=== PATIENT | female | born 1930 | race Caucasian/White ===

== ENCOUNTER 2016-10-23 17:32 | Inpatient (IN) | payer MEDICARE, OTHER ==
[~2016-10-23] VITALS: Ht 144.8 cm; Wt 61.0 kg
[~2016-10-23 17:32] MED LIST: MULT-190 PO; PTU50 PO; SIMV40TA2 PO; [UNRECOGNIZED DRUG - OTHER]; vit b12
[2016-10-23] MEDS ORDERED: ASPIRIN 81 MG CHEW PO STA (18:19)
[2016-10-23 18:30] LABS: BASO % 0.2 %; BASO ABS # 0.01 K/uL (0-0.2); COMPLETE YES; EOS % 1.6 %; HEMATOCRIT 35.6 % (37-47); IG% 0.2 %; LYMPH % 30.5 %; MEAN CELL VOLUME 94.9 fL (80-100); MEAN CORPUSCULAR HEMOGLOBIN 31.2 pg (25-34); MEAN CORPUSCULAR HGB CONC 32.9 g/dl (32-36); MEAN PLATELET VOLUME 12.4 fL (7.4-10.4); MONO % 7.2 %; NEUT % 60.3 %; PLATELET COUNT 188 K/uL (130-400); RED BLOOD COUNT 3.75 M/uL (4.2-5.4); WHITE BLOOD COUNT 5.58 K/uL (4.8-10.8)
--- NOTE | 2016-10-23 18:39 | EMERGENCY ROOM VISIT NOTE ---
History Report prepared by Lisbeth: Marly Watson Under the Supervision of: Dr. Rogelio Peck D.O. First contact with patient: 17:47 Chief Complaint: CARDIAC ASSESSMENT Stated Complaint: CHEST PRESSURE/HEAVINESS, B/L EDEMA TO LEGS Nursing Triage Summary: Pt presents with pain across chest "for awhile, but constant for a week." Denies cardiac hx. Denies radiation of pain. History of Present Illness The patient is an 86 year old female who presents to the Emergency Room with complaints of persistent shortness of breath over the last several days. She currently rates her discomfort as a 7/10 in severity. The patient states that she over-exerted herself and developed persistent shortness of breath. She additionally reports previous chest pain that radiated into her back. The patient states that she last had this chest pain two weeks ago. She states that exertion worsens her symptoms. The patient reports 1 week of lower extremity swelling. She denies seeing her PCP regarding her symptoms, noting that she has an appointment scheduled tomorrow with her PCP. The patient denies any abdominal pain or vomiting. She denies any history of CHF, hypertension, diabetes, heart disease, or kidney disease. Source of History: patient Onset: last several days Position: other (global) Symptom Intensity: 7/10 Quality: other (shortness of breath) Timing: other (persistent) Associated Symptoms: + chest pain, No vomiting, No abdominal pain Note: Associated Symptoms: swelling to lower extremities Review of Systems See HPI for pertinent positives & negatives. A total of 10 systems reviewed and were otherwise negative. Past Medical & Surgical Medical Problems: (1) GERD (gastroesophageal reflux disease) (2) Hyperthyroidism (3) Vitamin D deficiency Surgical Problems: (1) H/O varicose vein stripping (2) History of tonsillectomy and adenoidectomy (3) S/P tonsillectomy Family History Diabetes mellitus Heart disease Hypertension Lung disease Social History Smoking Status: Never Smoker Smokeless Tobacco Use: No Alcohol Use: none Marital Status: Occupation Status: retired Current/Historical Medications Scheduled Cyanocobalamin (Vitamin B-12), 1,000 MCG PO DAILY Ergocalciferol (Vitamin D 17972 Unit), 50,000 UNIT PO WK Ocuvite Preservision (Ocuvite Preservision), 1 TAB PO DAILY Omeprazole (Prilosec), 40 MG PO DAILY Allergies Coded Allergies: Oxycodone (Verified Adverse Reaction, Unknown, vomiting, 10/23/16) Physical Exam Vital Signs Date Time Temp Pulse Resp B/P (MAP) Pulse Ox O2 Delivery O2 Flow Rate FiO2 10/23/16 19:13 98 Nasal Cannula 2.0 10/23/16 18:43 102 14 135/78 96 Room Air 10/23/16 18:41 101 16 78/70 95 Room Air 10/23/16 17:53 108 10/23/16 17:48 95 Room Air 10/23/16 17:36 36.9 109 20 137/77 97 Room Air Physical Exam GENERAL: Patient is awake, alert, and in no acute distress. Patient is resting comfortably and showing no signs of anxiety EYES: The conjunctivae are clear. The pupils are round and reactive. EARS, NOSE, MOUTH AND THROAT: The nose is without any evidence of any deformity. Mucous membranes are moist tongue is midline NECK: The neck is nontender and supple. RESPIRATORY: Diminished breath sounds at both bases, slight tachypnea noted, no conversational dyspnea. CARDIOVASCULAR: Tachycardic rate but regular rhythm. No definite murmur noted to auscultation. GASTROINTESTINAL: The abdomen is soft. Bowel sounds are present in all quadrants. Abdomen is nontender MUSCULOSKELETAL/EXTREMITIES: There is no evidence of gross deformity full range of motion is noted in the hips and shoulders SKIN: Pedal edema noted bilaterally. NEUROLOGIC: Patient is awake alert and oriented x3. Medical Decision & Procedures ER Provider Diagnostic Interpretation: X-ray results as stated below per interpretation by me and the radiologist. CHEST ONE VIEW PORTABLE CLINICAL HISTORY: 86 years-old Female presenting with EVALUATE RESPIRATORY DISTRESS.DYSPNEA. TECHNIQUE: Portable upright AP view of the chest was obtained. COMPARISON: None. FINDINGS: Atherosclerosis of aortic arch. Enlargement of the cardiac silhouette. Bibasilar hazy opacities. Small bilateral pleural effusions suspected. No pneumothorax. Osseous structures and upper abdomen normal. IMPRESSION: 1. Bibasilar hazy opacities in the setting of cardiomegaly and small effusions most likely represents mild pulmonary edema. Differential considerations include aspiration. Electronically signed by: Humberto Bass M.D. 10/23/2016 6:41 PM Dictated Date/Time: 10/23/2016 6:40 PM Laboratory Results 10/23/16 17:55 Red Blood Count 3.75, Mean Corpuscular Volume 94.9, Mean Corpuscular Hemoglobin 31.2, Mean Corpuscular Hemoglobin Concent 32.9, Mean Platelet Volume 12.4, Neutrophils (%) (Auto) 60.3, Lymphocytes (%) (Auto) 30.5, Monocytes (%) (Auto) 7.2, Eosinophils (%) (Auto) 1.6, Basophils (%) (Auto) 0.2, Neutrophils # (Auto) 3.37, Lymphocytes # (Auto) 1.70, Monocytes # (Auto) 0.40, Eosinophils # (Auto) 0.09, Basophils # (Auto) 0.01 10/23/16 17:55 10/23/16 19:10 Test 10/23/16 17:55 10/23/16 19:10 White Blood Count 5.58 K/uL (4.8-10.8) Red Blood Count 3.75 M/uL (4.2-5.4) Hemoglobin 11.7 g/dL (12.0-16.0) Hematocrit 35.6 % (37-47) Mean Corpuscular Volume 94.9 fL (80-100) Mean Corpuscular Hemoglobin 31.2 pg (25-34) Mean Corpuscular Hemoglobin Concent 32.9 g/dl (32-36) Platelet Count 188 K/uL (130-400) Mean Platelet Volume 12.4 fL (7.4-10.4) Neutrophils (%) (Auto) 60.3 % Lymphocytes (%) (Auto) 30.5 % Monocytes (%) (Auto) 7.2 % Eosinophils (%) (Auto) 1.6 % Basophils (%) (Auto) 0.2 % Neutrophils # (Auto) 3.37 K/uL (1.4-6.5) Lymphocytes # (Auto) 1.70 K/uL (1.2-3.4) Monocytes # (Auto) 0.40 K/uL (0.11-0.59) Eosinophils # (Auto) 0.09 K/uL (0-0.5) Basophils # (Auto) 0.01 K/uL (0-0.2) RDW Standard Deviation 49.1 fL (36.4-46.3) RDW Coefficient of Variation 14.2 % (11.5-14.5) Immature Granulocyte % (Auto) 0.2 % Immature Granulocyte # (Auto) 0.01 K/uL (0.00-0.02) Prothrombin Time 11.7 SECONDS (9.0-12.0) Prothromb Time International Ratio 1.1 (0.9-1.1) Activated Partial Thromboplast Time 28.7 SECONDS (21.0-31.0) Partial Thromboplastin Ratio 1.1 Anion Gap 6.0 mmol/L (3-11) Est Creatinine Clear Calc Drug Dose 34.7 ml/min Estimated GFR () 64.5 Estimated GFR (Non- 55.6 BUN/Creatinine Ratio 9.5 (10-20) Calcium Level 9.0 mg/dl (8.5-10.1) Total Bilirubin 0.8 mg/dl (0.2-1) Alanine Aminotransferase (ALT/SGPT) 40 U/L (12-78) Alkaline Phosphatase 55 U/L (45-117) Pro-B-Type Natriuretic Peptide 8214 pg/ml (0-1800) Total Protein 7.6 gm/dl (6.4-8.2) Albumin 3.6 gm/dl (3.4-5.0) Chemistry Specimen Hemolysis Direct Bilirubin 0.2 mg/dl (0-0.2) Aspartate Amino Transf (AST/SGOT) 26 U/L (15-37) Total Creatine Kinase 66 U/L (26-192) Thyroid Stimulating Hormone (TSH) 4.740 uIu/ml (0.300-4.500) Free Thyroxine 1.14 ng/dl (0.80-1.60) Laboratory results per my review. Medications Administered Medications (Trade) Dose Ordered Sig/Ryne Route Start Time Stop Time Status Last Admin Dose Admin Aspirin (Aspirin Chew) 324 mg NOW STAT PO 10/23/16 18:19 10/23/16 18:20 DC 10/23/16 18:53 324 MG Heparin Sodium/ Dextrose 1 ea NOW STAT N/A 10/23/16 19:38 10/23/16 19:39 DC 10/23/16 19:38 1 EA Heparin Sodium (Porcine) (Heparin Sq 5000 Unit/0.5ml) 5,000 unit STK-MED ONCE .ROUTE 10/23/16 19:47 10/23/16 19:48 DC 10/23/16 19:52 5,000 UNIT Heparin Sodium/ Dextrose (Heparin 25,000 Unit/500ml D5W) 25,000 unit STK-MED ONCE .ROUTE 10/23/16 19:47 10/23/16 19:48 DC 10/23/16 19:52 25,000 UNIT Furosemide (Lasix Inj) 40 mg NOW STAT IV 10/23/16 19:53 10/23/16 19:55 DC 10/23/16 20:40 40 MG ECG Indication: chest pain, SOB/dyspnea Rate (beats per minute): 110 Rhythm: sinus tachycardia Findings: nonspecific-ST abn (lateral and inferior), no ectopy, other (poor R wave progression) Comparison ECG Date: no prior available Change: Repeat EKG: Sinus Tachycardia 111 beats per minute, no ectopy, persistence of pervious inferior and lateral ST abnormalities. No change from previous tracing. ED Course 1746: The patient was evaluated in room C6. A complete history and physical examination were performed. 1818: Ordered Aspirin 324 mg PO. 1904: I reevaluated the patient and she is resting comfortably. I discussed the exam findings with her and her family and I discussed the treatment plan. They verbalized complete understanding and agreement. The patient will be evaluated for further treatment. 1915: I discussed the patients case with Kassandra Hopkins. She is going to evaluate the patient for further treatment. 1920: I reevaluated the patient and updated the patient on the treatment plan. 1951: I discussed the patients case with Dr. García, Cardiology. He recommends that the patient receives Lasix. Medical Decision Differential diagnosis: Etiologies such as cardiac ischemia, aortic dissection, pulmonary embolism, musculoskeletal, infections, pericarditis, myocarditis, esophageal rupture, reactive airway disease, COPD, CHF, gastrointestinal, as well as others were entertained. Nursing notes reviewed. The patient is an 86-year-old female who presented to emergency department for evaluation of chest discomfort. The patient started having chest discomfort approximately one week ago and is started noticing intermittent chest pain with exertion as well as trouble breathing. She notices swelling in her legs. Her history and physical exam appear to be consistent with pulmonary edema. Her EKG was very abnormal and showed inferior changes that could be consistent with ischemia. I discussed the patient's laboratory and radiographic studies with her. She was treated with aspirin in the emergency department. She was also started on heparin and given a dose of Lasix. She was placed on supplement oxygen as well. I discussed the patient's condition with the on-call [facility] hospitalist group as well as the on-call [facility] model set artist. Likely an echocardiogram will help discern some other pathology at this time. The patient continued to be pain-free. She was agreeable to inpatient evaluation. Medication Reconcilliation Current Medication List: was personally reviewed by me Blood Pressure Screening Patient's blood pressure: Normal blood pressure Blood pressure disposition: Did not require urgent referral Consults Time Called: 1913 Consulting Physician: Kassandra Hopkins Returned Call: 1915 I discussed the patients case with Kassandra Hopkins. She is going to evaluate the patient for further treatment. Additional Consults: Time Called: 1944 Consulted Physician: Dr. García, Cardiology Returned Call: 1951 Additional Comments: I discussed the patients case with Dr. García, Cardiology. He recommends that the patient receives Lasix. Impression Primary Impression: Pulmonary edema Additional Impressions: Abnormal EKG Substernal chest pain Elevated troponin Critical Care I have personally spent greater than 45 minutes of critical care time in the direct management of this patient. This includes bedside care, interpretation of diagnostic studies, and testing, discussion with consultants, patient, and family members, and other required patient management activities. This 45 minutes is in excess of all separately billable procedures. Scribe Attestation The scribe's documentation has been prepared under my direction and personally reviewed by me in its entirety. I confirm that the note above accurately reflects all work, treatment, procedures, and medical decision making performed by me. Departure Information Dispostion Being Evaluated By Hospitalist Referrals Bryan Morgan M.D. (PCP) Problem Qualifiers
[2016-10-23 18:40] LABS: INR 1.1 (0.9-1.1); PARTIAL THROMBOPLASTIN RATIO 1.1; PROTHROMBIN TIME (PATIENT) 11.7 SECONDS (9.0-12.0)
--- NOTE | 2016-10-23 18:42 | DIAGNOSTIC IMAGING REPORT ---
CHEST ONE VIEW PORTABLE CLINICAL HISTORY: 86 years-old Female presenting with EVALUATE RESPIRATORY DISTRESS.DYSPNEA. TECHNIQUE: Portable upright AP view of the chest was obtained. COMPARISON: None. FINDINGS: Atherosclerosis of aortic arch. Enlargement of the cardiac silhouette. Bibasilar hazy opacities. Small bilateral pleural effusions suspected. No pneumothorax. Osseous structures and upper abdomen normal. IMPRESSION: 1. Bibasilar hazy opacities in the setting of cardiomegaly and small effusions most likely represents mild pulmonary edema. Differential considerations include aspiration. Electronically signed by: Humberto Bass M.D. 10/23/2016 6:41 PM Dictated Date/Time: 10/23/2016 6:40 PM
[2016-10-23 19:00] LABS: ALKALINE PHOSPHATASE 55 U/L (45-117); ALT/SGPT 40 U/L (12-78); BLOOD UREA NITROGEN 9 mg/dl (7-18); BUN/CREATININE RATIO 9.5 (10-20); CARBON DIOXIDE 28 mmol/L (21-32); CHLORIDE 108 mmol/L (98-107); CREATININE 0.93 mg/dl (0.60-1.20); GLUCOSE 83 mg/dl (70-99); SODIUM 142 mmol/L (136-145)
[2016-10-23] MEDS ORDERED: PRLSR20 PO (19:00)
[2016-10-23] MEDS ORDERED: CHOL2000 PO (19:00)
[2016-10-23] MEDS ORDERED: CYAN10005 PO (19:00)
[2016-10-23 19:33] LABS: POTASSIUM 3.6 mmol/L (3.5-5.1)
[2016-10-23 19:42] LABS: CKMB/CK RATIO 1.5 (0-3.0)
[2016-10-23] MEDS ORDERED: HEPARIN 25000 UNIT/500 ML D5W ONE (19:47)
[2016-10-23] MEDS ORDERED: HEPARIN SOD 5000 UNIT/0.5 ML CARP ONE (19:47)
[2016-10-23] MEDS ORDERED: FUROSEMIDE 40 MG/4 ML VIAL IV STA (19:53)
[2016-10-23] MEDS ORDERED: NITROGLYCERIN 0.4 MG SL PER TAB CHARGE SL PRN (20:15)
[2016-10-23] MEDS ORDERED: ONDANSETRON INJ 2 MG/ML 2 ML VIAL IV PRN (20:15)
[2016-10-23] MEDS ORDERED: ACETAMINOPHEN 325 MG TAB PO PRN (20:15)
[2016-10-23] MEDS ORDERED: ERGO500037 PO (20:32)
[2016-10-23] MEDS ORDERED: OMEP40CA41 PO (20:32)
[2016-10-23] MEDS: ATORVASTATIN 40 MG TAB PO SCH (21:00)
--- NOTE | 2016-10-23 21:21 | History and Physical ---
History & Physical Date & Time of Service: Oct 23, 2016 ~ 20:00 Chief Complaint: Shortness of Breath Primary Care Physician: Bryan Morgan M.D. History of Present Illness 86 year old female who presents to the ER with shortness of breath. Patient reports that about two weeks ago, shortly before going to bed she developed severe mid sternal chest heaviness. She reports symptoms lasted for several hours and resolved on their own. She reports that since that time she has noted progressively worsening shortness of breath. She has shortness of breath with minimal activity. She also has noticed increased BLLE edema that will improve once legs are elevated. She noticed a lump in her left calf that has now resolved. Calves are very tender to touch. Of note, patient was on a long plane ride last week. She denies any further episodes of chest pain. No lightheadedness, dizziness, diaphoresis, or syncopal events. She denies abdominal pain, nausea, vomiting, or diarrhea. No fever or chills. She denies urinary symptoms. Of note, patient reports she stopped taking her hyperthyroid medicine a few months ago because her TSH was normal and there were not any refills. Upon arrival to the ER, patient is found to have EKG changes, mildly elevated troponin, and CXR showing pulmonary edema. Patient was given full dose ASA, started on Heparin gtt, and Lasix 40mg IV. Past Medical/Surgical History Medical Problems: (1) GERD (gastroesophageal reflux disease) Status: Chronic (2) Hyperthyroidism Status: Chronic (3) Vitamin D deficiency Status: Chronic Surgical Problems: (1) H/O varicose vein stripping Status: Chronic (2) History of tonsillectomy and adenoidectomy Status: Chronic (3) S/P tonsillectomy Status: Resolved Family History non contributory due to patient's advanced age Social History Smoking Status: Never Smoker Alcohol Use: none Housing status: lives alone Immunizations History of Tetanus Vaccine?: Yes Tetanus Immunization Date: Sep 14, 2007 History of Pneumococcal: Yes Pneumococcal Date: Jun 23, 2014 Allergies Coded Allergies: Oxycodone (Verified Adverse Reaction, Unknown, vomiting, 10/23/16) Home Medications Scheduled Cyanocobalamin (Vitamin B-12), 1,000 MCG PO DAILY Ergocalciferol (Vitamin D 98411 Unit), 50,000 UNIT PO WK Ocuvite Preservision (Ocuvite Preservision), 1 TAB PO DAILY Omeprazole (Prilosec), 40 MG PO DAILY Review of Systems ROS per HPI, all other systems reviewed and negative Physical Exam Vital Signs Date Time Temp Pulse Resp B/P (MAP) Pulse Ox O2 Delivery O2 Flow Rate FiO2 10/23/16 19:13 98 Nasal Cannula 2.0 10/23/16 18:43 102 14 135/78 96 Room Air 10/23/16 18:41 101 16 78/70 95 Room Air 10/23/16 17:53 108 10/23/16 17:48 95 Room Air 10/23/16 17:36 36.9 109 20 137/77 97 Room Air General Appearance: + mild distress (shortness of breath with minimal exertion / conversation) Head: normocephalic Eyes: normal inspection ENT: hearing grossly normal Neck: supple, no JVD Respiratory/Chest: + decreased breath sounds (BL), + crackles (BL bases, more prominent in the anterior upper lung mitchell) Cardiovascular: normal peripheral pulses, + tachycardia (rate in the low 100s, rhythm regular), + pertinent finding (+1 pitting edema BLLE) Abdomen/GI: normal bowel sounds, non tender, soft Extremities/Musculoskelatal: + calf tenderness (BL) Neurologic/Psych: no motor/sensory deficits, alert, normal mood/affect, oriented x 3 Skin: normal color, warm/dry Diagnostics Laboratory Results Results Past 24 Hours Test 10/23/16 17:55 10/23/16 19:10 Range/Units White Blood Count 5.58 4.8-10.8 K/uL Red Blood Count 3.75 4.2-5.4 M/uL Hemoglobin 11.7 12.0-16.0 g/dL Hematocrit 35.6 37-47 % Mean Corpuscular Volume 94.9 80-100 fL Mean Corpuscular Hemoglobin 31.2 25-34 pg Mean Corpuscular Hemoglobin Concent 32.9 32-36 g/dl Platelet Count 188 130-400 K/uL Mean Platelet Volume 12.4 7.4-10.4 fL Neutrophils (%) (Auto) 60.3 % Lymphocytes (%) (Auto) 30.5 % Monocytes (%) (Auto) 7.2 % Eosinophils (%) (Auto) 1.6 % Basophils (%) (Auto) 0.2 % Neutrophils # (Auto) 3.37 1.4-6.5 K/uL Lymphocytes # (Auto) 1.70 1.2-3.4 K/uL Monocytes # (Auto) 0.40 0.11-0.59 K/uL Eosinophils # (Auto) 0.09 0-0.5 K/uL Basophils # (Auto) 0.01 0-0.2 K/uL RDW Standard Deviation 49.1 36.4-46.3 fL RDW Coefficient of Variation 14.2 11.5-14.5 % Immature Granulocyte % (Auto) 0.2 % Immature Granulocyte # (Auto) 0.01 0.00-0.02 K/uL Prothrombin Time 11.7 9.0-12.0 SECONDS Prothromb Time International Ratio 1.1 0.9-1.1 Activated Partial Thromboplast Time 28.7 21.0-31.0 SECONDS Partial Thromboplastin Ratio 1.1 Sodium Level 142 136-145 mmol/L Potassium Level 3.6 3.5-5.1 mmol/L Chloride Level 108 98-107 mmol/L Carbon Dioxide Level 28 21-32 mmol/L Anion Gap 6.0 3-11 mmol/L Blood Urea Nitrogen 9 7-18 mg/dl Creatinine 0.93 0.60-1.20 mg/dl Est Creatinine Clear Calc Drug Dose 34.7 ml/min Estimated GFR () 64.5 Estimated GFR (Non- 55.6 BUN/Creatinine Ratio 9.5 10-20 Random Glucose 83 70-99 mg/dl Calcium Level 9.0 8.5-10.1 mg/dl Total Bilirubin 0.8 0.2-1 mg/dl Direct Bilirubin 0.2 0-0.2 mg/dl Aspartate Amino Transf (AST/SGOT) 26 15-37 U/L Alanine Aminotransferase (ALT/SGPT) 40 12-78 U/L Alkaline Phosphatase 55 45-117 U/L Total Creatine Kinase 66 26-192 U/L Creatine Kinase MB 1.1 1.0 0.5-3.6 ng/ml Creatine Kinase MB Ratio 1.5 0-3.0 Troponin I 0.130 0-0.045 ng/ml Pro-B-Type Natriuretic Peptide 8214 0-1800 pg/ml Total Protein 7.6 6.4-8.2 gm/dl Albumin 3.6 3.4-5.0 gm/dl Chemistry Specimen Hemolysis Diagnostic Radiology CXR IMPRESSION: 1. Bibasilar hazy opacities in the setting of cardiomegaly and small effusions most likely represents mild pulmonary edema. Differential considerations include aspiration. Impression Assessment and Plan PULMONARY EDEMA EKG CHANGES, ELEVATED TROPONIN - admit to tele - patient presenting with progressive shortness of breath and lower extremity edema x 2 weeks that developed after an episode of severe chest pressure - in the ED, patient found to have EKG changes concerning for subacute inferior / anterior wall ND; borderline 1mm ST elevation in lead III along with with Q waves in lead III and V4 - suspect patient had a cardiac event two weeks ago and has now developed a cardiomyopathy - vitals stable, saturating well on room air - troponin 0.130 - started on heparin gtt in ED, will continue - s/p full dose ASA in ED, will continue with 81mg daily - start atorvastatin 80mg - s/p Lasix 40mg IV in ED, will order 40mg IV daily - echo in AM - leg edema like due to acute CHF however to tenderness on exam and recent travel, will check dopplers - case discussed with Dr. García - hold on beta kyaw due to acute CHF HYPERTHYROIDISM - patient self stopped PTU a few months ago - will check TSH DVT PROPHYLAXIS - on heparin gtt CODE STATUS - Patient is a full code as per my discussion with her. DISPO - In my clinical judgment this beneficiary meets acute admission criteria, established by [facility], that includes being hospitalized through two midnights. Attending addendum: Agree with the above H&P; please refer to above for more detail. Patient was brought by her daughter for a noticeable difficulty in breathing and decreased exercise tolerance. The patient was reluctant to come to the hospital despite noting orthopnea, increased leg swelling, intermittent palpitations, wheezing, occasional dizziness/lightheadedness, and fatigue. She reports the symptoms have been ongoing for about 2 weeks, but most drastically about a week ago after she traveled via airplane. She also recalls an episode of severe chest pain about 2 weeks ago that lasted for several hours and then resolved slowly. Cardiac: RR, S1 and S2 auscultated, no carotid bruits Resp: bilateral crackles, + expiratory wheeze noted GI: soft, NT, ND, +BS NEW PULMONARY EDEMA: likely new onset CHF but need TTE to confirm -monitor in tele -diuresis with IV lasix -monitor BMP daily -daily weights, strict I's and O's -serial CM, first troponin mildly elevated -TTE -Cardiology consult -EKG suggestive of possible previous ischemic event, repeat in AM and continue IV heparin until ACS has been ruled out VTE Prophylaxis VTE Risk Assessment Done? Y/N: Yes Risk Level: Moderate Given or contraindicated: Other Anticoagulation
--- NOTE | 2016-10-23 21:40 | DIAGNOSTIC IMAGING REPORT ---
VENOUS DOPPLER LW EXT BILAT HISTORY: Pain edema COMPARISON STUDY: None. FINDINGS: There is normal compressibility, flow, and augmentation within the bilateral lower extremity deep venous systems. IMPRESSION: No DVT within the right or left lower extremity. The above report was generated using voice recognition software. It may contain grammatical, syntax or spelling errors. Electronically signed by: Braden Bravo M.D. 10/23/2016 9:39 PM Dictated Date/Time: 10/23/2016 9:38 PM
[2016-10-23 21:45] VITALS: BP 131/81; PULSE 93; TEMP 36.7; Ht 144.8 cm; Wt 61.0 kg
[2016-10-23] MEDS: HEPARIN 25,000 UNIT/500ML D5W 500 ML IV PRN (22:45)
[2016-10-24] VITALS (8 sets, daily range): BP systolic 94–119; BP diastolic 59–78; PULSE 88–95; TEMP 36.7–37.4; O2SAT 92–97
[2016-10-24 01:53] LABS: PARTIAL THROMBOPLASTIN RATIO 3.9
[2016-10-24] MEDS: HEPARIN 25,000 UNIT/500ML D5W 500 ML IV PRN ×2 (03:47→23:30)
[2016-10-24] MEDS ORDERED: POTASSIUM CHLORIDE 10 MEQ TABCR PO STA (05:48)
[2016-10-24] MEDS ORDERED: METOPROLOL TARTRATE 25 MG TAB PO ONE (05:50)
--- NOTE | 2016-10-24 05:51 | Progress Note ---
Internal Med Progress Note Date of Service: Oct 24, 2016. Provider Documentation: Made aware by RN of NSVT episode. Patient asymptomatic. low K, low mag noted. AP NSVT Replace lytes Initiate low-dose beta kyaw to prevent arrhythmia recurrence. Vital Signs: Date Time Temp Pulse Resp B/P (MAP) Pulse Ox O2 Delivery O2 Flow Rate FiO2 10/24/16 08:00 Nasal Cannula 10/24/16 07:44 36.7 92 18 119/78 (92) 97 2.0 10/24/16 04:00 95 Nasal Cannula 2.0 10/24/16 03:15 36.8 93 20 118/78 (91) 96 2.0 10/24/16 00:01 95 Nasal Cannula 2.0 10/23/16 21:45 36.7 93 20 131/81 Nasal Cannula 2.0 10/23/16 20:43 101 22 129/93 95 Nasal Cannula 2.0 10/23/16 19:13 98 Nasal Cannula 2.0 10/23/16 18:43 102 14 135/78 96 Room Air 10/23/16 18:41 101 16 78/70 95 Room Air 10/23/16 17:53 108 10/23/16 17:48 95 Room Air 10/23/16 17:36 36.9 109 20 137/77 97 Room Air Lab Results: Results Past 24 Hours Test 10/23/16 17:55 10/23/16 19:10 10/23/16 23:55 10/24/16 01:12 Range/Units White Blood Count 5.58 4.8-10.8 K/uL Red Blood Count 3.75 4.2-5.4 M/uL Hemoglobin 11.7 12.0-16.0 g/dL Hematocrit 35.6 37-47 % Mean Corpuscular Volume 94.9 80-100 fL Mean Corpuscular Hemoglobin 31.2 25-34 pg Mean Corpuscular Hemoglobin Concent 32.9 32-36 g/dl Platelet Count 188 130-400 K/uL Mean Platelet Volume 12.4 7.4-10.4 fL Neutrophils (%) (Auto) 60.3 % Lymphocytes (%) (Auto) 30.5 % Monocytes (%) (Auto) 7.2 % Eosinophils (%) (Auto) 1.6 % Basophils (%) (Auto) 0.2 % Neutrophils # (Auto) 3.37 1.4-6.5 K/uL Lymphocytes # (Auto) 1.70 1.2-3.4 K/uL Monocytes # (Auto) 0.40 0.11-0.59 K/uL Eosinophils # (Auto) 0.09 0-0.5 K/uL Basophils # (Auto) 0.01 0-0.2 K/uL RDW Standard Deviation 49.1 36.4-46.3 fL RDW Coefficient of Variation 14.2 11.5-14.5 % Immature Granulocyte % (Auto) 0.2 % Immature Granulocyte # (Auto) 0.01 0.00-0.02 K/uL Prothrombin Time 11.7 9.0-12.0 SECONDS Prothromb Time International Ratio 1.1 0.9-1.1 Activated Partial Thromboplast Time 28.7 101.8 21.0-31.0 SECONDS Partial Thromboplastin Ratio 1.1 3.9 Sodium Level 142 136-145 mmol/L Potassium Level 3.6 3.5-5.1 mmol/L Chloride Level 108 98-107 mmol/L Carbon Dioxide Level 28 21-32 mmol/L Anion Gap 6.0 3-11 mmol/L Blood Urea Nitrogen 9 7-18 mg/dl Creatinine 0.93 0.60-1.20 mg/dl Est Creatinine Clear Calc Drug Dose 34.7 ml/min Estimated GFR () 64.5 Estimated GFR (Non- 55.6 BUN/Creatinine Ratio 9.5 10-20 Random Glucose 83 70-99 mg/dl Calcium Level 9.0 8.5-10.1 mg/dl Total Bilirubin 0.8 0.2-1 mg/dl Direct Bilirubin 0.2 0-0.2 mg/dl Aspartate Amino Transf (AST/SGOT) 26 15-37 U/L Alanine Aminotransferase (ALT/SGPT) 40 12-78 U/L Alkaline Phosphatase 55 45-117 U/L Total Creatine Kinase 66 26-192 U/L Creatine Kinase MB 1.1 1.0 1.3 0.5-3.6 ng/ml Creatine Kinase MB Ratio 1.5 0-3.0 Troponin I 0.130 0.157 0-0.045 ng/ml Pro-B-Type Natriuretic Peptide 8214 0-1800 pg/ml Total Protein 7.6 6.4-8.2 gm/dl Albumin 3.6 3.4-5.0 gm/dl Chemistry Specimen Hemolysis Thyroid Stimulating Hormone (TSH) 4.740 0.300-4.500 uIu/ml Free Thyroxine 1.14 0.80-1.60 ng/dl Test 10/24/16 06:29 Range/Units White Blood Count 5.69 4.8-10.8 K/uL Red Blood Count 3.75 4.2-5.4 M/uL Hemoglobin 11.5 12.0-16.0 g/dL Hematocrit 35.6 37-47 % Mean Corpuscular Volume 94.9 80-100 fL Mean Corpuscular Hemoglobin 30.7 25-34 pg Mean Corpuscular Hemoglobin Concent 32.3 32-36 g/dl Platelet Count 169 130-400 K/uL Mean Platelet Volume 11.6 7.4-10.4 fL Neutrophils (%) (Auto) 64.5 % Lymphocytes (%) (Auto) 27.1 % Monocytes (%) (Auto) 6.2 % Eosinophils (%) (Auto) 1.8 % Basophils (%) (Auto) 0.2 % Neutrophils # (Auto) 3.68 1.4-6.5 K/uL Lymphocytes # (Auto) 1.54 1.2-3.4 K/uL Monocytes # (Auto) 0.35 0.11-0.59 K/uL Eosinophils # (Auto) 0.10 0-0.5 K/uL Basophils # (Auto) 0.01 0-0.2 K/uL RDW Standard Deviation 49.7 36.4-46.3 fL RDW Coefficient of Variation 14.3 11.5-14.5 % Immature Granulocyte % (Auto) 0.2 % Immature Granulocyte # (Auto) 0.01 0.00-0.02 K/uL Activated Partial Thromboplast Time 68.6 21.0-31.0 SECONDS Partial Thromboplastin Ratio 2.6 Sodium Level 143 136-145 mmol/L Potassium Level 3.2 3.5-5.1 mmol/L Chloride Level 107 98-107 mmol/L Carbon Dioxide Level 30 21-32 mmol/L Anion Gap 6.0 3-11 mmol/L Blood Urea Nitrogen 10 7-18 mg/dl Creatinine 0.79 0.60-1.20 mg/dl Est Creatinine Clear Calc Drug Dose 39.9 ml/min Estimated GFR () 78.6 Estimated GFR (Non- 67.8 BUN/Creatinine Ratio 13.0 10-20 Random Glucose 93 70-99 mg/dl Calcium Level 8.5 8.5-10.1 mg/dl Magnesium Level 1.7 1.8-2.4 mg/dl Creatine Kinase MB 1.3 0.5-3.6 ng/ml Creatine Kinase MB Ratio 0-3.0 Troponin I 0.153 0-0.045 ng/ml
[2016-10-24 06:42] LABS: BASO % 0.2 %; BASO ABS # 0.01 K/uL (0-0.2); COMPLETE YES; EOS % 1.8 %; HEMATOCRIT 35.6 % (37-47); IG% 0.2 %; LYMPH % 27.1 %; LYMPH ABS # 1.54 K/uL (1.2-3.4); MEAN CELL VOLUME 94.9 fL (80-100); MEAN CORPUSCULAR HEMOGLOBIN 30.7 pg (25-34); MEAN CORPUSCULAR HGB CONC 32.3 g/dl (32-36); MEAN PLATELET VOLUME 11.6 fL (7.4-10.4); MONO % 6.2 %; NEUT % 64.5 %; PLATELET COUNT 169 K/uL (130-400); RED BLOOD COUNT 3.75 M/uL (4.2-5.4); WHITE BLOOD COUNT 5.69 K/uL (4.8-10.8)
[2016-10-24 07:01] LABS: PARTIAL THROMBOPLASTIN RATIO 2.6
[2016-10-24 07:18] LABS: BLOOD UREA NITROGEN 10 mg/dl (7-18); CALCIUM 8.5 mg/dl (8.5-10.1); CARBON DIOXIDE 30 mmol/L (21-32); CHLORIDE 107 mmol/L (98-107); CREATININE 0.79 mg/dl (0.60-1.20); GLUCOSE 93 mg/dl (70-99); MAGNESIUM 1.7 mg/dl (1.8-2.4); POTASSIUM 3.2 mmol/L (3.5-5.1); SODIUM 143 mmol/L (136-145)
[2016-10-24] MEDS: CEROVITE ADV FORMULA TAB PO SCH (07:51)
[2016-10-24] MEDS: CYANOCOBALAMIN 500 MCG TAB (VIT B-12) PO SCH (07:51)
[2016-10-24] MEDS: ATORVASTATIN 40 MG TAB PO SCH (07:51)
[2016-10-24] MEDS: PANTOprazole SOD 40 MG TAB PO SCH (07:51)
[2016-10-24] MEDS: ASPIRIN 81 MG ECTAB PO SCH (07:51)
[2016-10-24] MEDS ORDERED: MAGNESIUM SULFATE 1GM / D5W 1 GM in PREMIXED IN D5W 100 ML IV STA (08:10)
[2016-10-24] MEDS ORDERED: POTASSIUM CHLORIDE 10 MEQ TABCR PO ONE (08:15)
[2016-10-24] MEDS ORDERED: POTASSIUM CHLORIDE 20 MEQ TABCR PO ONE (08:15)
--- NOTE | 2016-10-24 08:25 | ECHOCARDIOGRAM REPORT ---
*NOTICE TO RECEIVING LIBERTARIAN AGENCY This information is strictly Confidential and protected under [place] law. [place] law prohibits you from making any further disclosure of this information unless further disclosure is expressly permitted by the written consent of the person to whom it pertains or is authorized by law. A general authorization for the release of medical or other information is not sufficient for this purpose. Hospital accepts no responsibility if the information is made available to any other person, INCLUDING THE PATIENT. Interpretation Summary * Name: WOLF HUGGINS Study Date: 10/24/2016 06:32 AM BP: 118/78 mmHg * Patient Location: C.2T\S\S240\S\2 HR: 101 * : 1930 (M/d/yy) Gender: Female Height: 57 in * Age: 86 yrs Ethnicity: CA Weight: 151 lb * Ordering Physician: Arlin Doyle * Performed By: Michelle Carter * * Reason For Study: CHF * BSA: 1.6 m2 * -- Conclusions -- * Mildly dilated LV chamber size with global thinning. * Severely reduced LV systolic function with severe global hypokinesis, EF 25-30%. * Grade II diastolic dysfunction. * The right ventricular cavity size is enlarged (proximal parasternal long axis right ventricular outflow tract dimension >3.3 cm). * The right ventricular systolic function is reduced as assessed by tricuspid annular plane systolic excursion (TAPSE) (TAPSE <1.6 cm). * Aortic valve sclerosis mild, without significant aortic valvular stenosis. * Mild to moderate tricuspid regurgitation. * Moderate tricuspid regurgitation. * Mild left atrial enlargement. * Moderate right atrial enlargement. * Pulmonary hypertension is present with a PASP of 51 mmHg assuming a RA pressure of 15 mmHg. Procedure Details * A complete two-dimensional transthoracic echocardiogram was performed (2D, M-mode, Doppler and color flow Doppler). * A contrast injection of Definity was performed to improve assessment of LV function. * Contrast was injected into an intravenous site in the left arm. * One vial of Definity ultrasound contrast was diluted in normal saline to a total volume of 10 ml. A total of '3' ml of solution was administered during imaging. * Lot # [id number] of Definity utilized for procedure. * Expiration date 11/08. Left Ventricle * The left ventricle is mildly dilated. * There is no thrombus. * There is global thinning of the left ventricular quigley. * Ejection Fraction = 25-30%. * Left ventricular systolic function is severely reduced. * There is severe global hypokinesis of the left ventricle. Right Ventricle * The right ventricular cavity size is enlarged (proximal parasternal long axis right ventricular outflow tract dimension >3.3 cm). * The right ventricular systolic function is reduced as assessed by tricuspid annular plane systolic excursion (TAPSE) (TAPSE <1.6 cm). Atria * The left atrial size is normal. * The right atrium is moderately dilated. * No ASD detected; PFO is not assessed. Mitral Valve * The mitral valve anatomy is normal. * There is no mitral valve stenosis. * There is mild to moderate mitral regurgitation. Tricuspid Valve * The tricuspid valve anatomy is normal. * There is no tricuspid stenosis. * There is moderate tricuspid regurgitation. Aortic Valve * The aortic valve is trileaflet. * Aortic valve sclerosis mild, without significant aortic valvular stenosis. * There is no significant aortic regurgitation. Pulmonic Valve * The pulmonary valve is not well seen, but the Doppler examination is normal without significant regurgitation or stenosis. Great Vessels * The aortic root and proximal ascending aorta are normal sized. Pericardium/Pleural * There is no pericardial effusion. Great Vessels * Dilated inferior vena cava with reduced collapsability with sniff indicates an elevated right atrial pressure of 15 mmHg Left Ventricular Diastolic Function * Diastolic dysfunction, Grade II (pseudonormalization pattern). MMode 2D Measurements and Calculations IVSd 1.0 cm IVSs 1.5 cm LVIDd 5.0 cm LVIDs 4.3 cm LVPWd 1.4 cm LVPWs 1.3 cm IVS/LVPW 0.76 FS 14.3 % EDV(Teich) 120.0 ml ESV(Teich) 83.7 ml EF(Teich) 30.3 % EDV(cubed) 127.5 ml ESV(cubed) 80.3 ml EF(cubed) 37.0 % % IVS thick 44.0 % % LVPW thick -2.44 % LV mass(C)d 234.5 grams LV mass(C)dI 147.0 grams/m\S\2 LV mass(C)s 234.5 grams LV mass(C)sI 147.0 grams/m\S\2 CO(Teich) 3.7 l/min CI(Teich) 2.3 l/min/m\S\2 SV(Teich) 36.3 ml SI(Teich) 22.8 ml/m\S\2 CO(cubed) 4.8 l/min CI(cubed) 3.0 l/min/m\S\2 SV(cubed) 47.2 ml SI(cubed) 29.6 ml/m\S\2 ACS 1.4 cm asc Aorta Diam 2.8 cm LVOT diam 1.8 cm LVOT area 2.6 cm\S\2 LVAd ap4 38.3 cm\S\2 LVLd ap4 8.1 cm EDV(MOD-sp4) 149.0 ml LVAs ap4 33.1 cm\S\2 LVLs ap4 8.1 cm ESV(MOD-sp4) 111.0 ml EF(MOD-sp4) 25.5 % LVAd ap2 43.3 cm\S\2 LVLd ap2 8.7 cm EDV(MOD-sp2) 181.0 ml LVAs ap2 34.8 cm\S\2 LVLs ap2 7.7 cm ESV(MOD-sp2) 127.0 ml EF(MOD-sp2) 29.8 % CO(MOD-sp4) 3.8 l/min CI(MOD-sp4) 2.4 l/min/m\S\2 SV(MOD-sp4) 38.0 ml SI(MOD-sp4) 23.8 ml/m\S\2 CO(MOD-sp2) 5.5 l/min CI(MOD-sp2) 3.4 l/min/m\S\2 SV(MOD-sp2) 54.0 ml SI(MOD-sp2) 33.8 ml/m\S\2 Doppler Measurements and Calculations MV E max carmella 113.5 cm/sec MV A max carmella 107.7 cm/sec MV E/A 1.1 MV dec time 0.10 sec Ao V2 max 83.8 cm/sec Ao max PG 2.8 mmHg Ao max PG (full) 1.6 mmHg ANDREW(V,A) 1.7 cm\S\2 ANDREW(V,D) 1.7 cm\S\2 LV V1 max PG 1.2 mmHg LV V1 max 55.3 cm/sec MR max carmella 487.7 cm/sec MR max PG 95.1 mmHg MR mean carmella 356.5 cm/sec MR mean PG 58.5 mmHg MR VTI 146.8 cm PA V2 max 68.9 cm/sec PA max PG 1.9 mmHg TR max carmella 298.3 cm/sec
[2016-10-24] MEDS ORDERED: MAGNESIUM SULFATE 1GM / D5W 1 GM in PREMIXED IN D5W 100 ML IV ONE (08:30)
[2016-10-24] MEDS: MAGNESIUM OXIDE 400 MG TAB PO SCH (08:31)
[2016-10-24] MEDS: POTASSIUM CHLR 10 MEQ / WTR 10 MEQ in PREMIXED WATER 100 ML IV SCH ×2 (08:36→09:26)
[2016-10-24] MEDS ORDERED: FUROSEMIDE INJ 40 MG in SYRINGE 0 ML IV SCH (09:00)
--- NOTE | 2016-10-24 10:20 | Clinical Documentation Query ---
CLINICAL DOCUMENTATION QUERY 86 year old female who presents to the ER with shortness of breath. Currently the medical record in reflecting this patient had am OR and is suffering from acute CHF. The medical record documentation is now expected to include definitive and explicit description of the patient's heart failure; vague terms such as "heart failure," ventricular dysfunction," and "CHF" may not fully capture the physician's intended level of severity. In your clinical opinion is this patient being managed for: ( ) Acute systolic and diastolic CHF in setting of OR treated with IV Lasix, Cardiology consult, echocardiogram ( ) Acute systolic CHF ( ) Other explanation of clinical findings (Please Explain) ( ) Unable to determine (Please Define) ( ) Need to Discuss ( ) Not Agree The medical record reflects the following clinical findings, treatment, and risk factors. Clinical Indicators: SOB, Crackles bilateral lung mitchell, tachycardia, +1 pitting edema to lower extremities. Echo showed severely reduced LV systolic function, severe global hypokinesis, EF 25-30%, Grade II diastolic dysfunction as well as reduce RVEF. Treatment: IV Lasix, Cardiology consult, echocardiogram Risk Factors: Age, OR, Please clarify and document your clinical opinion in the progress notes and discharge summary. Terms such as "probable", "suspected", "likely", "questionable", "possible", or "still to be ruled out" are acceptable. IF IN AGREEMENT, YOU MUST DOCUMENT ABOVE DIAGNOSTIC STATEMENT IN DAILY PROGRESS NOTES AND DISCHARGE SUMMARY. This document is not part of the patient's record. Thank You, Ramiro Allison, PATEL [phone]
[2016-10-24] MEDS ORDERED: SPIRONOLACTONE 25 MG TAB PO ONE (14:45)
[2016-10-24] MEDS ORDERED: METOPROLOL SUCC 25MG EXT REL TAB PO ONE (14:45)
--- NOTE | 2016-10-24 14:59 | CARDIOLOGY CONSULTATION ---
DATE OF CONSULTATION: 10/24/2016 CONSULTATION REQUESTED BY: Arlin Doyle. REASON FOR CONSULTATION: Chest pain, shortness of breath. HISTORY OF PRESENT ILLNESS: Mrs. Cota is a very pleasant 86-year-old woman with no significant past medical history. She presented to [facility] on 10/23/2016 with a complaint of worsening shortness of breath. The patient states her symptoms all started approximately 2 weeks ago. She states that one evening 2 weeks ago she was getting ready to go to bed. She laid down to sleep when she suddenly developed crushing substernal chest pain. She described it as a pressure/burning sensation that radiated across her precordium and was associated with shortness of breath, nausea and a sense of doom. She states that the chest pain persisted for several hours, but then slowly subsided and she then was able to sleep for a few hours. The next day when she woke up, she was very tired and she started developing shortness of breath. She states her shortness of breath was initially with exertion but gradually progressed to the point where it was occurring with less and less exertion more often. During that 2-week time course, she also started developing lower extremity edema, abdominal distention and orthopnea. The patient states that she has trouble lying flat to begin with due to chronic vertebral compression fractures, but states that she was more and more uncomfortable because of shortness of breath when lying flat, now as well. The symptoms came to a head on the when she was severely short of breath and she came into the Emergency Department. Upon arrival, she was found to have a minimally elevated troponin, she was started on heparin. She was also found to be volume overloaded and given diuretics. After admission to telemetry she had a 16 beat run of nonsustained ventricular tachycardia on the floor asymptomatic at which point her electrolytes were supplemented. Currently, she is without complaint at rest. She states that she feels a lot less bloated after receiving diuretics and both her daughters are at the bedside. When questioned why she did not come in for evaluation when she had the episode of chest pain she states that she was stubborn and did not want to go to the hospital. PAST SURGICAL HISTORY: 1. Varicose vein stripping. 2. Tonsil and adenoidectomy. MEDICAL ILLNESSES: 1. Hyperthyroidism. 2. Vitamin D deficiency. 3. GERD. FAMILY HISTORY: Noncontributory. SOCIAL HISTORY: Denies any alcohol, tobacco or recreational drug use. She is . She lives at home by herself. She is normally able to reproduce her ADLs, but has been having difficulty in the last 2 weeks. REVIEW OF SYSTEMS: As per HPI, all other review of systems reviewed and negative at this time. ALLERGIES: OXYCODONE CAUSES VOMITING. MEDICATIONS AN OUTPATIENT: Vitamin B12 daily, vitamin D weekly, Ocuvite eyedrops daily, Prilosec daily. PHYSICAL EXAMINATION: VITALS: Temperature 36.7, pulse 92, respiratory rate 12, blood pressure 119/78. GENERAL: Awake, alert, oriented x3 in no acute distress. HEENT: Normocephalic, atraumatic. Pupils equal, round, and reactive to light and accommodation. Extraocular muscles intact. Anicteric sclerae. Moist mucous membranes. NECK: No JVD, no bruit. CARDIOVASCULAR: Regular. Positive S4. Normal S1 and S2. No S3. 3/6 holosystolic ejection murmur greatest at the left sternal border, fifth intercostal space without radiation, no rubs. PULMONARY: Clear to auscultation except for bibasilar crackles. No rhonchi or wheezing. ABDOMEN: Soft, but distended, no rebound, guarding, tenderness, positive fluid shift. EXTREMITIES: Very tender to touch with +1 bilateral lower extremity pitting edema. Extremities are warm and dry. TEST RESULTS: A 12-lead EKG performed in the Emergency Department independently reviewed at this time shows sinus tachycardia at 110 beats per minute, anterior infarct, inferior infarct, no previous studies available for comparison. A 2D echocardiogram was read as mildly dilated LV chamber size with global thinning and severely reduced LV systolic function with severe global hypokinesis, EF 25-30%, grade 2 diastolic dysfunction, dilated right ventricular cavity with decreased systolic function, mild aortic valve sclerosis without stenosis, mild to moderate mitral regurgitation, moderate tricuspid regurgitation, pulmonary hypertension is present with PA systolic pressure of 51 mmHg assuming an RA pressure of 15 mmHg. IMPRESSION: 1. Acute decompensated systolic heart failure. 2. Severe cardiomyopathy, likely ischemic in origin. 3. Pulmonary hypertension. 4. Reduced RV systolic function. RECOMMENDATIONS: It was my pleasure to see Mrs. Cota in consultation today. The patient and her 2 daughters were counseled that it appears as though she most likely suffered a major myocardial infarction 2 weeks ago with her chest pain and we are now seeing is the consequence of that. So they are counseled that at this point we will continue to aggressively diurese her to help improve her symptoms. She will also be started on evidence based beta kyaw, MATT inhibitor, spironolactone to try and help increase her LV systolic function. Once she is medically optimized, we will consider cardiac catheterization. Otherwise, given her reduced systolic function, she will likely require LifeVest on discharge and possible ICD in the future. The patient and her daughter state that they understand the above as it has been described to them and all their questions have been answered to satisfaction. Thank you very much for allowing me to participate in the care of your patient. It will be my pleasure to follow her along with you during her hospital stay.
--- NOTE | 2016-10-24 15:05 | Progress Note ---
Internal Med Progress Note Date of Service: Oct 24, 2016. Provider Documentation: SUBJECTIVE: resting comfortably denies chest pain sob improved afebrile no nausea say she is fine OBJECTIVE: Vital Signs-as noted below Exam: General-alert and oriented. Not in distress ENT-Normal hearing Neck-no neck masses supple Lungs-cta b/l no wheezing bibasilar crackles present Heart-s1 and s2 heard regular rate and rhythm no murmurs Abdomen-soft bowel sounds present non tender no distension Extremities- no erythema Neuro-alert and oriented moves extremities Lab data as noted below. ASSESSMENT & PLAN: PULMONARY EDEMA EKG CHANGES, ELEVATED TROPONIN recent NSTEMI? Nonsustained V tac 10/24/16 As per H and P: patient presenting with progressive shortness of breath and lower extremity edema x 2 weeks that developed after an episode of severe chest pressure EKG changes concerning for subacute inferior / anterior wall MN; borderline 1mm ST elevation in lead III along with with Q waves in lead III and V4 troponin 0.130 - 0.15 on heparin gtt, b kyaw and statin on iv lasix await cardiology inputs Acute systolic chf new onset ef 25-30% on iv lasix 40mg bid daily weights i/o's cardiology consulted HYPERTHYROIDISM patient self stopped PTU a few months ago TSH mild elevation. T4 normal. DVT PROPHYLAXIS On heparin gtt CODE STATUS Full DISPO Monitor in tele pt/ot prior to discharge social service for d/c planning Vital Signs: Date Time Temp Pulse Resp B/P (MAP) Pulse Ox O2 Delivery O2 Flow Rate FiO2 10/24/16 16:00 Nasal Cannula 10/24/16 15:30 37.4 88 22 94/59 (71) 92 Nasal Cannula 2.0 10/24/16 12:00 Nasal Cannula 10/24/16 11:10 36.8 88 18 103/68 (80) 95 2.0 10/24/16 08:00 Nasal Cannula 10/24/16 07:44 36.7 92 18 119/78 (92) 97 2.0 10/24/16 04:00 95 Nasal Cannula 2.0 10/24/16 03:15 36.8 93 20 118/78 (91) 96 2.0 10/24/16 00:01 95 Nasal Cannula 2.0 10/23/16 21:45 36.7 93 20 131/81 Nasal Cannula 2.0 10/23/16 20:43 101 22 129/93 95 Nasal Cannula 2.0 10/23/16 19:13 98 Nasal Cannula 2.0 10/23/16 18:43 102 14 135/78 96 Room Air 10/23/16 18:41 101 16 78/70 95 Room Air Lab Results: Results Past 24 Hours Test 10/23/16 19:10 10/23/16 23:55 10/24/16 01:12 10/24/16 06:29 Range/Units Potassium Level 3.6 3.2 3.5-5.1 mmol/L Direct Bilirubin 0.2 0-0.2 mg/dl Aspartate Amino Transf (AST/SGOT) 26 15-37 U/L Total Creatine Kinase 66 26-192 U/L Creatine Kinase MB 1.0 1.3 1.3 0.5-3.6 ng/ml Creatine Kinase MB Ratio 1.5 0-3.0 Thyroid Stimulating Hormone (TSH) 4.740 0.300-4.500 uIu/ml Free Thyroxine 1.14 0.80-1.60 ng/dl Activated Partial Thromboplast Time 101.8 68.6 21.0-31.0 SECONDS Partial Thromboplastin Ratio 3.9 2.6 Troponin I 0.157 0.153 0-0.045 ng/ml White Blood Count 5.69 4.8-10.8 K/uL Red Blood Count 3.75 4.2-5.4 M/uL Hemoglobin 11.5 12.0-16.0 g/dL Hematocrit 35.6 37-47 % Mean Corpuscular Volume 94.9 80-100 fL Mean Corpuscular Hemoglobin 30.7 25-34 pg Mean Corpuscular Hemoglobin Concent 32.3 32-36 g/dl Platelet Count 169 130-400 K/uL Mean Platelet Volume 11.6 7.4-10.4 fL Neutrophils (%) (Auto) 64.5 % Lymphocytes (%) (Auto) 27.1 % Monocytes (%) (Auto) 6.2 % Eosinophils (%) (Auto) 1.8 % Basophils (%) (Auto) 0.2 % Neutrophils # (Auto) 3.68 1.4-6.5 K/uL Lymphocytes # (Auto) 1.54 1.2-3.4 K/uL Monocytes # (Auto) 0.35 0.11-0.59 K/uL Eosinophils # (Auto) 0.10 0-0.5 K/uL Basophils # (Auto) 0.01 0-0.2 K/uL RDW Standard Deviation 49.7 36.4-46.3 fL RDW Coefficient of Variation 14.3 11.5-14.5 % Immature Granulocyte % (Auto) 0.2 % Immature Granulocyte # (Auto) 0.01 0.00-0.02 K/uL Sodium Level 143 136-145 mmol/L Chloride Level 107 98-107 mmol/L Carbon Dioxide Level 30 21-32 mmol/L Anion Gap 6.0 3-11 mmol/L Blood Urea Nitrogen 10 7-18 mg/dl Creatinine 0.79 0.60-1.20 mg/dl Est Creatinine Clear Calc Drug Dose 39.9 ml/min Estimated GFR () 78.6 Estimated GFR (Non- 67.8 BUN/Creatinine Ratio 13.0 10-20 Random Glucose 93 70-99 mg/dl Calcium Level 8.5 8.5-10.1 mg/dl Magnesium Level 1.7 1.8-2.4 mg/dl Test 10/24/16 16:34 Range/Units Potassium Level 4.7 3.5-5.1 mmol/L Magnesium Level 2.1 1.8-2.4 mg/dl
[2016-10-24] MEDS: FUROSEMIDE INJ 40 MG in SYRINGE 0 ML IV SCH (15:54)
[2016-10-24 17:12] LABS: POTASSIUM 4.7 mmol/L (3.5-5.1)
[2016-10-24 17:19] LABS: MAGNESIUM 2.1 mg/dl (1.8-2.4)
[2016-10-24] MEDS ORDERED: METOPROLOL TARTRATE 25 MG TAB PO SCH (21:00)
[2016-10-25 04:21] VITALS: BP 108/69; PULSE 89; TEMP 36.9; O2SAT 96
[2016-10-25 07:52] VITALS: BP 105/67; PULSE 88; TEMP 36.9; O2SAT 93
[2016-10-25] MEDS: METOPROLOL SUCC 25MG EXT REL TAB PO SCH (08:38)
[2016-10-25] MEDS: SPIRONOLACTONE 25 MG TAB PO SCH (08:39)
[2016-10-25] MEDS: FUROSEMIDE INJ 40 MG in SYRINGE 0 ML IV SCH ×2 (08:39→18:00)
[2016-10-25] MEDS: CEROVITE ADV FORMULA TAB PO SCH (08:42)
[2016-10-25] MEDS: MAGNESIUM OXIDE 400 MG TAB PO SCH (08:42)
[2016-10-25] MEDS: PANTOprazole SOD 40 MG TAB PO SCH (08:42)
[2016-10-25] MEDS: ASPIRIN 81 MG ECTAB PO SCH (08:42)
[2016-10-25] MEDS: CYANOCOBALAMIN 500 MCG TAB (VIT B-12) PO SCH (08:43)
[2016-10-25] MEDS: LISINOPRIL 2.5 MG TAB PO SCH (08:44)
[2016-10-25 08:49] LABS: BUN/CREATININE RATIO 12.2 (10-20); CALCIUM 9.1 mg/dl (8.5-10.1); CREATININE 0.97 mg/dl (0.60-1.20); MAGNESIUM 2.1 mg/dl (1.8-2.4); POTASSIUM 4.3 mmol/L (3.5-5.1)
[2016-10-25 11:11] VITALS: BP 99/65; PULSE 85; TEMP 37; O2SAT 92
--- NOTE | 2016-10-25 13:39 | Cardiology Follow-Up ---
Subjective Subjective Date of Service: Oct 25, 2016. Pt evaluation today including: conversation w/ patient, physical exam, chart review, lab review, review of studies, review of inpatient medication list Additional Details: Pt seen and examined, oob in chair, son now at bedside. Denies cp, sob, palpitations, lightheadedness or dizziness. States swelling is improving as well. Tele reviewed: sinus rhythm without arrhythmia or significant ectopy. Review of Systems Respiratory: + dyspnea on exertion, No see HPI, No cough, No sputum, No wheezing, No shortness of breath, No dyspnea at rest, No hemoptysis, No problem reported Cardiac: No see HPI, No chest pain, No orthopnea, No PND, No edema, No claudication, No palpitations, No problem reported Objective Vital Signs Last Vital Signs Documentation Date Time Temp Pulse Resp B/P (MAP) Pulse Ox O2 Delivery O2 Flow Rate FiO2 10/25/16 11:11 37.0 85 18 99/65 (76) 92 2.0 10/25/16 08:30 Nasal Cannula Physical Exam: General Appearance: WD/WN, no apparent distress Eyes: bilateral eyes normal inspection, bilateral eyes PERRL, bilateral eyes EOMI ENT: normal ENT inspection, hearing grossly normal, pharynx normal Neck: supple, no adenopathy, thyroid normal, no JVD Respiratory/Chest: chest non-tender, no respiratory distress, no accessory muscle use, + crackles (R>L) Cardiovascular: regular rate, rhythm, no JVD, no murmur, + gallop/S4 Abdomen: normal bowel sounds, non tender, soft, no organomegaly, no pulsatile mass Extremities: normal inspection, no calf tenderness, + pedal edema (trace b/l LE edema) 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 acute systolic heart failure presumed ischemic given symptom timeline diuresing well still with some crackles on exam will cont bid lasix for today and change to daily in AM cont spironolactone, toprol, lisinopril and atorvastatin do see a role for plavix given the timeline will d/c heparin son updated on status, he is questioning life expectancy. Explained that given reduced function she will have a decreased life expectancy but unable to give an accurate time estimate. He was satisfied with discussion.
--- NOTE | 2016-10-25 15:24 | Progress Note ---
Internal Med Progress Note Date of Service: Oct 25, 2016. Provider Documentation: SUBJECTIVE: sitting on the chair comfortably says feeling lot better today denies sob or chest pain 'no cough afebrile no complaints OBJECTIVE: Vital Signs-as noted below Exam: General-alert and oriented. Not in distress ENT-Normal hearing Neck-no neck masses supple Lungs-cta b/l no wheezing mild bibasilar crackles present Heart-s1 and s2 heard regular rate and rhythm no murmurs Abdomen-soft bowel sounds present non tender no distension Extremities- no erythema Neuro-alert and oriented moves extremities Lab data as noted below. ASSESSMENT & PLAN: PULMONARY EDEMA EKG CHANGES, ELEVATED TROPONIN recent NSTEMI? Nonsustained V tac 10/24/16 As per H and P: patient presenting with progressive shortness of breath and lower extremity edema x 2 weeks that developed after an episode of severe chest pressure EKG changes concerning for subacute inferior / anterior wall [place]; borderline 1mm ST elevation in lead III along with with Q waves in lead III and V4 troponin 0.130 - 0.15 on heparin gtt, b kyaw and statin on iv Lasix 40mg bid to change Lasix to daily in am on Aldactone, lisinopril and Toprol and statin stopped iv heparin await cardiology inputs Acute systolic chf new onset ef 25-30% on iv lasix 40mg bid daily weights i/o's improving cardiology consulted HYPERTHYROIDISM patient self stopped PTU a few months ago TSH mild elevation. T4 normal. DVT PROPHYLAXIS Lovenox CODE STATUS Full DISPO Monitor in tele pt/ot prior to discharge social service for d/c planning Vital Signs: Date Time Temp Pulse Resp B/P (MAP) Pulse Ox O2 Delivery O2 Flow Rate FiO2 10/25/16 11:11 37.0 85 18 99/65 (76) 92 2.0 10/25/16 08:30 Nasal Cannula 2.0 10/25/16 07:52 36.9 88 18 105/67 (80) 93 2.0 10/25/16 04:21 36.9 89 18 108/69 (82) 96 Nasal Cannula 2.0 10/25/16 04:00 Nasal Cannula 2.0 10/25/16 00:01 Nasal Cannula 2.0 10/24/16 23:32 37.1 90 20 105/67 (80) 94 Nasal Cannula 2.0 10/24/16 20:00 Nasal Cannula 2.0 10/24/16 19:20 36.9 95 22 102/68 (79) 95 Nasal Cannula 2.0 10/24/16 16:00 Nasal Cannula 10/24/16 15:30 37.4 88 22 94/59 (71) 92 Nasal Cannula 2.0 Lab Results: Results Past 24 Hours Test 10/24/16 16:34 10/25/16 07:48 Range/Units Potassium Level 4.7 4.3 3.5-5.1 mmol/L Magnesium Level 2.1 2.1 1.8-2.4 mg/dl Sodium Level 140 136-145 mmol/L Chloride Level 104 98-107 mmol/L Carbon Dioxide Level 30 21-32 mmol/L Anion Gap 6.0 3-11 mmol/L Blood Urea Nitrogen 12 7-18 mg/dl Creatinine 0.97 0.60-1.20 mg/dl Est Creatinine Clear Calc Drug Dose 32.1 ml/min Estimated GFR () 61.3 Estimated GFR (Non- 52.9 BUN/Creatinine Ratio 12.2 10-20 Random Glucose 94 70-99 mg/dl Calcium Level 9.1 8.5-10.1 mg/dl
[2016-10-25 16:06] VITALS: BP 115/61; PULSE 80; TEMP 36.6; O2SAT 95
[2016-10-25 19:41] VITALS: BP 102/67; PULSE 74; TEMP 37.2; O2SAT 96
[2016-10-25] MEDS: ATORVASTATIN 40 MG TAB PO SCH (21:19)
[2016-10-26] VITALS (9 sets, daily range): BP systolic 91–121; BP diastolic 59–66; PULSE 84–98; TEMP 36.6–37.5; O2SAT 91–97
[2016-10-26 06:43] LABS: BASO % 0.2 %; BASO ABS # 0.01 K/uL (0-0.2); COMPLETE YES; EOS % 1.6 %; IG% 0.2 %; LYMPH % 25.6 %; LYMPH ABS # 1.56 K/uL (1.2-3.4); MEAN CELL VOLUME 94.8 fL (80-100); MEAN CORPUSCULAR HEMOGLOBIN 30.2 pg (25-34); MEAN CORPUSCULAR HGB CONC 31.8 g/dl (32-36); MEAN PLATELET VOLUME 11.6 fL (7.4-10.4); MONO % 9.3 %; NEUT % 63.1 %; PLATELET COUNT 165 K/uL (130-400); RED BLOOD COUNT 4.01 M/uL (4.2-5.4)
[2016-10-26 07:17] LABS: BUN/CREATININE RATIO 14.3 (10-20); CALCIUM 8.9 mg/dl (8.5-10.1); MAGNESIUM 2.1 mg/dl (1.8-2.4); POTASSIUM 3.9 mmol/L (3.5-5.1)
[2016-10-26] MEDS: ENOXAPARIN 40 MG/0.4 ML SYR SQ SCH (08:06)
[2016-10-26] MEDS: PANTOprazole SOD 40 MG TAB PO SCH (08:07)
[2016-10-26] MEDS: CYANOCOBALAMIN 500 MCG TAB (VIT B-12) PO SCH (08:07)
[2016-10-26] MEDS: CEROVITE ADV FORMULA TAB PO SCH (08:07)
[2016-10-26] MEDS: METOPROLOL SUCC 25MG EXT REL TAB PO SCH (08:08)
[2016-10-26] MEDS: SPIRONOLACTONE 25 MG TAB PO SCH (08:08)
[2016-10-26] MEDS: LISINOPRIL 2.5 MG TAB PO SCH ×2 (08:09→20:26)
[2016-10-26] MEDS: MAGNESIUM OXIDE 400 MG TAB PO SCH (08:09)
[2016-10-26] MEDS: ASPIRIN 81 MG ECTAB PO SCH (08:10)
[2016-10-26] MEDS ORDERED: FUROSEMIDE INJ 40 MG in SYRINGE 0 ML IV SCH (09:00)
[2016-10-26] MEDS ORDERED: COLCHICINE 0.6 MG TAB PO ONE (09:45)
--- NOTE | 2016-10-26 10:17 | CARDIOLOGY PROGRESS NOTE ---
DATE: 10/26/2016 DATE: 10/26/2016 FOLLOW-UP VISIT SUBJECTIVE: The patient is an elderly 86-year-old female who had minimal health care until this hospital admission. She presented late with a myocardial infarction and developed ischemic cardiomyopathy. She presented with congestive heart failure. The patient has been diuresed for several days and is feeling much improved. Her only complaint today is that of foot pain on the dorsum of her foot. She has no prior history of gout. OBJECTIVE: GENERAL: She is alert and oriented. VITAL SIGNS: Blood pressure is 110/70, pulse is regular at 74. She is afebrile. HEAD, EYES, EARS, NOSE, AND THROAT: She wears corrective lenses. Mucous membranes are moist. She is normocephalic. NECK: The neck veins are flat. Carotids have good upstrokes bilaterally without bruits. Thyroid is nonpalpable. RESPIRATORY: Breath sounds equal bilaterally and clear to auscultation. CARDIOVASCULAR: Heart has a regular rhythm. There is no S3, S4. No cardiac murmurs. GASTROINTESTINAL: Abdomen is soft, nontender without organomegaly. EXTREMITIES: Free of edema, digital clubbing or cyanosis. The dorsum of the left foot is tender to palpation. NEUROLOGIC: Grossly intact. SKIN: Warm to touch. LYMPH NODES: Negative to palpation. LABORATORY DATA: Hemoglobin is 12.1, potassium is 3.9, creatinine is 1.0. IMPRESSIONS: 1. Recent myocardial infarction. 2. Ischemic cardiomyopathy. 3. Congestive heart failure, now improved. 4. Possible gout. RECOMMENDATIONS: The patient's diuretics I think can now be changed over to oral and I will give her 40 mg of Lasix p.o. starting tomorrow. I think her Puente catheter should be discontinued because the risk of infection. I will give her colchicine today to see if that improves her foot pain. I have also increased her lisinopril to 2.5 mg twice daily. She has elected for conservative management. I believe that that is appropriate and at this point I think we can manage her with medications only. I suspect that her overall LV function will improve now that we have diuresed her and placed her on appropriate medications.
--- NOTE | 2016-10-26 17:13 | Progress Note ---
Internal Med Progress Note Date of Service: Oct 26, 2016. Provider Documentation: SUBJECTIVE: sitting on the bed comfortably complains of pain middle of left foot dorsal aspect afebrile sob improved no chest pain had an episode of cough with whitish sputum OBJECTIVE: Vital Signs-as noted below Exam: General-alert and oriented. Not in distress ENT-Normal hearing Neck-no neck masses supple Lungs-cta b/l no wheezing mild bibasilar crackles present Heart-s1 and s2 heard regular rate and rhythm no murmurs Abdomen-soft bowel sounds present non tender no distension Extremities- no edema mild erythema and tenderness on left middle foot dorsal aspect Neuro-alert and oriented moves extremities Lab data as noted below. ASSESSMENT & PLAN: PULMONARY EDEMA EKG CHANGES, ELEVATED TROPONIN recent NSTEMI? Nonsustained V tac 10/24/16 As per H and P: patient presenting with progressive shortness of breath and lower extremity edema x 2 weeks that developed after an episode of severe chest pressure EKG changes concerning for subacute inferior / anterior wall [place]; borderline 1mm ST elevation in lead III along with with Q waves in lead III and V4 troponin 0.130 - 0.15 on heparin gtt, b kyaw and statin Was on iv Lasix 40mg bid Change Lasix to 40mg po daily in am on Aldactone, lisinopril and Toprol and statin stopped iv heparin medical optimization as per cadiology needs followup currently improved Acute systolic chf new onset ef 25-30% Was on iv lasix 40mg bid daily weights i/o's improving medications as above cardiology consulted Gout? on left foot trial of colchicine will monitor HYPERTHYROIDISM patient self stopped PTU a few months ago TSH mild elevation. T4 normal. DVT PROPHYLAXIS Lovenox CODE STATUS Full DISPO Monitor in tele pt/ot prior to discharge social service for d/c planning Vital Signs: Date Time Temp Pulse Resp B/P (MAP) Pulse Ox O2 Delivery O2 Flow Rate FiO2 10/26/16 16:00 Nasal Cannula 2.0 10/26/16 15:03 36.6 97 20 100/63 (75) 93 Room Air 10/26/16 12:00 Nasal Cannula 2.0 10/26/16 11:40 37.0 88 17 100/60 (73) 97 Room Air 10/26/16 08:00 Nasal Cannula 2.0 10/26/16 07:21 37.2 86 18 102/66 (78) 93 Nasal Cannula 2.0 8/5/17 04:16 Nasal Cannula 2.0 10/26/16 03:51 36.9 84 18 118/66 (83) 95 Room Air 10/26/16 00:42 Nasal Cannula 2.0 10/26/16 00:00 37.3 88 18 121/65 (83) 94 Room Air 10/25/16 20:09 Nasal Cannula 2.0 10/25/16 19:41 37.2 74 16 102/67 (79) 96 Room Air Lab Results: Results Past 24 Hours Test 10/26/16 06:20 Range/Units White Blood Count 6.10 4.8-10.8 K/uL Red Blood Count 4.01 4.2-5.4 M/uL Hemoglobin 12.1 12.0-16.0 g/dL Hematocrit 38.0 37-47 % Mean Corpuscular Volume 94.8 80-100 fL Mean Corpuscular Hemoglobin 30.2 25-34 pg Mean Corpuscular Hemoglobin Concent 31.8 32-36 g/dl Platelet Count 165 130-400 K/uL Mean Platelet Volume 11.6 7.4-10.4 fL Neutrophils (%) (Auto) 63.1 % Lymphocytes (%) (Auto) 25.6 % Monocytes (%) (Auto) 9.3 % Eosinophils (%) (Auto) 1.6 % Basophils (%) (Auto) 0.2 % Neutrophils # (Auto) 3.85 1.4-6.5 K/uL Lymphocytes # (Auto) 1.56 1.2-3.4 K/uL Monocytes # (Auto) 0.57 0.11-0.59 K/uL Eosinophils # (Auto) 0.10 0-0.5 K/uL Basophils # (Auto) 0.01 0-0.2 K/uL RDW Standard Deviation 48.2 36.4-46.3 fL RDW Coefficient of Variation 14.0 11.5-14.5 % Immature Granulocyte % (Auto) 0.2 % Immature Granulocyte # (Auto) 0.01 0.00-0.02 K/uL Sodium Level 138 136-145 mmol/L Potassium Level 3.9 3.5-5.1 mmol/L Chloride Level 101 98-107 mmol/L Carbon Dioxide Level 32 21-32 mmol/L Anion Gap 5.0 3-11 mmol/L Blood Urea Nitrogen 14 7-18 mg/dl Creatinine 1.00 0.60-1.20 mg/dl Est Creatinine Clear Calc Drug Dose 31.0 ml/min Estimated GFR () 59.1 Estimated GFR (Non- 51.0 BUN/Creatinine Ratio 14.3 10-20 Random Glucose 91 70-99 mg/dl Calcium Level 8.9 8.5-10.1 mg/dl Magnesium Level 2.1 1.8-2.4 mg/dl
[2016-10-26] MEDS: COLCHICINE 0.6 MG TAB PO SCH (20:25)
[2016-10-26] MEDS: ATORVASTATIN 40 MG TAB PO SCH (20:27)
[2016-10-27] VITALS (10 sets, daily range): BP systolic 89–136; BP diastolic 52–65; PULSE 81–90; TEMP 36.5–37.4; O2SAT 92–94
[2016-10-27 06:59] LABS: BASO % 0.2 %; BASO ABS # 0.01 K/uL (0-0.2); COMPLETE YES; IG% 0.2 %; LYMPH % 28.7 %; LYMPH ABS # 1.73 K/uL (1.2-3.4); MEAN CORPUSCULAR HEMOGLOBIN 30.3 pg (25-34); MEAN CORPUSCULAR HGB CONC 31.8 g/dl (32-36); MEAN PLATELET VOLUME 12.4 fL (7.4-10.4); MONO % 10.5 %; NEUT % 58.4 %; PLATELET COUNT 180 K/uL (130-400); WHITE BLOOD COUNT 6.02 K/uL (4.8-10.8)
[2016-10-27 07:27] LABS: BUN/CREATININE RATIO 20.4 (10-20); CALCIUM 8.7 mg/dl (8.5-10.1); MAGNESIUM 2.1 mg/dl (1.8-2.4); POTASSIUM 3.8 mmol/L (3.5-5.1)
[2016-10-27] MEDS: PANTOprazole SOD 40 MG TAB PO SCH (07:27)
[2016-10-27] MEDS: CEROVITE ADV FORMULA TAB PO SCH (07:27)
[2016-10-27] MEDS: ASPIRIN 81 MG ECTAB PO SCH (07:28)
[2016-10-27] MEDS: METOPROLOL SUCC 25MG EXT REL TAB PO SCH (07:28)
[2016-10-27] MEDS: CYANOCOBALAMIN 500 MCG TAB (VIT B-12) PO SCH (07:28)
[2016-10-27] MEDS: FUROSEMIDE 40 MG TAB PO SCH (07:29)
[2016-10-27] MEDS: MAGNESIUM OXIDE 400 MG TAB PO SCH (07:30)
[2016-10-27] MEDS: SPIRONOLACTONE 25 MG TAB PO SCH (07:30)
[2016-10-27] MEDS: LISINOPRIL 2.5 MG TAB PO SCH (07:31)
[2016-10-27] MEDS: COLCHICINE 0.6 MG TAB PO SCH ×2 (07:31→20:49)
[2016-10-27] MEDS: ENOXAPARIN 40 MG/0.4 ML SYR SQ SCH (07:32)
--- NOTE | 2016-10-27 11:01 | PROGRESS NOTE ---
DATE: 10/27/2016 FOLLOWUP VISIT SUBJECTIVE: The patient is an elderly 86-year-old female who has lived independently and not needed healthcare for most of her life. Approximately 2 weeks before admission, she had a prolonged episode of chest pain that lasted 1-2 days before resolving. She did not seek medical attention and then presented to the Emergency Department with congestive heart failure. She was diuresed and started on appropriate medications, which have stabilized her condition. The initial echocardiogram indicates cardiomyopathy with global hypokinesis and an estimated left ventricular ejection fraction of 20%-25%; however, I believe that her initial insult was most likely an infarct several weeks ago. She has had a late presentation and has no evidence of ongoing ischemia, so I believe that conservative course is indicated. OBJECTIVE: VITAL SIGNS: Blood pressure is 98/56 and pulse 86 beats per minute. She is afebrile. HEENT: She is normocephalic. Pupils are equal and reactive to light. Extraocular muscles are intact bilaterally. NECK: The neck veins are flat. Carotids have good upstrokes bilaterally without bruits. Thyroid is nonpalpable. RESPIRATORY: Breath sounds equal bilaterally and clear to auscultation. CARDIOVASCULAR: Heart has a regular rhythm. Normal S1 and S2. No S3 or S4. No cardiac rubs or murmurs. GASTROINTESTINAL: Abdomen is soft and nontender without organomegaly. EXTREMITIES: Free of edema, digit clubbing, or cyanosis. NEUROLOGIC: Grossly intact. SKIN: Warm to touch. LYMPH NODES: Negative to palpation. LABORATORY DATA: Hemoglobin is 12.1, potassium is 3.8, creatinine is 1.0, and BUN is 20. Cardiac troponins peaked at 0.157. IMPRESSION: 1. Recent infarct. 2. Ischemic cardiomyopathy with systolic dysfunction. RECOMMENDATIONS: As outlined above, the patient is doing well clinically. Unfortunately, she was a late presentation. Given her age as well as the lack of ongoing ischemic symptoms, I think conservative management is indicated. I would consider doing either pharmacologic stress test before the patient is discharged or as an outpatient. I would also recommend that we repeat her echocardiogram and I will order one for tomorrow to see if she has had improvement in her LV function. I am hopeful that she has had enough improvement with just medications. In regards to any consideration regarding an ICD, the guidelines would indicate at least 90-day wait period to see if she recovers LV function before considering an ICD. I had a long discussion with the daughter yesterday by telephone and I talked to Mrs. Cota. Mrs. Cota is agreeable to conservative management and would rather go in that direction then to an aggressive procedure oriented treatment. We will see what her echocardiogram shows tomorrow. Her blood pressure is low today and she is getting prerenal with an elevated BUN. Unfortunately, she got her Aldactone this morning, but I will discontinue this medication. Last night, she got an extra 2.5 mg of lisinopril and I will discontinue the night dose and continue with 2.5 mg of lisinopril daily. Her beta kyaw was held this morning due to low blood pressure. She does not have any dizziness or lightheadedness at this time. Otherwise, she is doing well and I would recommend that we continue to allow her to increase her activities. FORTINO
--- NOTE | 2016-10-27 17:18 | Progress Note ---
Internal Med Progress Note Date of Service: Oct 27, 2016. Provider Documentation: SUBJECTIVE: sitting on the bed comfortably says her pain in her left foot is somewhat better but still there afebrile denies sob or chest pain 'ambulating o bathroom ok eating ok OBJECTIVE: Vital Signs-as noted below Exam: General-alert and oriented. Not in distress ENT-Normal hearing Neck-no neck masses supple Lungs-cta b/l no wheezing mild bibasilar crackles present Heart-s1 and s2 heard regular rate and rhythm no murmurs Abdomen-soft bowel sounds present non tender no distension Extremities- no edema mild erythema and tenderness on left middle foot dorsal aspect Neuro-alert and oriented moves extremities Lab data as noted below. ASSESSMENT & PLAN: Presented with PULMONARY EDEMA EKG CHANGES, ELEVATED TROPONIN recent NSTEMI? Nonsustained V tac 10/24/16 As per H and P: patient presenting with progressive shortness of breath and lower extremity edema x 2 weeks that developed after an episode of severe chest pressure EKG changes concerning for subacute inferior / anterior wall [place]; borderline 1mm ST elevation in lead III along with with Q waves in lead III and V4 troponin 0.130 - 0.15 on heparin gtt, b kyaw and statin Was on iv Lasix 40mg bid Change Lasix to 40mg po daily in am on Aldactone, lisinopril and Toprol and statin stopped iv heparin medical optimization as per cardiology stopping Aldactone and cutting back on lisinopril for relative hypotension. needs followup currently improved Acute systolic chf new onset ef 25-30% Was on iv lasix 40mg bid daily weights i/o's improving medications as above cardiology on board plan for repeat echo in am Gout? on left foot trial of colchicine will monitor HYPERTHYROIDISM patient self stopped PTU a few months ago TSH mild elevation. T4 normal. DVT PROPHYLAXIS Lovenox CODE STATUS Full DISPO Monitor in tele pt/ot prior to discharge social service for d/c planning Vital Signs: Date Time Temp Pulse Resp B/P (MAP) Pulse Ox O2 Delivery O2 Flow Rate FiO2 10/27/16 16:00 Room Air 10/27/16 15:16 37.3 89 21 89/54 (66) 94 Room Air 10/27/16 12:00 Room Air 10/27/16 11:10 36.9 85 20 136/60 (85) 94 Room Air 10/27/16 09:00 86 98/56 (70) 10/27/16 08:00 Room Air 10/27/16 07:18 36.5 81 20 93/58 (70) 94 Room Air 10/27/16 04:00 93 Room Air 10/27/16 03:42 37.1 87 20 102/65 (77) 93 Room Air 10/26/16 23:59 91 Room Air 10/26/16 23:31 37.3 98 18 103/66 (78) 92 Room Air 10/26/16 20:00 91 Room Air 10/26/16 19:26 37.5 94 18 91/59 (70) 91 Room Air Lab Results: Results Past 24 Hours Test 10/27/16 06:06 Range/Units White Blood Count 6.02 4.8-10.8 K/uL Red Blood Count 4.00 4.2-5.4 M/uL Hemoglobin 12.1 12.0-16.0 g/dL Hematocrit 38.0 37-47 % Mean Corpuscular Volume 95.0 80-100 fL Mean Corpuscular Hemoglobin 30.3 25-34 pg Mean Corpuscular Hemoglobin Concent 31.8 32-36 g/dl Platelet Count 180 130-400 K/uL Mean Platelet Volume 12.4 7.4-10.4 fL Neutrophils (%) (Auto) 58.4 % Lymphocytes (%) (Auto) 28.7 % Monocytes (%) (Auto) 10.5 % Eosinophils (%) (Auto) 2.0 % Basophils (%) (Auto) 0.2 % Neutrophils # (Auto) 3.52 1.4-6.5 K/uL Lymphocytes # (Auto) 1.73 1.2-3.4 K/uL Monocytes # (Auto) 0.63 0.11-0.59 K/uL Eosinophils # (Auto) 0.12 0-0.5 K/uL Basophils # (Auto) 0.01 0-0.2 K/uL RDW Standard Deviation 47.8 36.4-46.3 fL RDW Coefficient of Variation 13.8 11.5-14.5 % Immature Granulocyte % (Auto) 0.2 % Immature Granulocyte # (Auto) 0.01 0.00-0.02 K/uL Sodium Level 137 136-145 mmol/L Potassium Level 3.8 3.5-5.1 mmol/L Chloride Level 101 98-107 mmol/L Carbon Dioxide Level 28 21-32 mmol/L Anion Gap 8.0 3-11 mmol/L Blood Urea Nitrogen 20 7-18 mg/dl Creatinine 1.00 0.60-1.20 mg/dl Est Creatinine Clear Calc Drug Dose 31.1 ml/min Estimated GFR () 59.1 Estimated GFR (Non- 51.0 BUN/Creatinine Ratio 20.4 10-20 Random Glucose 100 70-99 mg/dl Calcium Level 8.7 8.5-10.1 mg/dl Magnesium Level 2.1 1.8-2.4 mg/dl
[2016-10-27] MEDS: ATORVASTATIN 40 MG TAB PO SCH (20:49)
[2016-10-28] VITALS (9 sets, daily range): BP systolic 89–110; BP diastolic 58–66; PULSE 83–95; TEMP 36.9–37.4; O2SAT 93–97
[2016-10-28 07:03] LABS: BASO % 0.2 %; BASO ABS # 0.01 K/uL (0-0.2); COMPLETE YES; EOS % 2.7 %; HEMATOCRIT 39.4 % (37-47); IG% 0.2 %; LYMPH % 27.4 %; LYMPH ABS # 1.34 K/uL (1.2-3.4); MEAN CELL VOLUME 94.7 fL (80-100); MEAN CORPUSCULAR HEMOGLOBIN 29.1 pg (25-34); MEAN CORPUSCULAR HGB CONC 30.7 g/dl (32-36); MEAN PLATELET VOLUME 11.8 fL (7.4-10.4); MONO % 11.9 %; NEUT % 57.6 %; PLATELET COUNT 184 K/uL (130-400); RED BLOOD COUNT 4.16 M/uL (4.2-5.4); WHITE BLOOD COUNT 4.89 K/uL (4.8-10.8)
[2016-10-28 07:33] LABS: BUN/CREATININE RATIO 18.7 (10-20); CALCIUM 8.7 mg/dl (8.5-10.1); CREATININE 0.92 mg/dl (0.60-1.20); MAGNESIUM 2.2 mg/dl (1.8-2.4)
[2016-10-28] MEDS: MAGNESIUM OXIDE 400 MG TAB PO SCH (07:37)
[2016-10-28] MEDS: COLCHICINE 0.6 MG TAB PO SCH (07:37)
[2016-10-28] MEDS: ASPIRIN 81 MG ECTAB PO SCH (07:37)
[2016-10-28] MEDS: FUROSEMIDE 40 MG TAB PO SCH (07:37)
[2016-10-28] MEDS: PANTOprazole SOD 40 MG TAB PO SCH (07:38)
[2016-10-28] MEDS: CYANOCOBALAMIN 500 MCG TAB (VIT B-12) PO SCH (07:38)
[2016-10-28] MEDS: METOPROLOL SUCC 25MG EXT REL TAB PO SCH (07:38)
[2016-10-28] MEDS: CEROVITE ADV FORMULA TAB PO SCH (07:38)
[2016-10-28] MEDS: ENOXAPARIN 40 MG/0.4 ML SYR SQ SCH (07:38)
[2016-10-28] MEDS: LISINOPRIL 2.5 MG TAB PO SCH (07:39)
--- NOTE | 2016-10-28 09:59 | Cardiology Follow-Up ---
Subjective General Date of Service: Oct 28, 2016. Chief Complaint: Diarrhea Pt evaluation today including: conversation w/ patient, physical exam, chart review, lab review, review of studies, review of inpatient medication list History of Present Illness Patient seen and examined. She describes her breathing as "significantly better. " Left foot pain (dorsal aspect of left foot) has improved. Diarrhea x 2 days. No chest pain or palpitations. No orthopnea or PND. Peripheral edema has resolved. No lightheadedness, dizziness, or near syncope I/O's are negative 5,538 mL's overall. Weights do not appear to be accurately recorded. October 24, 2016 TTE Interpretation Summary ([facility], Dr. Chacon): Mildly dilated LV chamber size with global thinning. Severely reduced LV systolic function with severe global hypokinesis, EF 25-30%. Grade II diastolic dysfunction. The right ventricular cavity size is enlarged (proximal parasternal long axis right ventricular outflow tract dimension >3.3 cm). The right ventricular systolic function is reduced as assessed by tricuspid annular plane systolic excursion ( TAPSE) (TAPSE <1.6 cm). Aortic valve sclerosis mild, without significant aortic valvular stenosis. Mild to moderate tricuspid regurgitation. Moderate tricuspid regurgitation. Mild left atrial enlargement. Moderate right atrial enlargement. Pulmonary hypertension is present with a PASP of 51 mmHg assuming a RA pressure of 15 mmHg. Allergies Coded Allergies: Oxycodone (Verified Adverse Reaction, Unknown, vomiting, 10/23/16) Social History Smoking Status: Never Smoker Hx Tobacco Use In Past Year?: No Hx Alcohol Use - Type And Amou: No Hx Substance Use - Type And Am: No Physical Exam Vital Signs Last Vital Signs Documentation Date Time Temp Pulse Resp B/P (MAP) Pulse Ox O2 Delivery O2 Flow Rate FiO2 10/28/16 08:01 93 Room Air 10/28/16 07:52 37.0 84 18 104/64 (77) 10/26/16 16:00 2.0 Physical Exam Constitutional: Level of Distress: NAD Ambulation: ambulating normally Psychiatric: Mental Status: active & alert Orientation: to time, to place, to person Memory: recent memory normal, remote memory normal Head: normocephalic, atraumatic Eyes: Pupils: PERRLA Neck: pertinent finding (No JVD) Lungs: Auscultation: no wheezing, no rales/crackles, no rhonchi, deminished air movement, decreased breath sounds (at the bases) Cardiovascular: Heart Auscultation: RRR (90 bpm), normal S1, normal S2, no rubs, II/ GUS Peripheral Pulses: Dorsalis Pedis Pulse: normal on the left, normal on the right Abdomen: Bowel Sounds: normal Inspection & Palpation: soft, no masses, distended Extremities: no cyanosis, no edema, no clubbing, no ulcers, pertinent finding ( the doral aspect of the left foot is normal) Neurologic: Cranial Nerves: grossly intact Assessment and Plan Assessment and Plan Late presentation myocardial infarction with resultant acute decompensated congestive heart failure secondary to LV systolic dysfunction, EF 25-30%, RV dysfunction. NYHA Class III symptomatology; narrow QRS duration. Telemetry currently demonstrating sinus rhythm in the 90's, without ventricular arrhythmias other than PVC's in singles. Current volume status is normovolemic. RECOMMENDATIONS/PLAN: Limited TTE to reassess LV systolic function Titrate appropriate heart failure medications as blood pressure and heart rate permit, starting with Toprol XL If hypokalemia observed, resume spironolactone. Check nocturnal pulse oximetry prior to discharge ? Inpatient versus outpatient Lexiscan stress testing Discontinue colchicine, RE: Diarrhea CARDIOLOGY ATTENDING ADDENDUM: The patient was seen and personally examined. Agree with Braden Hogue PA-C's findings and plans as documented above. I reviewed recent echo results with patient. Looks like a previous LAD territory infarct. LVEF now 30-35%. Will proceed to Lexiscan stress test prior to discharge. Laboratory Results Last 24 Hours Test 10/28/16 06:36 White Blood Count 4.89 K/uL Red Blood Count 4.16 M/uL Hemoglobin 12.1 g/dL Hematocrit 39.4 % Mean Corpuscular Volume 94.7 fL Mean Corpuscular Hemoglobin 29.1 pg Mean Corpuscular Hemoglobin Concent 30.7 g/dl Platelet Count 184 K/uL Mean Platelet Volume 11.8 fL Neutrophils (%) (Auto) 57.6 % Lymphocytes (%) (Auto) 27.4 % Monocytes (%) (Auto) 11.9 % Eosinophils (%) (Auto) 2.7 % Basophils (%) (Auto) 0.2 % Neutrophils # (Auto) 2.82 K/uL Lymphocytes # (Auto) 1.34 K/uL Monocytes # (Auto) 0.58 K/uL Eosinophils # (Auto) 0.13 K/uL Basophils # (Auto) 0.01 K/uL RDW Standard Deviation 47.4 fL RDW Coefficient of Variation 13.7 % Immature Granulocyte % (Auto) 0.2 % Immature Granulocyte # (Auto) 0.01 K/uL Sodium Level 138 mmol/L Potassium Level 4.0 mmol/L Chloride Level 103 mmol/L Carbon Dioxide Level 30 mmol/L Anion Gap 5.0 mmol/L Blood Urea Nitrogen 17 mg/dl Creatinine 0.92 mg/dl Est Creatinine Clear Calc Drug Dose 33.2 ml/min Estimated GFR () 65.3 Estimated GFR (Non- 56.4 BUN/Creatinine Ratio 18.7 Random Glucose 98 mg/dl Calcium Level 8.7 mg/dl Magnesium Level 2.2 mg/dl
--- NOTE | 2016-10-28 10:40 | ECHOCARDIOGRAM REPORT ---
*NOTICE TO RECEIVING REPUBLICAN AGENCY This information is strictly Confidential and protected under [place] law. [place] law prohibits you from making any further disclosure of this information unless further disclosure is expressly permitted by the written consent of the person to whom it pertains or is authorized by law. A general authorization for the release of medical or other information is not sufficient for this purpose. Hospital accepts no responsibility if the information is made available to any other person, INCLUDING THE PATIENT. Interpretation Summary * Name: WOLF HUGGINS Study Date: 10/28/2016 08:45 AM BP: 104/64 mmHg * Patient Location: C.2T\S\S240\S\2 HR: 94 * : 1930 (M/d/yyy) Gender: Female Height: 57 in * Age: 86 yrs Ethnicity: [place] Weight: 136 lb * Ordering Physician: Jose García * Referring Physician: Self, Referred * Performed By: Cece Carlson RCS * * Reason For Study: LV FUNCTION * BSA: 1.5 m2 * -- Conclusions -- * The left ventricle is moderately dilated. * Left ventricular systolic function is severely reduced. * Ejection Fraction = 30-35%. * Anterior, apical, septal and lateral hypo to akinetic. Procedure Details * A complete two-dimensional transthoracic echocardiogram was performed (2D, M-mode, Doppler and color flow Doppler). * Limited views were obtained. * A contrast injection of Definity was performed to improve assessment of LV function. * Contrast was injected into an intravenous site in the right arm. * One vial of Definity ultrasound contrast was diluted in normal saline to a total volume of 10 ml. A total of '2' ml of solution was administered during imaging. * Lot # [id number] of Definity utilized for procedure. * Expiration date JAN 08. * The attending nurse who injected the contrast agent was GIL YANG, RN. Left Ventricle * The left ventricle is moderately dilated. * Left ventricular systolic function is severely reduced. * Ejection Fraction = 30-35%. * There is anterior wall akinesis. * There is apical akinesis. * There is severe septal hypokinesis. * There is mild to moderate lateral wall hypokinesis. Right Ventricle * The right ventricle is grossly normal size. * The right ventricular systolic function is normal. Atria * The left atrium is moderately dilated. * The right atrium is moderately dilated. * No ASD detected; PFO is not assessed. Mitral Valve * The mitral valve leaflets appear thickened, but open well. * Significant mitral regurgitation is absent. Tricuspid Valve * The tricuspid valve is not well visualized, but is grossly normal. * Significant tricuspid regurgitation is absent. Aortic Valve * Aortic valve sclerosis moderate, without significant aortic valvular stenosis. * There is no significant aortic regurgitation. Great Vessels * The aortic root and proximal ascending aorta are normal sized. Pericardium/Pleural * There is no pericardial effusion. MMode 2D Measurements and Calculations IVSd 1.1 cm IVSs 1.4 cm LVIDd 5.2 cm LVIDs 4.3 cm LVPWd 1.2 cm LVPWs 1.4 cm IVS/LVPW 0.94 FS 15.8 % EDV(Teich) 126.9 ml ESV(Teich) 84.8 ml EF(Teich) 33.1 % EDV(cubed) 136.9 ml ESV(cubed) 81.6 ml EF(cubed) 40.4 % % IVS thick 24.6 % % LVPW thick 12.5 % LV mass(C)d 241.0 grams LV mass(C)dI 157.9 grams/m\S\2 LV mass(C)s 235.9 grams LV mass(C)sI 154.5 grams/m\S\2 SV(Teich) 42.0 ml SI(Teich) 27.5 ml/m\S\2 SV(cubed) 55.3 ml SI(cubed) 36.2 ml/m\S\2 LVAd ap4 32.0 cm\S\2 LVLd ap4 7.8 cm EDV(MOD-sp4) 107.2 ml EDV(sp4-el) 111.4 ml LVAs ap4 22.7 cm\S\2 LVLs ap4 6.0 cm ESV(MOD-sp4) 66.0 ml ESV(sp4-el) 72.0 ml EF(MOD-sp4) 38.4 % EF(sp4-el) 35.4 % LVAd ap2 31.5 cm\S\2 LVLd ap2 7.3 cm EDV(MOD-sp2) 110.8 ml EDV(sp2-el) 114.8 ml LVAs ap2 24.7 cm\S\2 LVLs ap2 6.7 cm ESV(MOD-sp2) 75.5 ml ESV(sp2-el) 76.9 ml EF(MOD-sp2) 31.8 % EF(sp2-el) 33.0 % LVLd %diff -6.03 % EDV(MOD-bp) 110.4 ml LVLs %diff 10.3 % ESV(MOD-bp) 72.2 ml EF(MOD-bp) 34.5 % SV(MOD-sp4) 41.2 ml SI(MOD-sp4) 27.0 ml/m\S\2 SV(MOD-sp2) 35.2 ml SI(MOD-sp2) 23.1 ml/m\S\2 SV(MOD-bp) 38.1 ml SI(MOD-bp) 25.0 ml/m\S\2 SV(sp4-el) 39.4 ml SI(sp4-el) 25.8 ml/m\S\2 SV(sp2-el) 37.9 ml SI(sp2-el) 24.8 ml/m\S\2
--- NOTE | 2016-10-28 16:58 | Progress Note ---
Internal Med Progress Note Date of Service: Oct 28, 2016. Provider Documentation: SUBJECTIVE: having diarrhea- black stools? no sob or chest pain afebrile pain in left foot much improved ambulating ok in room OBJECTIVE: Vital Signs-as noted below Exam: General-alert and oriented. Not in distress ENT-Normal hearing Neck-no neck masses supple Lungs-cta b/l no wheezing mild bibasilar crackles present Heart-s1 and s2 heard regular rate and rhythm no murmurs Abdomen-soft bowel sounds present non tender no distension Extremities- no edema mild erythema and tenderness on left middle foot dorsal aspect-improving Neuro-alert and oriented moves extremities Lab data as noted below. ASSESSMENT & PLAN: Presented with PULMONARY EDEMA EKG CHANGES, ELEVATED TROPONIN recent NSTEMI? Nonsustained V tac 10/24/16 As per H and P: patient presenting with progressive shortness of breath and lower extremity edema x 2 weeks that developed after an episode of severe chest pressure EKG changes concerning for subacute inferior / anterior wall AK; borderline 1mm ST elevation in lead III along with with Q waves in lead III and V4 troponin 0.130 - 0.15 on heparin gtt, b kyaw and statin Was on iv Lasix 40mg bid Change Lasix to 40mg po daily in am on Aldactone, lisinopril and Toprol and statin stopped iv heparin medical optimization as per cardiology stopping Aldactone and cutting back on lisinopril for relative hypotension. needs followup currently improved stable plan for Lexiscan nuclear stress test in am Acute systolic chf new onset ef 25-30% Was on iv lasix 40mg bid daily weights i/o's improving medications as above cardiology on board repaet echo today shows ef 30-35% Gout? on left foot trial of colchicine improved stooped colchicine for diarrhea will monitor HYPERTHYROIDISM patient self stopped PTU a few months ago TSH mild elevation. T4 normal. DVT PROPHYLAXIS Lovenox CODE STATUS Full DISPO Monitor in tele pt/ot prior to discharge social service for d/c planning Vital Signs: Date Time Temp Pulse Resp B/P (MAP) Pulse Ox O2 Delivery O2 Flow Rate FiO2 10/28/16 16:05 93 Room Air 10/28/16 15:37 36.9 20 97/58 (71) 96 Room Air 10/28/16 12:01 93 Room Air 10/28/16 11:38 37.0 83 18 101/66 (78) 97 Room Air 10/28/16 08:01 93 Room Air 10/28/16 07:52 37.0 84 18 104/64 (77) 93 Room Air 10/28/16 04:00 94 Room Air 10/28/16 04:00 37.3 87 18 110/65 (80) 95 Room Air 10/27/16 23:59 94 Room Air 10/27/16 23:57 37.4 84 18 91/52 (65) 93 Room Air 10/27/16 20:03 36.9 90 21 106/62 (77) 92 Room Air 10/27/16 20:00 94 Room Air Lab Results: Results Past 24 Hours Test 10/28/16 06:36 Range/Units White Blood Count 4.89 4.8-10.8 K/uL Red Blood Count 4.16 4.2-5.4 M/uL Hemoglobin 12.1 12.0-16.0 g/dL Hematocrit 39.4 37-47 % Mean Corpuscular Volume 94.7 80-100 fL Mean Corpuscular Hemoglobin 29.1 25-34 pg Mean Corpuscular Hemoglobin Concent 30.7 32-36 g/dl Platelet Count 184 130-400 K/uL Mean Platelet Volume 11.8 7.4-10.4 fL Neutrophils (%) (Auto) 57.6 % Lymphocytes (%) (Auto) 27.4 % Monocytes (%) (Auto) 11.9 % Eosinophils (%) (Auto) 2.7 % Basophils (%) (Auto) 0.2 % Neutrophils # (Auto) 2.82 1.4-6.5 K/uL Lymphocytes # (Auto) 1.34 1.2-3.4 K/uL Monocytes # (Auto) 0.58 0.11-0.59 K/uL Eosinophils # (Auto) 0.13 0-0.5 K/uL Basophils # (Auto) 0.01 0-0.2 K/uL RDW Standard Deviation 47.4 36.4-46.3 fL RDW Coefficient of Variation 13.7 11.5-14.5 % Immature Granulocyte % (Auto) 0.2 % Immature Granulocyte # (Auto) 0.01 0.00-0.02 K/uL Sodium Level 138 136-145 mmol/L Potassium Level 4.0 3.5-5.1 mmol/L Chloride Level 103 98-107 mmol/L Carbon Dioxide Level 30 21-32 mmol/L Anion Gap 5.0 3-11 mmol/L Blood Urea Nitrogen 17 7-18 mg/dl Creatinine 0.92 0.60-1.20 mg/dl Est Creatinine Clear Calc Drug Dose 33.2 ml/min Estimated GFR () 65.3 Estimated GFR (Non- 56.4 BUN/Creatinine Ratio 18.7 10-20 Random Glucose 98 70-99 mg/dl Calcium Level 8.7 8.5-10.1 mg/dl Magnesium Level 2.2 1.8-2.4 mg/dl
[2016-10-28] MEDS: ATORVASTATIN 40 MG TAB PO SCH (20:10)
[2016-10-29] VITALS (9 sets, daily range): BP systolic 91–110; BP diastolic 57–73; PULSE 79–90; TEMP 36.7–37.1; O2SAT 90–98
[2016-10-29] MEDS: ASPIRIN 81 MG ECTAB PO SCH (07:01)
[2016-10-29] MEDS: ENOXAPARIN 40 MG/0.4 ML SYR SQ SCH (07:02)
[2016-10-29] MEDS: MAGNESIUM OXIDE 400 MG TAB PO SCH (07:02)
[2016-10-29] MEDS: METOPROLOL SUCC 25MG EXT REL TAB PO SCH (07:02)
[2016-10-29] MEDS: LISINOPRIL 2.5 MG TAB PO SCH (07:02)
[2016-10-29] MEDS: PANTOprazole SOD 40 MG TAB PO SCH (07:02)
[2016-10-29] MEDS: CEROVITE ADV FORMULA TAB PO SCH (07:02)
[2016-10-29] MEDS: FUROSEMIDE 40 MG TAB PO SCH (07:02)
[2016-10-29] MEDS: CYANOCOBALAMIN 500 MCG TAB (VIT B-12) PO SCH (07:02)
[2016-10-29] MEDS ORDERED: REGADENOSON 0.4 MG/5 ML SYR ONE (07:24)
--- NOTE | 2016-10-29 10:15 | Cardiology Follow-Up ---
Subjective General Date of Service: Oct 29, 2016. Chief Complaint: Diarrhea Pt evaluation today including: conversation w/ patient, physical exam, chart review, lab review, review of studies, review of inpatient medication list History of Present Illness Patient seen and examined. Lexiscan nuclear stress testing completed this morning (results pending). Ambulating to the restroom with a walker, without difficulty. Mild cough. No chest pain. Dyspnea improved. No palpitations. No orthopnea or PND. No peripheral edema. Ongoing diarrhea. No lightheadedness, dizziness, or near syncope I/O's are negative 4,818 mL's overall. Weights do not appear to be accurately recorded. October 24, 2016 TTE Interpretation Summary ([facility], Dr. Chacon): Mildly dilated LV chamber size with global thinning. Severely reduced LV systolic function with severe global hypokinesis, EF 25-30%. Grade II diastolic dysfunction. The right ventricular cavity size is enlarged (proximal parasternal long axis right ventricular outflow tract dimension >3.3 cm). The right ventricular systolic function is reduced as assessed by tricuspid annular plane systolic excursion ( TAPSE) (TAPSE <1.6 cm). Aortic valve sclerosis mild, without significant aortic valvular stenosis. Mild to moderate tricuspid regurgitation. Moderate tricuspid regurgitation. Mild left atrial enlargement. Moderate right atrial enlargement. Pulmonary hypertension is present with a PASP of 51 mmHg assuming a RA pressure of 15 mmHg. October 28, 2016 Limited TTE Interpretation Summary ([facility], Dr. García): The left ventricle is moderately dilated. Left ventricular systolic function is severely reduced. Ejection Fraction = 30-35%. Anterior, apical, septal and lateral hypo to akinetic. Allergies Coded Allergies: Oxycodone (Verified Adverse Reaction, Unknown, vomiting, 10/23/16) Social History Smoking Status: Never Smoker Hx Tobacco Use In Past Year?: No Hx Alcohol Use - Type And Amou: No Hx Substance Use - Type And Am: No Physical Exam Vital Signs Last Vital Signs Documentation Date Time Temp Pulse Resp B/P (MAP) Pulse Ox O2 Delivery O2 Flow Rate FiO2 10/29/16 08:36 93 Room Air 10/29/16 07:41 37.0 87 18 110/73 (85) 10/26/16 16:00 2.0 Physical Exam Constitutional: Level of Distress: NAD Ambulation: ambulating normally Psychiatric: Mental Status: active & alert Orientation: to time, to place, to person Memory: recent memory normal, remote memory normal Head: normocephalic, atraumatic Eyes: Pupils: PERRLA Neck: pertinent finding (No JVD) Lungs: Auscultation: no wheezing, no rales/crackles, no rhonchi, deminished air movement, decreased breath sounds (at the bases) Cardiovascular: Heart Auscultation: RRR (90 bpm), normal S1, normal S2, no rubs, II/ GUS Peripheral Pulses: Dorsalis Pedis Pulse: normal on the left, normal on the right Abdomen: Bowel Sounds: normal Inspection & Palpation: soft, no masses, distended Extremities: no cyanosis, no edema, no clubbing Neurologic: Cranial Nerves: grossly intact Assessment and Plan Assessment and Plan Late presentation myocardial infarction with resultant acute decompensated congestive heart failure secondary to LV systolic dysfunction, EF 25-30%, RV dysfunction. NYHA Class III symptomatology; narrow QRS duration. Telemetry currently demonstrating sinus rhythm in the 80's, without arrhythmias. Current volume status appears normovolemic. RECOMMENDATIONS/PLAN: Basic metabolic panel today. If hypokalemia observed, resume lower dose spironolactone. Increase Toprol XL to 25 mg/day. Await Lexiscan nuclear stress test results She will need close outpatient cardiology follow-up. CARDIOLOGY ATTENDING ADDENDUM: The patient was seen and personally examined. Agree with Braden Hogue PA-C's findings and plans as documented above. Discussed results of nuclear stress with patient and daughter Stefania. straightener prognosis is not good. Discussed ICD and patient is considering. If yes, she will need a life vest to go home with until device implanted. Patient is also considering leak patcher care and assisted living.
[2016-10-29 11:14] LABS: BUN/CREATININE RATIO 16.1 (10-20); CALCIUM 9.3 mg/dl (8.5-10.1); CREATININE 1.1 mg/dl (0.60-1.20); POTASSIUM 4.5 mmol/L (3.5-5.1)
--- NOTE | 2016-10-29 12:37 | MYOCARDIAL PERFUSION SCAN ---
[facility] CARDIOL[facility] STRESS TEST HISTORY: This is an 86-year-old female who presented late following myocardial infarction and has a history of severe ischemic cardiomyopathy. TECHNIQUE: For the stress portion of the study, the patient received 23.1 mCi of intravenous technetium-99 m sestamibi at 8.15 a.m. on 10/29/2016. Thirty minutes following the initial injection, the patient had imaging of the heart performed in multiple projections. For the rest portion of the study, 21.7 mCi of intravenous technetium-99 m sestamibi was injected at 1640 p.m. on 10/28/2016. One hour following the injection, imaging of the heart was performed in the same projections. When comparing the rest to stress sestamibi scans, the ventricle is dilated both at rest and post stress. There is absence of perfusion of the inferior basilar, inferior, inferior septal, distal anterior and distal anteroseptal myocardium. The defects were seen both on the rest and stress images, consistent with a prior infarct. Gated analysis indicated severe LV dysfunction with an estimated left ventricular ejection fraction of 25%. There were no reversible defects that would suggest ongoing ischemia. SUMMARY: Overall, this pharmacologic nuclear stress test indicates an infarct of a large percentage of the myocardium including the inferior basilar, inferior, inferoseptal, apical, distal anterior, and distal anteroseptal myocardium. There is a severe ischemic cardiomyopathy with an estimated left ventricular ejection fraction of 25%. The study indicates no active ischemia.
[2016-10-29] MEDS ORDERED: COUGH DROP (SUGAR FREE) LOZ 24 LOZ/1 BOX ONE (17:20)
--- NOTE | 2016-10-29 18:33 | Progress Note ---
Internal Med Progress Note Date of Service: Oct 29, 2016. Provider Documentation: SUBJECTIVE: s/p stress test no chest pain or sob eating lunch afebrile patient ok for live vest family in room OBJECTIVE: Vital Signs-as noted below Exam: General-alert and oriented. Not in distress ENT-Normal hearing Neck-no neck masses supple Lungs-cta b/l no wheezing no crackles present Heart-s1 and s2 heard regular rate and rhythm no murmurs Abdomen-soft bowel sounds present non tender no distension Extremities- no edema mild erythema and tenderness on left middle foot dorsal aspect-improving Neuro-alert and oriented moves extremities Lab data as noted below. ASSESSMENT & PLAN: Presented with PULMONARY EDEMA EKG CHANGES, ELEVATED TROPONIN recent NSTEMI? Nonsustained V tac 10/24/16 As per H and P: patient presenting with progressive shortness of breath and lower extremity edema x 2 weeks that developed after an episode of severe chest pressure EKG changes concerning for subacute inferior / anterior wall NE; borderline 1mm ST elevation in lead III along with with Q waves in lead III and V4 troponin 0.130 - 0.15 on heparin gtt, b kyaw and statin Was on iv Lasix 40mg bid Change Lasix to 40mg po daily in am on Aldactone, lisinopril and Toprol and statin stopped iv heparin medical optimization as per cardiology stopping Aldactone and cutting back on lisinopril for relative hypotension. needs followup currently improved stable s/p Lexiscan nuclear stress test today-await results Acute systolic chf new onset ef 25-30% Was on iv lasix 40mg bid daily weights i/o's improving medications as above cardiology on board repeat echo today shows ef 30-35% plan for lve vest and may need ICD in future Gout? on left foot trial of colchicine improved stooped colchicine for diarrhea will monitor HYPERTHYROIDISM patient self stopped PTU a few months ago TSH mild elevation. T4 normal. DVT PROPHYLAXIS Lovenox CODE STATUS Full DISPO Monitor in tele pt/ot prior to discharge social service for d/c planning Vital Signs: Date Time Temp Pulse Resp B/P (MAP) Pulse Ox O2 Delivery O2 Flow Rate FiO2 10/29/16 16:00 93 Room Air 10/29/16 15:25 36.8 80 18 99/64 (76) 98 Room Air 10/29/16 12:16 93 Room Air 10/29/16 11:05 36.8 89 18 91/57 (68) 96 Room Air 10/29/16 08:36 93 Room Air 10/29/16 07:41 37.0 87 18 110/73 (85) 96 Room Air 10/29/16 04:33 37.1 90 16 104/67 (79) 94 Room Air 10/29/16 04:00 Room Air 10/28/16 23:59 Room Air 10/28/16 23:56 37.0 87 18 93/62 (72) 97 Room Air 10/28/16 20:00 Room Air 10/28/16 19:17 37.4 95 21 89/65 (73) 95 Room Air Lab Results: Results Past 24 Hours Test 10/29/16 10:37 Range/Units Sodium Level 138 136-145 mmol/L Potassium Level 4.5 3.5-5.1 mmol/L Chloride Level 103 98-107 mmol/L Carbon Dioxide Level 28 21-32 mmol/L Anion Gap 7.0 3-11 mmol/L Blood Urea Nitrogen 18 7-18 mg/dl Creatinine 1.10 0.60-1.20 mg/dl Est Creatinine Clear Calc Drug Dose 27.7 ml/min Estimated GFR () 52.6 Estimated GFR (Non- 45.4 BUN/Creatinine Ratio 16.1 10-20 Random Glucose 131 70-99 mg/dl Calcium Level 9.3 8.5-10.1 mg/dl
[2016-10-29] MEDS: ATORVASTATIN 40 MG TAB PO SCH (20:02)
[2016-10-30 03:53] VITALS: BP 100/60; PULSE 79; TEMP 36.6; O2SAT 95
[2016-10-30] MEDS: CEROVITE ADV FORMULA TAB PO SCH (07:03)
[2016-10-30] MEDS: FUROSEMIDE 40 MG TAB PO SCH (07:03)
[2016-10-30] MEDS: PANTOprazole SOD 40 MG TAB PO SCH (07:03)
[2016-10-30] MEDS: ASPIRIN 81 MG ECTAB PO SCH (07:03)
[2016-10-30] MEDS: MAGNESIUM OXIDE 400 MG TAB PO SCH (07:03)
[2016-10-30] MEDS: CYANOCOBALAMIN 500 MCG TAB (VIT B-12) PO SCH (07:04)
[2016-10-30] MEDS: LISINOPRIL 2.5 MG TAB PO SCH (07:04)
[2016-10-30 07:35] VITALS: BP_SYST 100; BP_SYST 112; BP_DIAS 65; BP_DIAS 69; PULSE 101; PULSE 82; TEMP 36.9; O2SAT 93; O2SAT 96
[2016-10-30 08:01] VITALS: O2SAT 93
[2016-10-30] MEDS ORDERED: METOPROLOL SUCC 25MG EXT REL TAB PO SCH (09:00)
[2016-10-30] MEDS ORDERED: ENOXAPARIN 30 MG/0.3 ML SYR SQ SCH (09:00)
--- NOTE | 2016-10-30 09:40 | Cardiology Follow-Up ---
Subjective General Date of Service: Oct 30, 2016. Chief Complaint: Cough Pt evaluation today including: conversation w/ patient, physical exam, chart review, lab review, review of studies, review of inpatient medication list History of Present Illness Patient seen and examined. Mild cough. No chest pain or congestion, increased dyspnea, orthopnea, PND, or edema. Diarrhea has resolved. No lightheadedness, dizziness, or near syncope with ambulation to the restroom with her walker. Data: Telemetry: Sinus in the 80's. No bradyarrhythmias or pauses. No significant atrial or ventricular arrhythmias. October 24, 2016 TTE Interpretation Summary ([facility], Dr. Chacon): Mildly dilated LV chamber size with global thinning. Severely reduced LV systolic function with severe global hypokinesis, EF 25-30%. Grade II diastolic dysfunction. The right ventricular cavity size is enlarged (proximal parasternal long axis right ventricular outflow tract dimension >3.3 cm). The right ventricular systolic function is reduced as assessed by tricuspid annular plane systolic excursion ( TAPSE) (TAPSE <1.6 cm). Aortic valve sclerosis mild, without significant aortic valvular stenosis. Mild to moderate tricuspid regurgitation. Moderate tricuspid regurgitation. Mild left atrial enlargement. Moderate right atrial enlargement. Pulmonary hypertension is present with a PASP of 51 mmHg assuming a RA pressure of 15 mmHg. October 28, 2016 Limited TTE Interpretation Summary ([facility], Dr. García): The left ventricle is moderately dilated. Left ventricular systolic function is severely reduced. Ejection Fraction = 30-35%. Anterior, apical, septal and lateral hypo to akinetic. Overall, this pharmacologic nuclear stress test indicates an infarct of a large percentage of the myocardium including the inferior basilar, inferior, inferoseptal, apical, distal anterior, and distal anteroseptal myocardium. There is a severe ischemic cardiomyopathy with an estimated left ventricular ejection fraction of 25%. The study indicates no active ischemia. Allergies Coded Allergies: Oxycodone (Verified Adverse Reaction, Unknown, vomiting, 10/23/16) Social History Smoking Status: Never Smoker Hx Tobacco Use In Past Year?: No Hx Alcohol Use - Type And Amou: No Hx Substance Use - Type And Am: No Physical Exam Vital Signs Last Vital Signs Documentation Date Time Temp Pulse Resp B/P (MAP) Pulse Ox O2 Delivery O2 Flow Rate FiO2 10/30/16 08:01 93 Room Air 10/30/16 07:35 36.9 82 18 100/65 (77) Physical Exam Constitutional: Level of Distress: NAD Ambulation: ambulating normally Psychiatric: Mental Status: active & alert Orientation: to time, to place, to person Memory: recent memory normal, remote memory normal Head: normocephalic, atraumatic Eyes: Pupils: PERRLA Neck: pertinent finding (No JVD) Lungs: Auscultation: no wheezing, no rales/crackles, no rhonchi, deminished air movement, decreased breath sounds (at the bases) Cardiovascular: Heart Auscultation: RRR (80 bpm), normal S1, normal S2, no rubs, I/ GUS Peripheral Pulses: Dorsalis Pedis Pulse: normal on the left, normal on the right Abdomen: Bowel Sounds: normal Inspection & Palpation: soft, no masses, distended Extremities: no cyanosis, no edema, no clubbing Neurologic: Cranial Nerves: grossly intact Assessment and Plan Assessment and Plan Late presentation myocardial infarction with resultant acute decompensated congestive heart failure secondary to LV systolic dysfunction, EF ~30%, RV dysfunction. NYHA Class III symptomatology; narrow QRS duration. Telemetry currently demonstrating sinus rhythm in the 80's, without arrhythmias. Current volume status appears normovolemic. RECOMMENDATIONS/PLAN: Medications as presently prescribed Paperwork completed for a [employer] Life[employer]est yesterday, assistance representative (Edad) contacted. Arrangements are being made for General Cardiology follow-up in [place] in 1 -2 weeks, Electrophysiology Consultation with Dr. Sepulveda at [facility] CARDIOLOGY ATTENDING ADDENDUM: The patient was seen and personally examined. Agree with Braden Hogue PA-C's findings and plans as documented above. Plan has been discussed with patient and family, follow-up appointments made, if appropriate ok with discharge. Laboratory Results Last 24 Hours Test 10/29/16 10:37 10/30/16 04:20 Sodium Level 138 mmol/L Potassium Level 4.5 mmol/L Chloride Level 103 mmol/L Carbon Dioxide Level 28 mmol/L Anion Gap 7.0 mmol/L Blood Urea Nitrogen 18 mg/dl Creatinine 1.10 mg/dl Est Creatinine Clear Calc Drug Dose 27.7 ml/min Estimated GFR () 52.6 Estimated GFR (Non- 45.4 BUN/Creatinine Ratio 16.1 Random Glucose 131 mg/dl Calcium Level 9.3 mg/dl Stool Occult Blood NEGATIVE
[2016-10-30 11:12] VITALS: BP 93/60; PULSE 79; TEMP 36.9; O2SAT 95
[2016-10-30 12:08] VITALS: O2SAT 93
[2016-10-30] MEDS ORDERED: LSN25 PO ×2 (16:13→16:30)
[2016-10-30] MEDS ORDERED: ASPEC81 PO ×2 (16:14→16:30)
[2016-10-30] MEDS ORDERED: LSX40 PO ×2 (16:14→16:30)
[2016-10-30] MEDS ORDERED: NTRSLP4 SL ×2 (16:14→16:30)
[2016-10-30] MEDS ORDERED: TPRSR25 PO ×2 (16:14→16:30)
[2016-10-30] MEDS ORDERED: ATOR-24 PO (16:14)
[2016-10-30] MEDS ORDERED: ATOR-26 PO ×2 (16:18→16:30)
--- NOTE | 2016-10-30 16:18 | Discharge Instructions ---
Discharge Instructions Date of Service Oct 30, 2016. Admission Reason for Admission: Acute Coronary Syndrome Discharge Discharge Diagnosis / Problem: acute systolic chf Discharge Goals Goal(s): Decrease discomfort, Improve function Activity Recommendations Activity Limitations: resume your previous activity (as tolerated) . Instructions / Follow-Up Instructions / Follow-Up FOLLOWUP WITH FAMILY DOCTOR ON October AT 12:45PM FOLLOWUP WITH CARDIOLOGY SCHEDULED.(General Cardiology follow-up in [place] in 1-2 weeks, Electrophysiology Consultation with Dr. Sepulveda at [facility]). LAB: BMP WITH MG LEVELS IN ONE WEEK AND FOLLOW RESULTS WITH FAMILY DOCTOR ( STARTED ON LASIX AND LISINOPRIL) Call your Primary Care doctor if any of the following symptoms or problems start or get worse: * Shortness of breath or difficulty breathing * Wake up at night short of breath * Chest pain * Cough * Swelling of your hands, feet, or legs * More fatigued or tired with your normal activity * Palpitations - sudden fast heart beats WEIGHT * Weigh yourself every morning after using the bathroom. * Use the same scale. * Wear the same amount of clothing. * Write your weight down on a chart. * Call your Primary Care doctor if you gain more than 2-3 pounds in 1-2 days. MEDICATIONS * Use this discharge instruction sheet for medication instructions. * Take your medications at the time your doctor ordered. * Do not skip a dose of your medicines. * If you miss a dose of medicine, take it as soon as possible, but DO NOT DOUBLE A DOSE. * Read your medicine information when you get home. * Know all of the side effects of your medicine. If in doubt, ask your pharmacist * Call your Primary Care doctor's office if you have any side effects. * Be sure all of your doctors know what medicine and herbs you take (including cold, flu, and herbal medicine). Take the following with you to your follow-up doctor appointments: * Weight Chart * Medication List * List of questions Do not drink excessive alcohol, beer or wine. Current Hospital Diet Patient's current hospital diet: AHA Diet (Heart Healthy), Low Sodium Diet (2gm Na) Discharge Diet Recommended Diet: AHA Diet (Heart Healthy), Low Sodium Diet (2gm Na) Pending Studies Studies pending at discharge: no Medical Emergencies . Who to Call and When: Call 911 or go to the Emergency Room if: * If at any time you feel your situation is an emergency * You have tightness or pain in your chest that does not go away with rest or Nitroglycerin * You are very short of breath even with rest . Non-Emergent Contact Non-Emergency issues call your: Primary Care Provider . . "Provider Documentation" section prepared by Raheem Andersen. . VTE Core Measure Inpt VTE Proph given/why not?: Enoxaparin (Lovenox)SQ, Other Anticoagulation
[2016-10-30 16:42] VITALS: BP 93/60; PULSE 79; TEMP 36.9; O2SAT 93
--- NOTE | 2016-10-30 16:48 | Progress Note ---
Internal Med Progress Note Date of Service: Oct 30, 2016. Provider Documentation: SUBJECTIVE: sitting on chair comfortably no chest pain or sob getting live vest wants to be discharged OBJECTIVE: Vital Signs-as noted below Exam: General-alert and oriented. Not in distress ENT-Normal hearing Neck-no neck masses supple Lungs-cta b/l no wheezing no crackles present Heart-s1 and s2 heard regular rate and rhythm no murmurs Abdomen-soft bowel sounds present non tender no distension Extremities- no edema mild erythema and tenderness on left middle foot dorsal aspect-improving Neuro-alert and oriented moves extremities Lab data as noted below. ASSESSMENT & PLAN: Presented with PULMONARY EDEMA EKG CHANGES, ELEVATED TROPONIN recent NSTEMI? Nonsustained V tac 10/24/16 Acute CHF As per H and P: patient presenting with progressive shortness of breath and lower extremity edema x 2 weeks that developed after an episode of severe chest pressure EKG changes concerning for subacute inferior / anterior wall AR; borderline 1mm ST elevation in lead III along with with Q waves in lead III and V4 troponin 0.130 - 0.15 on heparin gtt, b kyaw and statin Was on iv Lasix 40mg bid Change Lasix to 40mg po daily in am on Aldactone, lisinopril and Toprol and statin stopped iv heparin medical optimization as per cardiology stopping Aldactone and cutting back on lisinopril for relative hypotension. currently on Toprol xl,lisinopril and Lasix,.Aspirin and statin. stable s/p Lexiscan nuclear stress test :infarct of a large percentage of the myocardium including the inferior basilar, inferior, inferoseptal, apical, distal anterior, and distal anteroseptal myocardium. There is a severe ischemic cardiomyopathy with an estimated left ventricular ejection fraction of 25%. The study indicates no active ischemia. Plan to d/c on live vest and further recommendations for ICD based on repeat echo in 3 months close followup with pcp and cardiology Acute systolic chf new onset ef 25-30% Was on iv lasix 40mg bid daily weights i/o's improving medications as above cardiology on board Live vest at discharge and ICD in future Gout? on left foot trial of colchicine improved stooped colchicine for diarrhea no complaints f/u with pcp HYPERTHYROIDISM patient self stopped PTU a few months ago TSH mild elevation. T4 normal. f/u with pcp Discharged home with home health Vital Signs: Date Time Temp Pulse Resp B/P (MAP) Pulse Ox O2 Delivery O2 Flow Rate FiO2 10/30/16 12:08 93 Room Air 10/30/16 11:12 36.9 79 18 93/60 (71) 95 Room Air 10/30/16 08:01 93 Room Air 10/30/16 07:35 36.9 82 18 100/65 (77) 96 Room Air 10/30/16 04:00 Room Air 10/30/16 03:53 36.6 79 18 100/60 (73) 95 Room Air 10/29/16 23:59 Room Air 10/29/16 23:36 36.7 79 18 101/62 (75) 96 Room Air 10/29/16 20:00 Room Air 10/29/16 19:29 36.8 84 20 102/64 (77) 90 Room Air Lab Results: Results Past 24 Hours Test 10/30/16 04:20 Range/Units Stool Occult Blood NEGATIVE NEGATIVE
--- NOTE | 2016-10-30 19:52 | Discharge Summary ---
Discharge Summary Date of Service Oct 30, 2016. Discharge Summary Admission Date: Oct 23, 2016 at 20:19 Discharge Date: Oct 30, 2016 Discharge Disposition: Home with services Principal Diagnosis: ACUTE SYSTOLIC CHF Secondary Diagnoses/Problems: (1) GERD (gastroesophageal reflux disease) Status: Chronic (2) Hyperthyroidism Status: Chronic (3) Vitamin D deficiency Status: Chronic Procedures: CXR: 1. Bibasilar hazy opacities in the setting of cardiomegaly and small effusions most likely represents mild pulmonary edema. Differential considerations include aspiration. VENOUS DOPPLER: No DVT within the right or left lower extremity. ECHO: Mildly dilated LV chamber size with global thinning. * Severely reduced LV systolic function with severe global hypokinesis, EF 25 -30%. * Grade II diastolic dysfunction. * The right ventricular cavity size is enlarged (proximal parasternal long axis right ventricular outflow tract dimension >3.3 cm). * The right ventricular systolic function is reduced as assessed by tricuspid annular plane systolic excursion (TAPSE) (TAPSE <1.6 cm). * Aortic valve sclerosis mild, without significant aortic valvular stenosis. * Mild to moderate tricuspid regurgitation. * Moderate tricuspid regurgitation. * Mild left atrial enlargement. * Moderate right atrial enlargement. * Pulmonary hypertension is present with a PASP of 51 mmHg assuming a RA pressure of 15 mmHg. LEXISCAN NUCLEAR STRESS TEST: Overall, this pharmacologic nuclear stress test indicates an infarct of a large percentage of the myocardium including the inferior basilar, inferior, inferoseptal, apical, distal anterior, and distal anteroseptal myocardium. There is a severe ischemic cardiomyopathy with an estimated left ventricular ejection fraction of 25%. The study indicates no active ischemia. Consultations: CARDIOLOGY Medication Reconciliation New Medications: Atorvastatin (Lipitor) 80 Mg Tab 1 TAB PO DAILY for 30 Days, #30 TAB 1 Refill Aspirin (Aspirin EC Low Dose) 81 Mg Ectab 81 MG PO QAM for 30 Days, #30 TAB 1 Refill Furosemide (Furosemide) 40 Mg Tab 40 MG PO QAM, #30 TAB 1 Refill Lisinopril (Lisinopril) 2.5 Mg Tab 2.5 MG PO DAILY, #30 TAB 1 Refill Metoprolol Succinate (Metoprolol Succinate ER) 25 Mg Tabcr 25 MG PO QAM, #30 TAB 1 Refill Nitroglycerin (Nitrostat) 0.4 Mg/1 Tab Subl 0.4 MG SL UD PRN for Chest Pain, #30 TAB 1 Refill Continued Medications: Cyanocobalamin (Vitamin B-12) 1,000 Mcg Tab 1000 MCG PO DAILY, TAB Ergocalciferol (Vitamin D 25532 Unit) 50,000 Unit Cap 85643 UNIT PO WK, CAP Ocuvite Preservision (Ocuvite Preservision) 1 Tab Tab 1 TAB PO DAILY Omeprazole (Prilosec) 40 Mg Cap 40 MG PO DAILY, CAP Admission Information HPI (per Admitting provider): 86 year old female who presents to the ER with shortness of breath. Patient reports that about two weeks ago, shortly before going to bed she developed severe mid sternal chest heaviness. She reports symptoms lasted for several hours and resolved on their own. She reports that since that time she has noted progressively worsening shortness of breath. She has shortness of breath with minimal activity. She also has noticed increased BLLE edema that will improve once legs are elevated. She noticed a lump in her left calf that has now resolved. Calves are very tender to touch. Of note, patient was on a long plane ride last week. She denies any further episodes of chest pain. No lightheadedness, dizziness, diaphoresis, or syncopal events. She denies abdominal pain, nausea, vomiting, or diarrhea. No fever or chills. She denies urinary symptoms. Of note, patient reports she stopped taking her hyperthyroid medicine a few months ago because her TSH was normal and there were not any refills. Upon arrival to the ER, patient is found to have EKG changes, mildly elevated troponin, and CXR showing pulmonary edema. Patient was given full dose ASA, started on Heparin gtt, and Lasix 40mg IV. Physical Exam (per Admitting): General Appearance: + mild distress (shortness of breath with minimal exertion / conversation) Head: normocephalic Eyes: normal inspection ENT: hearing grossly normal Neck: supple, no JVD Respiratory/Chest: + decreased breath sounds (BL), + crackles (BL bases, more prominent in the anterior upper lung mitchell) Cardiovascular: normal peripheral pulses, + tachycardia (rate in the low 100s, rhythm regular), + pertinent finding (+1 pitting edema BLLE) Abdomen/GI: normal bowel sounds, non tender, soft Extremities/Musculoskelatal: + calf tenderness (BL) Neurologic/Psych: no motor/sensory deficits, alert, normal mood/affect, oriented x 3 Skin: normal color, warm/dry Hospital Course Presented with PULMONARY EDEMA EKG CHANGES, ELEVATED TROPONIN recent NSTEMI? Nonsustained V tac 10/24/16 Acute CHF As per H and P: patient presenting with progressive shortness of breath and lower extremity edema x 2 weeks that developed after an episode of severe chest pressure EKG changes concerning for subacute inferior / anterior wall NV; borderline 1mm ST elevation in lead III along with with Q waves in lead III and V4 troponin 0.130 - 0.15 on heparin gtt, b kyaw and statin Was on iv Lasix 40mg bid Change Lasix to 40mg po daily in am on Aldactone, lisinopril and Toprol and statin stopped iv heparin medical optimization as per cardiology stopping Aldactone and cutting back on lisinopril for relative hypotension. currently on Toprol xl,lisinopril and Lasix,.Aspirin and statin. stable s/p Lexiscan nuclear stress test :infarct of a large percentage of the myocardium including the inferior basilar, inferior, inferoseptal, apical, distal anterior, and distal anteroseptal myocardium. There is a severe ischemic cardiomyopathy with an estimated left ventricular ejection fraction of 25%. The study indicates no active ischemia. Plan to d/c on live vest and further recommendations for ICD based on repeat echo in 3 months close followup with pcp and cardiology Acute systolic chf new onset ef 25-30% Was on iv lasix 40mg bid daily weights i/o's improving medications as above cardiology on board Live vest at discharge and ICD in future Gout? on left foot trial of colchicine improved stooped colchicine for diarrhea no complaints f/u with pcp HYPERTHYROIDISM patient self stopped PTU a few months ago TSH mild elevation. T4 normal. f/u with pcp Discharged home with home health Total time spent on discharge = 35MINUTES This includes examination of the patient, discharge planning, medication reconciliation, and communication with other providers. Discharge Instructions Please take this sheet to every appointment for the next month Discharge Instructions Date of Service Oct 30, 2016. Admission Reason for Admission: Acute Coronary Syndrome Discharge Discharge Diagnosis / Problem: acute systolic chf Discharge Goals Goal(s): Decrease discomfort, Improve function Activity Recommendations Activity Limitations: resume your previous activity (as tolerated) . Instructions / Follow-Up Instructions / Follow-Up FOLLOWUP WITH FAMILY DOCTOR ON October AT 12:45PM FOLLOWUP WITH CARDIOLOGY SCHEDULED.(General Cardiology follow-up in [place] in 1-2 weeks, Electrophysiology Consultation with Dr. Sepulveda at [facility]) Call your Primary Care doctor if any of the following symptoms or problems start or get worse: * Shortness of breath or difficulty breathing * Wake up at night short of breath * Chest pain * Cough * Swelling of your hands, feet, or legs * More fatigued or tired with your normal activity * Palpitations - sudden fast heart beats WEIGHT * Weigh yourself every morning after using the bathroom. * Use the same scale. * Wear the same amount of clothing. * Write your weight down on a chart. * Call your Primary Care doctor if you gain more than 2-3 pounds in 1-2 days. MEDICATIONS * Use this discharge instruction sheet for medication instructions. * Take your medications at the time your doctor ordered. * Do not skip a dose of your medicines. * If you miss a dose of medicine, take it as soon as possible, but DO NOT DOUBLE A DOSE. * Read your medicine information when you get home. * Know all of the side effects of your medicine. If in doubt, ask your pharmacist * Call your Primary Care doctor's office if you have any side effects. * Be sure all of your doctors know what medicine and herbs you take (including cold, flu, and herbal medicine). Take the following with you to your follow-up doctor appointments: * Weight Chart * Medication List * List of questions Do not drink excessive alcohol, beer or wine. Current Hospital Diet Patient's current hospital diet: AHA Diet (Heart Healthy), Low Sodium Diet (2gm Na) Discharge Diet Recommended Diet: AHA Diet (Heart Healthy), Low Sodium Diet (2gm Na) Pending Studies Studies pending at discharge: no Medical Emergencies . Who to Call and When: Call 911 or go to the Emergency Room if: * If at any time you feel your situation is an emergency * You have tightness or pain in your chest that does not go away with rest or Nitroglycerin * You are very short of breath even with rest . Non-Emergent Contact Non-Emergency issues call your: Primary Care Provider . . "Provider Documentation" section prepared by Raheem Andersen. . VTE Core Measure Inpt VTE Proph given/why not?: Enoxaparin (Lovenox)SQ, Other Anticoagulation
[2016-11-28] MEDS ORDERED: BENZ100C7 PO (08:33)
[2016-11-28] MEDS ORDERED: CZR25 PO (08:49)
[2016-11-28] MEDS ORDERED: LSX40 PO (08:49)
== END 2016-10-30 17:25 | disposition home health service (06) | DRG 280 ==
LOC: C.EDB 17:34 → C.2T 20:19 → ENRESERV 20:55
PROVIDERS: ADMIT Internal Medicine; ATTEND Internal Medicine
DX: I21.4 Non-ST elevation (NSTEMI) myocardial infarction (principal); I50.21 Acute systolic (congestive) heart failure; I47.2 Ventricular tachycardia; I27.2 Other secondary pulmonary hypertension; I25.5 Ischemic cardiomyopathy; M10.072 Idiopathic gout, left ankle and foot; E05.90 Thyrotoxicosis, unspecified without thyrotoxic crisis or storm; K21.9 Gastro-esophageal reflux disease without esophagitis; E55.9 Vitamin D deficiency, unspecified; Z51.81 Encounter for therapeutic drug level monitoring; Z79.899 Other long term (current) drug therapy; Z73.3 Stress, not elsewhere classified; Z82.49 Family history of ischemic heart disease and other diseases of the circulatory system

== ENCOUNTER 2016-11-27 11:21 | Observation (INO) | payer MEDICARE ==
[~2016-11-27] VITALS: Ht 152.4 cm; Wt 62.8 kg
[~2016-11-27 11:21] MED LIST changes: +ASPEC81 PO; +ATOR-26 PO; +CEFAZOLIN 1000MG/55 ML D5W IV SCH; +CYAN10005 PO; +ERGO500037 PO; +LACTATED RINGER'S 1000ML 1,000 ML IV SCH; +LSN25 PO; +LSX40 PO; +NTRSLP4 SL; +OMEP40CA41 PO; -PTU50 PO; -SIMV40TA2 PO; +TPRSR25 PO; -[UNRECOGNIZED DRUG - OTHER]; -vit b12
[2016-11-27 11:41] VITALS: BP 120/53; PULSE 88; TEMP 36.9; O2SAT 97; BMI 27.0
--- NOTE | 2016-11-27 12:11 | History & Physical Bridge Note ---
H&P Re-Evaluation Bridge Note: I have examined the patient, reviewed the History & Physical and in the interval since the performance of the History & Physical I have noted the following changes of clinical significance: No changes noted
--- NOTE | 2016-11-27 12:12 | Procedure Note ---
Pre-Mod Sedation Assessment General Date of Moderate Sedation: Nov 27, 2016. Review Cardiovascular: regular rate, rhythm, no murmur Abdomen: soft Lungs: lungs clear Airway Class: II Pre-Sedation Airway Assessment Oral Cavity: Dentures Able to Visualize Vocal Cords: No Short Thick Neck: No Hx of Sleep Apnea: No Smoking Status: Never Smoker Mallampati Classification: Class II ASA Classification: Class II Procedure Planning Contraindications-for Mod Sed: None Yes Notes The planned sedation has been discussed with the patient and consent obtained. I have identified the patient, determined the appropriateness of sedation and have assessed the patient immediately prior to the procedure. All medicine(s) and interventions are by my order.
[2016-11-27] MEDS ORDERED: BACITRACIN 50000 UNIT VIAL ONE (12:32)
[2016-11-27] MEDS ORDERED: LIDOCAINE HCL 1% 20 ML VIAL ONE (12:32)
[2016-11-27] MEDS ORDERED: BUPIVACAINE 0.5 % 5 MG/1 ML MPF 30ML VIAL ONE (12:32)
[2016-11-27] MEDS ORDERED: FENTANYL CITRATE INJ 50 MCG/1 ML 2 ML VIAL ONE (12:51)
[2016-11-27] MEDS ORDERED: MIDAZOLAM HCL 5 MG/ML 1 ML VIAL ONE (12:51)
--- NOTE | 2016-11-27 13:55 | Procedure Note ---
Post-Mod Sedation Assessment General Date of Moderate Sedation Nov 27, 2016. Vital Signs: Vital Signs Past 12 Hours Date Time Temp Pulse Resp B/P (MAP) Pulse Ox O2 Delivery O2 Flow Rate FiO2 11/27/16 13:50 92 16 114/61 (78) 94 Room Air 11/27/16 13:40 95 16 106/61 (76) 94 Mask 4 11/27/16 11:41 36.9 88 18 120/53 (75) 97 Room Air Review - Discharge Criteria Vital Signs Stable: Yes Alert/Oriented/Conversant: Yes Returned to Baseline Mental St: Yes Nausea Absent/Minimal: Yes Pain/Discomfort/Absent/Minimal: Yes Normal/Baseline Respirations: Yes Active Bleeding?: No Pt Received D/C Instructions: N/A Prescriptions Given: None Specific Proced. D/C Criteria Distal Pulses Present (Cardiac: N/A Groin site assessed-Card Cath: N/A Voided Prior To Discharge: N/A Discharged Patients Adult Escort/Transportation: N/A
--- NOTE | 2016-11-27 13:57 | [facility] Post Operative Brief Note ---
Immediate Operative Summary Operative Date Nov 27, 2016. Pre-Operative Diagnosis ICM, NSVT, CAD Post-Operative Diagnosis SAME Procedure(s) Performed SINGLE CHAMBER RATE RESPONSIVE ICD WITH PERIPHERAL VENOGRAM Surgeon LEE WINTER Resource Agent Surgeon(s) NONE Estimated Blood Loss <5CC Findings SEE OFFICIAL REPORT Fluids (cc crystalloids) 300CC Specimens NONE Drains NONE Anesthesia 3MG VERSED AND 50MCG FENTATNYL Complication(s) None Disposition PCU
[2016-11-27] MEDS ORDERED: ACETAMINOPHEN 325 MG TAB PO PRN (14:00)
[2016-11-27] MEDS ORDERED: NITROGLYCERIN 0.4 MG SL PER TAB CHARGE SL PRN (14:00)
--- NOTE | 2016-11-27 14:05 | Discharge Instructions ---
Discharge Instructions Date of Service Nov 27, 2016. Admission Reason for Admission: Ischemic Cardiomyopathy Discharge Discharge Diagnosis / Problem: ICM, NSVT, CAD Discharge Goals Goal(s): Improve function Activity Recommendations Activity Limitations: as noted below Lifting Limitations: no more than 10 pounds (DO NOT LIFT THE LEFT ELBOW OVER THE LEFT SHOULDER FOR 1 MONTH OR LIFT MORE THEN 10 POUNDS WITH LEFT ARM FOR 2 WEEKS) Shower/Bathe: tomorrow Driving or Machine Use: resume 1 day after discharge . Instructions / Follow-Up Instructions / Follow-Up ACTIVITY RECOMMENDATIONS: * Do not raise affected arm over head for 4 weeks. SPECIAL CARE INSTRUCTIONS: * If bleeding occurs, apply direct pressure to area for 5 minutes. * Call your doctor if you have severe pain, fever, drainage or bleeding at site. * Keep dry for 24 hours. * Keep any scheduled doctor's appointment. * Implant Card - hand held device with website information given. SKIN IRRITATION: * You may experience some redness and/or swelling in the area where radiation was administered. If any skin irritation occurs, please contact your family physician. FOLLOW UP VISIT: Keep any scheduled doctor appointments. Current Hospital Diet Patient's current hospital diet: AHA Diet (Heart Healthy), Low Sodium Diet (2gm Na) Discharge Diet Recommended Diet: AHA Diet (Heart Healthy), Low Sodium Diet (2gm Na) Procedures Procedures Performed: SINGLE CHAMBER RATE RESPONSIVE ICD WITH PERIPHERAL VENOGRAM Pending Studies Studies pending at discharge: no Medical Emergencies . Who to Call and When: Medical Emergencies: If at any time you feel your situation is an emergency, please call 911 immediately. . Non-Emergent Contact Non-Emergency issues call your: Spooling Operator . . "Provider Documentation" section prepared by Leticia Sepulveda. . VTE Core Measure Inpt VTE Proph given/why not?: Karo Serna
[2016-11-27 14:06] VITALS: BP 108/70; PULSE 86; TEMP 37.5; O2SAT 98; Ht 152.4 cm; Wt 62.8 kg
--- NOTE | 2016-11-27 14:09 | Discharge Summary ---
Discharge Summary Date of Service Nov 27, 2016. Discharge Summary Admission Date: Discharge Date: Nov 28, 2016 Discharge Disposition: Home Principal Diagnosis: ICM CAD NSVT Secondary Diagnoses/Problems: CHRONIC SYSTOLIC HEART FAILURE, NYHA CLASS II HLD CKD STAGE II Procedures: single chamber rate responsive ICD implant with peripheral venogram Medication Reconciliation New Medications: Benzonatate (Benzonatate) 100 Mg Cap 100 MG PO Q8 PRN for Cough for 60 Days, #180 CAP Losartan Potassium (Losartan Potassium) 25 Mg Tab 25 MG PO QAM for 30 Days, #30 TAB Continued Medications: Aspirin (Aspirin EC Low Dose) 81 Mg Ectab 81 MG PO QAM for 30 Days, #30 TAB 1 Refill Atorvastatin (Lipitor) 80 Mg Tab 1 TAB PO DAILY for 30 Days, #30 TAB 1 Refill Cyanocobalamin (Vitamin B-12) 1,000 Mcg Tab 1000 MCG PO DAILY, TAB Ergocalciferol (Vitamin D 67929 Unit) 50,000 Unit Cap 65093 UNIT PO WK, CAP Furosemide (Furosemide) 40 Mg Tab 40 MG PO QAM for 60 Days, #60 TAB 1 Refill (This prescription has been renewed) Metoprolol Succinate (Metoprolol Succinate ER) 25 Mg Tabcr 25 MG PO QAM, #30 TAB 1 Refill Nitroglycerin (Nitrostat) 0.4 Mg/1 Tab Subl 0.4 MG SL UD PRN for Chest Pain, #30 TAB 1 Refill Ocuvite Preservision (Ocuvite Preservision) 1 Tab Tab 1 TAB PO DAILY Omeprazole (Prilosec) 40 Mg Cap 40 MG PO DAILY, CAP Discontinued Medications: Lisinopril (Lisinopril) 2.5 Mg Tab 2.5 MG PO DAILY, #30 TAB 1 Refill Admission Information Physical Exam (per Admitting): aaox3, NAD NC/AT, EOMI Supple, No JVD Nrl S1/S2, no murmur CTA b/l no w/r/r soft nt/nd no edema b/l no focal deficits skin intact Hospital Course Pt admitted for elective single chamber rate responsive ICD implant due to ICM, NSVT and CAD. Pt underwent procedure without any complications; monitored overnight and discharged home the following day. Total time spent on discharge = 30 minutes This includes examination of the patient, discharge planning, medication reconciliation, and communication with other providers. Discharge Instructions ACTIVITY RECOMMENDATIONS: * Do not raise affected arm over head for 4 weeks. SPECIAL CARE INSTRUCTIONS: * If bleeding occurs, apply direct pressure to area for 5 minutes. * Call your doctor if you have severe pain, fever, drainage or bleeding at site. * Keep dry for 24 hours. * Keep any scheduled doctor's appointment. * Implant Card - hand held device with website information given. SKIN IRRITATION: * You may experience some redness and/or swelling in the area where radiation was administered. If any skin irritation occurs, please contact your family physician. FOLLOW UP VISIT: Keep any scheduled doctor appointments.
[2016-11-27] MEDS ORDERED: IV FLUIDS COMPLETED PRN (14:15)
[2016-11-27 15:44] VITALS: BP 106/66; PULSE 100; TEMP 37.4; O2SAT 90
--- NOTE | 2016-11-27 15:52 | OPERATIVE REPORT ---
DATE OF OPERATION: 11/27/2016 PREOPERATIVE DIAGNOSIS: Ischemic cardiomyopathy, nonsustained VT, coronary artery disease. POSTOPERATIVE DIAGNOSIS: Same. PROCEDURE: Single chamber rate responsive implantable cardiac defibrillator under fluoroscopic guidance along with peripheral venogram. SURGEON: Dr. Leticia Sepulveda. INTERNAL CONTROL MANAGER: None. ANESTHESIA: Monitored conscious sedation administered under my Tian Arreola under my supervision. Start time 13.01, end time 1340, total of 3 mg of Versed, 50 mcg of fentanyl. INTRAVENOUS FLUIDS: 200 mL. BLOOD LOSS: Less than 10 mL. CONDITION: Stable. COMPLICATIONS: None. URINE OUTPUT: Not applicable. SPECIMENS: None. FINDINGS: See below. DRAINS: None. INDICATIONS: This is an 86-year-old female who had no significant past medical history until being admitted to [facility] in congestive heart failure. She was found to have cardiomyopathy with a nuclear stress test showing a large anterior wall OR with no ischemia. Her ejection fraction was 30-35% on the echo. She did have nonsustained VT during the admission. It sounds like her OR was probably at best maybe in September of 2016. It was opted just medical management. She also has a history of chronic systolic congestive heart failure, [place] Heart Association class 2, hyperlipidemia, chronic kidney disease stage II. Due to the significance of her ischemic cardiomyopathy and coronary artery disease with nonsustained VT, she was recommended a single chamber implantable cardiac defibrillator. CONSENT: Consent was obtained prior to the patient going into the electrophysiology lab. The patient was informed of risks, benefits, alternatives to the procedure. Risks include but not limited to sudden cardiac , cardiac arrhythmias, cerebrovascular accident, myocardial infarction, injury to the blood vessels, chamber of the heart, lungs, bleeding and infection. The patient understood these risks and agreed to the procedure as planned. Informed consent obtained. DESCRIPTION OF THE PROCEDURE: The patient was brought into the electrophysiology lab in a fasting state. She was connected to continuous cardiac monitoring. A timeout was performed to ensure patient's identity and procedure correctly. She received prophylactic antibiotics prior to incision. She was prepped and draped over the left infraclavicular space in normal surgical standard fashion. Monitored conscious sedation was given throughout the procedure under my supervision to titrate the patient's comfort level. 20 mL of 1% lidocaine, bupivacaine mixture were given in the left deltopectoral groove. Incision was made in left deltopectoral groove. Blunt dissection was performed down to identify the cephalic vein; however, it was very tiny so a peripheral venogram was performed using 10 mL of IV contrast diluted in 10 mL of saline followed by 20 mL flush to identify the axillary vein. Axillary venous access was obtained through the needle stick without any complications. The guidewire was inserted without any resistance. A 9.5-Arabic sheath was inserted over the guidewire without any resistance. The guidewire and dilator were removed. The right ventricular defibrillator lead was then passed into the right ventricle and positioned into the right ventricular apex under fluoroscopic guidance. There was adequate pacing and sensing thresholds and no diaphragmatic stimulation at high output pacing. The 9.5-Arabic sheath was then peeled away and the lead was fixated to the pectoralis muscle using 0 silk suture. Additional 10 mL of 1% lidocaine, bupivacaine mixture were given in the pectoralis fascia. Then using blunt dissection over the pectoralis muscle within the pectoralis fascia. A defibrillator pocket was created. The pocket was flushed with copious amounts of bacitracin saline wash and inspected for hemostasis. The defibrillator was then attached to the leads making sure that the pins were in appropriate position, passed the set screws and the set screws were tightened. The defibrillator was then placed in the pocket, making sure that the leads were lying flat beneath the device. A stay stitch using 0 silk suture was used to secure the device to the pectoralis muscle. The incision was closed in a 3-layer fashion using a 2-0 Vicryl interrupted suture followed by a 3-0 Vicryl interrupted suture followed by a 4-0 Monocryl running stitch and Dermabond was applied. EQUIPMENT: 1. Defibrillator generator is a Medtronic Visia AF MRI VR SureScan [id number], serial #[id number]. 2. Right ventricular defibrillator lead Medtronic 6935M-62 cm, serial #[id number]. INTRAOPERATIVE TESTING: R-wave 4.2 millivolts, impedance 434 ohms, threshold 0.8 volts at 1.7 milliamps. FINAL MEASUREMENTS THROUGH THE DEVICE: 1. R-wave 6 millivolts, impedance 513 ohms, threshold 1 volt at 0.4 milliseconds. 2. RV coil is 65 ohms. FINAL PARAMETERS: 1. VVI 40 with VF zone at 180 beats per minute, 30/40 detection intervals, VT zone 167 beats per minute, 16 detection intervals and monitor zone at 150 beats per minute with 32 detection intervals. 2. RV amplitude 3.5 volts, pulse width 0.4 milliseconds, sensitivity 0.3 millivolts. IMPRESSION: Successful implantation of single chamber implantable cardiac defibrillator rate responsive under fluoroscopic guidance along with peripheral venogram secondary to ischemic cardiomyopathy, nonsustained VT and coronary artery disease. PLAN: Monitor patient overnight, 12-lead ECG, chest x-ray. She cannot lift the left elbow over left shoulder for 1 month. She cannot lift more than 10 pounds with the left arm for 2 weeks. She can shower in a day, let water run over the incision, do not scrub it. She should follow up in our [facility] office in 7-10 days for device and wound check. She has been having a persistent cough despite the change from her lisinopril to losartan. I will order some Tessalon Perles and chest x-ray. We will check another BNP as well as some routine labs and go from there. I attest to the content of the Intraoperative Record and any orders documented therein. Any exception s are noted below.
[2016-11-27] MEDS ORDERED: PNEUMOCOCCAL ADMINISTRATION CHARGE ONE (16:00)
[2016-11-27] MEDS ORDERED: PNEUMOCOCCAL POLYSACCHARIDES 25 MCG/0.5 ML VIAL/SYR IM. ONE (16:00)
--- NOTE | 2016-11-27 16:43 | DIAGNOSTIC IMAGING REPORT ---
SINGLE VIEW CHEST CLINICAL HISTORY: Status post pacemaker implantation. FINDINGS: An AP, portable, upright chest radiograph is compared to study dated 10/23/2016 . The examination is degraded by portable technique and patient rotation. A single lead cardiac AICD has been placed. This partially obscures the left mid chest. The lead projects over the ventricles. The heart is enlarged and there is atherosclerotic calcification of the thoracic aorta. The pulmonary vasculature is noncongested. Chronic interstitial thickening is similar to previous. There is mild bibasilar atelectasis. No airspace consolidation or large pleural effusion is identified. There is mild apical scarring. No pneumothorax is seen. The skeletal structures are osteopenic. The bony thorax is grossly intact. IMPRESSION: 1. A single lead cardiac AICD has been placed as detailed above. No pneumothorax is identified post procedure. 2. Cardiomegaly. There is no radiographic evidence of congestive failure. 3. No airspace consolidation or large pleural effusion is identified. Electronically signed by: Jayden Davey M.D. 11/27/2016 4:42 PM Dictated Date/Time: 11/27/2016 4:41 PM
[2016-11-27] MEDS: BENZONATATE 100MG CAP PO PRN (18:12)
[2016-11-27 19:10] VITALS: BP 110/69; PULSE 103; TEMP 37.8; O2SAT 91
[2016-11-27] MEDS ORDERED: NURSING VERBAL MED ORDER ONE (19:30)
[2016-11-27 19:51] VITALS: PULSE 83; O2SAT 91
[2016-11-27] MEDS ORDERED: LEVALBUTEROL 0.63MG/3 ML NEB INH ONE (20:00)
[2016-11-27] MEDS ORDERED: LEVALBUTEROL 0.63MG/3 ML NEB INH PRN (20:00)
[2016-11-28] VITALS: BP 96/61; PULSE 100; TEMP 37.7; O2SAT 93
[2016-11-28 03:25] VITALS: BP 108/67; PULSE 100; TEMP 37.6; O2SAT 93
[2016-11-28 06:36] LABS: HEMATOCRIT 34.2 % (37-47); MEAN CORPUSCULAR HEMOGLOBIN 30.2 pg (25-34); MEAN CORPUSCULAR HGB CONC 32.2 g/dl (32-36); MEAN PLATELET VOLUME 11.5 fL (7.4-10.4); PLATELET COUNT 152 K/uL (130-400); RED BLOOD COUNT 3.64 M/uL (4.2-5.4); WHITE BLOOD COUNT 6.46 K/uL (4.8-10.8)
[2016-11-28 07:08] LABS: BUN/CREATININE RATIO 12.9 (10-20); CALCIUM 8.6 mg/dl (8.5-10.1); CREATININE 0.72 mg/dl (0.60-1.20)
[2016-11-28 07:44] VITALS: BP 114/68; PULSE 97; TEMP 37.5; O2SAT 93
[2016-11-28 08:00] VITALS: O2SAT 94
[2016-11-28] MEDS: ASPIRIN 81 MG ECTAB PO SCH ×2 (08:13→09:07)
[2016-11-28] MEDS: BENZONATATE 100MG CAP PO PRN (08:13)
[2016-11-28] MEDS: CYANOCOBALAMIN 500 MCG TAB (VIT B-12) PO SCH ×2 (08:13→09:08)
[2016-11-28] MEDS: PANTOprazole SOD 40 MG TAB PO SCH ×2 (08:14→09:08)
[2016-11-28] MEDS: ATORVASTATIN 40 MG TAB PO SCH ×2 (08:14→09:07)
[2016-11-28] MEDS: CEROVITE ADV FORMULA TAB PO SCH ×2 (08:14→09:08)
[2016-11-28] MEDS: METOPROLOL SUCC 25MG EXT REL TAB PO SCH ×2 (08:14→09:08)
[2016-11-28] MEDS ORDERED: BENZ100C7 PO (08:33)
--- NOTE | 2016-11-28 08:45 | Cardiology Follow-Up ---
Subjective Subjective Date of Service: Nov 28, 2016. Pt evaluation today including: conversation w/ patient, physical exam, chart review, lab review, review of studies Pain: minimal discomfort at incision site; cough slightly better but still presen Review of Systems Constitutional: No fever, No fatigue Respiratory: + cough, No shortness of breath, No dyspnea on exertion Cardiac: No chest pain, No edema, No palpitations Abdomen: No nausea, No diarrhea Endo: No fatigue Objective Vital Signs Last Vital Signs Documentation Date Time Temp Pulse Resp B/P (MAP) Pulse Ox O2 Delivery O2 Flow Rate FiO2 11/28/16 08:00 94 Room Air 11/28/16 07:44 37.5 97 20 114/68 (83) 11/27/16 13:40 4 Physical Exam: General Appearance: WD/WN, no apparent distress Eyes: bilateral eyes PERRL, bilateral eyes EOMI Neck: supple, no JVD Respiratory/Chest: lungs clear, normal breath sounds Cardiovascular: regular rate, rhythm, no JVD, no murmur Abdomen: soft Extremities: no pedal edema Neurologic/Psychiatric: alert, oriented x 3 Skin: normal color (left pectoral incision intact; no hematoma; mild ecchymosis ), warm/dry, no rash Assessment and Plan Impression: 1. ICM s/p ICD 2. CAD 3. Chronic systolic HF, NYHA Class III 4. HLD 5. Cough probably due to heart failure given BNP is still up Plan: -Ok to discharge home today -Will increase lasix upon discharge -Pt not allowed to lift the left elbow over the left shoulder for 1 month and lift more than 10 pounds with the left arm for 2 weeks -Can shower tomorrow -wound check next week we will get BMP at that time as well and have her see a provider in the office at the same time. Discharge planning: home Medications: Medications Administered Medications (Trade) Dose Ordered Sig/Ryne Route Start Time Stop Time Status Last Admin Dose Admin Cefazolin Sodium 55 ml @ 100 mls/hr PREOP IV 11/27/16 06:00 11/27/16 18:00 DC 11/27/16 06:00 100 MLS/HR Lactated Ringer's 1,000 ml @ 15 mls/hr Q24H IV 11/27/16 06:00 11/28/16 05:59 DC 11/27/16 06:00 15 MLS/HR Lidocaine HCl (Xylocaine 1% Inj (Local)) 20 ml STK-MED ONCE .ROUTE 11/27/16 12:32 11/27/16 12:33 DC 11/27/16 12:32 20 ML Bupivacaine HCl (Marcaine 0.5% MPF Inj) 30 ml STK-MED ONCE .ROUTE 11/27/16 12:32 11/27/16 12:33 DC 11/27/16 12:32 30 ML Bacitracin (Bacitracin Inj) 50,000 units STK-MED ONCE .ROUTE 11/27/16 12:32 11/27/16 12:33 DC 11/27/16 12:32 50,000 UNITS Midazolam HCl (Versed Inj) 5 mg STK-MED ONCE .ROUTE 11/27/16 12:51 11/27/16 12:52 DC 11/27/16 12:51 3 MG Fentanyl Citrate (Fentanyl Inj) 100 mcg STK-MED ONCE .ROUTE 11/27/16 12:51 11/27/16 12:52 DC 11/27/16 12:51 50 MCG Aspirin (Ecotrin Tab) 81 mg QAM PO 11/28/16 09:00 12/28/16 08:59 11/28/16 08:13 81 MG Atorvastatin Calcium (Lipitor Tab) 80 mg DAILY PO 11/28/16 09:00 12/28/16 08:59 11/28/16 08:14 80 MG Cyanocobalamin (Vitamin B-12 Tab) 1,000 mcg DAILY PO 11/28/16 09:00 12/28/16 08:59 11/28/16 08:13 1,000 MCG Furosemide (Lasix Tab) 40 mg QAM PO 11/28/16 09:00 12/28/16 08:59 11/28/16 08:14 40 MG Lisinopril (Zestril Tab) 2.5 mg DAILY PO 11/28/16 09:00 12/28/16 08:59 11/28/16 08:13 2.5 MG Metoprolol Succinate (Toprol Xl Tab) 25 mg QAM PO 11/28/16 09:00 12/28/16 08:59 11/28/16 08:14 25 MG Multivitamins/ Minerals (Multivitamin W/ Minerals Tab) 1 tab DAILY PO 11/28/16 09:00 12/28/16 08:59 11/28/16 08:14 1 TAB Pantoprazole Sodium (Protonix Tab) 40 mg QAM PO 11/28/16 09:00 12/28/16 08:59 11/28/16 08:14 40 MG Benzonatate (Tessalon Perles Cap) 100 mg Q8 PRN PO 11/27/16 14:00 12/27/16 13:59 11/28/16 08:13 100 MG Levalbuterol (Xopenex 0.63 Mg/ 3 Ml Neb) 0.63 mg NOW ONCE INH 11/27/16 20:00 11/27/16 20:01 DC 11/27/16 19:52 0.63 MG Lab Results: Telemetry:SR ECG: SR 91bpm ICD Interregation Today: 6mv; 456ohms; 0.25V@0.4ms RV coil 53ohms CXR: No PTX, Lead in position Last 24 Hours Test 11/28/16 06:10 White Blood Count 6.46 K/uL Red Blood Count 3.64 M/uL Hemoglobin 11.0 g/dL Hematocrit 34.2 % Mean Corpuscular Volume 94.0 fL Mean Corpuscular Hemoglobin 30.2 pg Mean Corpuscular Hemoglobin Concent 32.2 g/dl RDW Standard Deviation 48.8 fL RDW Coefficient of Variation 14.2 % Platelet Count 152 K/uL Mean Platelet Volume 11.5 fL Sodium Level 140 mmol/L Potassium Level 4.0 mmol/L Chloride Level 104 mmol/L Carbon Dioxide Level 31 mmol/L Anion Gap 5.0 mmol/L Blood Urea Nitrogen 9 mg/dl Creatinine 0.72 mg/dl Est Creatinine Clear Calc Drug Dose 46.4 ml/min Estimated GFR () 87.9 Estimated GFR (Non- 75.8 BUN/Creatinine Ratio 12.9 Random Glucose 92 mg/dl Calcium Level 8.6 mg/dl Pro-B-Type Natriuretic Peptide 8513 pg/ml
[2016-11-28 08:48] VITALS: BP 114/68; PULSE 97; TEMP 37.5; O2SAT 94
[2016-11-28] MEDS ORDERED: CZR25 PO (08:49)
[2016-11-28] MEDS ORDERED: LSX40 PO (08:49)
[2016-11-28] MEDS ORDERED: FUROSEMIDE 40 MG TAB PO SCH ×2 (09:00→17:00)
[2016-11-28] MEDS ORDERED: LISINOPRIL 2.5 MG TAB PO SCH (09:00)
[2016-11-29] MEDS ORDERED: LOSARTAN POTASSIUM 25 MG TAB PO SCH (09:00)
== END 2016-11-28 10:55 | disposition home or self-care (01) ==
LOC: C.ACU 11:21 → ENRESERV 13:36 → C.2T 14:01
PROVIDERS: ADMIT Internal Medicine; ATTEND Internal Medicine
DX: I25.5 Ischemic cardiomyopathy (principal); I50.22 Chronic systolic (congestive) heart failure; I47.2 Ventricular tachycardia; I25.10 Atherosclerotic heart disease of native coronary artery without angina pectoris; K21.9 Gastro-esophageal reflux disease without esophagitis; E78.5 Hyperlipidemia, unspecified; K44.9 Diaphragmatic hernia without obstruction or gangrene; M81.0 Age-related osteoporosis without current pathological fracture; Z79.899 Other long term (current) drug therapy; E55.9 Vitamin D deficiency, unspecified; Z79.82 Long term (current) use of aspirin; Z90.89 Acquired absence of other organs; Z83.3 Family history of diabetes mellitus

== ENCOUNTER 2017-01-30 15:47 | Inpatient (IN) | payer MEDICARE, OTHER ==
[~2017-01-30] VITALS: Ht 149.9 cm; Wt 60.5 kg
[~2017-01-30 15:47] MED LIST changes: +BENZ100C7 PO; -CEFAZOLIN 1000MG/55 ML D5W IV SCH; +CZR25 PO; -LACTATED RINGER'S 1000ML 1,000 ML IV SCH; -LSN25 PO
[2017-01-30] MEDS ORDERED: FRS/40 PO (16:11)
[2017-01-30] MEDS ORDERED: PTU50 PO (16:11)
[2017-01-30 16:53] LABS: BASO % 0.2 %; BASO ABS # 0.01 K/uL (0-0.2); COMPLETE YES; EOS % 2.8 %; IG% 0.2 %; INR 1.2 (0.9-1.1); LYMPH ABS # 1.35 K/uL (1.2-3.4); MEAN CELL VOLUME 95.8 fL (80-100); MEAN CORPUSCULAR HEMOGLOBIN 29.6 pg (25-34); MEAN CORPUSCULAR HGB CONC 30.9 g/dl (32-36); MEAN PLATELET VOLUME 11.4 fL (7.4-10.4); MONO % 5.9 %; NEUT % 65.9 %; PLATELET COUNT 143 K/uL (130-400); PROTHROMBIN TIME (PATIENT) 12.4 SECONDS (9.0-12.0); RED BLOOD COUNT 3.34 M/uL (4.2-5.4); WHITE BLOOD COUNT 5.41 K/uL (4.8-10.8)
--- NOTE | 2017-01-30 16:56 | DIAGNOSTIC IMAGING REPORT ---
SINGLE VIEW CHEST CLINICAL HISTORY: Dyspnea. FINDINGS: An AP, portable, upright chest radiograph is compared to study dated 11/27/2016. The examination is degraded by portable technique and patient rotation. A single lead cardiac AICD is unchanged in position and partially obscures the left mid chest. The heart is enlarged and there is atherosclerotic calcification of the thoracic aorta. There is pulmonary vascular congestion with interstitial edema. A hiatal hernia is noted. There are layering pleural effusions with bibasilar consolidation mild apical scarring is observed. No pneumothorax is seen. The skeletal structures are osteopenic. The bony thorax is grossly intact. IMPRESSION: 1. Cardiomegaly and AICD. There is evidence of congestive failure with interstitial edema. 2. There are layering pleural effusions with bibasilar consolidation. This likely represents atelectasis. Correlate clinically for evidence of superimposed pneumonia. Electronically signed by: Jayden Davey M.D. 01/30/2017 4:54 PM Dictated Date/Time: 01/30/2017 4:53 PM
[2017-01-30 17:12] LABS: BUN/CREATININE RATIO 17.2 (10-20); CALCIUM 8.4 mg/dl (8.5-10.1); CREATININE 1.01 mg/dl (0.60-1.20); MAGNESIUM 1.8 mg/dl (1.8-2.4); POTASSIUM 3.7 mmol/L (3.5-5.1)
[2017-01-30] MEDS ORDERED: FUROSEMIDE 40 MG/4 ML VIAL IV STA (17:13)
[2017-01-30 17:21] LABS: ALB/GLOB RATIO 1.1 (0.9-2); THYROID STIMULATING HORMONE 4.35 uIu/ml (0.300-4.500)
[2017-01-30] MEDS ORDERED: ACETAMINOPHEN 325 MG TAB PO PRN (18:30)
[2017-01-30] MEDS ORDERED: NITROGLYCERIN 0.4 MG SL PER TAB CHARGE SL PRN (18:30)
[2017-01-30] MEDS ORDERED: ONDANSETRON INJ 2 MG/ML 2 ML VIAL IV PRN (18:30)
--- NOTE | 2017-01-30 18:30 | EMERGENCY ROOM VISIT NOTE ---
History Report prepared by Lisbeth: Kasia Davis Under the Supervision of: Dr. Ursula Barnes D.O. First contact with patient: 15:55 Chief Complaint: SHORTNESS OF BREATH Stated Complaint: SOB, HAS ICD History of Present Illness The patient is an 86 year old female who presents to the Emergency Room with complaints of intermittent SOB starting several weeks ago. Her SOB improves with sitting up. It worsens with lying down and exertion. She has had a dry cough. She currently has some rhinorrhea. She has some chills, but notes that she is often cold. She thought that she might have a cold. She denies any fever , change in bowel movement, urinary symptoms, lightheadedness, dizziness, leg swelling, or chest pain. She denies any sick contacts. She had a MA 3 months ago. At that time she was told her heart was functioning at 20%. She has a pacemaker defibrillator. Her Lasix was increased. She is watching her sodium. She has not been weighing herself. She denies any history of smoking. She is on aspirin. Her blood pressure normally runs in the 90s over 60s. Source of History: patient, family Onset: several weeks ago Position: other (global) Quality: other (SOB) Timing: intermittent Modifying Factors (Worsening): exertion, other (lying flat) Modifying Factors (Relieving): other (sitting up) Associated Symptoms: + chills, + cough, No fevers, No chest pain, No urinary symptoms Note: Pt reports rhinorrhea. Pt denies change in bowel movement, lightheadedness, dizziness, leg swelling. Review of Systems See HPI for pertinent positives & negatives. A total of 10 systems reviewed and were otherwise negative. Past Medical & Surgical Medical Problems: (1) GERD (gastroesophageal reflux disease) (2) Hyperthyroidism (3) Ischemic cardiomyopathy (4) Vitamin D deficiency Surgical Problems: (1) AICD (automatic cardioverter/defibrillator) present (2) H/O varicose vein stripping (3) History of tonsillectomy and adenoidectomy (4) S/P tonsillectomy Family History Diabetes mellitus Heart disease Hypertension Lung disease Social History Smoking Status: Never Smoker Alcohol Use: none Current/Historical Medications Scheduled Aspirin (Aspirin EC Low Dose), 81 MG PO QAM Atorvastatin (Lipitor), 1 TAB PO DAILY Cyanocobalamin (Vitamin B-12), 1,000 MCG PO DAILY Furosemide (Furosemide), 40 MG PO QAM Furosemide (Lasix), 20 MG PO afternoon Metoprolol Succinate (Metoprolol Succinate ER), 25 MG PO QAM Ocuvite Preservision (Ocuvite Preservision), 1 TAB PO DAILY Omeprazole (Prilosec), 40 MG PO DAILY Propylthiouracil (Ptu), 50 MG PO DAILY Scheduled PRN Benzonatate (Benzonatate), 100 MG PO Q8 PRN for Cough Nitroglycerin (Nitrostat), 0.4 MG SL UD PRN for Chest Pain Allergies Coded Allergies: Perflutren (Unverified Allergy, Mild, ANAPHYLAXIS, 01/31/17) BACK PAIN AFTER ADMINISTRATION Propylene Glycol (Unverified Allergy, Mild, ANAPHYLAXIS, 01/31/17) BACK PAIN AFTER ADMINISTRATION Oxycodone (Verified Adverse Reaction, Unknown, vomiting, 01/30/17) Physical Exam Vital Signs Date Time Temp Pulse Resp B/P (MAP) Pulse Ox O2 Delivery O2 Flow Rate FiO2 01/30/17 17:55 85 20 128/66 97 Nasal Cannula 2.0 01/30/17 16:04 Room Air 95 01/30/17 15:51 37.0 91 22 122/72 95 Room Air Physical Exam GENERAL: alert, patient appears SOB with movement, well nourished, no distress, non-toxic EYE EXAM: normal conjunctiva, PERRL and EOM's grossly intact OROPHARYNX: no exudate, no erythema, lips, buccal mucosa, and tongue normal and mucous membranes are moist NECK: supple, no nuchal rigidity, no adenopathy, non-tender LUNGS: Clear to auscultation. Normal chest wall mechanics HEART: no murmurs, S1 normal and S2 normal ABDOMEN: abdomen soft, non-tender, normo-active bowel sounds, no masses, no rebound or guarding. BACK: Back is symmetrical on inspection and there is no deformity, no midline tenderness, no CVA tenderness. SKIN: no rashes and no bruising UPPER EXTREMITIES: upper extremities are grossly normal. LOWER EXTREMITIES: Trace to 1+ bilateral edema. NEURO EXAM: Normal sensorium, cranial nerves II-XII grossly intact, normal speech, no gross weakness of arms, no gross weakness of legs. Medical Decision & Procedures ER Provider Diagnostic Interpretation: Radiology results have been interpreted by the radiologist and reviewed by me. SINGLE VIEW CHEST CLINICAL HISTORY: Dyspnea. FINDINGS: An AP, portable, upright chest radiograph is compared to study dated 11/27/2016. The examination is degraded by portable technique and patient rotation. A single lead cardiac AICD is unchanged in position and partially obscures the left mid chest. The heart is enlarged and there is atherosclerotic calcification of the thoracic aorta. There is pulmonary vascular congestion with interstitial edema. A hiatal hernia is noted. There are layering pleural effusions with bibasilar consolidation mild apical scarring is observed. No pneumothorax is seen. The skeletal structures are osteopenic. The bony thorax is grossly intact. IMPRESSION: 1. Cardiomegaly and AICD. There is evidence of congestive failure with interstitial edema. 2. There are layering pleural effusions with bibasilar consolidation. This likely represents atelectasis. Correlate clinically for evidence of superimposed pneumonia. Electronically signed by: Jayden Davey M.D. 01/30/2017 4:54 PM Dictated Date/Time: 01/30/2017 4:53 PM Laboratory Results Test 01/30/17 16:30 Immature Granulocyte % (Auto) 0.2 % White Blood Count 5.41 K/uL (4.8-10.8) Red Blood Count 3.34 M/uL (4.2-5.4) Hemoglobin 9.9 g/dL (12.0-16.0) Hematocrit 32.0 % (37-47) Mean Corpuscular Volume 95.8 fL (80-100) Mean Corpuscular Hemoglobin 29.6 pg (25-34) Mean Corpuscular Hemoglobin Concent 30.9 g/dl (32-36) Platelet Count 143 K/uL (130-400) Mean Platelet Volume 11.4 fL (7.4-10.4) Neutrophils (%) (Auto) 65.9 % Lymphocytes (%) (Auto) 25.0 % Monocytes (%) (Auto) 5.9 % Eosinophils (%) (Auto) 2.8 % Basophils (%) (Auto) 0.2 % Neutrophils # (Auto) 3.57 K/uL (1.4-6.5) Lymphocytes # (Auto) 1.35 K/uL (1.2-3.4) Monocytes # (Auto) 0.32 K/uL (0.11-0.59) Eosinophils # (Auto) 0.15 K/uL (0-0.5) Basophils # (Auto) 0.01 K/uL (0-0.2) Immature Granulocyte # (Auto) 0.01 K/uL (0.00-0.02) Prothrombin Time 12.4 SECONDS (9.0-12.0) Prothromb Time International Ratio 1.2 (0.9-1.1) Total Bilirubin 1.1 mg/dl (0.2-1) Aspartate Amino Transf (AST/SGOT) 67 U/L (15-37) Alanine Aminotransferase (ALT/SGPT) 97 U/L (12-78) Alkaline Phosphatase 107 U/L (45-117) Pro-B-Type Natriuretic Peptide 7416 pg/ml (0-1800) Total Protein 7.2 gm/dl (6.4-8.2) Albumin 3.7 gm/dl (3.4-5.0) Globulin 3.5 gm/dl (2.5-4.0) Albumin/Globulin Ratio 1.1 (0.9-2) Thyroid Stimulating Hormone (TSH) 4.350 uIu/ml (0.300-4.500) Chemistry Specimen Hemolysis Laboratory results per my review. Medications Administered Medications (Trade) Dose Ordered Sig/Ryne Route Start Time Stop Time Status Last Admin Dose Admin Furosemide (Lasix Inj) 40 mg NOW STAT IV 01/30/17 17:13 01/30/17 17:14 DC 01/30/17 17:55 40 MG ECG Indication: SOB/dyspnea Rate (beats per minute): 85 Rhythm: sinus rhythm Findings: T-wave inversion (lead 3, aVF), other (normal axis, normal intervals , flattened T wave V5 and V6, no other acute ischemia, low voltage throughout) ED Course 1558: The patient was evaluated in room C9. A complete history and physical exam was performed. 1713: Lasix Inj 40 mg IV. 1744: I [facility] the patient[facility] She will evaluate the patient for further management. 1747: Upon reevaluation, the patient is stable. She would like to try oxygen. I discussed the findings and the treatment plan with the patient. She expresses agreement and understanding. [facility] She will be evaluated for further management. Medical Decision Differential diagnoses includes but is not limited to pneumonia, bronchitis, COPD/Asthma exacerbation, pneumothorax, pulmonary embolism, congestive heart failure, acute coronary syndrome Patient with obvious dyspnea on exertion as well as orthopnea here. Patient not overtly hypoxic at rest, not ambulated to monitor for any additional symptoms or hypoxia. Patient's chest x-ray appears to show worsening congestive heart failure and effusions new compared to prior. BNP elevated however not more so than prior episodes. Patient with known ischemic cardiac myopathy and poor EF at baseline. Patient given additional dose of IV Lasix down here and admitted for continued monitoring and evaluation. I do not suspect occult pneumonia or infectious etiology, doubt tamponade, doubt PE. Patient was not requiring additional respiratory support. Patient and family aware of all results were agreeable with plan. Doubt ACS. Patient comfortable in bed with no symptoms while at rest. Medication Reconcilliation Current Medication List: was personally reviewed by me Blood Pressure Screening Patient's blood pressure: Normal blood pressure Blood pressure disposition: Did not require urgent referral Consults Time Called: 1740 [facility]ing Phys[facility] Returned Call: [phone] I reviewed the patient's case with her. She will evaluate the patient for further management. Impression Primary Impression: Dyspnea Additional Impressions: Acute on chronic congestive heart failure Ischemic cardiomyopathy AICD (automatic cardioverter/defibrillator) present Scribe Attestation The scribe's documentation has been prepared under my direction and personally reviewed by me in its entirety. I confirm that the note above accurately reflects all work, treatment, procedures, and medical decision making performed by me. Departure Information Dispostion Being Evaluated By Hospitalist Referrals Bryan Morgan M.D. (PCP) Patient Instructions My [facility] Problem Qualifiers Primary Impression: Dyspnea Dyspnea type: dyspnea on exertion Qualified Codes: R06.09 - Other forms of dyspnea Additional Impressions: Acute on chronic congestive heart failure Congestive heart failure type: combined Qualified Codes: I50.43 - Acute on chronic combined systolic (congestive) and diastolic (congestive) heart failure
[2017-01-30] MEDS ORDERED: BENZONATATE 100MG CAP PO PRN (19:15)
[2017-01-30 19:24] VITALS: Ht 149.9 cm; Wt 60.5 kg
--- NOTE | 2017-01-30 19:52 | History and Physical ---
History & Physical Date & Time of Service: Jan 30, 2017 at ~ 18:00 Chief Complaint: Shortness of Breath Primary Care Physician: Bryan Morgan M.D. History of Present Illness 86 year old female who presents to the ED with shortness of breath. Patient was admitted to [facility] 10/23 - 10/30 with newly diagnosed cardiomyopathy with EF 30-35%. She as discharged on ASA, statin, beta kyaw, MATT, and Lasix 40mg daily. Patient underwent AICD placement on 11/27. In the interim, Lisinopril was changed to Losartan due to cough which was eventually stopped due to hypotension. Lasix has gone from 40mg daily to 40mg BID, back to daily, and most recently 40mg in the AM and 20mg at lunch on 01/07. Patient reports she continues to feel poorly since her admission in October and her functional capacity is still decreased. Over the past week she has noticed she developed orthopnea and wheezing which was acutely worse last night. When her daughter came to check on her today she was significantly short of breath with minimal exertion. Patient reports she does not weigh herself. She has pitting edema on exam which she reports she has not noticed. She reports no improvement in her cough since October. Cough is non productive. She will take Tessalon pearls as needed. She denies chest pain and palpitations. No lightheadedness, dizziness, diaphoresis, or syncopal events. She denies abdominal pain, nausea, vomiting, or diarrhea. No fevers or chills. She denies urinary symptoms. In the ED, patient's proBNP is elevated and CXR is suggestive of CHF. She was given Lasix 40mg IV. Past Medical/Surgical History Medical Problems: (1) GERD (gastroesophageal reflux disease) Status: Chronic (2) Hyperthyroidism Status: Chronic (3) Ischemic cardiomyopathy Permanent Comment: EF 30-35% Status: Chronic (4) Vitamin D deficiency Status: Chronic Surgical Problems: (1) AICD (automatic cardioverter/defibrillator) present Status: Chronic (2) H/O varicose vein stripping Status: Chronic (3) History of tonsillectomy and adenoidectomy Status: Chronic (4) S/P tonsillectomy Status: Resolved Family History non contributory due to patient's advanced age Social History Smoking Status: Never Smoker Alcohol Use: occasionally Immunizations History of Tetanus Vaccine?: Yes Tetanus Immunization Date: Sep 14, 2007 History of Pneumococcal: Yes Pneumococcal Date: Jun 23, 2014 Allergies Coded Allergies: Oxycodone (Verified Adverse Reaction, Unknown, vomiting, 01/30/17) Home Medications Scheduled Aspirin (Aspirin EC Low Dose), 81 MG PO QAM Atorvastatin (Lipitor), 1 TAB PO DAILY Cyanocobalamin (Vitamin B-12), 1,000 MCG PO DAILY Furosemide (Furosemide), 40 MG PO QAM Furosemide (Lasix), 20 MG PO afternoon Metoprolol Succinate (Metoprolol Succinate ER), 25 MG PO QAM Ocuvite Preservision (Ocuvite Preservision), 1 TAB PO DAILY Omeprazole (Prilosec), 40 MG PO DAILY Propylthiouracil (Ptu), 50 MG PO DAILY Scheduled PRN Benzonatate (Benzonatate), 100 MG PO Q8 PRN for Cough Nitroglycerin (Nitrostat), 0.4 MG SL UD PRN for Chest Pain Review of Systems ROS per HPI, all other systems reviewed and negative Physical Exam Vital Signs Date Time Temp Pulse Resp B/P (MAP) Pulse Ox O2 Delivery O2 Flow Rate FiO2 01/30/17 17:55 85 20 128/66 97 Nasal Cannula 2.0 01/30/17 16:04 Room Air 95 01/30/17 15:51 37.0 91 22 122/72 95 Room Air General Appearance: WD/WN, no apparent distress Head: normocephalic, atraumatic Eyes: normal inspection, EOMI, sclerae normal ENT: hearing grossly normal, + pertinent finding (mucous membranes moist) Neck: supple, trachea midline Respiratory/Chest: no respiratory distress, + decreased breath sounds, + pertinent finding (shortness of breath with minimal exertion; able to speak in full sentances) Cardiovascular: regular rate, rhythm, normal peripheral pulses, + pertinent finding (+1 pitting edema BLLE) Abdomen/GI: normal bowel sounds, non tender, soft, no organomegaly Extremities/Musculoskelatal: normal inspection, no calf tenderness, normal capillary refill Neurologic/Psych: no motor/sensory deficits, alert, normal mood/affect, oriented x 3 Skin: normal color, warm/dry Diagnostics Laboratory Results Results Past 24 Hours Test 01/30/17 16:30 Range/Units White Blood Count 5.41 4.8-10.8 K/uL Red Blood Count 3.34 4.2-5.4 M/uL Hemoglobin 9.9 12.0-16.0 g/dL Hematocrit 32.0 37-47 % Mean Corpuscular Volume 95.8 80-100 fL Mean Corpuscular Hemoglobin 29.6 25-34 pg Mean Corpuscular Hemoglobin Concent 30.9 32-36 g/dl Platelet Count 143 130-400 K/uL Mean Platelet Volume 11.4 7.4-10.4 fL Neutrophils (%) (Auto) 65.9 % Lymphocytes (%) (Auto) 25.0 % Monocytes (%) (Auto) 5.9 % Eosinophils (%) (Auto) 2.8 % Basophils (%) (Auto) 0.2 % Neutrophils # (Auto) 3.57 1.4-6.5 K/uL Lymphocytes # (Auto) 1.35 1.2-3.4 K/uL Monocytes # (Auto) 0.32 0.11-0.59 K/uL Eosinophils # (Auto) 0.15 0-0.5 K/uL Basophils # (Auto) 0.01 0-0.2 K/uL RDW Standard Deviation 54.2 36.4-46.3 fL RDW Coefficient of Variation 15.5 11.5-14.5 % Immature Granulocyte % (Auto) 0.2 % Immature Granulocyte # (Auto) 0.01 0.00-0.02 K/uL Prothrombin Time 12.4 9.0-12.0 SECONDS Prothromb Time International Ratio 1.2 0.9-1.1 Sodium Level 144 136-145 mmol/L Potassium Level 3.7 3.5-5.1 mmol/L Chloride Level 111 98-107 mmol/L Carbon Dioxide Level 26 21-32 mmol/L Anion Gap 7.0 3-11 mmol/L Blood Urea Nitrogen 17 7-18 mg/dl Creatinine 1.01 0.60-1.20 mg/dl Est Creatinine Clear Calc Drug Dose 33.3 ml/min Estimated GFR () 58.4 Estimated GFR (Non- 50.4 BUN/Creatinine Ratio 17.2 10-20 Random Glucose 128 70-99 mg/dl Calcium Level 8.4 8.5-10.1 mg/dl Magnesium Level 1.8 1.8-2.4 mg/dl Total Bilirubin 1.1 0.2-1 mg/dl Aspartate Amino Transf (AST/SGOT) 67 15-37 U/L Alanine Aminotransferase (ALT/SGPT) 97 12-78 U/L Alkaline Phosphatase 107 45-117 U/L Troponin I 0.023 0-0.045 ng/ml Pro-B-Type Natriuretic Peptide 7416 0-1800 pg/ml Total Protein 7.2 6.4-8.2 gm/dl Albumin 3.7 3.4-5.0 gm/dl Globulin 3.5 2.5-4.0 gm/dl Albumin/Globulin Ratio 1.1 0.9-2 Thyroid Stimulating Hormone (TSH) 4.350 0.300-4.500 uIu/ml Chemistry Specimen Hemolysis Diagnostic Radiology CXR IMPRESSION: 1. Cardiomegaly and AICD. There is evidence of congestive failure with interstitial edema. 2. There are layering pleural effusions with bibasilar consolidation. This likely represents atelectasis. Correlate clinically for evidence of superimposed pneumonia. Impression Assessment and Plan ACUTE ON CHRONIC SYSTOLIC CHF, ISCHEMIC CARDIOMYOPATHY, S/P AICD - admit to tele - patient presenting with orthopnea, wheezing, and worsening exertional shortness of breath x 1 week; in the ED, proBNP elevated and CXR suggestive of CHF, has pitting edema on exam - patient newly diagnosed with ischemic cardiomyopathy, EF 30-35% in October 2016 - s/p AICD 11/27 - initially was placed on ASA, statin, beta kyaw, MATT, and Lasix 40mg daily. In the interim, Lisinopril was changed to Losartan due to cough which was eventually stopped due to hypotension. Lasix has gone from 40mg daily to 40mg BID, back to daily, and most recently 40mg in the AM and 20mg at lunch on 01/07 - s/p Lasix 40mg IV in the ED, will continue with Lasix 40mg IV daily and adjust per diuresis response, BP, and renal function - continue ASA, beta kyaw, and statin - consider resumption of ARB if BPs allow - update resting echo - I/Os, daily weights, low Na+ diet - cardio consult, input appreciated HYPERTHYROIDISM - continue PTU GERD - continue PPI DVT PROPHYLAXIS - SQ Lovenox CODE STATUS - Patient is a full code as per my discussion with her. DISPO - In my clinical judgment this beneficiary meets acute admission criteria, established by [facility], that includes being hospitalized through two midnights. - PT/OT, case management consult ADDENDUM: This is an 86 year old female with a PMH of severe ischemic cardiomyopathy and systolic CHF with EF ~ 25-30% s/p AICD, presumed CAD, hyperthyroidism presents with worsening orthopnea and shortness of breath for the past few days; worse this morning. States that recently, her diuretic dose was increased from 40mg daily to 40mg in the AM and 20mg in the PM. She was once on Lisinopril, but that was stopped due to a cough, and then her Cozaar was stopped due to hypotension. Currently, she is doing fine while laying with the head of bed elevated. Denies chest pain/palpitations; denies fevers/chills; denies nausea/ vomiting/diarrhea. Plan: Was given IV Lasix 40mg once in the ED Will give another 40mg in AM - consult cardiology; will likely need an increase in outpatient diuretic dose and possibly an addition of an ARB vs. Aldactone. Monitor electrolytes, kidney function and vitals VTE Prophylaxis VTE Risk Assessment Done? Y/N: Yes Risk Level: Moderate
[2017-01-30 20:20] VITALS: BP 125/66; PULSE 91; TEMP 36.6; O2SAT 96
[2017-01-30] MEDS: ENOXAPARIN 40 MG/0.4 ML SYR SC SCH (21:19)
[2017-01-30 23:20] VITALS: BP 115/70; PULSE 90; TEMP 36.9; O2SAT 98
[2017-01-31] VITALS (9 sets, daily range): BP systolic 100–117; BP diastolic 62–71; PULSE 69–83; TEMP 36.5–37; O2SAT 92–98
[2017-01-31 04:11] LABS: URINE APPEARANCE CLEAR (CLEAR); URINE BILIRUBIN NEG (NEG); URINE COLOR YELLOW; URINE EPITHELIAL CELL AUTO 20-30 /lpf (0-5); URINE NITRITE NEG (NEG); URINE SPECIFIC GRAVITY 1.014 (1.000-1.030); UROBILINOGEN NEG (NEG); ZZUR CULT IF INDIC CLEAN CATCH YES
[2017-01-31 04:12] LABS: MANUAL MICROSCOPIC REQUIRED? NO; REVIEW REQ? NO
[2017-01-31 04:28] LABS: HEMATOCRIT 32.4 % (37-47); MEAN CELL VOLUME 95.9 fL (80-100); MEAN CORPUSCULAR HEMOGLOBIN 29.9 pg (25-34); MEAN CORPUSCULAR HGB CONC 31.2 g/dl (32-36); PLATELET COUNT 131 K/uL (130-400); RED BLOOD COUNT 3.38 M/uL (4.2-5.4); WHITE BLOOD COUNT 6.01 K/uL (4.8-10.8)
[2017-01-31 04:46] LABS: BLOOD UREA NITROGEN 14 mg/dl (7-18); BUN/CREATININE RATIO 17.2 (10-20); CALCIUM 8.2 mg/dl (8.5-10.1); CARBON DIOXIDE 29 mmol/L (21-32); CHLORIDE 108 mmol/L (98-107); GLUCOSE 88 mg/dl (70-99); MAGNESIUM 1.8 mg/dl (1.8-2.4); POTASSIUM 3.2 mmol/L (3.5-5.1); SODIUM 144 mmol/L (136-145)
[2017-01-31] MEDS ORDERED: POTASSIUM CHLORIDE 10 MEQ TABCR PO ONE (07:30)
[2017-01-31] MEDS: ASPIRIN 81 MG ECTAB PO SCH (08:13)
[2017-01-31] MEDS: PROPYLTHIOURACIL 50 MG TAB PO SCH (08:13)
[2017-01-31] MEDS: CEROVITE ADV FORMULA TAB PO SCH (08:14)
[2017-01-31] MEDS: PANTOprazole SOD 40 MG TAB PO SCH (08:14)
[2017-01-31] MEDS: METOPROLOL SUCC 25MG EXT REL TAB PO SCH (08:14)
[2017-01-31] MEDS: ATORVASTATIN 40 MG TAB PO SCH (08:14)
[2017-01-31] MEDS: CYANOCOBALAMIN 500 MCG TAB (VIT B-12) PO SCH (08:14)
[2017-01-31] MEDS: MAGNESIUM CHLORIDE 64MG DELAYED REL TAB PO SCH ×2 (08:17→20:22)
--- NOTE | 2017-01-31 08:46 | ECHOCARDIOGRAM REPORT ---
*NOTICE TO RECEIVING [employer] This information is strictly Confidential and protected under [place] law. [place] law prohibits you from making any further disclosure of this information unless further disclosure is expressly permitted by the written consent of the person to whom it pertains or is authorized by law. A general authorization for the release of medical or other information is not sufficient for this purpose. Hospital accepts no responsibility if the information is made available to any other person, INCLUDING THE PATIENT. Interpretation Summary * Name: WOLF HUGGINS Study Date: 01/31/2017 07:57 AM BP: 115/64 mmHg * [facility] HR: 81 * : 1930 (M/d/yyyy) Gender: Female Height: 59 in * Age: 86 yrs Ethnicity: CA Weight: 147 lb * Performed By: Marly Lanier RDCS * * Reason For Study: LOVE * BSA: 1.6 m2 * Patient experienced back pain after she was given the Definity contrast * -- Conclusions -- * The left ventricle is moderately dilated. * There is mild concentric left ventricular hypertrophy. * There is severe global hypokinesis of the left ventricle. * Only base of posterior wall contracts. * Ejection Fraction = 15-20%. * There is severe mitral regurgitation. * The mitral regurgitant jet is eccentrically directed. * There is moderate tricuspid regurgitation. * Right ventricular systolic pressure is elevated at 50-60mmHg. Procedure Details * A contrast injection of Definity was performed to improve assessment of LV function. * Contrast was injected into an intravenous site in the left arm. * One vial of Definity ultrasound contrast was diluted in normal saline to a total volume of 10 ml. A total of '2' ml of solution was administered during imaging. * Lot # [id number] of Definity utilized for procedure. * Expiration date MAR 10. * The attending nurse who injected the contrast agent was KATIA BEAVERS RN. * A complete two-dimensional transthoracic echocardiogram was performed (2D, M-mode, Doppler and color flow Doppler). Left Ventricle * The left ventricle is moderately dilated. * There is mild concentric left ventricular hypertrophy. * Ejection Fraction = 15-20%. * There is severe global hypokinesis of the left ventricle. * Only base of posterior wall contracts. Right Ventricle * The right ventricle is normal in size and function. Atria * The left atrial size is normal. * Right atrial size is normal. * No ASD detected; PFO is not assessed. Mitral Valve * The mitral valve is normal. * There is no mitral valve stenosis. * There is severe mitral regurgitation. * The mitral regurgitant jet is eccentrically directed. Tricuspid Valve * The tricuspid valve is normal. * There is no tricuspid stenosis. * There is moderate tricuspid regurgitation. * Right ventricular systolic pressure is elevated at 50-60mmHg. Aortic Valve * The aortic valve is trileaflet. * Aortic valve sclerosis mild, without significant aortic valvular stenosis. * No hemodynamically significant valvular aortic stenosis. * No aortic regurgitation is present. Pulmonic Valve * The pulmonic valve is not well visualized. Great Vessels * The aortic root is normal size. Pericardium/Pleural * There is no pericardial effusion. Great Vessels * The inferior vena cava is severely dilated. Left Ventricular Diastolic Function * Diastolic dysfunction, Grade III, consistent with marked congestive heart failure. MMode 2D Measurements and Calculations IVSd 1.3 cm IVSs 1.6 cm LVIDd 4.4 cm LVIDs 3.5 cm LVPWd 1.2 cm LVPWs 1.5 cm IVS/LVPW 1.1 FS 19.2 % EDV(Teich) 86.1 ml ESV(Teich) 51.8 ml EF(Teich) 39.8 % EDV(cubed) 83.2 ml ESV(cubed) 43.9 ml EF(cubed) 47.3 % % IVS thick 24.1 % % LVPW thick 29.7 % LV mass(C)d 197.4 grams LV mass(C)dI 122.0 grams/m\S\2 LV mass(C)s 209.9 grams LV mass(C)sI 129.7 grams/m\S\2 SV(Teich) 34.3 ml SI(Teich) 21.2 ml/m\S\2 SV(cubed) 39.4 ml SI(cubed) 24.3 ml/m\S\2 LA dimension 3.7 cm LVOT diam 1.9 cm LVOT area 2.8 cm\S\2 LVAd ap4 30.9 cm\S\2 LVLd ap4 8.3 cm EDV(MOD-sp4) 90.1 ml EDV(sp4-el) 97.6 ml LVAs ap4 24.2 cm\S\2 LVLs ap4 7.7 cm ESV(MOD-sp4) 62.9 ml ESV(sp4-el) 64.3 ml EF(MOD-sp4) 30.2 % EF(sp4-el) 34.1 % LVAd ap2 39.4 cm\S\2 LVLd ap2 9.4 cm EDV(MOD-sp2) 134.1 ml EDV(sp2-el) 140.2 ml LVAs ap2 29.3 cm\S\2 LVLs ap2 8.4 cm ESV(MOD-sp2) 82.0 ml ESV(sp2-el) 86.4 ml EF(MOD-sp2) 38.8 % EF(sp2-el) 38.4 % LVLd %diff 11.5 % EDV(MOD-bp) 116.4 ml LVLs %diff 8.2 % ESV(MOD-bp) 74.3 ml EF(MOD-bp) 36.2 % SV(MOD-sp4) 27.2 ml SI(MOD-sp4) 16.8 ml/m\S\2 SV(MOD-sp2) 52.0 ml SI(MOD-sp2) 32.2 ml/m\S\2 SV(MOD-bp) 42.1 ml SI(MOD-bp) 26.0 ml/m\S\2 SV(sp4-el) 33.3 ml SI(sp4-el) 20.6 ml/m\S\2 SV(sp2-el) 53.8 ml SI(sp2-el) 33.3 ml/m\S\2 Doppler Measurements and Calculations MV E max carmella 115.9 cm/sec MV A max carmella 95.4 cm/sec MV E/A 1.2 MV dec time 0.15 sec Ao V2 max 93.2 cm/sec Ao max PG 3.5 mmHg Ao max PG (full) 1.5 mmHg ANDREW(V,A) 2.1 cm\S\2 ANDREW(V,D) 2.1 cm\S\2 LV V1 max PG 2.0 mmHg LV V1 max 71.0 cm/sec MR max carmella 518.3 cm/sec MR max PG 107.5 mmHg MR mean carmella 397.9 cm/sec MR mean PG 70.3 mmHg MR VTI 163.9 cm MR PISA 4.7 cm\S\2 MR PISA radius 0.86 cm TR max carmella 320.1 cm/sec
[2017-01-31] MEDS ORDERED: FUROSEMIDE INJ 40 MG in SYRINGE 0 ML IV SCH (09:00)
--- NOTE | 2017-01-31 09:21 | Progress Note ---
Internal Med Progress Note Date of Service: Jan 31, 2017. Provider Documentation: SUBJECTIVE: Seen and examined at bedside Less cough with clear expectoration SOB better Denies chest pain, dizziness, abd pain No other complaints OBJECTIVE: Vital Signs-as noted below Physical Exam: General Appearance:Moderately built and nourished, no apparent distress Head: normocephalic, Atraumatic Eyes: normal inspection, EOMI, PERRL Neck: supple, Trachea midline Respiratory/Chest: Decreased breath sounds, basal creps Cardiovascular: S1, S2, No murmur Abdomen/GI:Soft, Non tender, Bowel sounds present Extremities/Musculoskelatal:normal inspection, B/L 1+ edema Neurologic/Psych:AAOX3, grossly no focal neurological deficits Skin: normal color, warm Lab data as noted below. ASSESSMENT & PLAN: ACUTE ON CHRONIC SYSTOLIC CHF, ISCHEMIC CARDIOMYOPATHY, S/P AICD Patient presented with orthopnea, wheezing, and worsening exertional SOB since 1 week CXR: suggestive of CHF, layering pleural effusions Newly diagnosed with ischemic cardiomyopathy, EF 30-35% in October 2016; S/P AICD 11/27 ECHO: severe global hypokinesis of the left ventricle, Severe MR, Moderate TR, EF:15-20% Continue ASA, Statins, BB Could not tolerate MATT (Cough)/ARB secondary to Hypotension Was on Lasix 40mg in the AM and 20mg at lunch:changed on 01/07 Continue IV Lasix 40mg daily Sodium, fluid restriction Monitor I/Os, daily weight Need to be restarted on ARB if BP tolerates Appreciate Cardiology Input Saturating 92% on 2L NC HYPOKALEMIA: Secondary to diuretics Replace and monitor HYPERTHYROIDISM continue PTU GERD continue PPI DVT PROPHYLAXIS SQ Lovenox CODE STATUS full code DISPOSITION To be determined PROCEDURES: ECHO: * The left ventricle is moderately dilated. * There is mild concentric left ventricular hypertrophy. * There is severe global hypokinesis of the left ventricle. * Only base of posterior wall contracts. * Ejection Fraction = 15-20%. * There is severe mitral regurgitation. * The mitral regurgitant jet is eccentrically directed. * There is moderate tricuspid regurgitation. * Right ventricular systolic pressure is elevated at 50-60mmHg. Vital Signs: Date Time Temp Pulse Resp B/P (MAP) Pulse Ox O2 Delivery O2 Flow Rate FiO2 01/31/17 08:03 37.0 83 18 117/71 (86) 92 Nasal Cannula 2.0 01/31/17 04:00 Nasal Cannula 01/31/17 04:00 36.9 81 17 115/64 (81) 94 Nasal Cannula 2.0 01/30/17 23:59 Nasal Cannula 01/30/17 23:20 36.9 90 18 115/70 (85) 98 Nasal Cannula 2.0 01/30/17 20:20 96 Nasal Cannula 01/30/17 20:20 36.6 91 20 125/66 (85) 96 Nasal Cannula 01/30/17 20:14 84 18 122/71 96 01/30/17 19:35 87 01/30/17 19:30 102 18 136/74 93 Nasal Cannula 2.0 01/30/17 19:24 Nasal Cannula 2.0 01/30/17 17:55 85 20 128/66 97 Nasal Cannula 2.0 01/30/17 16:04 Room Air 95 01/30/17 15:51 37.0 91 22 122/72 95 Room Air Lab Results: Results Past 24 Hours Test 01/30/17 16:30 01/30/17 21:56 01/31/17 03:50 01/31/17 04:00 Range/Units White Blood Count 5.41 4.8-10.8 K/uL Red Blood Count 3.34 4.2-5.4 M/uL Hemoglobin 9.9 12.0-16.0 g/dL Hematocrit 32.0 37-47 % Mean Corpuscular Volume 95.8 80-100 fL Mean Corpuscular Hemoglobin 29.6 25-34 pg Mean Corpuscular Hemoglobin Concent 30.9 32-36 g/dl Platelet Count 143 130-400 K/uL Mean Platelet Volume 11.4 7.4-10.4 fL Neutrophils (%) (Auto) 65.9 % Lymphocytes (%) (Auto) 25.0 % Monocytes (%) (Auto) 5.9 % Eosinophils (%) (Auto) 2.8 % Basophils (%) (Auto) 0.2 % Neutrophils # (Auto) 3.57 1.4-6.5 K/uL Lymphocytes # (Auto) 1.35 1.2-3.4 K/uL Monocytes # (Auto) 0.32 0.11-0.59 K/uL Eosinophils # (Auto) 0.15 0-0.5 K/uL Basophils # (Auto) 0.01 0-0.2 K/uL RDW Standard Deviation 54.2 36.4-46.3 fL RDW Coefficient of Variation 15.5 11.5-14.5 % Immature Granulocyte % (Auto) 0.2 % Immature Granulocyte # (Auto) 0.01 0.00-0.02 K/uL Prothrombin Time 12.4 9.0-12.0 SECONDS Prothromb Time International Ratio 1.2 0.9-1.1 Sodium Level 144 136-145 mmol/L Potassium Level 3.7 3.5-5.1 mmol/L Chloride Level 111 98-107 mmol/L Carbon Dioxide Level 26 21-32 mmol/L Anion Gap 7.0 3-11 mmol/L Blood Urea Nitrogen 17 7-18 mg/dl Creatinine 1.01 0.60-1.20 mg/dl Est Creatinine Clear Calc Drug Dose 33.3 ml/min Estimated GFR () 58.4 Estimated GFR (Non- 50.4 BUN/Creatinine Ratio 17.2 10-20 Random Glucose 128 70-99 mg/dl Calcium Level 8.4 8.5-10.1 mg/dl Magnesium Level 1.8 1.8-2.4 mg/dl Total Bilirubin 1.1 0.2-1 mg/dl Aspartate Amino Transf (AST/SGOT) 67 15-37 U/L Alanine Aminotransferase (ALT/SGPT) 97 12-78 U/L Alkaline Phosphatase 107 45-117 U/L Troponin I 0.023 0.025 0-0.045 ng/ml Pro-B-Type Natriuretic Peptide 7416 0-1800 pg/ml Total Protein 7.2 6.4-8.2 gm/dl Albumin 3.7 3.4-5.0 gm/dl Globulin 3.5 2.5-4.0 gm/dl Albumin/Globulin Ratio 1.1 0.9-2 Thyroid Stimulating Hormone (TSH) 4.350 0.300-4.500 uIu/ml Chemistry Specimen Hemolysis Creatine Kinase MB 1.5 0.5-3.6 ng/ml Creatine Kinase MB Ratio 0-3.0 Urine Color YELLOW Urine Appearance CLEAR CLEAR Urine pH 5.0 4.5-7.5 Urine Specific Lorraine 1.014 1.000-1.030 Urine Protein NEG NEG Urine Glucose (UA) NEG NEG Urine Ketones NEG NEG Urine Occult Blood NEG NEG Urine Nitrite NEG NEG Urine Bilirubin NEG NEG Urine Urobilinogen NEG NEG Urine Leukocyte Esterase SMALL NEG Urine WBC (Auto) 10-30 0-5 /hpf Urine RBC (Auto) 0-4 0-4 /hpf Urine Hyaline Casts (Auto) 1-5 0-5 /lpf Urine Epithelial Cells (Auto) 20-30 0-5 /lpf Urine Bacteria (Auto) NEG NEG Test 01/31/17 04:06 Range/Units White Blood Count 6.01 4.8-10.8 K/uL Red Blood Count 3.38 4.2-5.4 M/uL Hemoglobin 10.1 12.0-16.0 g/dL Hematocrit 32.4 37-47 % Mean Corpuscular Volume 95.9 80-100 fL Mean Corpuscular Hemoglobin 29.9 25-34 pg Mean Corpuscular Hemoglobin Concent 31.2 32-36 g/dl RDW Standard Deviation 53.4 36.4-46.3 fL RDW Coefficient of Variation 15.2 11.5-14.5 % Platelet Count 131 130-400 K/uL Mean Platelet Volume 12.0 7.4-10.4 fL Sodium Level 144 136-145 mmol/L Potassium Level 3.2 3.5-5.1 mmol/L Chloride Level 108 98-107 mmol/L Carbon Dioxide Level 29 21-32 mmol/L Anion Gap 7.0 3-11 mmol/L Blood Urea Nitrogen 14 7-18 mg/dl Creatinine 0.80 0.60-1.20 mg/dl Est Creatinine Clear Calc Drug Dose 41.5 ml/min Estimated GFR () 77.4 Estimated GFR (Non- 66.8 BUN/Creatinine Ratio 17.2 10-20 Random Glucose 88 70-99 mg/dl Calcium Level 8.2 8.5-10.1 mg/dl Magnesium Level 1.8 1.8-2.4 mg/dl Creatine Kinase MB 1.2 0.5-3.6 ng/ml Troponin I 0.035 0-0.045 ng/ml Microbiology Results 01/31/17 Urine Culture, Received Pending
[2017-01-31] MEDS ORDERED: SPIRONOLACTONE 25 MG TAB PO ONE (10:00)
--- NOTE | 2017-01-31 10:22 | Cardiology Consultation ---
Cardiology Consultation Date of Service Jan 31, 2017. (Yumiko Santacruz PA-C) Cardiology Consultation Requesting Provider: HARSHAL Hopkins Attending Patient Ombudsperson: Dr. Matthews HPI: Melissa Cota is a 86 year old female with past history significant for presumed ischemic cardiomyopathy diagnosed in October 2016, with LVEF 30-35%, nuclear stress testing demonstrating large area of of scar in the inferior basilar, inferior, inferoseptal, apical, distal anterior, and distal anteroseptal myocardium. no inducible ischemia noted. She underwent AICD implant with Dr. Sepulveda in November. Lisinopril was stopped due to complaints of cough, improved with transition to losartan. Unfortunately she noted dizziness associated with hypotension and losartan was stopped last month. Furosemide was titrated as outpatient due to intermittent cancers of LE edema, SOB, abdominal bloating. She had been taking furosemide 40 mg in AM and 20 mg in afternoon. She admits to not weighing herself over the last few weeks. She noted worsening dyspnea with exertional activities and cough x 1 week. Yesterday she had trouble sleeping with significant orthopnea, and SOB at rest. She came to ER for evaluation. Chest xray demonstrated pleural effusions/pulm edema. BNP elevated. Cardiac enzymes unremarkable. EKG unchanged from previous. She was started on IV furosemide. At time of consult, patient feeling better. Still has dyspnea when ambulating in room. Still wearing supplemental O2. No chest pain. Edema improved. Abdominal bloating improved. Still has cough and orthopnea. No dizziness, syncope or near syncope. No palpitations Review of Systems: Review of Systems: See HPI for pertinent positives. All other 10 point review of systems is negative. 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 Lives alone Allergies: Review of patient's allergies indicates no known allergies. Medications: OBJECTIVE/PHYSICAL EXAMINATION: Last 8 Hrs Date Time Temp Pulse Resp B/P (MAP) Pulse Ox O2 Delivery O2 Flow Rate FiO2 01/31/17 08:03 37.0 83 18 117/71 (86) 92 Nasal Cannula 2.0 01/31/17 04:00 Nasal Cannula 01/31/17 04:00 36.9 81 17 115/64 (81) 94 Nasal Cannula 2.0 General: no acute distress and stated age Eyes: conjunctiva are pink and non-injected, sclera clear Neck: normal jugular venous pulse, no hepatojugular reflux Chest: normal shape and normal respiratory effort Lungs: + rales bases b/l. Cardiac Exam: regular heart sounds, no murmurs, rubs, or gallops Abdomen: abdomen soft, non-tender, no abnormal masses and no hepatosplenomegaly Musculoskeletal: no gait disturbance, no weakness Extremities: no edema and no cyanosis Neuro: grossly normal exam Psych: appropriate affect and insight. Data: Chest xray on admission: IMPRESSION: 1. Cardiomegaly and AICD. There is evidence of congestive failure with interstitial edema. 2. There are layering pleural effusions with bibasilar consolidation. This likely represents atelectasis. Correlate clinically for evidence of superimposed pneumonia. 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 Echocardiogram reviewed: * Patient experienced back pain after she was given the Definity contrast * -- Conclusions -- * The left ventricle is moderately dilated. * There is mild concentric left ventricular hypertrophy. * There is severe global hypokinesis of the left ventricle. * Only base of posterior wall contracts. * Ejection Fraction = 15-20%. * There is severe mitral regurgitation. * The mitral regurgitant jet is eccentrically directed. * There is moderate tricuspid regurgitation. * Right ventricular systolic pressure is elevated at 50-60mmHg. Labs: Last 24 Hours Test 01/30/17 16:30 01/30/17 21:56 01/31/17 03:50 01/31/17 04:00 White Blood Count 5.41 K/uL Red Blood Count 3.34 M/uL Hemoglobin 9.9 g/dL Hematocrit 32.0 % Mean Corpuscular Volume 95.8 fL Mean Corpuscular Hemoglobin 29.6 pg Mean Corpuscular Hemoglobin Concent 30.9 g/dl Platelet Count 143 K/uL Mean Platelet Volume 11.4 fL Neutrophils (%) (Auto) 65.9 % Lymphocytes (%) (Auto) 25.0 % Monocytes (%) (Auto) 5.9 % Eosinophils (%) (Auto) 2.8 % Basophils (%) (Auto) 0.2 % Neutrophils # (Auto) 3.57 K/uL Lymphocytes # (Auto) 1.35 K/uL Monocytes # (Auto) 0.32 K/uL Eosinophils # (Auto) 0.15 K/uL Basophils # (Auto) 0.01 K/uL RDW Standard Deviation 54.2 fL RDW Coefficient of Variation 15.5 % Immature Granulocyte % (Auto) 0.2 % Immature Granulocyte # (Auto) 0.01 K/uL Prothrombin Time 12.4 SECONDS Prothromb Time International Ratio 1.2 Sodium Level 144 mmol/L Potassium Level 3.7 mmol/L Chloride Level 111 mmol/L Carbon Dioxide Level 26 mmol/L Anion Gap 7.0 mmol/L Blood Urea Nitrogen 17 mg/dl Creatinine 1.01 mg/dl Est Creatinine Clear Calc Drug Dose 33.3 ml/min Estimated GFR () 58.4 Estimated GFR (Non- 50.4 BUN/Creatinine Ratio 17.2 Random Glucose 128 mg/dl Calcium Level 8.4 mg/dl Magnesium Level 1.8 mg/dl Total Bilirubin 1.1 mg/dl Aspartate Amino Transf (AST/SGOT) 67 U/L Alanine Aminotransferase (ALT/SGPT) 97 U/L Alkaline Phosphatase 107 U/L Troponin I 0.023 ng/ml 0.025 ng/ml Pro-B-Type Natriuretic Peptide 7416 pg/ml Total Protein 7.2 gm/dl Albumin 3.7 gm/dl Globulin 3.5 gm/dl Albumin/Globulin Ratio 1.1 Thyroid Stimulating Hormone (TSH) 4.350 uIu/ml Chemistry Specimen Hemolysis Creatine Kinase MB 1.5 ng/ml Creatine Kinase MB Ratio Urine Color YELLOW Urine Appearance CLEAR Urine pH 5.0 Urine Specific [place] 1.014 Urine Protein NEG Urine Glucose (UA) NEG Urine Ketones NEG Urine Occult Blood NEG Urine Nitrite NEG Urine Bilirubin NEG Urine Urobilinogen NEG Urine Leukocyte Esterase SMALL Urine WBC (Auto) 10-30 /hpf Urine RBC (Auto) 0-4 /hpf Urine Hyaline Casts (Auto) 1-5 /lpf Urine Epithelial Cells (Auto) 20-30 /lpf Urine Bacteria (Auto) NEG Test 01/31/17 04:06 White Blood Count 6.01 K/uL Red Blood Count 3.38 M/uL Hemoglobin 10.1 g/dL Hematocrit 32.4 % Mean Corpuscular Volume 95.9 fL Mean Corpuscular Hemoglobin 29.9 pg Mean Corpuscular Hemoglobin Concent 31.2 g/dl RDW Standard Deviation 53.4 fL RDW Coefficient of Variation 15.2 % Platelet Count 131 K/uL Mean Platelet Volume 12.0 fL Sodium Level 144 mmol/L Potassium Level 3.2 mmol/L Chloride Level 108 mmol/L Carbon Dioxide Level 29 mmol/L Anion Gap 7.0 mmol/L Blood Urea Nitrogen 14 mg/dl Creatinine 0.80 mg/dl Est Creatinine Clear Calc Drug Dose 41.5 ml/min Estimated GFR () 77.4 Estimated GFR (Non- 66.8 BUN/Creatinine Ratio 17.2 Random Glucose 88 mg/dl Calcium Level 8.2 mg/dl Magnesium Level 1.8 mg/dl Creatine Kinase MB 1.2 ng/ml Troponin I 0.035 ng/ml Prior DATA October 24, 2016 TTE Interpretation Summary ([facility], Dr. Chacon): Mildly dilated LV chamber size with global thinning. Severely reduced LV systolic function with severe global hypokinesis, EF 25-30%. Grade II diastolic dysfunction. The right ventricular cavity size is enlarged (proximal parasternal long axis right ventricular outflow tract dimension >3.3 cm). The right ventricular systolic function is reduced as assessed by tricuspid annular plane systolic excursion ( TAPSE) (TAPSE <1.6 cm). Aortic valve sclerosis mild, without significant aortic valvular stenosis. Mild to moderate tricuspid regurgitation. Moderate tricuspid regurgitation. Mild left atrial enlargement. Moderate right atrial enlargement. Pulmonary hypertension is present with a PASP of 51 mmHg assuming a RA pressure of 15 mmHg. October 28, 2016 Limited [facility]TE [facility] The left ventricle is moderately dilated. Left ventricular systolic function is severely reduced. Ejection Fraction = 30-35%. Anterior, apical, septal and lateral hypo to akinetic. Nuclear Stress test dated 10/28/16: Indicates an infarct of a large percentage of the myocardium including the inferior basilar, inferior, inferoseptal, apical, distal anterior, and distal anteroseptal myocardium. There is a severe ischemic cardiomyopathy with an estimated left ventricular ejection fraction of 25%. The study indicates no active ischemia. IMPRESSION: 86 year old female 1. Acute on Chronic decompensated systolic HF exacerbation 2. Presumed Ischemic cardiomyopathy, LVEF previously 25-30%, now 15-20%. Large area of scar on nuclear stress test. No ischemia. 3. S/P Single chamber ICD implant 11/27/16 4. History of borderline hypotension 5. Hyperkalemia 6. Severe MR, moderate TR RECOMMENDATIONS/PLAN: Increase furosemide to 40 mg IV BID today. Start low dose spironolactone 12.5 mg daily. Supplement potassium. Monitor I+O's Fluid restriction of 1500 ml Monitor renal function. Continue Toprol. Retry low dose losartan once fluid status improves. Case discussed with Dr. Matthews. Will follow. (Yumiko Santacruz, PA-C) Patient seen and examined assessment and plan as well outlined. Acute on chronic systolic heart failure now responding to diuresis Enrrique Matthews MD (Enrrique Matthews M.D.)
[2017-01-31] MEDS: FUROSEMIDE INJ 40 MG in SYRINGE 0 ML IV SCH (13:03)
[2017-01-31] MEDS: ENOXAPARIN 40 MG/0.4 ML SYR SC SCH (20:24)
[2017-02-01] VITALS (9 sets, daily range): BP systolic 104–109; BP diastolic 59–69; PULSE 83–88; TEMP 36.8–37.5; O2SAT 92–95
[2017-02-01] MEDS: FUROSEMIDE INJ 40 MG in SYRINGE 0 ML IV SCH ×2 (07:16→13:55)
[2017-02-01 07:26] LABS: HEMATOCRIT 32.4 % (37-47); MEAN CELL VOLUME 94.5 fL (80-100); MEAN CORPUSCULAR HEMOGLOBIN 29.7 pg (25-34); MEAN CORPUSCULAR HGB CONC 31.5 g/dl (32-36); MEAN PLATELET VOLUME 11.8 fL (7.4-10.4); PLATELET COUNT 139 K/uL (130-400); RED BLOOD COUNT 3.43 M/uL (4.2-5.4); WHITE BLOOD COUNT 5.29 K/uL (4.8-10.8)
[2017-02-01 07:54] LABS: CALCIUM 8.7 mg/dl (8.5-10.1); CREATININE 0.8 mg/dl (0.60-1.20); MAGNESIUM 1.9 mg/dl (1.8-2.4); POTASSIUM 3.6 mmol/L (3.5-5.1)
[2017-02-01] MEDS: PROPYLTHIOURACIL 50 MG TAB PO SCH (08:44)
[2017-02-01] MEDS: ATORVASTATIN 40 MG TAB PO SCH (08:45)
[2017-02-01] MEDS: ASPIRIN 81 MG ECTAB PO SCH (08:45)
[2017-02-01] MEDS: SPIRONOLACTONE 25 MG TAB PO SCH (08:45)
[2017-02-01] MEDS: CYANOCOBALAMIN 500 MCG TAB (VIT B-12) PO SCH (08:46)
[2017-02-01] MEDS: METOPROLOL SUCC 25MG EXT REL TAB PO SCH (08:46)
[2017-02-01] MEDS: PANTOprazole SOD 40 MG TAB PO SCH (08:46)
[2017-02-01] MEDS: CEROVITE ADV FORMULA TAB PO SCH (08:46)
--- NOTE | 2017-02-01 09:05 | Progress Note ---
Internal Med Progress Note Date of Service: Feb 01, 2017. Provider Documentation: SUBJECTIVE: Seen and examined at bedside Cough about the same as yesterday, clear expectoration Less SOB Denies chest pain, dizziness, abd pain No other complaints Will titrate off oxygen as able No New complaints OBJECTIVE: Vital Signs-as noted below Physical Exam: General Appearance:Moderately built and nourished, no apparent distress Head: normocephalic, Atraumatic Eyes: normal inspection, EOMI, PERRL Neck: supple, Trachea midline Respiratory/Chest: Decreased breath sounds, CTA Cardiovascular: S1, S2, No murmur Abdomen/GI:Soft, Non tender, Bowel sounds present Extremities/Musculoskelatal:normal inspection, B/L 1+ edema Neurologic/Psych:AAOX3, grossly no focal neurological deficits Skin: normal color, warm Lab data as noted below. ASSESSMENT & PLAN: ACUTE ON CHRONIC SYSTOLIC CHF, ISCHEMIC CARDIOMYOPATHY, S/P AICD Patient presented with orthopnea, wheezing, and worsening exertional SOB since 1 week CXR: suggestive of CHF, layering pleural effusions Newly diagnosed with ischemic cardiomyopathy, EF 30-35% in October 2016; S/P AICD 11/27 ECHO: severe global hypokinesis of the left ventricle, Severe MR, Moderate TR, EF:15-20% Continue ASA, Statins, BB Could not tolerate MATT (Cough)/ARB secondary to Hypotension previously Was on Lasix 40mg in the AM and 20mg at lunch:changed on 01/07 Continue IV Lasix 40mg BID, spironolactone Sodium, fluid restriction Monitor I/Os, daily weight Need to be restarted on low dose losartan if BP tolerates Appreciate Cardiology Input Saturating 94% on 2L NC Titrate off oxygen as able HYPOKALEMIA: Secondary to diuretics monitor HYPERTHYROIDISM continue PTU GERD continue PPI DVT PROPHYLAXIS SQ Lovenox CODE STATUS full code DISPOSITION To be determined PROCEDURES: ECHO: * The left ventricle is moderately dilated. * There is mild concentric left ventricular hypertrophy. * There is severe global hypokinesis of the left ventricle. * Only base of posterior wall contracts. * Ejection Fraction = 15-20%. * There is severe mitral regurgitation. * The mitral regurgitant jet is eccentrically directed. * There is moderate tricuspid regurgitation. * Right ventricular systolic pressure is elevated at 50-60mmHg. Vital Signs: Date Time Temp Pulse Resp B/P (MAP) Pulse Ox O2 Delivery O2 Flow Rate FiO2 02/01/17 08:00 94 Nasal Cannula 2.0 02/01/17 08:00 94 Nasal Cannula 2.0 02/01/17 07:14 36.8 83 20 106/66 (79) 94 Nasal Cannula 2.0 02/01/17 04:15 37.0 84 17 108/65 (79) 94 Nasal Cannula 2.0 02/01/17 04:00 Nasal Cannula 01/31/17 23:59 Nasal Cannula 01/31/17 23:21 36.5 83 17 114/65 (81) 98 Nasal Cannula 2.0 01/31/17 20:19 Nasal Cannula 01/31/17 20:00 Nasal Cannula 01/31/17 19:10 36.8 78 18 100/63 (75) 95 Nasal Cannula 2.0 01/31/17 17:02 95 Nasal Cannula 2.0 95 01/31/17 16:15 36.9 75 18 104/65 (78) 95 01/31/17 12:54 37.0 69 18 116/62 (80) 96 01/31/17 12:00 94 Nasal Cannula 95 Lab Results: Results Past 24 Hours Test 02/01/17 07:04 Range/Units White Blood Count 5.29 4.8-10.8 K/uL Red Blood Count 3.43 4.2-5.4 M/uL Hemoglobin 10.2 12.0-16.0 g/dL Hematocrit 32.4 37-47 % Mean Corpuscular Volume 94.5 80-100 fL Mean Corpuscular Hemoglobin 29.7 25-34 pg Mean Corpuscular Hemoglobin Concent 31.5 32-36 g/dl RDW Standard Deviation 52.3 36.4-46.3 fL RDW Coefficient of Variation 15.2 11.5-14.5 % Platelet Count 139 130-400 K/uL Mean Platelet Volume 11.8 7.4-10.4 fL Sodium Level 142 136-145 mmol/L Potassium Level 3.6 3.5-5.1 mmol/L Chloride Level 105 98-107 mmol/L Carbon Dioxide Level 29 21-32 mmol/L Anion Gap 8.0 3-11 mmol/L Blood Urea Nitrogen 14 7-18 mg/dl Creatinine 0.80 0.60-1.20 mg/dl Est Creatinine Clear Calc Drug Dose 40.8 ml/min Estimated GFR () 77.4 Estimated GFR (Non- 66.8 BUN/Creatinine Ratio 18.0 10-20 Random Glucose 86 70-99 mg/dl Calcium Level 8.7 8.5-10.1 mg/dl Magnesium Level 1.9 1.8-2.4 mg/dl
[2017-02-01] MEDS ORDERED: POTASSIUM CHLORIDE 20 MEQ TABCR PO STA (11:05)
--- NOTE | 2017-02-01 11:27 | Cardiology Follow-Up ---
Subjective Subjective Date of Service: Feb 01, 2017. Pt evaluation today including: conversation w/ patient, physical exam, chart review, lab review, review of studies, review of inpatient medication list Problem List 1. acute decompensated systolic heart failure diuresing well will cont with lasix 40mg IV bid unfortunately, bp would not support addition of ARB cannot add Entresto either will cont with metoprolol succinate, lasix and spironolactone will need close outpatient follow up with CHF clinic as outpatient Review of Systems Respiratory: + cough Objective Vital Signs Last Vital Signs Documentation Date Time Temp Pulse Resp B/P (MAP) Pulse Ox O2 Delivery O2 Flow Rate FiO2 02/01/17 08:00 94 Nasal Cannula 2.0 02/01/17 07:14 36.8 83 20 106/66 (79) 01/31/17 17:02 95 Physical Exam: General Appearance: WD/WN, no apparent distress Respiratory/Chest: lungs clear, normal breath sounds Cardiovascular: regular rate, rhythm, no JVD, no murmur Abdomen: soft Extremities: no pedal edema Neurologic/Psychiatric: alert, oriented x 3 Skin: normal color, warm/dry, no rash
[2017-02-01] MEDS: ENOXAPARIN 40 MG/0.4 ML SYR SC SCH (21:24)
[2017-02-02] VITALS (7 sets, daily range): BP systolic 94–117; BP diastolic 55–74; PULSE 77–92; TEMP 36.8–37.5; O2SAT 91–97
[2017-02-02 06:42] LABS: HEMATOCRIT 35.7 % (37-47)
[2017-02-02 07:05] LABS: BUN/CREATININE RATIO 17.1 (10-20); CALCIUM 8.6 mg/dl (8.5-10.1); CREATININE 0.81 mg/dl (0.60-1.20); POTASSIUM 3.8 mmol/L (3.5-5.1)
[2017-02-02] MEDS: ATORVASTATIN 40 MG TAB PO SCH (08:34)
[2017-02-02] MEDS: METOPROLOL SUCC 25MG EXT REL TAB PO SCH (08:34)
[2017-02-02] MEDS: CYANOCOBALAMIN 500 MCG TAB (VIT B-12) PO SCH (08:34)
[2017-02-02] MEDS: CEROVITE ADV FORMULA TAB PO SCH (08:34)
[2017-02-02] MEDS: PROPYLTHIOURACIL 50 MG TAB PO SCH (08:34)
[2017-02-02] MEDS: PANTOprazole SOD 40 MG TAB PO SCH (08:34)
[2017-02-02] MEDS: SPIRONOLACTONE 25 MG TAB PO SCH (08:34)
[2017-02-02] MEDS: ASPIRIN 81 MG ECTAB PO SCH (08:34)
[2017-02-02] MEDS: FUROSEMIDE INJ 40 MG in SYRINGE 0 ML IV SCH (09:27)
--- NOTE | 2017-02-02 10:26 | Progress Note ---
Internal Med Progress Note Date of Service: Feb 02, 2017. Provider Documentation: SUBJECTIVE: Seen and examined at bedside Doing well today Less Cough Denies chest pain, SOB, dizziness, abd pain No other complaints Saturating well on room air Weight down by 3.5 kg since admission OBJECTIVE: Vital Signs-as noted below Physical Exam: General Appearance:Moderately built and nourished, no apparent distress Head: normocephalic, Atraumatic Eyes: normal inspection, EOMI, PERRL Neck: supple, Trachea midline Respiratory/Chest: Decreased breath sounds, CTA Cardiovascular: S1, S2, No murmur Abdomen/GI:Soft, Non tender, Bowel sounds present Extremities/Musculoskelatal:normal inspection, B/L 1+ edema Neurologic/Psych:AAOX3, grossly no focal neurological deficits Skin: normal color, warm Lab data as noted below. ASSESSMENT & PLAN: ACUTE ON CHRONIC SYSTOLIC CHF, ISCHEMIC CARDIOMYOPATHY, S/P AICD Patient presented with orthopnea, wheezing, and worsening exertional SOB since 1 week CXR: suggestive of CHF, layering pleural effusions Newly diagnosed with ischemic cardiomyopathy, EF 30-35% in October 2016; S/P AICD 11/27 ECHO: severe global hypokinesis of the left ventricle, Severe MR, Moderate TR, EF:15-20% Continue ASA, Statins, BB Could not tolerate MATT (Cough)/ARB secondary to Hypotension previously Was on Lasix 40mg in the AM and 20mg at lunch:changed on 01/07 Continue IV Lasix 40mg BID, spironolactone Sodium, fluid restriction Monitor I/Os, daily weight Could not add ARB secondary to relative low BP Appreciate Cardiology Input Saturating well on room air HYPOKALEMIA: Resolved monitor HYPERTHYROIDISM continue PTU GERD continue PPI DVT Px SQ Lovenox CODE STATUS full code DISPOSITION To be determined PROCEDURES: ECHO: * The left ventricle is moderately dilated. * There is mild concentric left ventricular hypertrophy. * There is severe global hypokinesis of the left ventricle. * Only base of posterior wall contracts. * Ejection Fraction = 15-20%. * There is severe mitral regurgitation. * The mitral regurgitant jet is eccentrically directed. * There is moderate tricuspid regurgitation. * Right ventricular systolic pressure is elevated at 50-60mmHg. Vital Signs: Date Time Temp Pulse Resp B/P (MAP) Pulse Ox O2 Delivery O2 Flow Rate FiO2 02/02/17 08:00 Room Air 02/02/17 07:23 36.8 82 20 101/64 (76) 93 Room Air 02/02/17 04:10 95 Room Air 02/02/17 03:30 36.9 85 18 94/56 (69) 91 Room Air 02/02/17 00:00 95 Room Air 02/01/17 23:47 37.1 86 18 109/66 (80) 95 Room Air 02/01/17 20:10 92 Room Air 02/01/17 20:10 37.5 88 18 109/69 (82) 92 Room Air 02/01/17 16:00 92 Room Air 02/01/17 15:58 37.0 88 20 104/61 (75) 92 Room Air 02/01/17 12:30 94 Room Air 02/01/17 12:00 95 Nasal Cannula 1.0 02/01/17 12:00 37.0 83 20 107/59 (75) 95 Nasal Cannula 1.0 Lab Results: Results Past 24 Hours Test 02/02/17 06:15 Range/Units Hemoglobin 11.0 12.0-16.0 g/dL Hematocrit 35.7 37-47 % Sodium Level 142 136-145 mmol/L Potassium Level 3.8 3.5-5.1 mmol/L Chloride Level 104 98-107 mmol/L Carbon Dioxide Level 31 21-32 mmol/L Anion Gap 7.0 3-11 mmol/L Blood Urea Nitrogen 14 7-18 mg/dl Creatinine 0.81 0.60-1.20 mg/dl Est Creatinine Clear Calc Drug Dose 40.4 ml/min Estimated GFR () 76.2 Estimated GFR (Non- 65.8 BUN/Creatinine Ratio 17.1 10-20 Random Glucose 90 70-99 mg/dl Calcium Level 8.6 8.5-10.1 mg/dl Magnesium Level 2.0 1.8-2.4 mg/dl Pro-B-Type Natriuretic Peptide 4334 0-1800 pg/ml
--- NOTE | 2017-02-02 12:28 | Cardiology Follow-Up ---
Subjective Subjective Date of Service: Feb 02, 2017. Pt evaluation today including: conversation w/ patient, conversation w/ family , physical exam, chart review, lab review, review of studies, review of inpatient medication list Additional Details: Pt seen and examined, oob in chair eating lunch, family at bedside. States that she feels well. Breathing back to baseline. Denies cp, sob, palpitations, lightheadedness or dizziness. Tele reviewed: sinus rhythm without arrhythmia. Review of Systems Respiratory: + cough, No see HPI, No sputum, No wheezing, No shortness of breath, No dyspnea on exertion, No dyspnea at rest, No hemoptysis, No problem reported Cardiac: No see HPI, No chest pain, No orthopnea, No PND, No edema, No claudication, No palpitations, No problem reported Objective Vital Signs Last Vital Signs Documentation Date Time Temp Pulse Resp B/P (MAP) Pulse Ox O2 Delivery O2 Flow Rate FiO2 02/02/17 12:00 Room Air 02/02/17 10:57 36.9 77 20 97/55 (69) 97 02/01/17 12:00 1.0 01/31/17 17:02 95 Physical Exam: General Appearance: WD/WN, no apparent distress Eyes: bilateral eyes normal inspection, bilateral eyes PERRL, bilateral eyes EOMI ENT: normal ENT inspection, hearing grossly normal, pharynx normal Neck: supple, no adenopathy, thyroid normal, no JVD, no carotid bruits, trachea midline Respiratory/Chest: chest non-tender, lungs clear, normal breath sounds, no respiratory distress, no accessory muscle use Cardiovascular: regular rate, rhythm, no edema, no JVD, no murmur, + gallop/S4 Abdomen: normal bowel sounds, non tender, soft, no organomegaly, no pulsatile mass Extremities: normal inspection, no pedal edema, no calf tenderness Neurologic/Psychiatric: 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 acute decompensated systolic heart failure diuresing well will change to po lasix this PM unfortunately, bp would not support addition of ARB cannot add Entresto either will cont with metoprolol succinate, lasix and spironolactone will need close outpatient follow up with CHF clinic as outpatient will likely be able to d/c in AM with lasix 40mg po bid
[2017-02-02] MEDS: FUROSEMIDE 40 MG TAB PO SCH (16:49)
[2017-02-02] MEDS: ENOXAPARIN 40 MG/0.4 ML SYR SC SCH (20:00)
[2017-02-03 00:21] VITALS: BP 114/71; PULSE 86; TEMP 37.5; O2SAT 93
[2017-02-03 04:24] VITALS: BP 106/66; PULSE 83; TEMP 36.8; O2SAT 90
[2017-02-03 06:21] LABS: HEMATOCRIT 38.4 % (37-47)
[2017-02-03 06:53] LABS: BUN/CREATININE RATIO 16.1 (10-20); CALCIUM 9.4 mg/dl (8.5-10.1); CREATININE 0.91 mg/dl (0.60-1.20); MAGNESIUM 2.1 mg/dl (1.8-2.4); POTASSIUM 3.8 mmol/L (3.5-5.1)
[2017-02-03 08:28] VITALS: BP 102/68; PULSE 90; TEMP 37.3; O2SAT 93
[2017-02-03] MEDS: CYANOCOBALAMIN 500 MCG TAB (VIT B-12) PO SCH (08:30)
[2017-02-03] MEDS: ASPIRIN 81 MG ECTAB PO SCH (08:30)
[2017-02-03] MEDS: METOPROLOL SUCC 25MG EXT REL TAB PO SCH (08:30)
[2017-02-03] MEDS: PANTOprazole SOD 40 MG TAB PO SCH (08:30)
[2017-02-03] MEDS: ATORVASTATIN 40 MG TAB PO SCH (08:30)
[2017-02-03] MEDS: PROPYLTHIOURACIL 50 MG TAB PO SCH (08:31)
[2017-02-03] MEDS: CEROVITE ADV FORMULA TAB PO SCH (08:31)
[2017-02-03] MEDS: FUROSEMIDE 40 MG TAB PO SCH (08:31)
[2017-02-03] MEDS: SPIRONOLACTONE 25 MG TAB PO SCH (08:31)
--- NOTE | 2017-02-03 09:13 | Progress Note ---
Internal Med Progress Note Date of Service: Feb 03, 2017. Provider Documentation: SUBJECTIVE: Seen and examined at bedside States feeling much better today Intermittent dry Cough Denies chest pain, SOB, dizziness, abd pain No other complaints Saturating well on room air Weight down by 6.5 kg since admission No new complaints OBJECTIVE: Vital Signs-as noted below Physical Exam: General Appearance:Moderately built and nourished, no apparent distress Head: normocephalic, Atraumatic Eyes: normal inspection, EOMI, PERRL Neck: supple, Trachea midline Respiratory/Chest: Decreased breath sounds, CTA Cardiovascular: S1, S2, No murmur Abdomen/GI:Soft, Non tender, Bowel sounds present Extremities/Musculoskelatal:normal inspection, B/L Trace edema Neurologic/Psych:AAOX3, grossly no focal neurological deficits Skin: normal color, warm Lab data as noted below. ASSESSMENT & PLAN: ACUTE ON CHRONIC SYSTOLIC CHF, ISCHEMIC CARDIOMYOPATHY, S/P AICD Patient presented with orthopnea, wheezing, and worsening exertional SOB since 1 week CXR: suggestive of CHF, layering pleural effusions Newly diagnosed with ischemic cardiomyopathy, EF 30-35% in October 2016; S/P AICD 11/27 ECHO: severe global hypokinesis of the left ventricle, Severe MR, Moderate TR, EF:15-20% Continue ASA, Statins, BB Could not tolerate MATT (Cough)/ARB secondary to Hypotension previously Was on Lasix 40mg in the AM and 20mg at lunch:changed on 01/07 S/P IV Lasix 40mg BID Continue PO lasix BID, spironolactone Continue Sodium, fluid restriction Monitor I/Os, daily weight Could not add ARB secondary to relative low BP Could not add Entresto as well Appreciate Cardiology Input Saturating well on room air Needs follow up with cardiology as outpatient HYPOKALEMIA: Resolved monitor HYPERTHYROIDISM continue PTU GERD continue PPI DVT Px SQ Lovenox CODE STATUS full code DISPOSITION Plan to discharge home with Home Health Follow up with your Primary Care Physician on 02/06/17 at 2:45pm Follow up with your Tobacco Sorter Yumiko Santacruz on 02/20/17 at 2:15pm at [facility] office Seek immediate medical attention if your symptoms reoccur or worsen Follow Salt and fluid restriction as advised PROCEDURES: ECHO: * The left ventricle is moderately dilated. * There is mild concentric left ventricular hypertrophy. * There is severe global hypokinesis of the left ventricle. * Only base of posterior wall contracts. * Ejection Fraction = 15-20%. * There is severe mitral regurgitation. * The mitral regurgitant jet is eccentrically directed. * There is moderate tricuspid regurgitation. * Right ventricular systolic pressure is elevated at 50-60mmHg. Vital Signs: Date Time Temp Pulse Resp B/P (MAP) Pulse Ox O2 Delivery O2 Flow Rate FiO2 02/03/17 08:28 37.3 90 18 102/68 (79) 93 Room Air 02/03/17 04:24 36.8 83 18 106/66 (79) 90 Room Air 02/03/17 04:00 Room Air 02/03/17 00:21 37.5 86 18 114/71 (85) 93 Room Air 02/03/17 00:01 Room Air 02/02/17 20:08 37.5 92 18 117/74 (88) 93 Room Air 02/02/17 20:00 Room Air 02/02/17 16:00 Room Air 02/02/17 15:54 37.0 90 18 95/57 (70) 93 Room Air 02/02/17 12:00 Room Air 02/02/17 10:57 36.9 77 20 97/55 (69) 97 Lab Results: Results Past 24 Hours Test 02/03/17 05:48 Range/Units Hemoglobin 12.1 12.0-16.0 g/dL Hematocrit 38.4 37-47 % Sodium Level 142 136-145 mmol/L Potassium Level 3.8 3.5-5.1 mmol/L Chloride Level 100 98-107 mmol/L Carbon Dioxide Level 32 21-32 mmol/L Anion Gap 10.0 3-11 mmol/L Blood Urea Nitrogen 15 7-18 mg/dl Creatinine 0.91 0.60-1.20 mg/dl Est Creatinine Clear Calc Drug Dose 35.1 ml/min Estimated GFR () 66.2 Estimated GFR (Non- 57.1 BUN/Creatinine Ratio 16.1 10-20 Random Glucose 89 70-99 mg/dl Calcium Level 9.4 8.5-10.1 mg/dl Magnesium Level 2.1 1.8-2.4 mg/dl
[2017-02-03] MEDS ORDERED: SPR25 PO (09:15)
[2017-02-03] MEDS ORDERED: LSX40 PO (09:15)
--- NOTE | 2017-02-03 09:18 | Discharge Summary ---
Discharge Summary Date of Service Feb 03, 2017. Discharge Summary Admission Date: Jan 30, 2017 at 18:32 Discharge Date: Feb 03, 2017 Discharge Disposition: Home with services Principal Diagnosis: Acute systolic CHF Exacerbation Procedures: CXR: 1. Cardiomegaly and AICD. There is evidence of congestive failure with interstitial edema. 2. There are layering pleural effusions with bibasilar consolidation. This likely represents atelectasis. Correlate clinically for evidence of superimposed pneumonia. ECHO: * The left ventricle is moderately dilated. * There is mild concentric left ventricular hypertrophy. * There is severe global hypokinesis of the left ventricle. * Only base of posterior wall contracts. * Ejection Fraction = 15-20%. * There is severe mitral regurgitation. * The mitral regurgitant jet is eccentrically directed. * There is moderate tricuspid regurgitation. * Right ventricular systolic pressure is elevated at 50-60mmHg. Consultations: Cardiology Pending Studies/Follow-Up: Follow up with your Primary Care Physician on 02/06/17 at 2:45pm Follow up with your Power Engineer Yumiko Santacruz on 02/20/17 at 2:15pm at [facility]'s office Seek immediate medical attention if your symptoms reoccur or worsen Follow Salt and fluid restriction as advised Call your Primary Care doctor if any of the following symptoms or problems start or get worse: * Shortness of breath or difficulty breathing * Wake up at night short of breath * Chest pain * Cough * Swelling of your hands, feet, or legs * More fatigued or tired with your normal activity * Palpitations - sudden fast heart beats WEIGHT * Weigh yourself every morning after using the bathroom. * Use the same scale. * Wear the same amount of clothing. * Write your weight down on a chart. * Call your Primary Care doctor if you gain more than 2-3 pounds in 1-2 days. MEDICATIONS * Use this discharge instruction sheet for medication instructions. * Take your medications at the time your doctor ordered. * Do not skip a dose of your medicines. * If you miss a dose of medicine, take it as soon as possible, but DO NOT DOUBLE A DOSE. * Read your medicine information when you get home. * Know all of the side effects of your medicine. If in doubt, ask your pharmacist * Call your Primary Care doctor's office if you have any side effects. * Be sure all of your doctors know what medicine and herbs you take (including cold, flu, and herbal medicine). Take the following with you to your follow-up doctor appointments: * Weight Chart * Medication List * List of questions Do not drink excessive alcohol, beer or wine. Medication Reconciliation New Medications: Furosemide (Furosemide) 40 Mg Tab 40 MG PO BID17 for 30 Days, #60 TAB Spironolactone (Spironolactone) 25 Mg Tab 12.5 MG PO QAM for 30 Days, #15 TAB 1 Refill Continued Medications: Aspirin (Aspirin EC Low Dose) 81 Mg Ectab 81 MG PO QAM for 30 Days, #30 TAB 1 Refill Atorvastatin (Lipitor) 80 Mg Tab 1 TAB PO DAILY for 30 Days, #30 TAB 1 Refill Benzonatate (Benzonatate) 100 Mg Cap 100 MG PO Q8 PRN for Cough for 60 Days, #180 CAP Cyanocobalamin (Vitamin B-12) 1,000 Mcg Tab 1000 MCG PO DAILY, TAB Metoprolol Succinate (Metoprolol Succinate ER) 25 Mg Tabcr 25 MG PO QAM, #30 TAB 1 Refill Nitroglycerin (Nitrostat) 0.4 Mg/1 Tab Subl 0.4 MG SL UD PRN for Chest Pain, #30 TAB 1 Refill Ocuvite Preservision (Ocuvite Preservision) 1 Tab Tab 1 TAB PO DAILY Omeprazole (Prilosec) 40 Mg Cap 40 MG PO DAILY, CAP Propylthiouracil (Ptu) 50 Mg Tab 50 MG PO DAILY, TAB Discontinued Medications: Furosemide (Furosemide) 40 Mg Tab 40 MG PO QAM for 60 Days, #60 TAB 1 Refill Furosemide (Lasix) 40 Mg Tab 20 MG PO afternoon, TAB Admission Information HPI (per Admitting provider): 86 year old female who presents to the ED with shortness of breath. Patient was admitted to [facility] 10/23 - 10/30 with newly diagnosed cardiomyopathy with EF 30-35%. She as discharged on ASA, statin, beta kyaw, MATT, and Lasix 40mg daily. Patient underwent AICD placement on 11/27. In the interim, Lisinopril was changed to Losartan due to cough which was eventually stopped due to hypotension. Lasix has gone from 40mg daily to 40mg BID, back to daily, and most recently 40mg in the AM and 20mg at lunch on 01/07. Patient reports she continues to feel poorly since her admission in October and her functional capacity is still decreased. Over the past week she has noticed she developed orthopnea and wheezing which was acutely worse last night. When her daughter came to check on her today she was significantly short of breath with minimal exertion. Patient reports she does not weigh herself. She has pitting edema on exam which she reports she has not noticed. She reports no improvement in her cough since October. Cough is non productive. She will take Tessalon pearls as needed. She denies chest pain and palpitations. No lightheadedness, dizziness, diaphoresis, or syncopal events. She denies abdominal pain, nausea, vomiting, or diarrhea. No fevers or chills. She denies urinary symptoms. In the ED, patient's proBNP is elevated and CXR is suggestive of CHF. She was given Lasix 40mg IV. Physical Exam (per Admitting): General Appearance: WD/WN, no apparent distress Head: normocephalic, atraumatic Eyes: normal inspection, EOMI, sclerae normal ENT: hearing grossly normal, + pertinent finding (mucous membranes moist) Neck: supple, trachea midline Respiratory/Chest: no respiratory distress, + decreased breath sounds, + pertinent finding (shortness of breath with minimal exertion; able to speak in full sentances) Cardiovascular: regular rate, rhythm, normal peripheral pulses, + pertinent finding (+1 pitting edema BLLE) Abdomen/GI: normal bowel sounds, non tender, soft, no organomegaly Extremities/Musculoskelatal: normal inspection, no calf tenderness, normal capillary refill Neurologic/Psych: no motor/sensory deficits, alert, normal mood/affect, oriented x 3 Skin: normal color, warm/dry Hospital Course ACUTE ON CHRONIC SYSTOLIC CHF, ISCHEMIC CARDIOMYOPATHY, S/P AICD Patient presented with orthopnea, wheezing, and worsening exertional SOB since 1 week CXR: suggestive of CHF, layering pleural effusions Newly diagnosed with ischemic cardiomyopathy, EF 30-35% in October 2016; S/P AICD 11/27 ECHO: severe global hypokinesis of the left ventricle, Severe MR, Moderate TR, EF:15-20% Continue ASA, Statins, BB Could not tolerate MATT (Cough)/ARB secondary to Hypotension previously Was on Lasix 40mg in the AM and 20mg at lunch:changed on 01/07 S/P IV Lasix 40mg BID Continue PO lasix BID, spironolactone Continue Sodium, fluid restriction Monitor I/Os, daily weight Could not add ARB secondary to relative low BP Could not add Entresto as well Appreciate Cardiology Input Saturating well on room air Needs follow up with cardiology as outpatient HYPOKALEMIA: Resolved monitor HYPERTHYROIDISM continue PTU GERD continue PPI DVT Px SQ Lovenox CODE STATUS full code DISPOSITION Plan to discharge home with Home Health Follow up with your Primary Care Physician on 02/06/17 at 2:45pm Follow up with your Power Engineer Yumiko Santacruz on 02/20/17 at 2:15pm at [facility]'s office Seek immediate medical attention if your symptoms reoccur or worsen Follow Salt and fluid restriction as advised PROCEDURES: ECHO: * The left ventricle is moderately dilated. * There is mild concentric left ventricular hypertrophy. * There is severe global hypokinesis of the left ventricle. * Only base of posterior wall contracts. * Ejection Fraction = 15-20%. * There is severe mitral regurgitation. * The mitral regurgitant jet is eccentrically directed. * There is moderate tricuspid regurgitation. * Right ventricular systolic pressure is elevated at 50-60mmHg. Total time spent on discharge = 36 minutes This includes examination of the patient, discharge planning, medication reconciliation, and communication with other providers. Discharge Instructions Discharge Instructions Date of Service Feb 03, 2017. Admission Reason for Admission: CHF Discharge Discharge Diagnosis / Problem: Acute CHF Exacerbation Discharge Goals Goal(s): Decrease discomfort, Improve function Activity Recommendations Activity Limitations: resume your previous activity Exercise/Sports Limitations: as tolerated . Instructions / Follow-Up Instructions / Follow-Up Follow up with your Primary Care Physician on 02/06/17 at 2:45pm Follow up with your Power Engineer Yumiko Santacruz on 02/20/17 at 2:15pm at [facility]'s office Seek immediate medical attention if your symptoms reoccur or worsen Follow Salt and fluid restriction as advised Call your Primary Care doctor if any of the following symptoms or problems start or get worse: * Shortness of breath or difficulty breathing * Wake up at night short of breath * Chest pain * Cough * Swelling of your hands, feet, or legs * More fatigued or tired with your normal activity * Palpitations - sudden fast heart beats WEIGHT * Weigh yourself every morning after using the bathroom. * Use the same scale. * Wear the same amount of clothing. * Write your weight down on a chart. * Call your Primary Care doctor if you gain more than 2-3 pounds in 1-2 days. MEDICATIONS * Use this discharge instruction sheet for medication instructions. * Take your medications at the time your doctor ordered. * Do not skip a dose of your medicines. * If you miss a dose of medicine, take it as soon as possible, but DO NOT DOUBLE A DOSE. * Read your medicine information when you get home. * Know all of the side effects of your medicine. If in doubt, ask your pharmacist * Call your Primary Care doctor's office if you have any side effects. * Be sure all of your doctors know what medicine and herbs you take (including cold, flu, and herbal medicine). Take the following with you to your follow-up doctor appointments: * Weight Chart * Medication List * List of questions Do not drink excessive alcohol, beer or wine. Current Hospital Diet Patient's current hospital diet: AHA Diet (Heart Healthy), Low Sodium Diet (2gm Na) Discharge Diet Recommended Diet: AHA Diet (Heart Healthy), Low Sodium Diet (2gm Na) Pending Studies Studies pending at discharge: no Medical Emergencies . Who to Call and When: Call 911 or go to the Emergency Room if: * If at any time you feel your situation is an emergency * You have tightness or pain in your chest that does not go away with rest or Nitroglycerin * You are very short of breath even with rest . Non-Emergent Contact Non-Emergency issues call your: Primary Care Provider, Power Engineer Call Non-Emergent contact if: you have a fever, your pain is not controlled, your pain is worsening, your pain is unusual for you, your pain is concerning you, you have any medication questions Seek immediate medical attention if your symptoms reoccur or worsen: Including shortness of breath, cough, leg swelling . . "Provider Documentation" section prepared by Kamran Swan. . VTE Core Measure Inpt VTE Proph given/why not?: Enoxaparin (Lovenox)SQ <Electronically signed by Kamran Swan MD> Signed: 02/03/17 0917 Signed: The status of this report is Signed * If report status is Draft, the document has not been finalized by the responsible provider.
--- NOTE | 2017-02-03 10:16 | Cardiology Follow-Up ---
Subjective Subjective Date of Service: Feb 03, 2017. Pt evaluation today including: conversation w/ patient, physical exam, chart review, lab review, review of studies, review of inpatient medication list Additional Details: Pt seen and examined, oob in chair, states that she feels great. Denies cp, sob , palpitations, lightheadedness or dizziness. Tele reviewed: sinus rhythm without arrhythmia or significant ectopy. Review of Systems Respiratory: + cough, No see HPI, No sputum, No wheezing, No shortness of breath, No dyspnea on exertion, No dyspnea at rest, No hemoptysis, No problem reported Cardiac: No see HPI, No chest pain, No orthopnea, No PND, No edema, No claudication, No palpitations, No problem reported Objective Vital Signs Last Vital Signs Documentation Date Time Temp Pulse Resp B/P (MAP) Pulse Ox O2 Delivery O2 Flow Rate FiO2 02/03/17 08:28 37.3 90 18 102/68 (79) 93 Room Air 02/01/17 12:00 1.0 01/31/17 17:02 95 Physical Exam: General Appearance: WD/WN, no apparent distress Eyes: bilateral eyes normal inspection, bilateral eyes PERRL, bilateral eyes EOMI ENT: normal ENT inspection, hearing grossly normal, pharynx normal Neck: supple, no adenopathy, thyroid normal, no JVD, no carotid bruits, trachea midline Respiratory/Chest: chest non-tender, lungs clear, normal breath sounds, no respiratory distress, no accessory muscle use Cardiovascular: regular rate, rhythm, no edema, no JVD, no murmur, + gallop/S4 Abdomen: normal bowel sounds, non tender, soft, no organomegaly, no pulsatile mass Extremities: normal inspection, no pedal edema, no calf tenderness Neurologic/Psychiatric: administrative executive II-XII nml as tested, no motor/sensory deficits, alert, normal mood/affect, oriented x 3 Skin: normal color, warm/dry, no rash Lymphatic: no adenopathy Assessment and Plan 1. acute decompensated systolic heart failure diuresing well even after switching to po ok to d/c to home on lasix 40mg bid and spironolactone 12.5mg daily unfortunately, bp would not support addition of ARB cannot add Entresto either will cont with metoprolol succinate, lasix and spironolactone will need close outpatient follow up with CHF clinic as outpatient, my office will call to arrange f/u in 1-2 weeks ok to d/c to home from cardiac standpoint
[2017-02-03 10:37] VITALS: BP 102/68; PULSE 90; TEMP 37.3; O2SAT 93
== END 2017-02-03 10:50 | disposition home or self-care (01) | DRG 293 ==
LOC: C.EDB 15:48 → C.2T 18:32 → ENRESERV 19:31
PROVIDERS: ADMIT Family Medicine; ATTEND Internal Medicine
DX: I50.23 Acute on chronic systolic (congestive) heart failure (principal); I25.2 Old myocardial infarction; K21.9 Gastro-esophageal reflux disease without esophagitis; I25.5 Ischemic cardiomyopathy; E55.9 Vitamin D deficiency, unspecified; Z79.82 Long term (current) use of aspirin; E87.6 Hypokalemia; E05.90 Thyrotoxicosis, unspecified without thyrotoxic crisis or storm; N18.2 Chronic kidney disease, stage 2 (mild); Z95.810 Presence of automatic (implantable) cardiac defibrillator; Z82.49 Family history of ischemic heart disease and other diseases of the circulatory system; Z83.3 Family history of diabetes mellitus; I08.1 Rheumatic disorders of both mitral and tricuspid valves

== ENCOUNTER 2018-07-27 02:10 | Inpatient (IN) ==
[2018-07-27] MEDS ORDERED: SODIUM CHLORIDE 0.9% 1000ML 500 ML IV ONE ×2 (02:18→04:15)
[2018-07-27] MEDS ORDERED: METOPROLOL TARTRATE 1 MG/ML VIAL IV STA ×3 (02:18→03:23)
[2018-07-27] MEDS ORDERED: ASPIRIN 81 MG CHEW PO STA (02:19)
[2018-07-27 02:36] LABS: Basophils # (auto) 0.01 K/uL (0-0.2); Basophils % (auto) 0.2 %; Eosinophils # (auto) 0.09 K/uL (0-0.5); Hematocrit (blood only) 35.5 % (37-47); Hemoglobin 11.6 g/dL (12.0-16.0); Immature Granulocytes # (auto) 0.02 K/uL (0.00-0.02); Immature Granulocytes % (auto) 0.4 %; Lymphocytes # (auto) 1.03 K/uL (1.2-3.4); Lymphocytes % (auto) 22.5 %; Mean Corpuscular Hgb Conc 32.7 g/dL (32-36); Mean Platelet Volume 11.4 fL (7.4-10.4); Monocytes # (auto) 0.34 K/uL (0.11-0.59); Monocytes % (auto) 7.4 %; Neutrophils # (auto) 3.09 K/uL (1.4-6.5); Neutrophils % (auto) 67.5 %; Platelet Count 176 K/uL (130-400); RDW Coefficient of Variation 13.8 % (11.5-14.5); White Blood Count 4.58 K/uL (4.8-10.8)
[2018-07-27 02:58] LABS: INR 1.1 (0.9-1.1); Partial Thromboplastin Ratio 1.2; Partial Thromboplastin Time 32.5 Seconds (21.0-31.0); Prothrombin Time 11.4 Seconds (9.0-12.0)
[2018-07-27 03:14] LABS: Albumin Level 3.1 gm/dl (3.4-5.0); Bilirubin Direct 0.2 mg/dl (0-0.2); Bilirubin,Total 0.7 mg/dl (0.2-1); Calcium 8.1 mg/dl (8.5-10.1); Est GFR (African American) 44.9; Est GFR (Non-African American) 38.8; Magnesium 1.3 mg/dl (1.8-2.4); Potassium 3.2 mmol/L (3.5-5.1); T4 Free Thyroxine 1.15 ng/dl (0.8-1.6); Total Protein 6.8 gm/dl (6.4-8.2); Troponin I 0.035 ng/ml (0-0.045)
[2018-07-27] MEDS ORDERED: INSULIN HUMAN REGULAR IV STA (03:23)
[2018-07-27 03:25] LABS: Beta-Hydroxybutyrate 6.71 mg/dl (0.2-2.81)
[2018-07-27] MEDS: MAGNESIUM SULFATE / D5W 1 GM/100 ML BAG IV SCH ×2 (03:25→04:42)
[2018-07-27] MEDS ORDERED: NovoLIN-R INSULIN PER UNIT CHARGE ONE (03:30)
[2018-07-27] MEDS ORDERED: AMIODARONE IV BOLUS / DRIP IV STA (03:31)
[2018-07-27] MEDS ORDERED: AMIODARONE / D5W 150 MG/100 ML BAG IV STA (03:31)
[2018-07-27] MEDS ORDERED: AMIODARONE / D5W 360 MG/200 ML BAG IV SCH ×2 (03:45→09:31)
[2018-07-27] MEDS ORDERED: HEPARIN SOD (PORCINE) 1000 UNIT/ML 10 ML VIAL ONE (03:50)
[2018-07-27] MEDS ORDERED: HEPARIN 25000 UNIT/500 ML D5W IV ONE (03:51)
[2018-07-27] MEDS ORDERED: ONDANSETRON INJ 2 MG/ML 2 ML VIAL IV STA (04:04)
[2018-07-27] MEDS ORDERED: ONDANSETRON INJ 2 MG/ML 2 ML VIAL ONE (04:05)
[2018-07-27] MEDS ORDERED: ETOMIDATE 2 MG/ML 20 ML VIAL IV ONE (04:34)
[2018-07-27] MEDS ORDERED: MIDAZOLAM HCL 5 MG/ML VIAL ONE (05:25)
[2018-07-27] MEDS ORDERED: MIDAZOLAM HCL 1 MG/ML 2ML VIAL ONE ×2 (05:26→08:53)
[2018-07-27] MEDS ORDERED: POTASSIUM CHLORIDE / WTR 20 MEQ/100 ML PLCT IV ONE (05:28)
[2018-07-27] MEDS: PHENYLEPHRINE HCL 20 MG in DEXTROSE 5% 500 ML IV PRN ×2 (05:28→05:37)
[2018-07-27] MEDS ORDERED: NOREPINEPHRINE BIT INJ 8 MG in DEXTROSE 5% 500 ML IV PRN (05:36)
--- NOTE | 2018-07-27 06:06 | Cardioversion ---
Date of Service July 27, 2018 Electrical Cardioversion Rpt Electrical Cardioversion Report July 27, 2018 Pre & Post Diagnosis Preprocedure diagnosis: Symptomatic atrial fibrillation, hypotension Post procedure diagnosis: Conversion from atrial fibrillation with rapid ventricular response to junctional rhythm at 56 bpm. Procedure Informed consent was obtained via interview with the patient's son as the patient was critically ill and hypotensive. The patient was sedated with the assistance of of the emergency department receiving a total of 1 mg of Versed. She then underwent synchronized direct-current cardioversion receiving 200 J of biphasic energy. Post procedure EKG revealed junctional rhythm at 56 bpm with improvement in the previously noted inferior repolarization changes, and ongoing lateral T wave changes in leads V3 to V6 consistent with lateral or perhaps anterolateral ischemia. Patient systolic blood pressure remained in the range of approximately 70 mmHg medially post procedure trended up several minutes thereafter. On telemetry, atrial activity was subsequently noted with noted sinus rhythm and and intermittent junctional beats. Senior Integration Developer Duran Hubbard DO Ore Bridge Operator none Estimated Blood Loss 0 Findings Consistent with Post-Op Diagnosis
--- NOTE | 2018-07-27 06:11 | Procedure Note ---
Procedure Note Date of Service July 27, 2018 Procedure: Internal Jugular Central Line Placement Attending: Dr. Haas APC: Hunter Hall PA-C Indication: Central Drug Administration, Poor Venous Access, Multiple Lab Draws Necessary, etc. Anesthesia: Lidocaine 1% Consent was signed and placed on the chart prior to procedure. Indication, risks, and benefits were explained at length. A time-out was completed verifying correct patient, procedure, site, positioning, and implants(s) or special equipment if applicable. Patients RIGHT Neck was cleansed and draped in the typical sterile fashion using Chloraprep. The Internal Jugular Vein and Carotid Artery were identified using ultrasound. The superficial tissue was anesthetized using 3.0 mL of 1% lidocaine without epinephrine under direct visualization with the ultrasound. After adequate anesthetization was achieved, the Internal Jugular vein was cannulated under direct ultrasound guidance using an introducer needle on a syringe. Good venous blood return was maintained prior to removal of syringe from introducer needle. Using Seldinger Technique, a guide wire was advanced through the introducer needle without resistance. The introducer needle was removed and ultrasound images were obtained of the guide wire within the Internal Jugular Vein and saved to the patients medical record. A small incision was made in penetrating fashion at the guide wire insertion site utilizing an 11 blade scalpel. The dilator was advanced to the vessel without resistance. The dilator was exchanged for the triple lumen catheter which was advanced into the vessel without resistance. The guide wire was removed intact from the catheter without issue. Claves were placed on each catheter tip with confirmation of good blood flow from each lumen. Each port was easily flushed with sterile saline. The catheter was placed at 16 cm and sutured in place. BioPatch was applied to the catheter a nd a sterile Tegaderm dressing was applied over the catheter with careful attention to sterility. Patient tolerated procedure well. No immediate complications were met. Post procedure x-ray was completed, placement was appropriate and no pneumothorax was noted. Images obtained are saved for permanent record Procedural Ultrasound Guidance: Procedure Date: 07/27/2018 Indication: Pressors, Frequent lab draws, Poor peripheral access Attending: Dr. Haas APC: Hunter Hall PA-C Artery AND Vein visualized: YES Compressible Vein: YES Guidewire or Short Catheter seen in vein prior to dilation: YES Line confirmed in Vein with ultrasound: YES Images obtained are saved for permanent record. Coding
--- NOTE | 2018-07-27 06:18 | Procedure Note ---
Procedure Note Date of Service July 27, 2018 Procedure: Arterial Line Placement Attending: Dr. Haas APC: Hunter Hall PA-C Indication: Monitoring on Pressors Anesthesia: Lidocaine 1% Consent was signed and placed on the chart prior to procedure. Indication, risks, and benefits were explained at length. A time-out was completed verifying correct patient, procedure, site, positioning, and implant(s) or special equipment if applicable. Allens test was performed to ensure adequate perfusion. Patients LEFT wrist was prepped and d raped in the usual sterile fashion. Ultrasound guidance was used to aid needle placement. A 20g Arrow arterial line was introduced into the LEFT artery. Catheter was threaded, and the needle was removed with appropriate blood return. Good waveform was observed. The patient tolerated the procedure well. Confirmation of placement with ultrasound. Blood Loss: Minimal Complications: None Procedural Ultrasound Guidance: Procedure Date: 07/27/2018 Indication: Pressors, Frequent ABGs Attending: Dr. Haas APC: Hunter Hall PA-C Artery Identified: YES Line confirmed in Artery with ultrasound: YES Complications: NONE Patient tolerated procedure: WELL Coding
--- NOTE | 2018-07-27 06:26 | Cardiology Consultation ---
Date of Consultation July 27, 2018 Assessment & Plan (1) Atrial fibrillation with RVR: (2) Ischemic cardiomyopathy: (3) Hypotension: (4) Hypokalemia: (5) Hypothyroid: 88-year-old female with history of ischemic cardiomyopathy, severe LV systolic dysfunction, most recent ejection fraction in 2017 was 15 - 20%. No contemporary cardiac catheterization data, but did have work-up that included nuclear stress testing upon presentation with heart failure in 2017 revealed a large inferior septal apical and apical anterior scar. Per review of her outpatient chart, her blood pressure is typically relatively low at baseline, with frequent systolic blood pressure readings as an outpatient in the range of 90 to the low 100 mmHg range. Her most recent outpatient blood pressure had been 118/62. On presentation, she was mildly hypotensive and became progressively more hypotensive. My initial impression was that the patient was hypotensive with EKG findings of both atrial fibrillation with rapid ventricular response as well as ischemic changes. She had no kaity chest discomfort after initial maneuvers to control her rate, but remained hypotensive. Given her history of severe left ventricular systolic dysfunction was felt that her loss of atrial synchronization was likely contributing to her profound hypotension and ischemia and therefore it was decided to try to control her heart rate and rhythm with amiodarone and when that was not effective, to proceed with direct-current cardioversion. I do not think it would be prudent for her to proceed to the cardiac catheterization laboratory in the absence of chest pressure with hypertension and atrial fibrillation with rapid ventricular response. Initially her rate was very rapid at 164 bpm, but given her baseline heart rates are typically in the 70 be per minute range at outpatient visits, I still felt that rate of 102 was likely driving ischemia. Based on her previous nuclear stress test, she has severe underlying coronary artery disease. She does not appear to have any symptoms suggestive of sepsis. It is difficult to determine at this point what came first that she go into new atrial fibrillation with rapid ventricular response and as a result become ischemic, or with this initially driven by ischemia. At present we will continue supportive care. Due to low blood pressure, Levophed infusion has been initiated and a left radial arterial line was placed by Mr. Hall of the critical care team. Her systolic blood pressure has now improved to the range of 86 mmHg with Levophed. Potassium chloride infusion has been initiated, and she remains on the amiodarone infusion, and heparin was started early on in her emergency department course for stroke prophylaxis. We will reassess the patient clinically. Given her past nuclear stress test findings, I am not very optimistic that there is going to be a culprit amenable to revascularization on cardiac catheterization. If she does not improve with supportive care however may need to reconsider the role of potential invasive coronary angiography. Will obtain echocardiogram once transferred to the ICU. History of Present Illness History of Present Illness Melissa Cota is an 88 year old female seen in urgent cardiology consultation in the emergency room per the request of Dr Robles. The patient son with whom she lives states that she woke up shortly after 1 AM with abrupt onset of heavy perspiration shortness of breath and chest pressure. She arrived to the ER via EMS. Initial EKG 07/27/2018 at 2:16 AM revealed atrial fibrillation with rapid ventricular response at 164 bpm with inferior and lateral repolarization changes consistent with ischemia including mild ST segment elevation in the inferior leads III and aVF as well as the lateral precordial leads. Her presenting blood pressure was 85/64. She subsequently received doses of IV metoprolol however her rates remained elevated. She denied any chest discomfort at that point. After telephone consultation with me at approximately 3:30 AM I recommended the addition of IV amiodarone infusion. This was performed. On amiodarone infusion she remains in atrial fibrillation. The ventricular rates improved, were still elevated to the range of 102 bpm as demonstrated on EKG dated 07/27/2018 at 4:10 AM. Inferior repolarization changes and improved, lateral repolarization changes in leads V3 to V6 persisted without chest discomfort. The patient's blood pressure however declined to the range of a systolic in the 70 mmHg range. I came to the hospital and upon arrival, and internal jugular central venous line was being inserted by the critical care team under ultrasound guidance. Blood pressure remained low. Per review of her chart, the atrial fibrillation is a new diagnosis for her. A brief interrogation of her AICD was performed with confirmation that the patient's onset of atrial fibrillation corresponded with her symptoms.. Due to concerns that she was having hemodynamic consequence from both ischemia as well as atrial fibrillation with rapid ventricular response and loss of her preload, I recommend proceeding with direct-current cardioversion which was performed with subsequent conversion from atrial fibrillation to an initial junctional rhythm at 56 bpm as document on EKG. Post cardioversion, systolic blood pressure remained in the upper 70s, and with the availability of her central line, IV potassium replacement as well as initiation of the pressor Levophed was initiated. PAST Cardiac History: The patient is followed with our practice since having been seen in hospital consultation initially in October 2016 when she was diagnosed with new congestive heart failure, severe left ventricular systolic function with ejection fraction 25 to 30% at that time. She was placed on appropriate medication therapy and underwent nuclear stress testing that was negative for inducible ischemia with findings of a large scar including the inferior inferoseptal, apical distal anterior and distal anterior septum. Should not undergo implantation of a single-chamber [employer] AICD on 11/27/2016. Most recent echocardiogram was performed at [facility] on 01/31/2017 with findings of moderate left ventricular chamber dilatation, mild concentric left ventricular hypertrophy, and severe global left ventricular hypokinesis with ejection fraction in the range of 50 to 20% and severe mitral regurgitation. The right ventricular systolic pressure is elevated at 50 to 60 mmHg. Allergies Allergy/AdvReac Type Severity Reaction Status Date / Time perflutren Allergy Mild ANAPHYLAXIS Unverified 07/27/18 03:20 propylene glycol Allergy Mild ANAPHYLAXIS Unverified 07/27/18 03:20 oxycodone AdvReac Unknown vomiting Verified 07/27/18 03:20 Home Medications Home Medications Medication Instructions Recorded Confirmed Type aspirin 81 mg PO DAILY 07/27/18 07/27/18 History atorvastatin 80 mg PO DAILY 07/27/18 07/27/18 History cholecalciferol (vitamin D3) 1,000 unit PO DAILY 07/27/18 07/27/18 History [Vitamin D3] cyanocobalamin (vitamin B-12) 1,000 mcg PO DAILY 07/27/18 07/27/18 History [Vitamin B-12] furosemide 40 mg PO . Q AFTERNOON PRN 07/27/18 07/27/18 History furosemide 40 mg PO QPM 07/27/18 07/27/18 History furosemide 80 mg PO QAM 07/27/18 07/27/18 History meloxicam 7.5 mg PO DAILY PRN 07/27/18 07/27/18 History metoprolol succinate 25 mg PO DAILY 07/27/18 07/27/18 History nitroglycerin [Nitrostat] 0.4 mg SUBLINGUAL UD PRN 07/27/18 07/27/18 History omeprazole 40 mg PO DAILY 07/27/18 07/27/18 History propylthiouracil 50 mg PO DAILY 07/27/18 07/27/18 History spironolactone 12.5 mg PO DAILY 07/27/18 07/27/18 History vit C-E-zinc [id number] 1 tab PO DAILY 07/27/18 07/27/18 History [Count Includes [facility]] Patient History Medical History Hyperthyroidism (Chronic) GERD (gastroesophageal reflux disease) (Chronic) Vitamin D deficiency (Chronic) Ischemic cardiomyopathy (Chronic) "EF 30-35%" On 01/30/17 19:23 Arlin Doyle wrote "EF 25%" Surgical History H/O varicose vein stripping (Chronic) AICD (automatic cardioverter/defibrillator) present (Chronic) History of tonsillectomy and adenoidectomy (Chronic) Social History Feels Safe at Home: Yes Smoking Status: Never smoker Physical Exam Physical Exam: General: Despite hypotensive upon my arrival, the patient was lying completely flat, and was conversant with no distress no chest pressure or shortness of breath at that time. Eyes: conjunctiva are pink and non-injected, sclera clear Neck: Elevated jugular venous pressure Chest: normal shape and normal respiratory effort Lungs: Decreased breath sounds the bases Cardiac Exam: -Initially irregular rhythm, 2/6 systolic murmur Abdomen: abdomen soft, non-tender, no abnormal masses and no hepatosplenomegaly Extremities: no edema and no cyanosis Neuro:awake, coversant, follows commands, no focal motor deficits Results & Data Vital Signs (Past 12 Hours) Vital Signs Temp Pulse Pulse Resp BP BP Pulse Ox 07/27/18 06:01 71 21 90/68 L 99 07/27/18 06:00 67 14 100 07/27/18 05:57 69 18 88/51 L 99 07/27/18 05:55 68 19 78/54 L 100 07/27/18 05:53 68 22 77/52 L 100 07/27/18 05:51 66 20 81/47 L 100 07/27/18 05:49 64 19 77/45 L 100 07/27/18 05:47 61 19 74/45 L 100 07/27/18 05:45 62 22 68/46 L 100 07/27/18 05:43 60 25 H 79/44 L 98 07/27/18 05:41 66 19 73/46 L 99 07/27/18 05:39 65 23 69/43 L 99 07/27/18 05:37 55 L 16 77/46 L 96 07/27/18 05:35 59 L 20 66/42 L 99 07/27/18 05:33 63 18 72/43 L 95 07/27/18 05:32 55 L 21 76/40 L 93 07/27/18 05:30 60 24 72/39 L 79 L 07/27/18 05:26 115 H 17 70/53 L 98 07/27/18 05:21 108 H 17 80/59 L 96 07/27/18 05:20 113 H 19 98 07/27/18 05:16 110 H 15 76/54 L 98 07/27/18 05:11 113 H 18 72/55 L 100 07/27/18 05:10 100 H 17 100 07/27/18 05:06 107 H 13 79/59 L 100 07/27/18 05:01 118 H 13 80/58 L 99 07/27/18 04:59 111 H 15 95/64 L 98 07/27/18 04:56 105 H 16 83/53 L 98 07/27/18 04:53 109 H 12 76/54 L 97 07/27/18 04:50 106 H 18 82/58 L 95 07/27/18 04:46 112 H 20 79/58 L 95 07/27/18 04:31 118 H 22 74/59 L 95 07/27/18 04:30 98 H 16 95 07/27/18 04:27 96 H 22 96 07/27/18 04:26 99 H 16 74/61 L 97 07/27/18 04:25 102 H 18 53/29 L 97 07/27/18 04:22 106 H 21 96 07/27/18 04:20 105 H 15 97 07/27/18 04:16 103 H 17 87/65 L 94 07/27/18 04:12 99 H 17 94 07/27/18 04:11 89 12 67/48 L 91 07/27/18 04:10 98 H 17 75/53 L 88 L 07/27/18 04:07 102 H 17 55/44 L 93 07/27/18 04:01 88 16 79/59 L 91 07/27/18 04:00 119 H 132 H 18 85/60 L 93 07/27/18 03:56 124 H 18 85/60 L 93 07/27/18 03:51 135 H 16 95/83 L 93 07/27/18 03:50 136 H 13 93 07/27/18 03:46 120 H 12 70/53 L 96 07/27/18 03:41 124 H 132 H 16 101/53 L 101/53 L 95 07/27/18 03:40 138 H 11 L 96 07/27/18 03:36 121 H 12 84/66 L 94 07/27/18 03:35 130 H 13 89/61 L 96 07/27/18 03:31 125 H 16 81/67 L 93 07/27/18 03:30 128 H 14 93 07/27/18 03:26 145 H 16 92/63 L 92 07/27/18 03:21 143 H 26 H 91/73 L 95 07/27/18 03:20 141 H 19 92 07/27/18 03:16 128 H 15 86/64 L 93 07/27/18 03:14 130 H 12 90/54 L 95 07/27/18 03:11 147 H 9 L 79/64 L 93 07/27/18 03:10 142 H 12 93 07/27/18 03:07 132 H 15 92/66 L 95 07/27/18 03:06 146 H 14 73/57 L 95 07/27/18 03:01 126 H 23 87/68 L 94 07/27/18 03:00 135 H 19 96 07/27/18 02:57 137 H 16 109/67 07/27/18 02:56 153 H 14 109/67 94 07/27/18 02:51 133 H 17 87/69 L 96 07/27/18 02:50 149 H 20 91 07/27/18 02:46 139 H 18 88/64 L 95 07/27/18 02:42 144 H 14 94 07/27/18 02:41 139 H 11 L 93/67 L 97 07/27/18 02:40 137 H 13 97 07/27/18 02:38 135 H 17 85/70 L 94 07/27/18 02:35 139 H 12 95 07/27/18 02:34 161 H 20 93/70 L 95 07/27/18 02:28 159 H 14 102/72 96 07/27/18 02:17 36.9 C 156 H 20 85/64 L 96 Laboratory Results Cardiac Enzymes 07/27/18 Range/Units 02:26 AST 16 (15-37) U/L Troponin I 0.035 (0-0.045) ng/ml Coagulation 07/27/18 Range/Units 02:26 PT 11.4 (9.0-12.0) Seconds APTT 32.5 H (21.0-31.0) Seconds CBC 07/27/18 Range/Units 02:26 WBC 4.58 L (4.8-10.8) K/uL RBC 3.90 L (4.2-5.4) M/uL Hgb 11.6 L (12.0-16.0) g/dL Hct 35.5 L (37-47) % Plt Count 176 (130-400) K/uL Neut # (Auto) 3.09 (1.4-6.5) K/uL Lymph # (Auto) 1.03 L (1.2-3.4) K/uL [place] # (Auto) 0.34 (0.11-0.59) K/uL Eos # (Auto) 0.09 (0-0.5) K/uL Baso # (Auto) 0.01 (0-0.2) K/uL Comprehensive Metabolic Panel 07/27/18 Range/Units 02:26 Sodium 131 L (136-145) mmol/L Potassium 3.2 L (3.5-5.1) mmol/L Chloride 96 L (98-107) mmol/L Carbon Dioxide 25 (21-32) mmol/L BUN 16 (7-18) mg/dl Creatinine 1.24 H (0.6-1.2) mg/dl Glucose 440 H* (70-99) mg/dl Calcium 8.1 L (8.5-10.1) mg/dl Direct Bilirubin 0.2 (0-0.2) mg/dl AST 16 (15-37) U/L ALT 15 (12-78) U/L Alkaline Phosphatase 57 (45-117) U/L Total Protein 6.8 (6.4-8.2) gm/dl Albumin 3.1 L (3.4-5.0) gm/dl Intake and Output 0507/26/18 07/27/18 14:59 22:59 06:59 Intake Total 1622.533 / 1622.533 Balance 1622.533 / 1622.533 Intake: IV 1622.533 / 1622.533 NEXTERONE / D5W 150 mg In 100 100 / 100 ml @ 600 mls/hr IV ONE STA Rx#: [id number] MAGNESIUM SULFATE / D5W 1 gm In 200 / 200 100 ml @ 100 mls/hr IV Q1H MYA Rx#:[id number] Levophed Inj 8 mg In D5w 500 ml 14.853 / 14.853 @ 0.05 MCG/KG/MIN 12.95 mls/hr IV .Q24H PRN Rx#:[id number] Sonu-Synephrine 20 mg In D5w 500 7.68 / 7.68 ml @ 0.5 MCG/KG/MIN 51.2 mls/ hr IV .Q9H49M PRN Rx#:[id number] Nss 1000ML 500 ml @ 999 mls/hr 1000 / 1000 IV .Q31M ONE Rx#:[id number] Right Hand 300 / 300 Other: Weight 68 kg Patient Weight 07/27/18 06:59 Weight 68 kg Diagnostic Findings My personal interpretation of her chest x-ray performed at 2:18 AM, severe enlargement of the cardiac silhouette, superimposed interstitial edema. Single- chamber AICD in place Repeat chest x-ray 5:11 AM, interval placement of right internal jugular vein central line, increased interstitial edema.
--- NOTE | 2018-07-27 06:31 | XRay Report ---
XR chest 1V portable CLINICAL HISTORY: Tachycardia COMPARISON STUDY: 01/30/2017 FINDINGS: The heart remains enlarged. There is a large hiatal hernia. There is a left subclavian pace r/defibrillator present. There is no focal pulmonary consolidation. There is been near complete inter li resolution appears identified bilateral pleural effusions. There is no overt failure.[ IMPRESSION: No active disease in the chest. Electronically signed by: Alex Dolan M.D. 07/27/2018 6:30 AM
[2018-07-27 06:32] LABS: Appearance Urine Clear (Clear); Bilirubin Urine Negative (Negative); Blood Urine Negative (Negative); Color Urine Yellow; Glucose Urine UA 3+ (Negative); Ketones Urine Trace (Negative); Leukocyte Esterase Urine Negative (Negative); Nitrite Urine Negative (Negative); Protein Urine Negative (Negative); Specific Gravity Urine 1.026 (1.000-1.030); Urobilinogen Urine Negative (Negative)
--- NOTE | 2018-07-27 06:33 | XRay Report ---
XR chest 1V portable CLINICAL HISTORY: Chest x-ray status post central line placement COMPARISON STUDY: 07/27/2018 FINDINGS: The heart is enlarged. There is a left subclavian pacer/defibrillator present. There is rad iographic evidence of pulmonary venous hypertension. There has been interval insertion of a right int ernal jugular central venous catheter. No pneumothorax is visualized. A hiatal hernia is suspected.[ IMPRESSION: 1. Cardiomegaly and pulmonary venous hypertension 2. Interval insertion of a right internal jugular central venous catheter. The tip projects over the superior vena cava. There is no pneumothorax. Electronically signed by: Alex Dolan M.D. 07/27/2018 6:31 AM
[2018-07-27] MEDS ORDERED: Heparin Adult STANDARD Wt-Based Dextrose 5% 25,000 units/500 mL IV SCH (07:15)
--- NOTE | 2018-07-27 07:15 | Emergency Department Note ---
Entered by Ailyn Maria acting as a scribe for Chris Robles MD ED Provider Note Name: Melissa Cota Age: 88 Arrives Via: Ambulance Informant: Self CC: Tachycardia HPI: A female arrives for evaluation after complaining of a "racing heart" to began around 0100 this morning. She states that the symptoms woke her up. The patient notes that she was diaphoretic and nauseous when she woke up, but both those symptoms are now relieved. She complains of central chest discomfort. The patient denies any recent fall or syncope. She notes that she takes both Metoprolol and Aspirin daily. Per EMS, the patient was given 500 mL of IV fluid [employer]. She notes a history of a heart attack, and she denies any history of A fib. ROS: See above HPI for pertinent positives & negatives. A total of 10 systems reviewed and were otherwise negative. Past Medical History: hyperthyroidism, GERD, ischemic cardiomyopathy Past Surgical History: tonsillectomy, adenoidectomy, varicose vein stripping Family History: Family history is non-contributory. Social History: Retired Home Medications: Metoprolol, Aspirin Allergies: perflutren, oxycodone, propylene glycol Physical: Vitals: BP: 85/64, P: 156, T: 98.4, O2 Sat: 96, D: Room Air Exam: GENERAL: Patient is mildly uncomfortable appearing and in minimal acute distress. EYES: No scleral icterus, unremarkable pupils. ENT: Mucous membranes moist, no nasal congestion. NECK: No masses appreciated, no meningismus, trachea is midline. RESPIRATORY: No dyspnea. Clear to auscultation and equal bilaterally. No wheeze, no rhonchi. CARDIOVASCULAR: Tachycardic rate and irregular rhythm. No murmurs, rubs, gallop s appreciated. GASTROINTESTINAL: Abdomen soft, non-tender, no peritonitis. Bowel sounds positive. No masses appreciated. BACK: No midline tenderness, no CVA tenderness EXTREMITIES: Normal motion all extremities, no cyanosis, no edema. NEUROLOGIC: Alert and oriented, no acute motor or sensory deficits, no focal weakness, cranial nerves grossly intact. SKIN: No rash, no jaundice, no diaphoresis. ED Course: Prior Medical Record, Triage/Nursing Notes, Medications, Allergies reviewed by Me Vital Signs: reviewed and remarkable for tachy, hypotension Labs: Reviewed and remarkable for hypomag, hypoK, baseline wbc/hgb, h yperglycemia, elevated TSH (OK T4) Interventions: Saline Lock, Lopressor 5mg IV x 3, NSS bolus 500ml x 3, heparin bolus/gtt, amiodarone bolus/gtt, Mag 2g IV, insulin 10U IV, Versed 1mg IV, Norepinephrine gtt Imaging: X ray results are stated below per my interpretation: Chest: 1 view: No infiltrate, no effusion, mildly enlarged cardiac border Chest: 1 view: Post right IJ line: Mild worsening of congestion, no pneumothorax, right IJ line tip in good position. Procedure: Procedural Sedation Indication: Electrocardioversion Last Ate: Last night 8pm Previous issues with sedation: None Snore: Yes Emergent: Yes ASA: 4 - hypotensive afib RVR Dentures: removed Time Out: 05:29 Time Recovered: 05:45 Total time: 16 minutes VERBAL consent was obtained after the risks and benefits were explained to the patient as well as son, including, but not limited to aspiration, allergic reaction, breathing difficulties, cardiac complications, vomiting, pain, event recall, bleeding, and/or infection. This was done on an emergent basis due to worsening hypotension and afib RVR requiring rapid cardioversion. Pre-sedation examination completed. The patient was on 100% oxygen via NRB prior to the procedure. Continuos end tidal CO2 monitoring, pulse oximetry, and cardiac monitoring were utilized. Suction, airway equipment, medications, respiratory equipment, and appropriate personnel were prepared prior to the initiation of the procedure. A time out was taken. Sedation was achieved utilizing 1 mg of Versed. After I observed the patient had reached the appropriate level of sedation the main procedure was performed without complication. Sedation was discontinued and the monitoring continued. The patient recovered from the effects of the medication without complication or adverse event. EKG: Per My Interpretation: Indications Afib RVR, Chest Pain #1: Afib RVR [address] elevations, lateral biphasic t waves, qtc 485. Now afib compared to previous #2: Afib RVR 102 bpm with improvement in inferior ST elevations, continued lateral biphasic t waves. QTC now 542, increased from previous. #3: Junctional rhythm 56 bpm without ectopy. Lateral biphasic T waves persist Consults: Dr Hubbard Cardiology, Dr [facility] Hospitalist, Hunter Hall PA-C [facility] Reassessments/Times: 0210: I reviewed the patient's past medical history. The patient has a known EF of 15-20%. 0212: The patient was evaluated in room A09B. A complete history and physical exam was performed. 0243: I reevaluated the patient. Her heart rate was in the 140s, and her blood pressure was stable. She had mild improvement of her chest discomfort. Her son is at bedside. Multiple repeat continuous evaluations until transfer to ICU at 6:30am Blood pressure: Hypotension Disposition: Admission to hospitalist Differentials: Differential: NSR, SVT, PACs, PVCs, Cardiac Dysrhythmia, Endocrine Dysfunction, Electrolyte/Metabolic Abnormality, Pulmonary Embolism, Infectious, GI, amonst other pathologies Entertained. amongst other pathologies. Medical Decision Making: Pleasant 88 yr old female awoke this morning with palpitations associated with nausea and vague chest discomfort. Afib RVR on arrival with ischemia noted. With afib RVR and just vague chest discomfort felt getting Afib under control initial goal. With hypotension she was given IV fluids though reviewed with her risks of heart failure causing worsening respiratory status. Along with this she was given 5mg IV lopressor. Slowly HR improving to 130s after 3 rounds IV lopressor and requiring some more fluid boluses to keep BP tenuously on low side. With improvement in HR she had no further chest discomfort, and I do not feel that heart alert indicated at this point given multiple other issues needing to be managed. By this time labs showing hypomag and hyperglycemia. Unclear etiology of Hyperglycemia as no DMII history and she does not appear septic, may be stress response from cardiac issue. Given IV insulin as well as IV mag. Of note BSG dropped quite quickly though steadied out in mid 100s without symptoms of hypoglycemia. Reviewed with Dr Hubbard her situation and will start amio/heparin. Discussed these meds with patient/son and they understand risks, in particular of bleeding (of note no recent falls, bleeding, etc). A short while later patient starting to become quite nauseous and thus repeat EKG obtained while Zofran given. Of note nausea resolved. She is now noted to have vastly improved HR though qtc has prolonged. BP trending down further despite further IV fluids. Reviewed with Dr Hubbard and he notes that likely will need cardioversion. Patient then taken to bay where set up for sedation and cardioversion. I involved CCM at this time who came down, evaluated patient, and after I verbally obtained consent from patient and son, CCM placed right IJ central line under emergency need. CXR post shows good placement though mild worsening congestive failure. Cards at bedside and checked ICD showing afib appearing to be new thus felt cardioversion reasonable. I had nursing administer 1mg IV Versed for sedation and Dr Hubbard cardioverted patient. Patient somnolent for some time requiring a bit of coaching on breathing though did not have hypoxia nor respiratory distress with this. HR stabilized in junctional rhythm around 55 bpm with PACs and periodic sinus beats. BP still a bit low and on phenylephrine at that point thus started levophed with improving BP. She has no further symptoms and is breathing comfortably. No cp, sob, headache, abdominal pain nor other complaints. Exam with soft abdomen, neuro intact, and breathing comfortably. Son at bedside. Transferred to ICU for further management. Impression: Atrial Fibrillation with RVR Hypokalemia Substernal Chest Pain Acute Hyperglycemia Hypomagnesemia Acute Hypotension Critical Care Time: I have personally spent greater than 120 minutes of critical care time in the direct management of this patient. Afib RVR with hypotension. This was a life/limb threatening event. This includes time spent evaluating patient, dir ect bedside care, chart review, placing orders, interpretation of diagnostic studies, discussion with consultants, patient, and family members, as well as other required patient management activities. This 120 minutes is in excess of all separately billable procedures. Chris Robles MD The scribe's documentation has been prepared under my direction and personally reviewed by me in its entirety. I confirm that the note above accurately reflects all work, treatment, procedures, and medical decision making performed by me. Impression & Plan Atrial fibrillation with RVR, Hypokalemia, Substernal chest pain, Acute hyperglycemia, Hypomagnesemia, Acute hypotension Past Med/Surg History Medical History Hyperthyroidism (Chronic) GERD (gastroesophageal reflux disease) (Chronic) Vitamin D deficiency (Chronic) Ischemic cardiomyopathy (Chronic) "EF 30-35%" On 01/30/17 19:23 Arlin Doyle wrote "EF 25%" Surgical History H/O varicose vein stripping (Chronic) AICD (automatic cardioverter/defibrillator) present (Chronic) History of tonsillectomy and adenoidectomy (Chronic) Social History Feels Safe at Home: Yes Smoking Status: Never smoker Results & Data Vital Signs Vital Signs - 24 hr 07/27/18 02:17 07/27/18 02:28 07/27/18 02:34 Temperature 36.9 C Temperature Source Oral Sepsis Recent Fever Within 48 Hours No Sepsis New/Unexplained Change in Mental Status No Sepsis Action Taken by Nursing No Action Required Arterial BP Systolic Arterial BP Diastolic Arterial BP Mean Arterial Pulse Rate Pulse Rate 156 H 159 H 161 H Pulse Rate [Right Finger] Pulse Rate from SpO2 Sensor 162 H 145 H Pulse Rhythm Irregular Pulse Rhythm [Right Finger] Respiratory Rate 20 14 20 Respiratory Effort / Characteristics Non-Labored Respiratory Depth Normal Respiratory Pattern Regular Blood Pressure 85/64 L 102/72 93/70 L Blood Pressure [Right Arm] Blood Pressure Mean 71 82 77 Blood Pressure Mean [Right Arm] Blood Pressure Position Lying Blood Pressure Position [Right Arm] Pulse Oximetry 96 96 95 Oxygen Delivery Method Room Air Room Air Oxygen Flow Rate 07/27/18 02:35 07/27/18 02:38 07/27/18 02:40 Temperature Temperature Source Sepsis Recent Fever Within 48 Hours Sepsis New/Unexplained Change in Mental Status Sepsis Action Taken by Nursing Arterial BP Systolic Arterial BP Diastolic Arterial BP Mean Arterial Pulse Rate Pulse Rate 139 H 135 H 137 H Pulse Rate [Right Finger] Pulse Rate from SpO2 Sensor 138 H 136 H 147 H Pulse Rhythm Pulse Rhythm [Right Finger] Respiratory Rate 12 17 13 Respiratory Effort / Characteristics Respiratory Depth Respiratory Pattern Blood Pressure 85/70 L Blood Pressure [Right Arm] Blood Pressure Mean 75 Blood Pressure Mean [Right Arm] Blood Pressure Position Blood Pressure Position [Right Arm] Pulse Oximetry 95 94 97 Oxygen Delivery Method Room Air Room Air Room Air Oxygen Flow Rate 07/27/18 02:41 07/27/18 02:42 07/27/18 02:46 Temperature Temperature Source Sepsis Recent Fever Within 48 Hours Sepsis New/Unexplained Change in Mental Status Sepsis Action Taken by Nursing Arterial BP Systolic Arterial BP Diastolic Arterial BP Mean Arterial Pulse Rate Pulse Rate 139 H 144 H 139 H Pulse Rate [Right Finger] Pulse Rate from SpO2 Sensor 146 H 138 H 146 H Pulse Rhythm Pulse Rhythm [Right Finger] Respiratory Rate 11 L 14 18 Respiratory Effort / Characteristics Respiratory Depth Respiratory Pattern Blood Pressure 93/67 L 88/64 L Blood Pressure [Right Arm] Blood Pressure Mean 75 72 Blood Pressure Mean [Right Arm] Blood Pressure Position Blood Pressure Position [Right Arm] Pulse Oximetry 97 94 95 Oxygen Delivery Method Room Air Oxygen Flow Rate 07/27/18 02:50 07/27/18 02:51 07/27/18 02:56 Temperature Temperature Source Sepsis Recent Fever Within 48 Hours Sepsis New/Unexplained Change in Mental Status Sepsis Action Taken by Nursing Arterial BP Systolic Arterial BP Diastolic Arterial BP Mean Arterial Pulse Rate Pulse Rate 149 H 133 H 153 H Pulse Rate [Right Finger] Pulse Rate from SpO2 Sensor 147 H 144 H 143 H Pulse Rhythm Pulse Rhythm [Right Finger] Respiratory Rate 20 17 14 Respiratory Effort / Characteristics Respiratory Depth Respiratory Pattern Blood Pressure 87/69 L 109/67 Blood Pressure [Right Arm] Blood Pressure Mean 75 81 Blood Pressure Mean [Right Arm] Blood Pressure Position Blood Pressure Position [Right Arm] Pulse Oximetry 91 96 94 Oxygen Delivery Method Oxygen Flow Rate 07/27/18 02:57 07/27/18 03:00 07/27/18 03:01 Temperature Temperature Source Sepsis Recent Fever Within 48 Hours Sepsis New/Unexplained Change in Mental Status Sepsis Action Taken by Nursing Arterial BP Systolic Arterial BP Diastolic Arterial BP Mean Arterial Pulse Rate Pulse Rate 135 H 126 H Pulse Rate [Right Finger] 137 H Pulse Rate from SpO2 Sensor 143 H 136 H Pulse Rhythm Pulse Rhythm [Right Finger] Irregular Respiratory Rate 16 19 23 Respiratory Effort / Characteristics Non-Labored Respiratory Depth Normal Respiratory Pattern Regular Blood Pressure 87/68 L Blood Pressure [Right Arm] 109/67 Blood Pressure Mean 74 Blood Pressure Mean [Right Arm] 81 Blood Pressure Position Blood Pressure Position [Right Arm] Lying Pulse Oximetry 96 94 Oxygen Delivery Method Oxygen Flow Rate 07/27/18 03:06 07/27/18 03:07 07/27/18 03:10 Temperature Temperature Source Sepsis Recent Fever Within 48 Hours Sepsis New/Unexplained Change in Mental Status Sepsis Action Taken by Nursing Arterial BP Systolic Arterial BP Diastolic Arterial BP Mean Arterial Pulse Rate Pulse Rate 146 H 132 H 142 H Pulse Rate [Right Finger] Pulse Rate from SpO2 Sensor 152 H 139 H 133 H Pulse Rhythm Pulse Rhythm [Right Finger] Respiratory Rate 14 15 12 Respiratory Effort / Characteristics Respiratory Depth Respiratory Pattern Blood Pressure 73/57 L 92/66 L Blood Pressure [Right Arm] Blood Pressure Mean 62 74 Blood Pressure Mean [Right Arm] Blood Pressure Position Blood Pressure Position [Right Arm] Pulse Oximetry 95 95 93 Oxygen Delivery Method Oxygen Flow Rate 07/27/18 03:11 07/27/18 03:14 07/27/18 03:16 Temperature Temperature Source Sepsis Recent Fever Within 48 Hours Sepsis New/Unexplained Change in Mental Status Sepsis Action Taken by Nursing Arterial BP Systolic Arterial BP Diastolic Arterial BP Mean Arterial Pulse Rate Pulse Rate 147 H 130 H 128 H Pulse Rate [Right Finger] Pulse Rate from SpO2 Sensor 134 H 135 H 131 H Pulse Rhythm Pulse Rhythm [Right Finger] Respiratory Rate 9 L 12 15 Respiratory Effort / Characteristics Respiratory Depth Respiratory Pattern Blood Pressure 79/64 L 90/54 L 86/64 L Blood Pressure [Right Arm] Blood Pressure Mean 69 66 71 Blood Pressure Mean [Right Arm] Blood Pressure Position Blood Pressure Position [Right Arm] Pulse Oximetry 93 95 93 Oxygen Delivery Method Oxygen Flow Rate 07/27/18 03:20 07/27/18 03:21 07/27/18 03:26 Temperature Temperature Source Sepsis Recent Fever Within 48 Hours Sepsis New/Unexplained Change in Mental Status Sepsis Action Taken by Nursing Arterial BP Systolic Arterial BP Diastolic Arterial BP Mean Arterial Pulse Rate Pulse Rate 141 H 143 H 145 H Pulse Rate [Right Finger] Pulse Rate from SpO2 Sensor 129 H 145 H 143 H Pulse Rhythm Pulse Rhythm [Right Finger] Respiratory Rate 19 26 H 16 Respiratory Effort / Characteristics Respiratory Depth Respiratory Pattern Blood Pressure 91/73 L 92/63 L Blood Pressure [Right Arm] Blood Pressure Mean 79 72 Blood Pressure Mean [Right Arm] Blood Pressure Position Blood Pressure Position [Right Arm] Pulse Oximetry 92 95 92 Oxygen Delivery Method Oxygen Flow Rate 07/27/18 03:30 07/27/18 03:31 07/27/18 03:35 Temperature Temperature Source Sepsis Recent Fever Within 48 Hours Sepsis New/Unexplained Change in Mental Status Sepsis Action Taken by Nursing Arterial BP Systolic Arterial BP Diastolic Arterial BP Mean Arterial Pulse Rate Pulse Rate 128 H 125 H 130 H Pulse Rate [Right Finger] Pulse Rate from SpO2 Sensor 138 H 135 H 129 H Pulse Rhythm Pulse Rhythm [Right Finger] Respiratory Rate 14 16 13 Respiratory Effort / Characteristics Respiratory Depth Respiratory Pattern Blood Pressure 81/67 L 89/61 L Blood Pressure [Right Arm] Blood Pressure Mean 71 70 Blood Pressure Mean [Right Arm] Blood Pressure Position Blood Pressure Position [Right Arm] Pulse Oximetry 93 93 96 Oxygen Delivery Method Oxygen Flow Rate 07/27/18 03:36 07/27/18 03:40 07/27/18 03:41 Temperature Temperature Source Sepsis Recent Fever Within 48 Hours Sepsis New/Unexplained Change in Mental Status Sepsis Action Taken by Nursing Arterial BP Systolic Arterial BP Diastolic Arterial BP Mean Arterial Pulse Rate Pulse Rate 121 H 138 H 124 H Pulse Rate [Right Finger] 132 H Pulse Rate from SpO2 Sensor 120 H 129 H 119 H Pulse Rhythm Pulse Rhythm [Right Finger] Irregular Respiratory Rate 12 11 L 16 Respiratory Effort / Characteristics Non-Labored Respiratory Depth Normal Respiratory Pattern Regular Blood Pressure 84/66 L 101/53 L Blood Pressure [Right Arm] 101/53 L Blood Pressure Mean 72 69 Blood Pressure Mean [Right Arm] 69 Blood Pressure Position Blood Pressure Position [Right Arm] Pulse Oximetry 94 96 95 Oxygen Delivery Method Room Air Oxygen Flow Rate 07/27/18 03:46 07/27/18 03:50 07/27/18 03:51 Temperature Temperature Source Sepsis Recent Fever Within 48 Hours Sepsis New/Unexplained Change in Mental Status Sepsis Action Taken by Nursing Arterial BP Systolic Arterial BP Diastolic Arterial BP Mean Arterial Pulse Rate Pulse Rate 120 H 136 H 135 H Pulse Rate [Right Finger] Pulse Rate from SpO2 Sensor 133 H 135 H 131 H Pulse Rhythm Pulse Rhythm [Right Finger] Respiratory Rate 12 13 16 Respiratory Effort / Characteristics Respiratory Depth Respiratory Pattern Blood Pressure 70/53 L 95/83 L Blood Pressure [Right Arm] Blood Pressure Mean 58 87 Blood Pressure Mean [Right Arm] Blood Pressure Position Blood Pressure Position [Right Arm] Pulse Oximetry 96 93 93 Oxygen Delivery Method Oxygen Flow Rate 07/27/18 03:56 07/27/18 04:00 07/27/18 04:01 Temperature Temperature Source Sepsis Recent Fever Within 48 Hours Sepsis New/Unexplained Change in Mental Status Sepsis Action Taken by Nursing Arterial BP Systolic Arterial BP Diastolic Arterial BP Mean Arterial Pulse Rate Pulse Rate 124 H 119 H 88 Pulse Rate [Right Finger] 132 H Pulse Rate from SpO2 Sensor 127 H 129 H 91 H Pulse Rhythm Pulse Rhythm [Right Finger] Irregular Respiratory Rate 18 18 16 Respiratory Effort / Characteristics Non-Labored Respiratory Depth Normal Respiratory Pattern Regular Blood Pressure 85/60 L 79/59 L Blood Pressure [Right Arm] 85/60 L Blood Pressure Mean 68 65 Blood Pressure Mean [Right Arm] 68 Blood Pressure Position Blood Pressure Position [Right Arm] Lying Pulse Oximetry 93 93 91 Oxygen Delivery Method Room Air Oxygen Flow Rate 07/27/18 04:07 07/27/18 04:10 07/27/18 04:11 Temperature Temperature Source Sepsis Recent Fever Within 48 Hours Sepsis New/Unexplained Change in Mental Status Sepsis Action Taken by Nursing Arterial BP Systolic Arterial BP Diastolic Arterial BP Mean Arterial Pulse Rate Pulse Rate 102 H 98 H 89 Pulse Rate [Right Finger] Pulse Rate from SpO2 Sensor 106 H 98 H 96 H Pulse Rhythm Pulse Rhythm [Right Finger] Respiratory Rate 17 17 12 Respiratory Effort / Characteristics Respiratory Depth Respiratory Pattern Blood Pressure 55/44 L 75/53 L 67/48 L Blood Pressure [Right Arm] Blood Pressure Mean 47 60 54 Blood Pressure Mean [Right Arm] Blood Pressure Position Blood Pressure Position [Right Arm] Pulse Oximetry 93 88 L 91 Oxygen Delivery Method Room Air Nasal Cannula Oxygen Flow Rate 2 07/27/18 04:12 07/27/18 04:16 07/27/18 04:20 Temperature Temperature Source Sepsis Recent Fever Within 48 Hours Sepsis New/Unexplained Change in Mental Status Sepsis Action Taken by Nursing Arterial BP Systolic Arterial BP Diastolic Arterial BP Mean Arterial Pulse Rate Pulse Rate 99 H 103 H 105 H Pulse Rate [Right Finger] Pulse Rate from SpO2 Sensor 97 H 97 H 109 H Pulse Rhythm Pulse Rhythm [Right Finger] Respiratory Rate 17 17 15 Respiratory Effort / Characteristics Respiratory Depth Respiratory Pattern Blood Pressure 87/65 L Blood Pressure [Right Arm] Blood Pressure Mean 72 Blood Pressure Mean [Right Arm] Blood Pressure Position Blood Pressure Position [Right Arm] Pulse Oximetry 94 94 97 Oxygen Delivery Method Oxygen Flow Rate 07/27/18 04:22 07/27/18 04:25 07/27/18 04:26 Temperature Temperature Source Sepsis Recent Fever Within 48 Hours Sepsis New/Unexplained Change in Mental Status Sepsis Action Taken by Nursing Arterial BP Systolic Arterial BP Diastolic Arterial BP Mean Arterial Pulse Rate Pulse Rate 106 H 102 H 99 H Pulse Rate [Right Finger] Pulse Rate from SpO2 Sensor 102 H 103 H 101 H Pulse Rhythm Pulse Rhythm [Right Finger] Respiratory Rate 21 18 16 Respiratory Effort / Characteristics Respiratory Depth Respiratory Pattern Blood Pressure 53/29 L 74/61 L Blood Pressure [Right Arm] Blood Pressure Mean 48 37 65 Blood Pressure Mean [Right Arm] Blood Pressure Position Blood Pressure Position [Right Arm] Pulse Oximetry 96 97 97 Oxygen Delivery Method Oxygen Flow Rate 07/27/18 04:27 07/27/18 04:30 07/27/18 04:31 Temperature Temperature Source Sepsis Recent Fever Within 48 Hours Sepsis New/Unexplained Change in Mental Status Sepsis Action Taken by Nursing Arterial BP Systolic Arterial BP Diastolic Arterial BP Mean Arterial Pulse Rate Pulse Rate 96 H 98 H 118 H Pulse Rate [Right Finger] Pulse Rate from SpO2 Sensor 106 H 99 H 111 H Pulse Rhythm Pulse Rhythm [Right Finger] Respiratory Rate 22 16 22 Respiratory Effort / Characteristics Respiratory Depth Respiratory Pattern Blood Pressure 74/59 L Blood Pressure [Right Arm] Blood Pressure Mean 64 Blood Pressure Mean [Right Arm] Blood Pressure Position Blood Pressure Position [Right Arm] Pulse Oximetry 96 95 95 Oxygen Delivery Method Oxygen Flow Rate 07/27/18 04:46 07/27/18 04:50 07/27/18 04:53 Temperature Temperature Source Sepsis Recent Fever Within 48 Hours Sepsis New/Unexplained Change in Mental Status Sepsis Action Taken by Nursing Arterial BP Systolic Arterial BP Diastolic Arterial BP Mean Arterial Pulse Rate Pulse Rate 112 H 106 H 109 H Pulse Rate [Right Finger] Pulse Rate from SpO2 Sensor 110 H 105 H 107 H Pulse Rhythm Pulse Rhythm [Right Finger] Respiratory Rate 20 18 12 Respiratory Effort / Characteristics Respiratory Depth Respiratory Pattern Blood Pressure 79/58 L 82/58 L 76/54 L Blood Pressure [Right Arm] Blood Pressure Mean 65 66 61 Blood Pressure Mean [Right Arm] Blood Pressure Position Blood Pressure Position [Right Arm] Pulse Oximetry 95 95 97 Oxygen Delivery Method Nasal Cannula Oxymask Oxymask Oxygen Flow Rate 2 2 2 07/27/18 04:56 07/27/18 04:59 07/27/18 05:01 Temperature Temperature Source Sepsis Recent Fever Within 48 Hours Sepsis New/Unexplained Change in Mental Status Sepsis Action Taken by Nursing Arterial BP Systolic Arterial BP Diastolic Arterial BP Mean Arterial Pulse Rate Pulse Rate 105 H 111 H 118 H Pulse Rate [Right Finger] Pulse Rate from SpO2 Sensor 108 H 118 H 118 H Pulse Rhythm Pulse Rhythm [Right Finger] Respiratory Rate 16 15 13 Respiratory Effort / Characteristics Respiratory Depth Respiratory Pattern Blood Pressure 83/53 L 95/64 L 80/58 L Blood Pressure [Right Arm] Blood Pressure Mean 63 74 65 Blood Pressure Mean [Right Arm] Blood Pressure Position Blood Pressure Position [Right Arm] Pulse Oximetry 98 98 99 Oxygen Delivery Method Oxymask Oxymask Oxymask Oxygen Flow Rate 2 2 2 07/27/18 05:06 07/27/18 05:10 07/27/18 05:11 Temperature Temperature Source Sepsis Recent Fever Within 48 Hours Sepsis New/Unexplained Change in Mental Status Sepsis Action Taken by Nursing Arterial BP Systolic Arterial BP Diastolic Arterial BP Mean Arterial Pulse Rate Pulse Rate 107 H 100 H 113 H Pulse Rate [Right Finger] Pulse Rate from SpO2 Sensor 118 H 108 H 110 H Pulse Rhythm Pulse Rhythm [Right Finger] Respiratory Rate 13 17 18 Respiratory Effort / Characteristics Respiratory Depth Respiratory Pattern Blood Pressure 79/59 L 72/55 L Blood Pressure [Right Arm] Blood Pressure Mean 65 60 Blood Pressure Mean [Right Arm] Blood Pressure Position Blood Pressure Position [Right Arm] Pulse Oximetry 100 100 100 Oxygen Delivery Method Oxymask Oxymask Oxymask Oxygen Flow Rate 2 2 2 07/27/18 05:16 07/27/18 05:20 07/27/18 05:21 Temperature Temperature Source Sepsis Recent Fever Within 48 Hours Sepsis New/Unexplained Change in Mental Status Sepsis Action Taken by Nursing Arterial BP Systolic Arterial BP Diastolic Arterial BP Mean Arterial Pulse Rate Pulse Rate 110 H 113 H 108 H Pulse Rate [Right Finger] Pulse Rate from SpO2 Sensor 117 H 112 H 111 H Pulse Rhythm Pulse Rhythm [Right Finger] Respiratory Rate 15 19 17 Respiratory Effort / Characteristics Respiratory Depth Respiratory Pattern Blood Pressure 76/54 L 80/59 L Blood Pressure [Right Arm] Blood Pressure Mean 61 66 Blood Pressure Mean [Right Arm] Blood Pressure Position Blood Pressure Position [Right Arm] Pulse Oximetry 98 98 96 Oxygen Delivery Method Oxygen Flow Rate 07/27/18 05:26 07/27/18 05:30 07/27/18 05:32 Temperature Temperature Source Sepsis Recent Fever Within 48 Hours Sepsis New/Unexplained Change in Mental Status Sepsis Action Taken by Nursing Arterial BP Systolic Arterial BP Diastolic Arterial BP Mean Arterial Pulse Rate Pulse Rate 115 H 60 55 L Pulse Rate [Right Finger] Pulse Rate from SpO2 Sensor 112 H 79 59 L Pulse Rhythm Pulse Rhythm [Right Finger] Respiratory Rate 17 24 21 Respiratory Effort / Characteristics Respiratory Depth Respiratory Pattern Blood Pressure 70/53 L 72/39 L 76/40 L Blood Pressure [Right Arm] Blood Pressure Mean 58 50 52 Blood Pressure Mean [Right Arm] Blood Pressure Position Blood Pressure Position [Right Arm] Pulse Oximetry 98 79 L 93 Oxygen Delivery Method Oxygen Flow Rate 07/27/18 05:33 07/27/18 05:35 07/27/18 05:37 Temperature Temperature Source Sepsis Recent Fever Within 48 Hours Sepsis New/Unexplained Change in Mental Status Sepsis Action Taken by Nursing Arterial BP Systolic Arterial BP Diastolic Arterial BP Mean Arterial Pulse Rate Pulse Rate 63 59 L 55 L Pulse Rate [Right Finger] Pulse Rate from SpO2 Sensor 57 L 57 L 55 L Pulse Rhythm Pulse Rhythm [Right Finger] Respiratory Rate 18 20 16 Respiratory Effort / Characteristics Respiratory Depth Respiratory Pattern Blood Pressure 72/43 L 66/42 L 77/46 L Blood Pressure [Right Arm] Blood Pressure Mean 52 50 56 Blood Pressure Mean [Right Arm] Blood Pressure Position Blood Pressure Position [Right Arm] Pulse Oximetry 95 99 96 Oxygen Delivery Method Oxygen Flow Rate 07/27/18 05:39 07/27/18 05:41 07/27/18 05:43 Temperature Temperature Source Sepsis Recent Fever Within 48 Hours Sepsis New/Unexplained Change in Mental Status Sepsis Action Taken by Nursing Arterial BP Systolic Arterial BP Diastolic Arterial BP Mean Arterial Pulse Rate Pulse Rate 65 66 60 Pulse Rate [Right Finger] Pulse Rate from SpO2 Sensor 56 L 56 L 56 L Pulse Rhythm Pulse Rhythm [Right Finger] Respiratory Rate 23 19 25 H Respiratory Effort / Characteristics Respiratory Depth Respiratory Pattern Blood Pressure 69/43 L 73/46 L 79/44 L Blood Pressure [Right Arm] Blood Pressure Mean 51 55 55 Blood Pressure Mean [Right Arm] Blood Pressure Position Blood Pressure Position [Right Arm] Pulse Oximetry 99 99 98 Oxygen Delivery Method Oxygen Flow Rate 07/27/18 05:45 07/27/18 05:47 07/27/18 05:49 Temperature Temperature Source Sepsis Recent Fever Within 48 Hours Sepsis New/Unexplained Change in Mental Status Sepsis Action Taken by Nursing Arterial BP Systolic Arterial BP Diastolic Arterial BP Mean Arterial Pulse Rate Pulse Rate 62 61 64 Pulse Rate [Right Finger] Pulse Rate from SpO2 Sensor 57 L 58 L 57 L Pulse Rhythm Pulse Rhythm [Right Finger] Respiratory Rate 22 19 19 Respiratory Effort / Characteristics Respiratory Depth Respiratory Pattern Blood Pressure 68/46 L 74/45 L 77/45 L Blood Pressure [Right Arm] Blood Pressure Mean 53 54 55 Blood Pressure Mean [Right Arm] Blood Pressure Position Blood Pressure Position [Right Arm] Pulse Oximetry 100 100 100 Oxygen Delivery Method Oxygen Flow Rate 07/27/18 05:51 07/27/18 05:53 07/27/18 05:55 Temperature Temperature Source Sepsis Recent Fever Within 48 Hours Sepsis New/Unexplained Change in Mental Status Sepsis Action Taken by Nursing Arterial BP Systolic 89 Arterial BP Diastolic 54 Arterial BP Mean 66 Arterial Pulse Rate 65 Pulse Rate 66 68 68 Pulse Rate [Right Finger] Pulse Rate from SpO2 Sensor 59 L 61 58 L Pulse Rhythm Pulse Rhythm [Right Finger] Respiratory Rate 20 22 19 Respiratory Effort / Characteristics Respiratory Depth Respiratory Pattern Blood Pressure 81/47 L 77/52 L 78/54 L Blood Pressure [Right Arm] Blood Pressure Mean 58 60 62 Blood Pressure Mean [Right Arm] Blood Pressure Position Blood Pressure Position [Right Arm] Pulse Oximetry 100 100 100 Oxygen Delivery Method Oxygen Flow Rate 07/27/18 05:57 07/27/18 06:00 07/27/18 06:01 Temperature Temperature Source Sepsis Recent Fever Within 48 Hours Sepsis New/Unexplained Change in Mental Status Sepsis Action Taken by Nursing Arterial BP Systolic 85 94 87 Arterial BP Diastolic 48 52 46 Arterial BP Mean 62 66 59 Arterial Pulse Rate 69 66 73 Pulse Rate 69 67 71 Pulse Rate [Right Finger] Pulse Rate from SpO2 Sensor 67 61 68 Pulse Rhythm Pulse Rhythm [Right Finger] Respiratory Rate 18 14 21 Respiratory Effort / Characteristics Respiratory Depth Respiratory Pattern Blood Pressure 88/51 L 90/68 L Blood Pressure [Right Arm] Blood Pressure Mean 63 75 Blood Pressure Mean [Right Arm] Blood Pressure Position Blood Pressure Position [Right Arm] Pulse Oximetry 99 100 99 Oxygen Delivery Method Oxymask Oxymask Oxygen Flow Rate 4 4 07/27/18 06:10 07/27/18 06:17 07/27/18 06:20 Temperature Temperature Source Sepsis Recent Fever Within 48 Hours Sepsis New/Unexplained Change in Mental Status Sepsis Action Taken by Nursing Arterial BP Systolic 79 83 83 Arterial BP Diastolic 43 46 46 Arterial BP Mean 56 59 58 Arterial Pulse Rate 69 66 64 Pulse Rate 68 62 65 Pulse Rate [Right Finger] Pulse Rate from SpO2 Sensor 63 61 65 Pulse Rhythm Pulse Rhythm [Right Finger] Respiratory Rate 17 20 17 Respiratory Effort / Characteristics Respiratory Depth Respiratory Pattern Blood Pressure 76/55 L Blood Pressure [Right Arm] Blood Pressure Mean 62 Blood Pressure Mean [Right Arm] Blood Pressure Position Blood Pressure Position [Right Arm] Pulse Oximetry 97 93 94 Oxygen Delivery Method Nasal Cannula Nasal Cannula Nasal Cannula Oxygen Flow Rate 2 2 2 07/27/18 06:30 07/27/18 06:31 Temperature Temperature Source Sepsis Recent Fever Within 48 Hours Sepsis New/Unexplained Change in Mental Status Sepsis Action Taken by Nursing Arterial BP Systolic 81 85 Arterial BP Diastolic 45 45 Arterial BP Mean 57 59 Arterial Pulse Rate 62 64 Pulse Rate 64 Pulse Rate [Right Finger] Pulse Rate from SpO2 Sensor 62 64 Pulse Rhythm Pulse Rhythm [Right Finger] Respiratory Rate Respiratory Effort / Characteristics Respiratory Depth Respiratory Pattern Blood Pressure 81/52 L Blood Pressure [Right Arm] Blood Pressure Mean 61 Blood Pressure Mean [Right Arm] Blood Pressure Position Blood Pressure Position [Right Arm] Pulse Oximetry 97 93 Oxygen Delivery Method Nasal Cannula Nasal Cannula Oxygen Flow Rate 2 2 Home Medications Current Medication List: was personally reviewed by me Laboratory Data Attestation: I reviewed the patient's lab results. Result diagrams: 07/27/18 02:26 07/27/18 02:26 Lab Results 07/27/18 07/27/18 07/27/18 Range/Units 02:26 02:26 02:26 WBC 4.58 L (4.8-10.8) K/uL RBC 3.90 L (4.2-5.4) M/uL Hgb 11.6 L (12.0-16.0) g/dL Hct 35.5 L (37-47) % MCV 91.0 (80-100) fL MCH 29.7 (25-34) pg MCHC 32.7 (32-36) g/dL RDW Std Deviation 46.0 (36.4-46.3) fL RDW Coeff of Javi 13.8 (11.5-14.5) % Plt Count 176 (130-400) K/uL MPV 11.4 H (7.4-10.4) fL Immature Gran % (Auto) 0.4 % Neut % (Auto) 67.5 % Lymph % (Auto) 22.5 % [place] % (Auto) 7.4 % Eos % (Auto) 2.0 % Baso % (Auto) 0.2 % Immature Gran # (Auto) 0.02 (0.00-0.02) K/uL Neut # (Auto) 3.09 (1.4-6.5) K/uL Lymph # (Auto) 1.03 L (1.2-3.4) K/uL [place] # (Auto) 0.34 (0.11-0.59) K/uL Eos # (Auto) 0.09 (0-0.5) K/uL Baso # (Auto) 0.01 (0-0.2) K/uL PT 11.4 (9.0-12.0) Seconds INR 1.1 (0.9-1.1) APTT 32.5 H (21.0-31.0) Seconds PTT Ratio 1.2 Sodium 131 L (136-145) mmol/L Potassium 3.2 L (3.5-5.1) mmol/L Chloride 96 L (98-107) mmol/L Carbon Dioxide 25 (21-32) mmol/L Anion Gap 10.0 (3-11) BUN 16 (7-18) mg/dl Creatinine 1.24 H (0.6-1.2) mg/dl Est Cr Clr Drug Dosing 27.0 ml/min Est GFR ( Amer) 44.9 Est GFR (Non-Af Amer) 38.8 BUN/Creatinine Ratio 13.0 (10-20) Glucose 440 H* (70-99) mg/dl POC Glucose (70-99) Calcium 8.1 L (8.5-10.1) mg/dl Magnesium 1.3 L (1.8-2.4) mg/dl Total Bilirubin 0.7 (0.2-1) mg/dl Direct Bilirubin 0.2 (0-0.2) mg/dl AST 16 (15-37) U/L ALT 15 (12-78) U/L Alkaline Phosphatase 57 (45-117) U/L Troponin I 0.035 (0-0.045) ng/ml Total Protein 6.8 (6.4-8.2) gm/dl Albumin 3.1 L (3.4-5.0) gm/dl Beta-Hydroxybutyric Acd 6.71 H (0.2-2.81) mg/dl TSH 12.300 H (0.300-4.500) uIu/ml Free T4 1.15 (0.8-1.6) ng/dl Urine Color Urine Appearance (Clear) Urine pH (4.5-7.5) Ur Specific [place] (1.000-1.030) Urine Protein (Negative) Urine Glucose (UA) (Negative) Urine Ketones (Negative) Urine Blood (Negative) Urine Nitrite (Negative) Urine Bilirubin (Negative) Urine Urobilinogen (Negative) Ur Leukocyte Esterase (Negative) 07/27/18 07/27/18 07/27/18 Range/Units 03:18 04:40 05:49 WBC (4.8-10.8) K/uL RBC (4.2-5.4) M/uL Hgb (12.0-16.0) g/dL Hct (37-47) % MCV (80-100) fL MCH (25-34) pg MCHC (32-36) g/dL RDW Std Deviation (36.4-46.3) fL RDW Coeff of Javi (11.5-14.5) % Plt Count (130-400) K/uL MPV (7.4-10.4) fL Immature Gran % (Auto) % Neut % (Auto) % Lymph % (Auto) % [place] % (Auto) % Eos % (Auto) % Baso % (Auto) % Immature Gran # (Auto) (0.00-0.02) K/uL Neut # (Auto) (1.4-6.5) K/uL Lymph # (Auto) (1.2-3.4) K/uL [place] # (Auto) (0.11-0.59) K/uL Eos # (Auto) (0-0.5) K/uL Baso # (Auto) (0-0.2) K/uL PT (9.0-12.0) Seconds INR (0.9-1.1) APTT (21.0-31.0) Seconds PTT Ratio Sodium (136-145) mmol/L Potassium (3.5-5.1) mmol/L Chloride (98-107) mmol/L Carbon Dioxide (21-32) mmol/L Anion Gap (3-11) BUN (7-18) mg/dl Creatinine (0.6-1.2) mg/dl Est Cr Clr Drug Dosing ml/min Est GFR ( Amer) Est GFR (Non-Af Amer) BUN/Creatinine Ratio (10-20) Glucose (70-99) mg/dl POC Glucose 519 H* 163 H 111 H (70-99) Calcium (8.5-10.1) mg/dl Magnesium (1.8-2.4) mg/dl Total Bilirubin (0.2-1) mg/dl Direct Bilirubin (0-0.2) mg/dl AST (15-37) U/L ALT (12-78) U/L Alkaline Phosphatase (45-117) U/L Troponin I (0-0.045) ng/ml Total Protein (6.4-8.2) gm/dl Albumin (3.4-5.0) gm/dl Beta-Hydroxybutyric Acd (0.2-2.81) mg/dl TSH (0.300-4.500) uIu/ml Free T4 (0.8-1.6) ng/dl Urine Color Urine Appearance (Clear) Urine pH (4.5-7.5) Ur Specific [place] (1.000-1.030) Urine Protein (Negative) Urine Glucose (UA) (Negative) Urine Ketones (Negative) Urine Blood (Negative) Urine Nitrite (Negative) Urine Bilirubin (Negative) Urine Urobilinogen (Negative) Ur Leukocyte Esterase (Negative) 07/27/18 Range/Units 05:59 WBC (4.8-10.8) K/uL RBC (4.2-5.4) M/uL Hgb (12.0-16.0) g/dL Hct (37-47) % MCV (80-100) fL MCH (25-34) pg MCHC (32-36) g/dL RDW Std Deviation (36.4-46.3) fL RDW Coeff of Javi (11.5-14.5) % Plt Count (130-400) K/uL MPV (7.4-10.4) fL Immature Gran % (Auto) % Neut % (Auto) % Lymph % (Auto) % [place] % (Auto) % Eos % (Auto) % Baso % (Auto) % Immature Gran # (Auto) (0.00-0.02) K/uL Neut # (Auto) (1.4-6.5) K/uL Lymph # (Auto) (1.2-3.4) K/uL [place] # (Auto) (0.11-0.59) K/uL Eos # (Auto) (0-0.5) K/uL Baso # (Auto) (0-0.2) K/uL PT (9.0-12.0) Seconds INR (0.9-1.1) APTT (21.0-31.0) Seconds PTT Ratio Sodium (136-145) mmol/L Potassium (3.5-5.1) mmol/L Chloride (98-107) mmol/L Carbon Dioxide (21-32) mmol/L Anion Gap (3-11) BUN (7-18) mg/dl Creatinine (0.6-1.2) mg/dl Est Cr Clr Drug Dosing ml/min Est GFR ( Amer) Est GFR (Non-Af Amer) BUN/Creatinine Ratio (10-20) Glucose (70-99) mg/dl POC Glucose (70-99) Calcium (8.5-10.1) mg/dl Magnesium (1.8-2.4) mg/dl Total Bilirubin (0.2-1) mg/dl Direct Bilirubin (0-0.2) mg/dl AST (15-37) U/L ALT (12-78) U/L Alkaline Phosphatase (45-117) U/L Troponin I (0-0.045) ng/ml Total Protein (6.4-8.2) gm/dl Albumin (3.4-5.0) gm/dl Beta-Hydroxybutyric Acd (0.2-2.81) mg/dl TSH (0.300-4.500) uIu/ml Free T4 (0.8-1.6) ng/dl Urine Color Yellow Urine Appearance Clear (Clear) Urine pH 5.0 (4.5-7.5) Ur Specific [place] 1.026 (1.000-1.030) Urine Protein Negative (Negative) Urine Glucose (UA) 3+ H (Negative) Urine Ketones Trace H (Negative) Urine Blood Negative (Negative) Urine Nitrite Negative (Negative) Urine Bilirubin Negative (Negative) Urine Urobilinogen Negative (Negative) Ur Leukocyte Esterase Negative (Negative) Administered Medications Amiodarone HCl/Dextrose (Nexterone / D5w) 360 mg in 200 mls @ 33.333 mls/hr IV .Q6H MYA Stop: 07/27/18 09:44 Last Admin: 07/27/18 04:13 Dose: 1 mg/min, 33.3 mls/hr Documented by: [id number] Cosigned by: [id number] Phenylephrine HCl 20 mg/ (Dextrose) 502 mls @ 51.2 mls/hr IV .Q9H49M PRN; Protocol PRN Reason: TITRATE Stop: 08/26/18 05:16 Last Titration: 07/27/18 05:37 Dose: 0 mcg/kg/min, 0 mls/hr Documented by: [id number] Admin: 07/27/18 05:28 Dose: 0.5 mcg/kg/min, 51.2 mls/hr Documented by: [id number] Cosigned by: [id number] Potassium Chloride (K Juan David / Wtr) 20 meq in 100 mls @ 50 mls/hr IV ONE ONE Stop: 07/27/18 07:27 Last Admin: 07/27/18 05:38 Dose: 50 mls/hr Documented by: [id number] Norepinephrine Bitartrate 8 mg (/ Dextrose) 508 mls @ 36.27 mls/hr IV .Q14H1M PRN; Protocol PRN Reason: TITRATE Stop: 08/26/18 05:35 Last Titration: 07/27/18 06:17 Dose: 0.14 mcg/kg/min, 36.3 mls/hr Documented by: [id number] Titration: 07/27/18 05:55 Dose: 0.12 mcg/kg/min, 31.1 mls/hr Documented by: [id number] Admin: 07/27/18 05:45 Dose: 0.08 mcg/kg/min, 20.7 mls/hr Documented by: [id number] Cosigned by: [id number] Discontinued Medications Amiodarone HCl (Cordarone Iv Bolus / Drip) 1 ea IV NOW STA; Protocol Stop: 07/27/18 03:32 Last Admin: 07/27/18 03:55 Dose: 1 ea Documented by: [id number] Aspirin (Aspirin Chew) 324 mg PO NOW STA Stop: 07/27/18 02:20 Last Admin: 07/27/18 02:32 Dose: 324 mg Documented by: [id number] Etomidate (Amidate) Confirm Administered Dose 40 mg IV .STK-MED ONE Stop: 07/27/18 04:35 Last Admin: 07/27/18 06:03 Dose: Not Given Documented by: [id number] Heparin Sodium (Porcine) (Heparin Iv Bolus) Confirm Administered Dose 10,000 units .ROUTE .STK-MED ONE Stop: 07/27/18 03:51 Last Admin: 07/27/18 03:55 Dose: 10,000 units Documented by: [id number] Cosigned by: [id number] Heparin Sodium/Dextrose () 1 ea IV NOW STA; Protocol Stop: 07/27/18 03:32 Last Admin: 07/27/18 03:55 Dose: 1 ea Documented by: [id number] Heparin Sodium/Dextrose (Heparin Sodium/Dextrose) Confirm Administered Dose 25,000 units IV .STK-MED ONE Stop: 07/27/18 03:52 Last Admin: 07/27/18 03:54 Dose: 4,000 units Documented by: [id number] Cosigned by: [id number] Sodium Chloride (Nss 1000ml) 500 mls @ 999 mls/hr IV .Q31M ONE Stop: 07/27/18 02:48 Last Infusion: 07/27/18 03:11 Dose: 0 mls/hr Documented by: [id number] Admin: 07/27/18 02:32 Dose: 999 mls/hr Documented by: [id number] Magnesium Sulfate/Dextrose (Magnesium Sulfate / D5w) 1 gm in 100 mls @ 100 mls/hr IV Q1H MYA Stop: 07/27/18 05:14 Last Infusion: 07/27/18 06:02 Dose: 0 mls/hr Documented by: [id number] Admin: 07/27/18 04:42 Dose: 100 mls/hr Documented by: [id number] Infusion: 07/27/18 04:25 Dose: 100 mls/hr Documented by: [id number] Admin: 07/27/18 03:25 Dose: 100 mls/hr Documented by: [id number] Amiodarone HCl/Dextrose (Nexterone / D5w) 150 mg in 100 mls @ 600 mls/hr IV ONE STA Stop: 07/27/18 03:40 Last Infusion: 07/27/18 04:43 Dose: 0 mls/hr Documented by: [id number] Cosigned by: [id number] Admin: 07/27/18 03:55 Dose: 600 mls/hr Documented by: [id number] Cosigned by: [id number] Sodium Chloride (Nss 1000ml) 500 mls @ 999 mls/hr IV .Q31M ONE Stop: 07/27/18 04:45 Last Infusion: 07/27/18 04:43 Dose: 0 mls/hr Documented by: [id number] Admin: 07/27/18 04:16 Dose: 999 mls/hr Documented by: [id number] Insulin Human Regular (Novolin R) 10 units IV NOW STA Stop: 07/27/18 03:24 Last Admin: 07/27/18 03:34 Dose: 10 units Documented by: [id number] Cosigned by: [id number] Insulin Human Regular (Novolin R U-100 Per Unit) Confirm Administered Dose 1 units .ROUTE .STK-MED ONE Stop: 07/27/18 03:31 Last Admin: 07/27/18 03:45 Dose: Not Given Documented by: [id number] Metoprolol Tartrate (Lopressor) 5 mg IV NOW STA Stop: 07/27/18 02:19 Last Admin: 07/27/18 02:32 Dose: 5 mg Documented by: [id number] Metoprolol Tartrate (Lopressor) 5 mg IV NOW STA Stop: 07/27/18 03:04 Last Admin: 07/27/18 03:07 Dose: 5 mg Documented by: [id number] Metoprolol Tartrate (Lopressor) 5 mg IV NOW STA Stop: 07/27/18 03:24 Last Admin: 07/27/18 03:34 Dose: 5 mg Documented by: [id number] Midazolam HCl (Versed) Confirm Administered Dose 10 mg .ROUTE .STK-MED ONE Stop: 07/27/18 05:26 Last Admin: 07/27/18 06:01 Dose: Not Given Documented by: [id number] Midazolam HCl (Versed) Confirm Administered Dose 2 mg .ROUTE .STK-MED ONE Stop: 07/27/18 05:27 Last Increment: 07/27/18 05:29 Dose: 1 mg Documented by: [id number] Ondansetron HCl (Zofran) 4 mg IV NOW STA Stop: 07/27/18 04:05 Last Admin: 07/27/18 04:15 Dose: Not Given Documented by: [id number] Ondansetron HCl (Zofran) Confirm Administered Dose 4 mg .ROUTE .STK-MED ONE Stop: 07/27/18 04:06 Last Admin: 07/27/18 04:15 Dose: 4 mg Documented by: [id number] Discharge Plan Visit Data Chief Complaint: Tachycardia Stated Complaint: TACHYCARDIA ED Provider: Chris Robles Discharge Problem: Atrial fibrillation with RVR, Hypokalemia, Substernal chest pain, Acute hyperglycemia, Hypomagnesemia, Acute hypotension Discharge Instructions Interventions: ED Discharge Assessment Last Done: 07/27/18 06:36 The scribe's documentation has been prepared under my direction and personally reviewed by me in its entirety. I confirm that the note above accurately reflects all work, treatment, procedures, and medical decision making performed by me.
[2018-07-27] MEDS ORDERED: NITROGLYCERIN SL 0.4 MG/TAB TAB SL PRN (07:34)
[2018-07-27] MEDS ORDERED: Heparin IV Low Dose *NO* Bolus IV SCH (07:34)
[2018-07-27] MEDS ORDERED: ICU PROTOCOL FOR HYPERGLYCEMIA PRN (07:34)
[2018-07-27] MEDS ORDERED: PHARMACY GLYCEMIC MGMT CONSULT PRN (07:39)
[2018-07-27] MEDS ORDERED: Heparin IV Standard *NO* Bolus IV STA (08:24)
[2018-07-27 08:31] LABS: Calcium 7.8 mg/dl (8.5-10.1); Est GFR (African American) 46.3; Est GFR (Non-African American) 39.9; Estimated Average Glucose 117 mg/dl; Hemoglobin A1C 5.7 % (4.5-5.6)
--- NOTE | 2018-07-27 08:50 | Cardiology Progress Note ---
Date of Service July 27, 2018 Subjective Patient reassessed. Currently asymptomatic. Ongoing lateral ischemic changes on repeat EKG. Blood pressure now improved on Levophed with most recent measurement including systolic blood pressure in the 120s. I am concerned about the patient's new ischemic EKG changes and pressor dependent hypotension. She has presumed severe underlying coronary heart disease based on her past imaging studies, and at this point, given the fact that her heart rate has now been cont rolled with resolution of the tachycardia, I am concerned about an ischemic substrate. I think now is our window to proceed to the cardiac catheterization laboratory she is optimized medically, asymptomatic from an anginal standpoint, with stable blood pressure and stable heart rate. Case discussed with Dr. Castillo of interventional cardiology and be reassessed the patient the bedside together. Patient and family agreeable to proceeding with cardiac catheterization. Results & Data Vital Signs (Past 12 Hours) Vital Signs Temp Pulse Pulse Pulse Resp BP BP 07/27/18 08:15 72 21 07/27/18 08:00 36.5 C 71 21 07/27/18 07:30 73 21 07/27/18 07:11 74 18 79/48 L 07/27/18 06:45 36.5 C 64 20 94/52 L 07/27/18 06:31 81/52 L 07/27/18 06:30 64 07/27/18 06:20 65 17 07/27/18 06:17 62 20 76/55 L 07/27/18 06:10 68 17 07/27/18 06:01 71 21 90/68 L 07/27/18 06:00 67 14 07/27/18 05:57 69 18 88/51 L 07/27/18 05:55 68 19 78/54 L 07/27/18 05:53 68 22 77/52 L 07/27/18 05:51 66 20 81/47 L 07/27/18 05:49 64 19 77/45 L 07/27/18 05:47 61 19 74/45 L 07/27/18 05:45 62 22 68/46 L 07/27/18 05:43 60 25 H 79/44 L 07/27/18 05:41 66 19 73/46 L 07/27/18 05:39 65 23 69/43 L 07/27/18 05:37 55 L 16 77/46 L 07/27/18 05:35 59 L 20 66/42 L 07/27/18 05:33 63 18 72/43 L 07/27/18 05:32 55 L 21 76/40 L 07/27/18 05:30 60 24 72/39 L 07/27/18 05:26 115 H 17 70/53 L 07/27/18 05:21 108 H 17 80/59 L 07/27/18 05:20 113 H 19 07/27/18 05:16 110 H 15 76/54 L 07/27/18 05:11 113 H 18 72/55 L 07/27/18 05:10 100 H 17 07/27/18 05:06 107 H 13 79/59 L 07/27/18 05:01 118 H 13 80/58 L 07/27/18 04:59 111 H 15 95/64 L 07/27/18 04:56 105 H 16 83/53 L 07/27/18 04:53 109 H 12 76/54 L 07/27/18 04:50 106 H 18 82/58 L 07/27/18 04:46 112 H 20 79/58 L 07/27/18 04:31 118 H 22 74/59 L 07/27/18 04:30 98 H 16 07/27/18 04:27 96 H 22 07/27/18 04:26 99 H 16 74/61 L 07/27/18 04:25 102 H 18 53/29 L 07/27/18 04:22 106 H 21 07/27/18 04:20 105 H 15 07/27/18 04:16 103 H 17 87/65 L 07/27/18 04:12 99 H 17 07/27/18 04:11 89 12 67/48 L 07/27/18 04:10 98 H 17 75/53 L 07/27/18 04:07 102 H 17 55/44 L 07/27/18 04:01 88 16 79/59 L 07/27/18 04:00 119 H 132 H 18 85/60 L 07/27/18 03:56 124 H 18 85/60 L 07/27/18 03:51 135 H 16 95/83 L 07/27/18 03:50 136 H 13 07/27/18 03:46 120 H 12 70/53 L 07/27/18 03:41 124 H 132 H 16 101/53 L 101/53 L 07/27/18 03:40 138 H 11 L 07/27/18 03:36 121 H 12 84/66 L 07/27/18 03:35 130 H 13 89/61 L 07/27/18 03:31 125 H 16 81/67 L 07/27/18 03:30 128 H 14 07/27/18 03:26 145 H 16 92/63 L 07/27/18 03:21 143 H 26 H 91/73 L 07/27/18 03:20 141 H 19 07/27/18 03:16 128 H 15 86/64 L 07/27/18 03:14 130 H 12 90/54 L 07/27/18 03:11 147 H 9 L 79/64 L 07/27/18 03:10 142 H 12 07/27/18 03:07 132 H 15 92/66 L 07/27/18 03:06 146 H 14 73/57 L 07/27/18 03:01 126 H 23 87/68 L 07/27/18 03:00 135 H 19 07/27/18 02:57 137 H 16 109/67 07/27/18 02:56 153 H 14 109/67 07/27/18 02:51 133 H 17 87/69 L 07/27/18 02:50 149 H 20 07/27/18 02:46 139 H 18 88/64 L 07/27/18 02:42 144 H 14 07/27/18 02:41 139 H 11 L 93/67 L 07/27/18 02:40 137 H 13 07/27/18 02:38 135 H 17 85/70 L 07/27/18 02:35 139 H 12 07/27/18 02:34 161 H 20 93/70 L 07/27/18 02:28 159 H 14 102/72 07/27/18 02:17 36.9 C 156 H 20 85/64 L Pulse Ox 07/27/18 08:15 97 07/27/18 08:00 100 07/27/18 07:30 96 07/27/18 07:11 86 L 07/27/18 06:45 94 07/27/18 06:31 93 07/27/18 06:30 97 07/27/18 06:20 94 07/27/18 06:17 93 07/27/18 06:10 97 05 06:01 99 05 06:00 100 05 05:57 99 05 05:55 100 05 05:53 100 07/27/18 05:51 100 05 05:49 100 07/27/18 05:47 100 05 05:45 100 07/27/18 05:43 98 05 05:41 99 05 05:39 99 05 05:37 96 05 05:35 99 05 05:33 95 05 05:32 93 07/27/18 05:30 79 L 07/27/18 05:26 98 07/27/18 05:21 96 07/27/18 05:20 98 07/27/18 05:16 98 07/27/18 05:11 100 07/27/18 05:10 100 07/27/18 05:06 100 07/27/18 05:01 99 07/27/18 04:59 98 07/27/18 04:56 98 07/27/18 04:53 97 07/27/18 04:50 95 07/27/18 04:46 95 07/27/18 04:31 95 07/27/18 04:30 95 07/27/18 04:27 96 07/27/18 04:26 97 07/27/18 04:25 97 07/27/18 04:22 96 07/27/18 04:20 97 07/27/18 04:16 94 07/27/18 04:12 94 07/27/18 04:11 91 07/27/18 04:10 88 L 07/27/18 04:07 93 07/27/18 04:01 91 07/27/18 04:00 93 07/27/18 03:56 93 05 03:51 93 07/27/18 03:50 93 07/27/18 03:46 96 05 03:41 95 07/27/18 03:40 96 05 03:36 94 05 03:35 96 05 03:31 93 05 03:30 93 05 03:26 92 07/27/18 03:21 95 07/27/18 03:20 92 07/27/18 03:16 93 07/27/18 03:14 95 07/27/18 03:11 93 07/27/18 03:10 93 07/27/18 03:07 95 07/27/18 03:06 95 07/27/18 03:01 94 07/27/18 03:00 96 07/27/18 02:57 07/27/18 02:56 94 07/27/18 02:51 96 07/27/18 02:50 91 07/27/18 02:46 95 07/27/18 02:42 94 07/27/18 02:41 97 07/27/18 02:40 97 07/27/18 02:38 94 07/27/18 02:35 95 07/27/18 02:34 95 07/27/18 02:28 96 07/27/18 02:17 96
[2018-07-27] MEDS ORDERED: HEPARIN (PORCINE) 1000 UNIT/ML 10 ML (CATH LAB USE ONLY) ONE (08:53)
[2018-07-27] MEDS ORDERED: fentaNYL citrate 100 MCG/2 ML VIAL ONE (08:53)
[2018-07-27] MEDS ORDERED: NiCARDipine HCL INJ 2.5 MG/ML 10 ML AMP ONE (08:53)
[2018-07-27] MEDS ORDERED: NITROGLYCERIN/D5W 100MCG/ML 20ML SYR ONE (08:54)
[2018-07-27] MEDS ORDERED: CLOPIDOGREL BISULFATE 300 MG TAB ONE (10:13)
--- NOTE | 2018-07-27 10:17 | Post Anesthesia Assessment ---
Date of Service July 27, 2018 Post Sedation Assessment Vital Signs Temp Pulse Pulse Pulse Resp BP BP 07/27/18 08:15 72 21 07/27/18 08:00 36.5 C 71 21 07/27/18 07:30 73 21 07/27/18 07:11 74 18 79/48 L 07/27/18 06:45 36.5 C 64 20 94/52 L 07/27/18 06:31 81/52 L 07/27/18 06:30 64 07/27/18 06:20 65 17 07/27/18 06:17 62 20 76/55 L 07/27/18 06:10 68 17 07/27/18 06:01 71 21 90/68 L 07/27/18 06:00 67 14 07/27/18 05:57 69 18 88/51 L 07/27/18 05:55 68 19 78/54 L 07/27/18 05:53 68 22 77/52 L 07/27/18 05:51 66 20 81/47 L 07/27/18 05:49 64 19 77/45 L 07/27/18 05:47 61 19 74/45 L 07/27/18 05:45 62 22 68/46 L 07/27/18 05:43 60 25 H 79/44 L 07/27/18 05:41 66 19 73/46 L 07/27/18 05:39 65 23 69/43 L 07/27/18 05:37 55 L 16 77/46 L 07/27/18 05:35 59 L 20 66/42 L 07/27/18 05:33 63 18 72/43 L 07/27/18 05:32 55 L 21 76/40 L 07/27/18 05:30 60 24 72/39 L 07/27/18 05:26 115 H 17 70/53 L 07/27/18 05:21 108 H 17 80/59 L 07/27/18 05:20 113 H 19 07/27/18 05:16 110 H 15 76/54 L 07/27/18 05:11 113 H 18 72/55 L 07/27/18 05:10 100 H 17 07/27/18 05:06 107 H 13 79/59 L 07/27/18 05:01 118 H 13 80/58 L 07/27/18 04:59 111 H 15 95/64 L 07/27/18 04:56 105 H 16 83/53 L 07/27/18 04:53 109 H 12 76/54 L 07/27/18 04:50 106 H 18 82/58 L 07/27/18 04:46 112 H 20 79/58 L 07/27/18 04:31 118 H 22 74/59 L 07/27/18 04:30 98 H 16 07/27/18 04:27 96 H 22 07/27/18 04:26 99 H 16 74/61 L 07/27/18 04:25 102 H 18 53/29 L 07/27/18 04:22 106 H 21 07/27/18 04:20 105 H 15 07/27/18 04:16 103 H 17 87/65 L 07/27/18 04:12 99 H 17 07/27/18 04:11 89 12 67/48 L 07/27/18 04:10 98 H 17 75/53 L 07/27/18 04:07 102 H 17 55/44 L 07/27/18 04:01 88 16 79/59 L 07/27/18 04:00 119 H 132 H 18 85/60 L 07/27/18 03:56 124 H 18 85/60 L 07/27/18 03:51 135 H 16 95/83 L 07/27/18 03:50 136 H 13 07/27/18 03:46 120 H 12 70/53 L 07/27/18 03:41 124 H 132 H 16 101/53 L 101/53 L 07/27/18 03:40 138 H 11 L 07/27/18 03:36 121 H 12 84/66 L 07/27/18 03:35 130 H 13 89/61 L 07/27/18 03:31 125 H 16 81/67 L 07/27/18 03:30 128 H 14 07/27/18 03:26 145 H 16 92/63 L 07/27/18 03:21 143 H 26 H 91/73 L 07/27/18 03:20 141 H 19 07/27/18 03:16 128 H 15 86/64 L 07/27/18 03:14 130 H 12 90/54 L 07/27/18 03:11 147 H 9 L 79/64 L 07/27/18 03:10 142 H 12 07/27/18 03:07 132 H 15 92/66 L 07/27/18 03:06 146 H 14 73/57 L 07/27/18 03:01 126 H 23 87/68 L 07/27/18 03:00 135 H 19 07/27/18 02:57 137 H 16 109/67 07/27/18 02:56 153 H 14 109/67 07/27/18 02:51 133 H 17 87/69 L 07/27/18 02:50 149 H 20 07/27/18 02:46 139 H 18 88/64 L 07/27/18 02:42 144 H 14 07/27/18 02:41 139 H 11 L 93/67 L 07/27/18 02:40 137 H 13 07/27/18 02:38 135 H 17 85/70 L 07/27/18 02:35 139 H 12 07/27/18 02:34 161 H 20 93/70 L 07/27/18 02:28 159 H 14 102/72 07/27/18 02:17 36.9 C 156 H 20 85/64 L Pulse Ox 07/27/18 08:15 97 07/27/18 08:00 100 07/27/18 07:30 96 07/27/18 07:11 86 L 07/27/18 06:45 94 07/27/18 06:31 93 07/27/18 06:30 97 07/27/18 06:20 94 07/27/18 06:17 93 07/27/18 06:10 97 07/27/18 06:01 99 07/27/18 06:00 100 07/27/18 05:57 99 07/27/18 05:55 100 07/27/18 05:53 100 07/27/18 05:51 100 07/27/18 05:49 100 07/27/18 05:47 100 07/27/18 05:45 100 07/27/18 05:43 98 07/27/18 05:41 99 07/27/18 05:39 99 07/27/18 05:37 96 07/27/18 05:35 99 07/27/18 05:33 95 07/27/18 05:32 93 07/27/18 05:30 79 L 07/27/18 05:26 98 07/27/18 05:21 96 07/27/18 05:20 98 05 05:16 98 05 05:11 100 05 05:10 100 05 05:06 100 07/27/18 05:01 99 05 04:59 98 05 04:56 98 07/27/18 04:53 97 05 04:50 95 05 04:46 95 05 04:31 95 07/27/18 04:30 95 07/27/18 04:27 96 07/27/18 04:26 97 07/27/18 04:25 97 07/27/18 04:22 96 07/27/18 04:20 97 07/27/18 04:16 94 07/27/18 04:12 94 07/27/18 04:11 91 07/27/18 04:10 88 L 07/27/18 04:07 93 07/27/18 04:01 91 07/27/18 04:00 93 07/27/18 03:56 93 07/27/18 03:51 93 07/27/18 03:50 93 07/27/18 03:46 96 07/27/18 03:41 95 07/27/18 03:40 96 05 03:36 94 07/27/18 03:35 96 07/27/18 03:31 93 07/27/18 03:30 93 07/27/18 03:26 92 05 03:21 95 07/27/18 03:20 92 07/27/18 03:16 93 07/27/18 03:14 95 07/27/18 03:11 93 07/27/18 03:10 93 07/27/18 03:07 95 07/27/18 03:06 95 07/27/18 03:01 94 07/27/18 03:00 96 07/27/18 02:57 05 02:56 94 07/27/18 02:51 96 07/27/18 02:50 91 07/27/18 02:46 95 05 02:42 94 05 02:41 97 07/27/18 02:40 97 07/27/18 02:38 94 07/27/18 02:35 95 07/27/18 02:34 95 07/27/18 02:28 96 07/27/18 02:17 96 Recovery Score Activity: Moves 4 extremities Respiration: Deep Breath/Cough Circulation: +/-20% PreAnes Value Consciousness: Fully Awake Oxygen Saturation: O2 needed for >90% Discharge Sedation Level of Care: Fast Track Phase II Post Sedation Plan On clinical assessment, the patient appears to have tolerated the sedation without complications. Patient is recovering as anticipated. Patient will continue to be monitored by nursing and may be discharged when sedation discharge criteria are met per below protocol. Upon Completions of procedure and additional 15 minutes continue every 5 minute vital signs and the P.A.R. score; then discharge to a Phase I or Fast Track to Phase II per the following guidelines: * Discharge Patient to appropriate Phase II area if PAR is 8 or greater or return to pre- procedure baseline. The post - procedure orders will be as directed. * If PAR score is less than 8 or not return to pre-procedure baseline then patient will follow Phase I monitoring till PAR is reached for Phase II. The Phase I may be done in procedure room or may call to secure a Phase I area. * If naloxone or flumazenil are used for reversal, hold in Phase I for continued monitoring from when last reversal dose was given for a minimum of 60 minutes or longer pending the nurse and/or physician discretion of patient condition before discharge to Phase II. Please call the Sedation Physician to re-evaluate and complete post-note for discharge to Phase II area. Do NOT discharge from procedure sedation or Phase 1 until post- sedation evaluation note is complete by procedure /sedation MD Sedation Discharge Instructions to be given to the patient at discharge to home.
--- NOTE | 2018-07-27 10:32 | Cardiac Catheterization ---
Cardiac Cath Procedure Full Procedure Date July 27, 2018 Pre-Procedure Diagnosis Pre-Procedure Diagnosis: Non STEMI AUC Score AUC Score: 9 Post-Procedure Diagnosis Post-Procedure Diagnosis: Severe CAD Procedure(s) Performed Procedure(s) Performed: Coronary Angiography, Left Heart Cath and Drug Eluting Stent Air Export Coordinator Elgin Castillo MD Practice Support Specialist(s) Ryan Estimated Blood Loss Estimated Blood Loss: 15 Medication(s) Medication(s): Clopidogrel, Fentanyl, Heparin, Lidocaine 1%, Nitroglycerin and Versed Summary of Findings Indication: High risk NSTEMI 88-year-old woman with 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 Noted to have anterolateral dynamic ST changes, elevated troponin and persistent hypotension requiring vasopressors post electrical cardioversion. Access: 6 Fr right radial artery Catheters: [place], JL 3.5; EBU 3.5 guide, AR-1 guide Findings: LM -Short, almost separate ostium LAD -moderate caliber vessel, proximal luminal irregularities, 99%/subtotal occlusion of mid LAD with COLETTE I flow in distal vessel and moderate caliber second diagonal Circumflex -large caliber vessel, luminal irregularities, 20 to 30% proximal stenosis and large OM 2 RCA -large caliber vessel, dominant, 99% mid RCA with COLETTE I-II flow distally LVEDP -18 -- PCI -- Antithrombotic therapy: Heparin, clopidogrel Procedure: Left main cannulated with EBU 3.5 guide Collet Gluer 50 wire passed across mid LAD lesion with aid of 2.5 balloon for support into distal vessel Mid LAD lesion predilated with 2.5 compliant balloon Dilated lesion stented with 2.75 x 23 mm Xience Narda drug-eluting stent Stent post-dilated with 2.75 noncompliant balloon IC vasodilators administered for spasm Post procedure COLETTE 3 flow, stent well expanded with minimal residual stenosis and no apparent cardiac complications. RCA cannulated with AR-1 guide Collet Gluer 50 wire passed across mid RCA lesion Mid RCA lesion dilated with 2.0 compliant balloon Mid RCA stented with 2.75 x 18 mm Xience Narda drug-eluting stent Stent postdilated with 3.0 NC balloon Post procedure COLETTE 3 flow, stent well expanded with minimal residual stenosis and no apparent cardiac complications. Arterial Closure: TR Band Summary: 1. Severe two-vessel vessel coronary artery disease -99% mid LAD with COLETTE I distal flow 99% mid RCA with COLETTE I-II distal flow 2. Mildly elevated intracardiac filling pressure 3. Successful PCI of mid LAD with single drug-eluting stent (2.75 x 23 mm Xience Narda). 4. Successful PCI of mid RCA with single drug-eluting stent (2.75 x 18 mm Xience Narda). 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 Resume heparin infusion when radial artery hemostasis Continue aspirin, clopidogrel along with anticoagulation for 1 week then okay to drop aspirin and continue on anticoagulation, clopidogrel alone for at least one year Wean vasopressors as BP allows Continue statin, and ASCVD risk factor modification Consult cardiac Rehab Hemodynamics Rest Ao:: 114/49/73 Final Ao: 126/57/84 LV: 118/18 Recommendations Recommendations: PCI without planned CABG Specimens Specimens: None Radiation Exposure (mGy) 4190 Contrast (mls) 170 Fluids (cc crystalloids) Fluids (cc crystalloids): 50 Drains Drains: None Anesthesia Moderate Procedural Complication(s) None Disposition ICU ACC Data: Inpatient Care Manager Rn Cardiac Status Clinical evaluation leading to the procedure CAD Presenation: Non STEMI Anginal Classification: CCS IV Heart Failure: No Cardiogenic Shock within 24 Hours: No Cardiac Arrest within 24 Hours: No Imaging Studies Past 6 Months: Yes Stress Studies Past 6 Months: No Diagnostic Physicians Name: Elgin Castillo MD Status: Urgent Closure Device Percutaneous Entry Location: Radial Closure Device: Radial Band Recommendations: PCI without planned CABG PCI Indication: PCI for high risk Non-MAX Lesion Segment Name: Mid LAD Culprit Artery: Yes Stenosis Prior to Rx (%): 99 Chronic Total Occlusion: No IVUS: No FFR: No Pre-Procedure COLETTE Flow: 1 Previously Treated Lesion: No Lesion Complexity: Non-High/Non-C Lesion Length (mm): 15 Thrombus Present: Yes Bifurcation Lesion: Yes Guidewire Across Lesion: Stenosis Post-Procedure (%): 0 Post-Procedure COLETTE Flow: 3 Devices(s) Deployed: Yes Yes Lesion #2 Segment Name: Mid RCA Culprit Artery: Yes Stenosis Prior to Rx (%): 99 Chronic Total Occlusion: No IVUS: No FFR: No Pre-Procedure COLETTE Flow: 2 Previously Treated Lesion: No Lesion Complexity: Non-High/Non-C Lesion Length (mm): 12 Thrombus Present: No Bifurcation Lesion: No Guidewire Across Lesion: Yes Stenosis Post-Procedure (%): 0 Post-Procedure COLETTE Flow: 3 Devices(s) Deployed: Yes Intraprocedure Events Significant Disection: No Perforation: No
[2018-07-27] MEDS: ATORVASTATIN 40 MG TAB PO SCH (10:43)
[2018-07-27] MEDS: PROPYLTHIOURACIL 50 MG TAB PO SCH (10:43)
[2018-07-27] MEDS: ASPIRIN 81 MG ECTAB PO SCH (10:43)
[2018-07-27] MEDS: PANTOprazole 40 MG TAB PO SCH (10:43)
[2018-07-27 11:03] LABS: Potassium 3.7 mmol/L (3.5-5.1)
[2018-07-27 11:06] LABS: Magnesium 2.4 mg/dl (1.8-2.4)
--- NOTE | 2018-07-27 11:25 | Critical Care Consultation ---
Date of Consultation July 27, 2018 Assessment & Plan (1) NSTEMI (non-ST elevated myocardial infarction): Reason Critically Ill: Melissa is an 88-year-old female with atrial fibrillation with rapid ventricular response and hypotension s/p electrical cardioversion with the development of bradycardia transferred to ICU status for hemodynamic instability requiring norepinephrine to sustain adequate pressures. Neuro - [facility] ICU: NEGATIVE No sedation/analgesia indicated Cardiac - Afib with RVR converted to junctional rhythm with bradycardia following electrical cardioversion - ICD in place with backup pacing - Oral anticoagulation planning ongoing in context of additional need for DAPT as below - BB held in setting of hypotension. Currently with good rate control ~70s NSTEMI with PMHx Ischemic Cardiomyopathy, elevated troponin - s/p cath showing 99% mid LAD, 99% mid RCA occlusion - s/p PCI of ZENAIDA x1 to mid LAD, ZENAIDA x1 to RCA - Per cards aspirin, clopidogrel along with anticoagulation for 1 week then okay to drop aspirin and continue on anticoagulation, clopidogrel alone for at least one year - BB held in setting of hypotension - Congestive heart failure with reduced EF echo approximately 25% mod TR, mod MR - Continue heparin gtt - Atorvastatin 80mg daily - Currently requiring norepi 0.04mcg/kg/hr pressor support. Continue to wean to MAP>=65 Respiratory - Stable with no hypoxia on room air. Good air movement, lungs clear. GI - Heart healthy diet RENAL/LYTES - - Potassium 3.2 this morning, 3.7 on recheck following repletion with 40meQ potassium repletion - Mg 2.4 Prerenal [place] - Cr 1.21 downtrending from 1.24, baseline of ~1. - BMP daily Replace lytes as needed. - No concerns at this time. ENDO - Glucose well controlled, 100-130s Hgb A1C 5.7 in prediabetic range. Continue aspart SSI HEME - Stable normocytic, normochromic anemia Hgb 11.6. Will monitor for any drops in the setting of Heparin gtt ID - No concerns for infection at this point. INTEGUMENTARY - No lesions, ulcers, skin concerns at this time LINES/IV ACCESS - PIVs intact. R IJ in place DVT PROPHYLAXIS - Heparin gtt. Thank you for allowing us to be part of this patient's care. Please refer to Dr. Haas's documentation for any further recommendations. Supervising Physician Co-Signing Physician Notes Reason Critically Ill: 88-year-old female with atrial fibrillation with rapid ventricular response requiring vasoactive medication administration subsequent cardioversion and symptomatic bradycardia. PLAN: CV: Atrial fibrillation with rapid ventricular response status post cardioversion to normal sinus rhythm Ischemic cardiomyopathy: EF 15 to 20% via cardiac cath - Echo pending Coronary artery disease status post cardiac cath today Status post AICD with back-up rate Fluids/Renal: Hypokalemia - Received 20 mEq This morning will give additional 20 M EQ's potassiumIV and 40 M EQ's orally GI/Nutrition: Nausea: Resolved Heme: Anemia of chronic disease DVT prophylaxis: Heparin infusion Endocrine: ICU hyperglycemia protocol Hemoglobin A1c within normal limits just apply coverage with correctional factor at this point Vascular access: Right internal jugular central venous access, Left radial arterial line Code Status: Full I have personally spent 55 minutes of critical care time in the direct management of this patient. This is a life/limb threatening event. This incl udes time spent evaluating patient, direct bedside care, chart review, placing orders, interpretation of diagnostic studies, discussion with consultants, patient, and/or family members regarding treatment decisions, as well as other required patient management activities. This time is exclusive of all separately billable procedures, and teaching time and separate from and in addition to any other critical care service time. Dr. Rodriguez was resident physician during care of patient. I separately evaluated patient for cartwright portions of the history and the exam. I was present during the critical portion of medical decision making, and I discussed the case with the resident. I generally agree with the findings and plan. History of Present Illness Reason for Consultation: Hemodynamic instability in the setting of A. fib with RVR and ischemic change Requesting Physician: Chaya Kuhn Attending Physician: Eddie Barcenas MD History of Present Illness Melissa is an 88-year-old female with known history of ischemic cardiomyopathy, atrial fibrillation with RVR, hyperlipidemia, hiatal hernia, CKD 3, arthritis, and anemia who presented to the hospital after awakening with chest pain, shortness of breath, and diaphoresis. On admission she was found to be in A. fib with RVR. She received metoprolol tartrate 5 mg IV x3 doses and subsequently became hypotensive. She received a 500 cc NS bolus x2 in the emergency department without improvement in her pressure. Cardiology was consulted and recommended amiodarone drip. She started on amiodarone without improvement in her arrhythmia or hypotension. She was electrically cardioverted with conversion to a junctional rhythm. Critical care was consulted for hemodynamic instability in the setting of A. fib with RVR and concern for ischemic change. SHe was started on phenylephrine 0.5 mcg/kg/h with mild improvement of her pressures to systolic 70s80s.Cardiology noted continued lateral ischemic changes on repeat EKG and she continued to require Levophed for blood pressure. Her troponin was initially negative, but trended up to 8 and then 21 on recheck. She was taken for cardiac catheterization which showed severe two-vessel coronary artery disease (99% mid LAD, 99% mid RCA occlusion) treated with PCI ZENAIDA x1 to the mid LAD and x1 to the mid RCA. She has been transferred back to the ICU for continued monitoring. She is a past medical history of congestive heart failure with reduced EF prior echo approximately 20%. She has an AICD. She has no history of current or former tobacco use. Does not drink alcohol. Denies other substance use. She does not have a history of diabetes mellitus. Allergies Allergy/AdvReac Type Severity Reaction Status Date / Time perflutren Allergy Mild ANAPHYLAXIS Unverified 07/27/18 03:20 propylene glycol Allergy Mild ANAPHYLAXIS Unverified 07/27/18 03:20 oxycodone AdvReac Unknown vomiting Verified 07/27/18 03:20 Home Medications Home Medications Medication Instructions Recorded Confirmed Type aspirin 81 mg PO DAILY 07/27/18 07/27/18 History atorvastatin 80 mg PO DAILY 07/27/18 07/27/18 History cholecalciferol (vitamin D3) 1,000 unit PO DAILY 07/27/18 07/27/18 History [Vitamin D3] cyanocobalamin (vitamin B-12) 1,000 mcg PO DAILY 07/27/18 07/27/18 History [Vitamin B-12] furosemide 40 mg PO . Q AFTERNOON PRN 07/27/18 07/27/18 History furosemide 40 mg PO QPM 07/27/18 07/27/18 History furosemide 80 mg PO QAM 07/27/18 07/27/18 History meloxicam 7.5 mg PO DAILY PRN 07/27/18 07/27/18 History metoprolol succinate 25 mg PO DAILY 07/27/18 07/27/18 History nitroglycerin [Nitrostat] 0.4 mg SUBLINGUAL UD PRN 07/27/18 07/27/18 History omeprazole 40 mg PO DAILY 07/27/18 07/27/18 History propylthiouracil 50 mg PO DAILY 07/27/18 07/27/18 History spironolactone 12.5 mg PO DAILY 07/27/18 07/27/18 History vit C-E-zinc jiw-vfzron-tumaso 1 tab PO DAILY 07/27/18 07/27/18 History [[facility]] Patient History Medical History Hyperthyroidism (Chronic) GERD (gastroesophageal reflux disease) (Chronic) Vitamin D deficiency (Chronic) Ischemic cardiomyopathy (Chronic) "EF 30-35%" On 01/30/17 19:23 Arlin Yanira wrote "EF 25%" Surgical History H/O varicose vein stripping (Chronic) AICD (automatic cardioverter/defibrillator) present (Chronic) History of tonsillectomy and adenoidectomy (Chronic) Social History Preferred Language: Tuvaluan Communication Ability: Effective Setter Machine Required: No Beliefs That Will Affect Care: None Current Living Situation: Family Other Information That Helps Us Care for You: No Feels Safe at Home: Yes Safety Concerns: Feels Safe At This Time Smoking Status: Never smoker Do You Dip or Chew Tobacco: No Second Hand Exposure: No Tobacco Cessation Education Requested by Patient: No Hx Alcohol Use: No Hx Substance Use: No Review of Systems Review of Systems: Review of systems collected after return from Medical Information Specialist Constitutional: Denies fever, chills, malaise, Eyes: Denies double vision, vision change, ENT: Sore throat, cold-like symptoms Cardiovascular: Denies Chest pain, chest pressure, palpitations, extremity swelling Respiratory: Denies shortness of breath, cough, sputum production, difficulty breathing Gastrointestinal: Denies abdominal pain, nausea, vomiting Musculoskeletal: Denies weakness, muscle aches/pain, joint aches/pain Integumentary:Denies rash, lesions, bruising Neurological: Denies headache, numbness, tingling, focal weakness Physical Exam Physical Exam: General: A&Ox3. NAD. Cooperative. Linear thought process, makes good eye contact, answers questions appropriately HEENT: Atraumatic, normocephalic. Pulm: Moderate air movement but CTAB A&P. -wheezes, -rales, -rhonchi. Symmetrical chest rise. No increase work of breathing. No respiratory distress. Cardiac: Previously noted to have a soft 1/6 systolic murmur, no murmur noted at bedside today. RRR, -rg. Radial pulses intact and symmetrical. Abdominal: Nontender, nondistended, soft. BS present. Extremities: No distal extremity edema. Results & Data Vital Signs (Past 12 Hours) Vital Signs Temp Pulse Pulse Pulse Resp BP BP 07/27/18 08:15 72 21 07/27/18 08:00 36.5 C 71 21 07/27/18 07:30 73 21 07/27/18 07:11 74 18 79/48 L 07/27/18 06:45 36.5 C 64 20 94/52 L 07/27/18 06:31 81/52 L 07/27/18 06:30 64 07/27/18 06:20 65 17 07/27/18 06:17 62 20 76/55 L 07/27/18 06:10 68 17 07/27/18 06:01 71 21 90/68 L 07/27/18 06:00 67 14 07/27/18 05:57 69 18 88/51 L 07/27/18 05:55 68 19 78/54 L 07/27/18 05:53 68 22 77/52 L 07/27/18 05:51 66 20 81/47 L 07/27/18 05:49 64 19 77/45 L 07/27/18 05:47 61 19 74/45 L 07/27/18 05:45 62 22 68/46 L 07/27/18 05:43 60 25 H 79/44 L 07/27/18 05:41 66 19 73/46 L 07/27/18 05:39 65 23 69/43 L 07/27/18 05:37 55 L 16 77/46 L 07/27/18 05:35 59 L 20 66/42 L 07/27/18 05:33 63 18 72/43 L 07/27/18 05:32 55 L 21 76/40 L 07/27/18 05:30 60 24 72/39 L 07/27/18 05:26 115 H 17 70/53 L 07/27/18 05:21 108 H 17 80/59 L 07/27/18 05:20 113 H 19 07/27/18 05:16 110 H 15 76/54 L 07/27/18 05:11 113 H 18 72/55 L 07/27/18 05:10 100 H 17 07/27/18 05:06 107 H 13 79/59 L 07/27/18 05:01 118 H 13 80/58 L 07/27/18 04:59 111 H 15 95/64 L 07/27/18 04:56 105 H 16 83/53 L 07/27/18 04:53 109 H 12 76/54 L 07/27/18 04:50 106 H 18 82/58 L 07/27/18 04:46 112 H 20 79/58 L 07/27/18 04:31 118 H 22 74/59 L 07/27/18 04:30 98 H 16 07/27/18 04:27 96 H 22 07/27/18 04:26 99 H 16 74/61 L 07/27/18 04:25 102 H 18 53/29 L 07/27/18 04:22 106 H 21 07/27/18 04:20 105 H 15 07/27/18 04:16 103 H 17 87/65 L 07/27/18 04:12 99 H 17 07/27/18 04:11 89 12 67/48 L 07/27/18 04:10 98 H 17 75/53 L 07/27/18 04:07 102 H 17 55/44 L 07/27/18 04:01 88 16 79/59 L 07/27/18 04:00 119 H 132 H 18 85/60 L 07/27/18 03:56 124 H 18 85/60 L 07/27/18 03:51 135 H 16 95/83 L 07/27/18 03:50 136 H 13 07/27/18 03:46 120 H 12 70/53 L 07/27/18 03:41 124 H 132 H 16 101/53 L 101/53 L 07/27/18 03:40 138 H 11 L 07/27/18 03:36 121 H 12 84/66 L 07/27/18 03:35 130 H 13 89/61 L 07/27/18 03:31 125 H 16 81/67 L 07/27/18 03:30 128 H 14 07/27/18 03:26 145 H 16 92/63 L 07/27/18 03:21 143 H 26 H 91/73 L 07/27/18 03:20 141 H 19 07/27/18 03:16 128 H 15 86/64 L 07/27/18 03:14 130 H 12 90/54 L 07/27/18 03:11 147 H 9 L 79/64 L 07/27/18 03:10 142 H 12 07/27/18 03:07 132 H 15 92/66 L 07/27/18 03:06 146 H 14 73/57 L 07/27/18 03:01 126 H 23 87/68 L 07/27/18 03:00 135 H 19 07/27/18 02:57 137 H 16 109/67 07/27/18 02:56 153 H 14 109/67 07/27/18 02:51 133 H 17 87/69 L 07/27/18 02:50 149 H 20 07/27/18 02:46 139 H 18 88/64 L 07/27/18 02:42 144 H 14 07/27/18 02:41 139 H 11 L 93/67 L 07/27/18 02:40 137 H 13 07/27/18 02:38 135 H 17 85/70 L 07/27/18 02:35 139 H 12 07/27/18 02:34 161 H 20 93/70 L 07/27/18 02:28 159 H 14 102/72 07/27/18 02:17 36.9 C 156 H 20 85/64 L Pulse Ox 07/27/18 08:15 97 07/27/18 08:00 100 07/27/18 07:30 96 07/27/18 07:11 86 L 07/27/18 06:45 94 07/27/18 06:31 93 07/27/18 06:30 97 07/27/18 06:20 94 07/27/18 06:17 93 07/27/18 06:10 97 07/27/18 06:01 99 07/27/18 06:00 100 07/27/18 05:57 99 07/27/18 05:55 100 07/27/18 05:53 100 07/27/18 05:51 100 07/27/18 05:49 100 07/27/18 05:47 100 07/27/18 05:45 100 07/27/18 05:43 98 07/27/18 05:41 99 05 05:39 99 05 05:37 96 05 05:35 99 05 05:33 95 05 05:32 93 05 05:30 79 L 05 05:26 98 05 05:21 96 05 05:20 98 05 05:16 98 07/27/18 05:11 100 07/27/18 05:10 100 07/27/18 05:06 100 07/27/18 05:01 99 07/27/18 04:59 98 07/27/18 04:56 98 07/27/18 04:53 97 07/27/18 04:50 95 07/27/18 04:46 95 07/27/18 04:31 95 07/27/18 04:30 95 07/27/18 04:27 96 07/27/18 04:26 97 07/27/18 04:25 97 07/27/18 04:22 96 07/27/18 04:20 97 05 04:16 94 07/27/18 04:12 94 07/27/18 04:11 91 07/27/18 04:10 88 L 07/27/18 04:07 93 07/27/18 04:01 91 07/27/18 04:00 93 07/27/18 03:56 93 07/27/18 03:51 93 07/27/18 03:50 93 07/27/18 03:46 96 07/27/18 03:41 95 07/27/18 03:40 96 07/27/18 03:36 94 05 03:35 96 07/27/18 03:31 93 07/27/18 03:30 93 05 03:26 92 05 03:21 95 05 03:20 92 07/27/18 03:16 93 07/27/18 03:14 95 05 03:11 93 07/27/18 03:10 93 07/27/18 03:07 95 07/27/18 03:06 95 07/27/18 03:01 94 07/27/18 03:00 96 07/27/18 02:57 07/27/18 02:56 94 05/06/19 02:51 96 07/27/18 02:50 91 07/27/18 02:46 95 07/27/18 02:42 94 07/27/18 02:41 97 07/27/18 02:40 97 07/27/18 02:38 94 07/27/18 02:35 95 07/27/18 02:34 95 07/27/18 02:28 96 07/27/18 02:17 96 Laboratory Results 07/27/18 07/27/18 07/27/18 Range/Units Unknown 15:44 15:06 WBC (4.8-10.8) K/uL RBC (4.2-5.4) M/uL Hgb (12.0-16.0) g/dL Hct (37-47) % MCV (80-100) fL MCH (25-34) pg MCHC (32-36) g/dL RDW Std Deviation (36.4-46.3) fL RDW Coeff of Javi (11.5-14.5) % Plt Count (130-400) K/uL MPV (7.4-10.4) fL Immature Gran % (Auto) % Neut % (Auto) % Lymph % (Auto) % [place] % (Auto) % Eos % (Auto) % Baso % (Auto) % Immature Gran # (Auto) (0.00-0.02) K/uL Neut # (Auto) (1.4-6.5) K/uL Lymph # (Auto) (1.2-3.4) K/uL [place] # (Auto) (0.11-0.59) K/uL Eos # (Auto) (0-0.5) K/uL Baso # (Auto) (0-0.2) K/uL PT (9.0-12.0) Seconds INR (0.9-1.1) APTT Pending Cancelled (21.0-31.0) Seconds PTT Ratio Pending Cancelled Activ Coag Time Kaolin (94-140) SECONDS Sodium (136-145) mmol/L Potassium (3.5-5.1) mmol/L Chloride (98-107) mmol/L Carbon Dioxide (21-32) mmol/L Anion Gap (3-11) BUN (7-18) mg/dl Creatinine (0.6-1.2) mg/dl Est Cr Clr Drug Dosing ml/min Est GFR ( Amer) Est GFR (Non-Af Amer) BUN/Creatinine Ratio (10-20) Glucose (70-99) mg/dl POC Glucose (70-99) POC Glucose (other) (70-99) mg/dl Estimat Average Glucose mg/dl Hemoglobin A1c (4.5-5.6) % Calcium (8.5-10.1) mg/dl Magnesium (1.8-2.4) mg/dl Total Bilirubin (0.2-1) mg/dl Direct Bilirubin (0-0.2) mg/dl AST (15-37) U/L ALT (12-78) U/L Alkaline Phosphatase (45-117) U/L Troponin I (0-0.045) ng/ml Total Protein (6.4-8.2) gm/dl Albumin (3.4-5.0) gm/dl Beta-Hydroxybutyric Acd (0.2-2.81) mg/dl TSH (0.300-4.500) uIu/ml Free T4 (0.8-1.6) ng/dl Urine Color Urine Appearance (Clear) Urine pH (4.5-7.5) Ur Specific [place] (1.000-1.030) Urine Protein (Negative) Urine Glucose (UA) (Negative) Urine Ketones (Negative) Urine Blood (Negative) Urine Nitrite (Negative) Urine Bilirubin (Negative) Urine Urobilinogen (Negative) Ur Leukocyte Esterase (Negative) Nasal Screen MRSA (PCR) Negative (Negative) 07/27/18 07/27/18 07/27/18 Range/Units 13:13 13:13 11:36 WBC (4.8-10.8) K/uL RBC (4.2-5.4) M/uL Hgb (12.0-16.0) g/dL Hct (37-47) % MCV (80-100) fL MCH (25-34) pg MCHC (32-36) g/dL RDW Std Deviation (36.4-46.3) fL RDW Coeff of Javi (11.5-14.5) % Plt Count (130-400) K/uL MPV (7.4-10.4) fL Immature Gran % (Auto) % Neut % (Auto) % Lymph % (Auto) % [place] % (Auto) % Eos % (Auto) % Baso % (Auto) % Immature Gran # (Auto) (0.00-0.02) K/uL Neut # (Auto) (1.4-6.5) K/uL Lymph # (Auto) (1.2-3.4) K/uL [place] # (Auto) (0.11-0.59) K/uL Eos # (Auto) (0-0.5) K/uL Baso # (Auto) (0-0.2) K/uL PT (9.0-12.0) Seconds INR (0.9-1.1) APTT 121.5 H* (21.0-31.0) Seconds PTT Ratio 4.5 Activ Coag Time Kaolin (94-140) SECONDS Sodium (136-145) mmol/L Potassium (3.5-5.1) mmol/L Chloride (98-107) mmol/L Carbon Dioxide (21-32) mmol/L Anion Gap (3-11) BUN (7-18) mg/dl Creatinine (0.6-1.2) mg/dl Est Cr Clr Drug Dosing ml/min Est GFR ( Amer) Est GFR (Non-Af Amer) BUN/Creatinine Ratio (10-20) Glucose (70-99) mg/dl POC Glucose (70-99) POC Glucose (other) 136 H (70-99) mg/dl Estimat Average Glucose mg/dl Hemoglobin A1c (4.5-5.6) % Calcium (8.5-10.1) mg/dl Magnesium (1.8-2.4) mg/dl Total Bilirubin (0.2-1) mg/dl Direct Bilirubin (0-0.2) mg/dl AST (15-37) U/L ALT (12-78) U/L Alkaline Phosphatase (45-117) U/L Troponin I 21.100 H* (0-0.045) ng/ml Total Protein (6.4-8.2) gm/dl Albumin (3.4-5.0) gm/dl Beta-Hydroxybutyric Acd (0.2-2.81) mg/dl TSH (0.300-4.500) uIu/ml Free T4 (0.8-1.6) ng/dl Urine Color Urine Appearance (Clear) Urine pH (4.5-7.5) Ur Specific [place] (1.000-1.030) Urine Protein (Negative) Urine Glucose (UA) (Negative) Urine Ketones (Negative) Urine Blood (Negative) Urine Nitrite (Negative) Urine Bilirubin (Negative) Urine Urobilinogen (Negative) Ur Leukocyte Esterase (Negative) Nasal Screen MRSA (PCR) (Negative) 07/27/18 07/27/18 07/27/18 Range/Units 11:32 10:39 10:39 WBC (4.8-10.8) K/uL RBC (4.2-5.4) M/uL Hgb (12.0-16.0) g/dL Hct (37-47) % MCV (80-100) fL MCH (25-34) pg MCHC (32-36) g/dL RDW Std Deviation (36.4-46.3) fL RDW Coeff of Javi (11.5-14.5) % Plt Count (130-400) K/uL MPV (7.4-10.4) fL Immature Gran % (Auto) % Neut % (Auto) % Lymph % (Auto) % [place] % (Auto) % Eos % (Auto) % Baso % (Auto) % Immature Gran # (Auto) (0.00-0.02) K/uL Neut # (Auto) (1.4-6.5) K/uL Lymph # (Auto) (1.2-3.4) K/uL [place] # (Auto) (0.11-0.59) K/uL Eos # (Auto) (0-0.5) K/uL Baso # (Auto) (0-0.2) K/uL PT (9.0-12.0) Seconds INR (0.9-1.1) APTT > 139.0 H* Cancelled (21.0-31.0) Seconds PTT Ratio > 5.1 Cancelled Activ Coag Time Kaolin (94-140) SECONDS Sodium (136-145) mmol/L Potassium 3.7 D (3.5-5.1) mmol/L Chloride (98-107) mmol/L Carbon Dioxide (21-32) mmol/L Anion Gap (3-11) BUN (7-18) mg/dl Creatinine (0.6-1.2) mg/dl Est Cr Clr Drug Dosing ml/min Est GFR ( Amer) Est GFR (Non-Af Amer) BUN/Creatinine Ratio (10-20) Glucose (70-99) mg/dl POC Glucose (70-99) POC Glucose (other) (70-99) mg/dl Estimat Average Glucose mg/dl Hemoglobin A1c (4.5-5.6) % Calcium (8.5-10.1) mg/dl Magnesium 2.4 (1.8-2.4) mg/dl Total Bilirubin (0.2-1) mg/dl Direct Bilirubin (0-0.2) mg/dl AST (15-37) U/L ALT (12-78) U/L Alkaline Phosphatase (45-117) U/L Troponin I (0-0.045) ng/ml Total Protein (6.4-8.2) gm/dl Albumin (3.4-5.0) gm/dl Beta-Hydroxybutyric Acd (0.2-2.81) mg/dl TSH (0.300-4.500) uIu/ml Free T4 (0.8-1.6) ng/dl Urine Color Urine Appearance (Clear) Urine pH (4.5-7.5) Ur Specific [place] (1.000-1.030) Urine Protein (Negative) Urine Glucose (UA) (Negative) Urine Ketones (Negative) Urine Blood (Negative) Urine Nitrite (Negative) Urine Bilirubin (Negative) Urine Urobilinogen (Negative) Ur Leukocyte Esterase (Negative) Nasal Screen MRSA (PCR) (Negative) 07/27/18 07/27/18 07/27/18 Range/Units 08:57 08:28 07:51 WBC (4.8-10.8) K/uL RBC (4.2-5.4) M/uL Hgb (12.0-16.0) g/dL Hct (37-47) % MCV (80-100) fL MCH (25-34) pg MCHC (32-36) g/dL RDW Std Deviation (36.4-46.3) fL RDW Coeff of Javi (11.5-14.5) % Plt Count (130-400) K/uL MPV (7.4-10.4) fL Immature Gran % (Auto) % Neut % (Auto) % Lymph % (Auto) % [place] % (Auto) % Eos % (Auto) % Baso % (Auto) % Immature Gran # (Auto) (0.00-0.02) K/uL Neut # (Auto) (1.4-6.5) K/uL Lymph # (Auto) (1.2-3.4) K/uL [place] # (Auto) (0.11-0.59) K/uL Eos # (Auto) (0-0.5) K/uL Baso # (Auto) (0-0.2) K/uL PT (9.0-12.0) Seconds INR (0.9-1.1) APTT (21.0-31.0) Seconds PTT Ratio Activ Coag Time Kaolin 318 H 296 H (94-140) SECONDS Sodium (136-145) mmol/L Potassium (3.5-5.1) mmol/L Chloride (98-107) mmol/L Carbon Dioxide (21-32) mmol/L Anion Gap (3-11) BUN (7-18) mg/dl Creatinine (0.6-1.2) mg/dl Est Cr Clr Drug Dosing ml/min Est GFR ( Amer) Est GFR (Non-Af Amer) BUN/Creatinine Ratio (10-20) Glucose (70-99) mg/dl POC Glucose (70-99) POC Glucose (other) 201 H (70-99) mg/dl Estimat Average Glucose mg/dl Hemoglobin A1c (4.5-5.6) % Calcium (8.5-10.1) mg/dl Magnesium (1.8-2.4) mg/dl Total Bilirubin (0.2-1) mg/dl Direct Bilirubin (0-0.2) mg/dl AST (15-37) U/L ALT (12-78) U/L Alkaline Phosphatase (45-117) U/L Troponin I (0-0.045) ng/ml Total Protein (6.4-8.2) gm/dl Albumin (3.4-5.0) gm/dl Beta-Hydroxybutyric Acd (0.2-2.81) mg/dl TSH (0.300-4.500) uIu/ml Free T4 (0.8-1.6) ng/dl Urine Color Urine Appearance (Clear) Urine pH (4.5-7.5) Ur Specific [place] (1.000-1.030) Urine Protein (Negative) Urine Glucose (UA) (Negative) Urine Ketones (Negative) Urine Blood (Negative) Urine Nitrite (Negative) Urine Bilirubin (Negative) Urine Urobilinogen (Negative) Ur Leukocyte Esterase (Negative) Nasal Screen MRSA (PCR) (Negative) 07/27/18 07/27/18 07/27/18 Range/Units 07:47 07:47 07:47 WBC (4.8-10.8) K/uL RBC (4.2-5.4) M/uL Hgb (12.0-16.0) g/dL Hct (37-47) % MCV (80-100) fL MCH (25-34) pg MCHC (32-36) g/dL RDW Std Deviation (36.4-46.3) fL RDW Coeff of Javi (11.5-14.5) % Plt Count (130-400) K/uL MPV (7.4-10.4) fL Immature Gran % (Auto) % Neut % (Auto) % Lymph % (Auto) % [place] % (Auto) % Eos % (Auto) % Baso % (Auto) % Immature Gran # (Auto) (0.00-0.02) K/uL Neut # (Auto) (1.4-6.5) K/uL Lymph # (Auto) (1.2-3.4) K/uL [place] # (Auto) (0.11-0.59) K/uL Eos # (Auto) (0-0.5) K/uL Baso # (Auto) (0-0.2) K/uL PT (9.0-12.0) Seconds INR (0.9-1.1) APTT (21.0-31.0) Seconds PTT Ratio Activ Coag Time Kaolin (94-140) SECONDS Sodium 130 L (136-145) mmol/L Potassium (3.5-5.1) mmol/L Chloride 100 (98-107) mmol/L Carbon Dioxide 20 L (21-32) mmol/L Anion Gap 10.0 (3-11) BUN 16 (7-18) mg/dl Creatinine 1.21 H (0.6-1.2) mg/dl Est Cr Clr Drug Dosing 28.0 ml/min Est GFR ( Amer) 46.3 Est GFR (Non-Af Amer) 39.9 BUN/Creatinine Ratio 13.0 (10-20) Glucose 191 H (70-99) mg/dl POC Glucose (70-99) POC Glucose (other) (70-99) mg/dl Estimat Average Glucose 117 mg/dl Hemoglobin A1c 5.7 H (4.5-5.6) % Calcium 7.8 L (8.5-10.1) mg/dl Magnesium (1.8-2.4) mg/dl Total Bilirubin (0.2-1) mg/dl Direct Bilirubin (0-0.2) mg/dl AST (15-37) U/L ALT (12-78) U/L Alkaline Phosphatase (45-117) U/L Troponin I 8.320 H* (0-0.045) ng/ml Total Protein (6.4-8.2) gm/dl Albumin (3.4-5.0) gm/dl Beta-Hydroxybutyric Acd (0.2-2.81) mg/dl TSH (0.300-4.500) uIu/ml Free T4 (0.8-1.6) ng/dl Urine Color Urine Appearance (Clear) Urine pH (4.5-7.5) Ur Specific [place] (1.000-1.030) Urine Protein (Negative) Urine Glucose (UA) (Negative) Urine Ketones (Negative) Urine Blood (Negative) Urine Nitrite (Negative) Urine Bilirubin (Negative) Urine Urobilinogen (Negative) Ur Leukocyte Esterase (Negative) Nasal Screen MRSA (PCR) (Negative) 07/27/18 07/27/18 07/27/18 Range/Units 05:59 05:49 04:40 WBC (4.8-10.8) K/uL RBC (4.2-5.4) M/uL Hgb (12.0-16.0) g/dL Hct (37-47) % MCV (80-100) fL MCH (25-34) pg MCHC (32-36) g/dL RDW Std Deviation (36.4-46.3) fL RDW Coeff of Javi (11.5-14.5) % Plt Count (130-400) K/uL MPV (7.4-10.4) fL Immature Gran % (Auto) % Neut % (Auto) % Lymph % (Auto) % [place] % (Auto) % Eos % (Auto) % Baso % (Auto) % Immature Gran # (Auto) (0.00-0.02) K/uL Neut # (Auto) (1.4-6.5) K/uL Lymph # (Auto) (1.2-3.4) K/uL [place] # (Auto) (0.11-0.59) K/uL Eos # (Auto) (0-0.5) K/uL Baso # (Auto) (0-0.2) K/uL PT (9.0-12.0) Seconds INR (0.9-1.1) APTT (21.0-31.0) Seconds PTT Ratio Activ Coag Time Kaolin (94-140) SECONDS Sodium (136-145) mmol/L Potassium (3.5-5.1) mmol/L Chloride (98-107) mmol/L Carbon Dioxide (21-32) mmol/L Anion Gap (3-11) BUN (7-18) mg/dl Creatinine (0.6-1.2) mg/dl Est Cr Clr Drug Dosing ml/min Est GFR ( Amer) Est GFR (Non-Af Amer) BUN/Creatinine Ratio (10-20) Glucose (70-99) mg/dl POC Glucose 111 H 163 H (70-99) POC Glucose (other) (70-99) mg/dl Estimat Average Glucose mg/dl Hemoglobin A1c (4.5-5.6) % Calcium (8.5-10.1) mg/dl Magnesium (1.8-2.4) mg/dl Total Bilirubin (0.2-1) mg/dl Direct Bilirubin (0-0.2) mg/dl AST (15-37) U/L ALT (12-78) U/L Alkaline Phosphatase (45-117) U/L Troponin I (0-0.045) ng/ml Total Protein (6.4-8.2) gm/dl Albumin (3.4-5.0) gm/dl Beta-Hydroxybutyric Acd (0.2-2.81) mg/dl TSH (0.300-4.500) uIu/ml Free T4 (0.8-1.6) ng/dl Urine Color Yellow Urine Appearance Clear (Clear) Urine pH 5.0 (4.5-7.5) Ur Specific [place] 1.026 (1.000-1.030) Urine Protein Negative (Negative) Urine Glucose (UA) 3+ H (Negative) Urine Ketones Trace H (Negative) Urine Blood Negative (Negative) Urine Nitrite Negative (Negative) Urine Bilirubin Negative (Negative) Urine Urobilinogen Negative (Negative) Ur Leukocyte Esterase Negative (Negative) Nasal Screen MRSA (PCR) (Negative) 07/27/18 07/27/18 07/27/18 Range/Units 03:18 02:26 02:26 WBC (4.8-10.8) K/uL RBC (4.2-5.4) M/uL Hgb (12.0-16.0) g/dL Hct (37-47) % MCV (80-100) fL MCH (25-34) pg MCHC (32-36) g/dL RDW Std Deviation (36.4-46.3) fL RDW Coeff of Javi (11.5-14.5) % Plt Count (130-400) K/uL MPV (7.4-10.4) fL Immature Gran % (Auto) % Neut % (Auto) % Lymph % (Auto) % [place] % (Auto) % Eos % (Auto) % Baso % (Auto) % Immature Gran # (Auto) (0.00-0.02) K/uL Neut # (Auto) (1.4-6.5) K/uL Lymph # (Auto) (1.2-3.4) K/uL [place] # (Auto) (0.11-0.59) K/uL Eos # (Auto) (0-0.5) K/uL Baso # (Auto) (0-0.2) K/uL PT 11.4 (9.0-12.0) Seconds INR 1.1 (0.9-1.1) APTT 32.5 H (21.0-31.0) Seconds PTT Ratio 1.2 Activ Coag Time Kaolin (94-140) SECONDS Sodium 131 L (136-145) mmol/L Potassium 3.2 L (3.5-5.1) mmol/L Chloride 96 L (98-107) mmol/L Carbon Dioxide 25 (21-32) mmol/L Anion Gap 10.0 (3-11) BUN 16 (7-18) mg/dl Creatinine 1.24 H (0.6-1.2) mg/dl Est Cr Clr Drug Dosing 27.0 ml/min Est GFR ( Amer) 44.9 Est GFR (Non-Af Amer) 38.8 BUN/Creatinine Ratio 13.0 (10-20) Glucose 440 H* (70-99) mg/dl POC Glucose 519 H* (70-99) POC Glucose (other) (70-99) mg/dl Estimat Average Glucose mg/dl Hemoglobin A1c (4.5-5.6) % Calcium 8.1 L (8.5-10.1) mg/dl Magnesium 1.3 L (1.8-2.4) mg/dl Total Bilirubin 0.7 (0.2-1) mg/dl Direct Bilirubin 0.2 (0-0.2) mg/dl AST 16 (15-37) U/L ALT 15 (12-78) U/L Alkaline Phosphatase 57 (45-117) U/L Troponin I 0.035 (0-0.045) ng/ml Total Protein 6.8 (6.4-8.2) gm/dl Albumin 3.1 L (3.4-5.0) gm/dl Beta-Hydroxybutyric Acd 6.71 H (0.2-2.81) mg/dl TSH 12.300 H (0.300-4.500) uIu/ml Free T4 1.15 (0.8-1.6) ng/dl Urine Color Urine Appearance (Clear) Urine pH (4.5-7.5) Ur Specific [place] (1.000-1.030) Urine Protein (Negative) Urine Glucose (UA) (Negative) Urine Ketones (Negative) Urine Blood (Negative) Urine Nitrite (Negative) Urine Bilirubin (Negative) Urine Urobilinogen (Negative) Ur Leukocyte Esterase (Negative) Nasal Screen MRSA (PCR) (Negative) 07/27/18 Range/Units 02:26 WBC 4.58 L (4.8-10.8) K/uL RBC 3.90 L (4.2-5.4) M/uL Hgb 11.6 L (12.0-16.0) g/dL Hct 35.5 L (37-47) % MCV 91.0 (80-100) fL MCH 29.7 (25-34) pg MCHC 32.7 (32-36) g/dL RDW Std Deviation 46.0 (36.4-46.3) fL RDW Coeff of Javi 13.8 (11.5-14.5) % Plt Count 176 (130-400) K/uL MPV 11.4 H (7.4-10.4) fL Immature Gran % (Auto) 0.4 % Neut % (Auto) 67.5 % Lymph % (Auto) 22.5 % [place] % (Auto) 7.4 % Eos % (Auto) 2.0 % Baso % (Auto) 0.2 % Immature Gran # (Auto) 0.02 (0.00-0.02) K/uL Neut # (Auto) 3.09 (1.4-6.5) K/uL Lymph # (Auto) 1.03 L (1.2-3.4) K/uL [place] # (Auto) 0.34 (0.11-0.59) K/uL Eos # (Auto) 0.09 (0-0.5) K/uL Baso # (Auto) 0.01 (0-0.2) K/uL PT (9.0-12.0) Seconds INR (0.9-1.1) APTT (21.0-31.0) Seconds PTT Ratio Activ Coag Time Kaolin (94-140) SECONDS Sodium (136-145) mmol/L Potassium (3.5-5.1) mmol/L Chloride (98-107) mmol/L Carbon Dioxide (21-32) mmol/L Anion Gap (3-11) BUN (7-18) mg/dl Creatinine (0.6-1.2) mg/dl Est Cr Clr Drug Dosing ml/min Est GFR ( Amer) Est GFR (Non-Af Amer) BUN/Creatinine Ratio (10-20) Glucose (70-99) mg/dl POC Glucose (70-99) POC Glucose (other) (70-99) mg/dl Estimat Average Glucose mg/dl Hemoglobin A1c (4.5-5.6) % Calcium (8.5-10.1) mg/dl Magnesium (1.8-2.4) mg/dl Total Bilirubin (0.2-1) mg/dl Direct Bilirubin (0-0.2) mg/dl AST (15-37) U/L ALT (12-78) U/L Alkaline Phosphatase (45-117) U/L Troponin I (0-0.045) ng/ml Total Protein (6.4-8.2) gm/dl Albumin (3.4-5.0) gm/dl Beta-Hydroxybutyric Acd (0.2-2.81) mg/dl TSH (0.300-4.500) uIu/ml Free T4 (0.8-1.6) ng/dl Urine Color Urine Appearance (Clear) Urine pH (4.5-7.5) Ur Specific [place] (1.000-1.030) Urine Protein (Negative) Urine Glucose (UA) (Negative) Urine Ketones (Negative) Urine Blood (Negative) Urine Nitrite (Negative) Urine Bilirubin (Negative) Urine Urobilinogen (Negative) Ur Leukocyte Esterase (Negative) Nasal Screen MRSA (PCR) (Negative) Diagnostic Findings Cardiac Catheterization Findings: LM -Short, almost separate ostium LAD -moderate caliber vessel, proximal luminal irregularities, 99%/subtotal occlusion of mid LAD with COLETTE I flow in distal vessel and moderate caliber second diagonal Circumflex -large caliber vessel, luminal irregularities, 20 to 30% proximal stenosis and large OM 2 RCA -large caliber vessel, dominant, 99% mid RCA with COLETTE I-II flow distally -- PCI -- Antithrombotic therapy: Heparin, clopidogrel Procedure: Left main cannulated with EBU 3.5 guide Coupon Manifest Clerk 50 wire passed across mid LAD lesion with aid of 2.5 balloon for support into distal vessel Mid LAD lesion predilated with 2.5 compliant balloon Dilated lesion stented with 2.75 x 23 mm Xience Narda drug-eluting stent Stent post-dilated with 2.75 noncompliant balloon IC vasodilators administered for spasm Post procedure COLETTE 3 flow, stent well expanded with minimal residual stenosis and no apparent cardiac complications. RCA cannulated with AR-1 guide Coupon Manifest Clerk 50 wire passed across mid RCA lesion Mid RCA lesion dilated with 2.0 compliant balloon Mid RCA stented with 2.75 x 18 mm Xience Narda drug-eluting stent Stent postdilated with 3.0 NC balloon Post procedure COLETTE 3 flow, stent well expanded with minimal residual stenosis and no apparent cardiac complications. Arterial Closure: TR Band Summary: 1. Severe two-vessel vessel coronary artery disease -99% mid LAD with COLETTE I distal flow 99% mid RCA with COLETTE I-II distal flow 2. Mildly elevated intracardiac filling pressure 3. Successful PCI of mid LAD with single drug-eluting stent (2.75 x 23 mm Xience Narda). 4. Successful PCI of mid RCA with single drug-eluting stent (2.75 x 18 mm Xience Narda). ECHO: Grade I diastolic dysfunction Moderate MR Mod TR AV sclerosis, mild without significant stenosis LVsEF ~25% Concentric LVH Medications Administered Current Inpatient Medications Aspirin (Ecotrin Ectab) 81 mg PO DAILY MYA Stop: 08/26/18 08:59 Last Admin: 07/27/18 10:43 Dose: 81 mg Documented by: Atorvastatin Calcium (Lipitor) 80 mg PO DAILY MYA Stop: 08/26/18 08:59 Last Admin: 07/27/18 10:43 Dose: 80 mg Documented by: Clopidogrel Bisulfate (Plavix) 75 mg PO QAM MYA Stop: 08/27/18 08:59 Norepinephrine Bitartrate 8 mg (/ Dextrose) 508 mls @ 0 mls/hr IV .Q0M PRN; Protocol PRN Reason: TITRATE Stop: 08/26/18 05:35 Last Titration: 07/27/18 11:06 Dose: 0 mcg/kg/min, 0 mls/hr Documented by: Heparin Sodium/Dextrose (Heparin Sodium/Dextrose) 25,000 units in 500 mls @ 20 mls/hr IV .Q24H MYA; Protocol Stop: 08/26/18 09:14 Insulin Aspart (Novolog Flexpen) 0 units SC Q6 MYA Stop: 08/26/18 11:59 Last Admin: 07/27/18 11:41 Dose: Not Given Documented by: Miscellaneous (Icu Protocol For Hyperglycemia) 1 ea N/A PRN PRN; Protocol PRN Reason: Hyperglycemia Protocol Stop: 07/29/18 07:33 Miscellaneous Information (Consult Glycemic Management Pharmacy) 1 ea N/A UD PRN PRN Reason: Consult Stop: 08/26/18 07:38 Nitroglycerin (Nitrostat) 0.4 mg UD PRN PRN Reason: Chest Pain Stop: 08/26/18 07:33 Pantoprazole Sodium (Protonix) 40 mg PO DAILY [facility] Stop: 08/26/18 08:59 Last Admin: 07/27/18 10:43 Dose: 40 mg Documented by: Propylthiouracil (Ptu) 50 mg PO DAILY [facility] Stop: 08/26/18 08:59 Last Admin: 07/27/18 10:43 Dose: 50 mg Documented by: Resident Activity Tracking Resident Involvement: Resident Care Provided Care Provided: Adult Hospital Medicine
--- NOTE | 2018-07-27 11:30 | History and Physical Report ---
DATE OF ADMISSION: 07/27/2018 CHIEF COMPLAINT: Nausea, sweating, shortness of breath and chest pressure and found to be in rapid AFib. HISTORY OF PRESENT ILLNESS: This is an 88-year-old female with past medical history significant for thyrotoxicosis with diffuse goiter, hyperlipidemia, hiatal hernia, chronic systolic CHF with EF of 15-20%, status post ICD, ischemic cardiomyopathy, CAD, GERD, vitamin B12 deficiency, chronic kidney disease stage III, hip arthritis, senile osteoporosis, iron deficiency anemia, who lives with her son, woke up around 1:00 a.m. with sweating, short of breath and chest pressure, nausea and she was brought into the ER, found to be in rapid AFib, was given a few doses of IV Lopressor. The patient became hypotensive. With the fluid boluses, the blood pressure did not come up. Cardiology recommended amiodarone drip. She was started on amiodarone drip, heart rate was still in the 110's. Cardiology came and talked to the family, checked the ICD and cardioverted the patient. Then patient rhythm changed to junctional rhythm. Her EKG showed some lateral T-wave inversions. The patient was given Versed during the procedure, initially somewhat drowsy, but later was more alert and awake. ICU team also placed right IJ line and the left upper extremity A-line and she was also started on Levophed drip, which improved her blood pressure. Currently, the patient is alert and awake. Denies any chest pain or shortness of breath. No nausea, no abdominal pain, no blurred vision, no headaches. As per son, apparently, the patient was doing fine until this happened. She was eating and drinking fine. No recent cough or fevers. ALLERGIES: No known drug allergies. PAST MEDICAL HISTORY: As mentioned above. PAST SURGICAL HISTORY: Tonsillectomy, EGDs. MEDICATIONS: The patient is on Lasix 80 mg in the a.m., 40 mg in p.m., and additional 40 mg in the afternoon as needed, meloxicam 7.5 mg p.o. daily as needed for pain, propylthiouracil 50 mg 1 tablet daily, spironolactone 37.5 mg p.o. daily, vitamin D 1000 units p.o. daily, Toprol-XL 25 mg p.o. daily, omeprazole 40 mg p.o. daily, aspirin low-dose 81 mg p.o. daily, atorvastatin 80 mg p.o. daily, nitroglycerin 0.4 mg sublingual p.r.n., Tylenol extra strength as needed, vitamin B12 1000 mcg daily, Ocuvite 1 tablet daily. FAMILY HISTORY: Significant for: Mother had diabetes and high cholesterol. SOCIAL HISTORY: , currently lives with her son. No smoking history. No alcohol history. No drug use history. REVIEW OF SYMPTOMS: As per HPI. PHYSICAL EXAMINATION: GENERAL: The patient is old and frail, not in acute distress currently. VITAL SIGNS: Temperature 36.9, pulse when she came in was in 160s, currently in 60s. Respiratory rate 17. Blood pressure when she came in was 85/64, it dropped into the 50/44, currently 90/68. Oxygen 97% on 2 liters. HEENT: Atraumatic. NECK: No neck masses seen. CARDIOVASCULAR: S1, S2 heard. Currently regular rhythm. No murmur appreciated. RESPIRATORY SYSTEM: Normal AP diameter. No accessory muscle use. No wheezing, no crackles. ABDOMEN: Soft, bowel sounds present. Nontender. No distention. CENTRAL NERVOUS SYSTEM: Alert and awake and oriented x3. Nonfocal. EXTREMITIES: No edema, no erythema. LABORATORY DATA: WBC 4.5, hemoglobin 11.6, hematocrit 35.5, platelets 176. PT 11.4, INR 1.1, APTT 32.5. Sodium 131, potassium 3.2, chloride 96, bicarbonate 25, BUN 16, creatinine 1.24, glucose 440, calcium 8.1, magnesium 1.3, total bilirubin 0.7, direct bilirubin 0.2, AST 16, ALT 15, alkaline phosphatase 57. Troponin 0.035. TSH 12.3, free T4 1.15. Urinalysis pending. Chest x-ray, mild congestion seen. Initial EKG showed AFib with rapid ventricular response with rate 164. ASSESSMENT AND PLAN: This is an 88-year-old female with ischemic cardiomyopathy, chronic systolic congestive heart failure with EF of 15-20%, status post ICD, history of thyrotoxicosis, hyperlipidemia, chronic kidney disease stage III, woke up with nausea, sweating and chest pressure and shortness of breath and found to be in rapid atrial fibrillation. 1. Rapid atrial fibrillation, new onset. The patient received 3 doses of IV Lopressor 5 mg in the ER . Patient became hypotensive and still HR rates were high . Cardiology was notified and patient was started on amiodarone drip and fluid bolus was given.But blood pressure did not come up and heart rate was also still in 110s. Cardiology came to the ER and evaluated the patient, checked the ICD and cardioverted the patient, and this converted the patient into junctional rhythm. The patient tolerated the procedure okay. The patient is currently asymptomatic. Initial troponin is negative. EKG showed possibly some ST changes. The patient is started on IV heparin and since the blood pressure is still low, the patient was started on Levophed drip which improved the blood pressure. Status post right IJ line and left upper extremity A-line by ICU team. The patient will be transferred to the ICU, for close monitor. Possible cardiac catheterization when the patient is more stable today. 2. Chronic systolic congestive heart failure with ischemic cardiomyopathy with EF of 15-20%. Holding the diuretics. Currently, the patient is hypotensive. Holding the Toprol-XL. 3. History of coronary artery disease. Continue her aspirin, statin, holding her Toprol-XL. 4. Hyperlipidemia. Continue statin. 5. History of thyrotoxicosis. Continue propylthiouracil. TSH is high, but free T4 is normal. 6. Senile hip arthritis and senile osteoporosis. Continue vitamin D, hold meloxicam. 7. Acute renal failure on chronic kidney disease stage III. Baseline creatinine was 0.9, presents with creatinine of 1.2. Holding the diuretics and got fluids. We will follow the labs. 8. History of hiatal hernia. Continue omeprazole. 9. History of iron deficiency anemia, hemoglobin of 11.6. We will follow the labs. 10. Deep venous thrombosis prophylaxis, on IV heparin. 11. Disposition: Close monitor in the ICU. Level 1 full code as per my discussion with the son. FORTINO
[2018-07-27] MEDS: POTASSIUM CHLORIDE / WTR 10 MEQ/100 ML PLCT IV SCH ×2 (11:42→12:55)
[2018-07-27] MEDS ORDERED: POTASSIUM CHLORIDE 20 MEQ TABCR PO ONE (11:45)
[2018-07-27] MEDS ORDERED: INSULIN ASPART 100 UNITS/ML 3 ML PEN SC SCH (12:00)
[2018-07-27 12:07] LABS: Partial Thromboplastin Ratio > 5.1
[2018-07-27 12:09] LABS: Partial Thromboplastin Time > 139.0 Seconds (21.0-31.0)
--- NOTE | 2018-07-27 13:07 | Pharmacy Report ---
Glycemic Control Consultation - Date of Service July 27, 2018 - Scope Scope: Glycemic Pharmacist consulted by Dr Andersen on 07/27/18 for glycemic control and to write orders per [facility] inpatient glycemic control protocol - Objective Weight: 69.5 kg Accuchecks BSG (last 24hrs): 07/27/18 07/27/18 07/27/18 02:26 03:18 04:40 Glucose 440 H* POC Glucose 519 H* 163 H POC Glucose (other) 07/27/18 07/27/18 07/27/18 05:49 07:47 07:51 Glucose 191 H POC Glucose 111 H POC Glucose (other) 201 H 07/27/18 11:36 Glucose POC Glucose POC Glucose (other) 136 H Laboratory Data (last 24hrs): 07/27/18 07/27/18 07/27/18 02:26 07:47 10:39 Potassium 3.2 L 3.7 D Carbon Dioxide 25 20 L Anion Gap 10.0 10.0 Creatinine 1.24 H 1.21 H Est Cr Clr Drug Dosing 27.0 28.0 Beta-Hydroxybutyric Acd 6.71 H HbA1c: Hemoglobin A1c 5.7 % (4.5-5.6) H 07/27/18 07:47 - Recent Pertinent Medications Outpatient Anti-diabetic Regimen: * N/a * A1c = 5.7 % 07/27/18 The patient is currently receiving: Risk Factors for Insulin Resistance: * Pressors: norepi titrated off * Recent Surgery- recent cardioversion * Diet: npo - Assessment & Plan Assessment & Plan: ASSESSMENT: * Ms. Cota is an 88 yo female with history of thyrotoxicosis, hld, chronic CHF with ICD, CAD GERD, CKD stage III, brought into ED and was found to be in A Fib with rvr patient was cardioverted to normal sinus rhythm * Cardiac cath today, patient is NPO * Presented with hyperglycemia in the 400s, no prior history of diabetes, corrected to 111 with 10 units of iv insulin * A1c 5.7% would fall into pre-diabetes, patient not currently on any medications, suspect hyperglycemia from acute stress * As patient BSGs have improved following IV insulin, patient only ordered correctional insulin for now- may need to add basal, carb ratio if elevated further PLAN FOR INPATIENT GLYCEMIC CONTROL: * Bolus insulin * NovoLog per scale ACHS or Q6hrs while NPO * Goal Range: Low 140 mg/dL - High 180 mg/dL * Correction Factor: 30 mg/dL/unit * Please note that the plan above was derived based on current level of insulin resistance and hospital stress. These recommendations are appropriate for inpatient admission only. Plan of care upon discharge will need to be reassessed to avoid potential outpatient hypo/hyperglycemia. Thank you.
[2018-07-27 13:42] LABS: Partial Thromboplastin Ratio 4.5
--- NOTE | 2018-07-27 13:42 | Cardiology Progress Note ---
Date of Service July 27, 2018 Assessment & Plan (1) NSTEMI (non-ST elevated myocardial infarction): Although inferior ST elevation was noted on the initial EKG when the patient was in atrial fibrillation with rapid ventricular response, this is resolved after resolution of her tachycardia, but she had ongoing lateral T wave changes. I would therefore characterize her as having gone to the [facility] for a non-ST segment elevation myocardial infarction. Troponin trended up to 8 NG per mL p rior to cardiac [facility]. Her Levophed dependent hypotension has improved. And she is now off of the Levophed. It is noted that her typical outpatient systolic blood pressure is in the 90 to low 100 mmHg range. Holding beta-kyaw for now having had the hypotension. Received clopidogrel load in the [facility]. We will continue daily aspirin 81 mg and start clopidogrel 75 mg daily tomorrow. Continue atorvastatin. Proceed with diet, lunch diet ordered. (2) Atrial fibrillation with RVR: Sinus rhythm having had direct-current cardioversion earlier today. Resume heparin infusion once radial artery band is removed if no bleeding from the right radial artery catheterization site. -We will reassess strategy for oral anticoagulation as her hospital stay develops regarding triple therapy with aspirin, clopidogrel, and Coumadin, versus perhaps Coumadin plus clopidogrel. (3) Hypokalemia: Replacing intravenously. Subjective Chief complaint: Follow-up diaphoresis, nausea, shortness of breath Subjective: Patient seen and reassessment post cardiac catheterization in the ICU. She is comfortable. She is completely off of all IV infusions with the exception of potassium chloride. Systolic blood pressure is in the range of the mid 80s to 90s by left radial arterial line. She states that she is hungry and has no symptoms suggestive of angina. Telemetry reveals resolution of the previously noted atrial fibrillation and transient junctional rhythm. Post cardiac catheterization EKG performed 07/27/2018 1151 revealed sinus rhythm with borderline first-degree AV block ongoing lateral repolarization changes. Physical Exam Physical Exam: General: Awake and oriented Lungs: Decreased breath sounds at the bases without kaity rales Cardiovascular regular, 1/6 systolic murmur Results & Data Vital Signs (Past 12 Hours) Vital Signs Temp Pulse Pulse Pulse Resp BP BP 07/27/18 11:45 69 20 07/27/18 11:30 36.5 C 68 22 07/27/18 11:15 67 18 07/27/18 11:00 70 20 07/27/18 10:45 71 20 07/27/18 08:15 72 21 07/27/18 08:00 36.5 C 71 21 07/27/18 07:30 73 21 07/27/18 07:11 74 18 79/48 L 07/27/18 06:45 36.5 C 64 20 94/52 L 07/27/18 06:31 81/52 L 07/27/18 06:30 64 07/27/18 06:20 65 17 07/27/18 06:17 62 20 76/55 L 07/27/18 06:10 68 17 07/27/18 06:01 71 21 90/68 L 07/27/18 06:00 67 14 07/27/18 05:57 69 18 88/51 L 07/27/18 05:55 68 19 78/54 L 07/27/18 05:53 68 22 77/52 L 07/27/18 05:51 66 20 81/47 L 07/27/18 05:49 64 19 77/45 L 07/27/18 05:47 61 19 74/45 L 07/27/18 05:45 62 22 68/46 L 07/27/18 05:43 60 25 H 79/44 L 07/27/18 05:41 66 19 73/46 L 07/27/18 05:39 65 23 69/43 L 07/27/18 05:37 55 L 16 77/46 L 07/27/18 05:35 59 L 20 66/42 L 07/27/18 05:33 63 18 72/43 L 07/27/18 05:32 55 L 21 76/40 L 07/27/18 05:30 60 24 72/39 L 07/27/18 05:26 115 H 17 70/53 L 07/27/18 05:21 108 H 17 80/59 L 07/27/18 05:20 113 H 19 07/27/18 05:16 110 H 15 76/54 L 07/27/18 05:11 113 H 18 72/55 L 07/27/18 05:10 100 H 17 07/27/18 05:06 107 H 13 79/59 L 07/27/18 05:01 118 H 13 80/58 L 07/27/18 04:59 111 H 15 95/64 L 07/27/18 04:56 105 H 16 83/53 L 07/27/18 04:53 109 H 12 76/54 L 07/27/18 04:50 106 H 18 82/58 L 07/27/18 04:46 112 H 20 79/58 L 07/27/18 04:31 118 H 22 74/59 L 07/27/18 04:30 98 H 16 07/27/18 04:27 96 H 22 07/27/18 04:26 99 H 16 74/61 L 07/27/18 04:25 102 H 18 53/29 L 07/27/18 04:22 106 H 21 07/27/18 04:20 105 H 15 07/27/18 04:16 103 H 17 87/65 L 07/27/18 04:12 99 H 17 07/27/18 04:11 89 12 67/48 L 07/27/18 04:10 98 H 17 75/53 L 07/27/18 04:07 102 H 17 55/44 L 07/27/18 04:01 88 16 79/59 L 07/27/18 04:00 119 H 132 H 18 85/60 L 07/27/18 03:56 124 H 18 85/60 L 07/27/18 03:51 135 H 16 95/83 L 07/27/18 03:50 136 H 13 07/27/18 03:46 120 H 12 70/53 L 07/27/18 03:41 124 H 132 H 16 101/53 L 101/53 L 07/27/18 03:40 138 H 11 L 07/27/18 03:36 121 H 12 84/66 L 07/27/18 03:35 130 H 13 89/61 L 07/27/18 03:31 125 H 16 81/67 L 07/27/18 03:30 128 H 14 07/27/18 03:26 145 H 16 92/63 L 07/27/18 03:21 143 H 26 H 91/73 L 07/27/18 03:20 141 H 19 07/27/18 03:16 128 H 15 86/64 L 07/27/18 03:14 130 H 12 90/54 L 07/27/18 03:11 147 H 9 L 79/64 L 07/27/18 03:10 142 H 12 07/27/18 03:07 132 H 15 92/66 L 07/27/18 03:06 146 H 14 73/57 L 07/27/18 03:01 126 H 23 87/68 L 07/27/18 03:00 135 H 19 07/27/18 02:57 137 H 16 109/67 07/27/18 02:56 153 H 14 109/67 07/27/18 02:51 133 H 17 87/69 L 07/27/18 02:50 149 H 20 07/27/18 02:46 139 H 18 88/64 L 07/27/18 02:42 144 H 14 07/27/18 02:41 139 H 11 L 93/67 L 07/27/18 02:40 137 H 13 07/27/18 02:38 135 H 17 85/70 L 07/27/18 02:35 139 H 12 07/27/18 02:34 161 H 20 93/70 L 07/27/18 02:28 159 H 14 102/72 07/27/18 02:17 36.9 C 156 H 20 85/64 L Pulse Ox 07/27/18 11:45 92 07/27/18 11:30 92 07/27/18 11:15 92 07/27/18 11:00 92 07/27/18 10:45 91 07/27/18 08:15 97 07/27/18 08:00 100 07/27/18 07:30 96 07/27/18 07:11 86 L 07/27/18 06:45 94 07/27/18 06:31 93 07/27/18 06:30 97 07/27/18 06:20 94 07/27/18 06:17 93 07/27/18 06:10 97 07/27/18 06:01 99 07/27/18 06:00 100 07/27/18 05:57 99 07/27/18 05:55 100 07/27/18 05:53 100 07/27/18 05:51 100 07/27/18 05:49 100 07/27/18 05:47 100 07/27/18 05:45 100 07/27/18 05:43 98 07/27/18 05:41 99 07/27/18 05:39 99 07/27/18 05:37 96 07/27/18 05:35 99 07/27/18 05:33 95 07/27/18 05:32 93 07/27/18 05:30 79 L 07/27/18 05:26 98 05 05:21 96 07/27/18 05:20 98 07/27/18 05:16 98 07/27/18 05:11 100 07/27/18 05:10 100 07/27/18 05:06 100 07/27/18 05:01 99 07/27/18 04:59 98 07/27/18 04:56 98 07/27/18 04:53 97 07/27/18 04:50 95 07/27/18 04:46 95 07/27/18 04:31 95 07/27/18 04:30 95 07/27/18 04:27 96 07/27/18 04:26 97 07/27/18 04:25 97 07/27/18 04:22 96 07/27/18 04:20 97 07/27/18 04:16 94 07/27/18 04:12 94 07/27/18 04:11 91 07/27/18 04:10 88 L 07/27/18 04:07 93 07/27/18 04:01 91 07/27/18 04:00 93 07/27/18 03:56 93 07/27/18 03:51 93 07/27/18 03:50 93 07/27/18 03:46 96 07/27/18 03:41 95 07/27/18 03:40 96 07/27/18 03:36 94 07/27/18 03:35 96 07/27/18 03:31 93 07/27/18 03:30 93 07/27/18 03:26 92 05 03:21 95 07/27/18 03:20 92 07/27/18 03:16 93 07/27/18 03:14 95 07/27/18 03:11 93 07/27/18 03:10 93 07/27/18 03:07 95 07/27/18 03:06 95 07/27/18 03:01 94 07/27/18 03:00 96 07/27/18 02:57 05 02:56 94 07/27/18 02:51 96 07/27/18 02:50 91 07/27/18 02:46 95 07/27/18 02:42 94 05/06/19 02:41 97 07/27/18 02:40 97 07/27/18 02:38 94 07/27/18 02:35 95 07/27/18 02:34 95 07/27/18 02:28 96 07/27/18 02:17 96 Laboratory Results Cardiac Enzymes 07/27/18 07/27/18 Range/Units 02:26 07:47 AST 16 (15-37) U/L Troponin I 0.035 8.320 H* (0-0.045) ng/ml Coagulation 07/27/18 07/27/18 07/27/18 Range/Units 02:26 10:39 11:32 PT 11.4 (9.0-12.0) Seconds APTT 32.5 H Cancelled > 139.0 H* (21.0-31.0) Seconds CBC 07/27/18 Range/Units 02:26 WBC 4.58 L (4.8-10.8) K/uL RBC 3.90 L (4.2-5.4) M/uL Hgb 11.6 L (12.0-16.0) g/dL Hct 35.5 L (37-47) % Plt Count 176 (130-400) K/uL Neut # (Auto) 3.09 (1.4-6.5) K/uL Lymph # (Auto) 1.03 L (1.2-3.4) K/uL Motley # (Auto) 0.34 (0.11-0.59) K/uL Eos # (Auto) 0.09 (0-0.5) K/uL Baso # (Auto) 0.01 (0-0.2) K/uL Comprehensive Metabolic Panel 07/27/18 07/27/18 07/27/18 Range/Units 02:26 07:47 10:39 Sodium 131 L 130 L (136-145) mmol/L Potassium 3.2 L 3.7 D (3.5-5.1) mmol/L Chloride 96 L 100 (98-107) mmol/L Carbon Dioxide 25 20 L (21-32) mmol/L BUN 16 16 (7-18) mg/dl Creatinine 1.24 H 1.21 H (0.6-1.2) mg/dl Glucose 440 H* 191 H (70-99) mg/dl Calcium 8.1 L 7.8 L (8.5-10.1) mg/dl Direct Bilirubin 0.2 (0-0.2) mg/dl AST 16 (15-37) U/L ALT 15 (12-78) U/L Alkaline Phosphatase 57 (45-117) U/L Total Protein 6.8 (6.4-8.2) gm/dl Albumin 3.1 L (3.4-5.0) gm/dl Intake and Output 07/26/18 07/27/18 07/27/18 22:59 06:59 14:59 Intake Total 1622.533 / 1622.533 467.037 / 467.037 Output Total 500 / 500 Balance 1622.533 / 1622.533 -32.963 / -32.963 Intake: IV 1622.533 / 1622.533 467.037 / 467.037 NEXTERONE / D5W 150 mg In 100 100 / 100 ml @ 600 mls/hr IV ONE STA Rx#: [id number] NEXTERONE / D5W 360 mg In 200 98.235 / 98.235 ml @ 1 MG/MIN 33.333 mls/hr IV .Q6H MYA Rx#:[id number] MAGNESIUM SULFATE / D5W 1 gm In 200 / 200 100 ml @ 100 mls/hr IV Q1H MYA Rx#:[id number] Levophed Inj 8 mg In D5w 500 ml 14.853 / 14.853 168.802 / 168.802 @ 0.04 MCG/KG/MIN 10.36 mls/hr IV .Q24H PRN Rx#:[id number] Sonu-Synephrine 20 mg In D5w 500 7.68 / 7.68 ml @ 0.5 MCG/KG/MIN 51.2 mls/ hr IV .Q9H49M PRN Rx#:[id number] K RIDER / WTR 10 meq In 100 ml 100 / 100 @ 100 mls/hr IV Q1H MYA Rx#: [id number] K RIDER / WTR 20 meq In 100 ml 100 / 100 @ 50 mls/hr IV ONE ONE Rx#: [id number] Nss 1000ML 500 ml @ 999 mls/hr 1000 / 1000 IV .Q31M ONE Rx#:[id number] Right Hand 300 / 300 Output: Urine Amount (Catheter) 500 / 500 Puente/Indwelling 500 / 500 Other: Weight 69.5 kg
[2018-07-27 13:51] LABS: Partial Thromboplastin Time 121.5 Seconds (21.0-31.0)
--- NOTE | 2018-07-27 15:07 | Hospitalist Progress Note ---
Date of Service July 27, 2018 Assessment & Plan (1) NSTEMI (non-ST elevated myocardial infarction): 88-year-old female with ischemic cardiomyopathy, chronic systolic congestive heart failure with EF of 15-20%, status post ICD, history of thyrotoxicosis, hyperlipidemia, chronic kidney disease stage III who presented to the hospital with rapid atrial fibrillation and NSTEMI non-ST segment elevation myocardial infarction -cardiac cath on 07/27/18: Severe two-vessel vessel coronary artery disease; PCI of mid LAD with single drug-eluting stent (2.75 x 23 mm Xience Narda) and PCI of mid RCA with single drug-eluting stent (2.75 x 18 mm Xience Narda). -Received clopidogrel load in the [facility]. We will continue daily aspirin 81 mg and start clopidogrel 75 mg daily tomorrow. Continue atorvastatin. Atrial fibrillation with RVR -was in Atrial fibrillation with RVR on initial hospital presentation and then had direct-current cardioversion earlier prior to cardiac cath with stents on 07/27/18 -Resume heparin infusion once radial artery band is removed if no bleeding from the right radial artery catheterization site. 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 History of hiatal hernia - Continue oral PPI Deep venous thrombosis prophylaxis, on IV heparin. Full Code Subjective Patient seen and examined at the bedside. awake and alert. blood pressure via arterial line is 111/44. Heart rate is 78 beats per minute. Patient denies acute chest pain or acute shortness of breath. No abdomen pain. No headache. No lightheadedness. no vomiting Physical Exam Constitutional: cooperative Eyes: PERRL, conjunctivae normal, anicteric sclerae EOM intact bilaterally ENMT: external ear and nose normal, oropharynx normal Neck: IV access to the neck Respiratory: normal respiratory effort, lungs clear to auscultation Cardiovascular: Rate/Rhythm: regular rate and regular rhythm Gastrointestinal (Abdomen): normal bowel sounds, soft, nontender, no hepatosplenomegaly Neurologic: PERRL, EOMI, accommodation nl, no face palsy, no dysarthria Psychiatric: A+Ox3, euthymic affect Results & Data Vital Signs (Past 12 Hours) Vital Signs Temp Pulse Pulse Pulse Resp BP BP 07/27/18 14:00 66 16 07/27/18 13:00 60 16 07/27/18 12:00 66 13 07/27/18 11:45 69 20 07/27/18 11:30 36.5 C 68 22 07/27/18 11:15 67 18 07/27/18 11:00 70 20 07/27/18 10:45 71 20 07/27/18 08:15 72 21 07/27/18 08:00 36.5 C 71 21 07/27/18 07:30 73 21 07/27/18 07:11 74 18 79/48 L 07/27/18 06:45 36.5 C 64 20 94/52 L 07/27/18 06:31 81/52 L 07/27/18 06:30 64 07/27/18 06:20 65 17 07/27/18 06:17 62 20 76/55 L 07/27/18 06:10 68 17 07/27/18 06:01 71 21 90/68 L 07/27/18 06:00 67 14 07/27/18 05:57 69 18 88/51 L 07/27/18 05:55 68 19 78/54 L 07/27/18 05:53 68 22 77/52 L 07/27/18 05:51 66 20 81/47 L 07/27/18 05:49 64 19 77/45 L 07/27/18 05:47 61 19 74/45 L 07/27/18 05:45 62 22 68/46 L 07/27/18 05:43 60 25 H 79/44 L 07/27/18 05:41 66 19 73/46 L 07/27/18 05:39 65 23 69/43 L 07/27/18 05:37 55 L 16 77/46 L 07/27/18 05:35 59 L 20 66/42 L 07/27/18 05:33 63 18 72/43 L 07/27/18 05:32 55 L 21 76/40 L 07/27/18 05:30 60 24 72/39 L 07/27/18 05:26 115 H 17 70/53 L 07/27/18 05:21 108 H 17 80/59 L 07/27/18 05:20 113 H 19 07/27/18 05:16 110 H 15 76/54 L 07/27/18 05:11 113 H 18 72/55 L 07/27/18 05:10 100 H 17 07/27/18 05:06 107 H 13 79/59 L 07/27/18 05:01 118 H 13 80/58 L 07/27/18 04:59 111 H 15 95/64 L 07/27/18 04:56 105 H 16 83/53 L 07/27/18 04:53 109 H 12 76/54 L 07/27/18 04:50 106 H 18 82/58 L 07/27/18 04:46 112 H 20 79/58 L 07/27/18 04:31 118 H 22 74/59 L 07/27/18 04:30 98 H 16 07/27/18 04:27 96 H 22 07/27/18 04:26 99 H 16 74/61 L 07/27/18 04:25 102 H 18 53/29 L 07/27/18 04:22 106 H 21 07/27/18 04:20 105 H 15 07/27/18 04:16 103 H 17 87/65 L 07/27/18 04:12 99 H 17 07/27/18 04:11 89 12 67/48 L 07/27/18 04:10 98 H 17 75/53 L 07/27/18 04:07 102 H 17 55/44 L 07/27/18 04:01 88 16 79/59 L 07/27/18 04:00 119 H 132 H 18 85/60 L 07/27/18 03:56 124 H 18 85/60 L 07/27/18 03:51 135 H 16 95/83 L 07/27/18 03:50 136 H 13 07/27/18 03:46 120 H 12 70/53 L 07/27/18 03:41 124 H 132 H 16 101/53 L 101/53 L 07/27/18 03:40 138 H 11 L 07/27/18 03:36 121 H 12 84/66 L 07/27/18 03:35 130 H 13 89/61 L 07/27/18 03:31 125 H 16 81/67 L 07/27/18 03:30 128 H 14 07/27/18 03:26 145 H 16 92/63 L 07/27/18 03:21 143 H 26 H 91/73 L 07/27/18 03:20 141 H 19 07/27/18 03:16 128 H 15 86/64 L 07/27/18 03:14 130 H 12 90/54 L 07/27/18 03:11 147 H 9 L 79/64 L 07/27/18 03:10 142 H 12 07/27/18 03:07 132 H 15 92/66 L 07/27/18 03:06 146 H 14 73/57 L Pulse Ox 07/27/18 14:00 94 07/27/18 13:00 92 07/27/18 12:00 94 07/27/18 11:45 92 07/27/18 11:30 92 07/27/18 11:15 92 07/27/18 11:00 92 07/27/18 10:45 91 07/27/18 08:15 97 07/27/18 08:00 100 07/27/18 07:30 96 07/27/18 07:11 86 L 07/27/18 06:45 94 07/27/18 06:31 93 07/27/18 06:30 97 07/27/18 06:20 94 07/27/18 06:17 93 07/27/18 06:10 97 07/27/18 06:01 99 07/27/18 06:00 100 07/27/18 05:57 99 07/27/18 05:55 100 07/27/18 05:53 100 07/27/18 05:51 100 07/27/18 05:49 100 07/27/18 05:47 100 07/27/18 05:45 100 07/27/18 05:43 98 07/27/18 05:41 99 07/27/18 05:39 99 07/27/18 05:37 96 07/27/18 05:35 99 07/27/18 05:33 95 07/27/18 05:32 93 05 05:30 79 L 05 05:26 98 05 05:21 96 05 05:20 98 05 05:16 98 07/27/18 05:11 100 05 05:10 100 07/27/18 05:06 100 07/27/18 05:01 99 05 04:59 98 07/27/18 04:56 98 07/27/18 04:53 97 07/27/18 04:50 95 05 04:46 95 07/27/18 04:31 95 07/27/18 04:30 95 07/27/18 04:27 96 07/27/18 04:26 97 07/27/18 04:25 97 07/27/18 04:22 96 07/27/18 04:20 97 07/27/18 04:16 94 05 04:12 94 07/27/18 04:11 91 07/27/18 04:10 88 L 07/27/18 04:07 93 05 04:01 91 07/27/18 04:00 93 07/27/18 03:56 93 05 03:51 93 05 03:50 93 05 03:46 96 07/27/18 03:41 95 07/27/18 03:40 96 07/27/18 03:36 94 07/27/18 03:35 96 07/27/18 03:31 93 07/27/18 03:30 93 05 03:26 92 05 03:21 95 05 03:20 92 05 03:16 93 07/27/18 03:14 95 05 03:11 93 07/27/18 03:10 93 05 03:07 95 07/27/18 03:06 95
[2018-07-27 16:11] LABS: Partial Thromboplastin Ratio 1.7
[2018-07-27 16:14] LABS: Partial Thromboplastin Time 46.2 Seconds (21.0-31.0)
[2018-07-27] MEDS: Heparin Adult STANDARD Wt-Based Dextrose 5% 25,000 units/500 mL IV SCH (16:17)
[2018-07-27] MEDS ORDERED: Nursing to Pharmacy Communication ONE (16:23)
[2018-07-27] MEDS: INSULIN ASPART 100 UNITS/ML 3 ML PEN SC SCH ×2 (16:38→20:45)
[2018-07-27 22:50] LABS: Albumin Level 2.4 gm/dl (3.4-5.0); BUN Creatinine Ratio 16.5 (10-20); Calcium 7.3 mg/dl (8.5-10.1); Creatinine Clr Calc Pharmacy 50.5 ml/min; Est GFR (Non-African American) 78.5; Potassium 4.2 mmol/L (3.5-5.1)
[2018-07-27 22:51] LABS: Partial Thromboplastin Ratio 3.5
[2018-07-27 22:56] LABS: Albumin Globulin Ratio 0.8 (0.9-2); Bilirubin,Total 0.6 mg/dl (0.2-1); Globulin 2.9 gm/dl (2.5-4.0); Total Protein 5.3 gm/dl (6.4-8.2); Troponin I 10.4 ng/ml (0-0.045)
[2018-07-27 22:57] LABS: Partial Thromboplastin Time 95.1 Seconds (21.0-31.0)
[2018-07-28 05:17] LABS: Eosinophils # (auto) 0.11 K/uL (0-0.5); Eosinophils % (auto) 2.2 %; Hematocrit (blood only) 30.7 % (37-47); Hemoglobin 10.2 g/dL (12.0-16.0); Lymphocytes # (auto) 1.66 K/uL (1.2-3.4); Lymphocytes % (auto) 32.7 %; Mean Corpuscular Hgb Conc 33.2 g/dL (32-36); Mean Corpuscular Volume 90.8 fL (80-100); Mean Platelet Volume 10.6 fL (7.4-10.4); Monocytes # (auto) 0.45 K/uL (0.11-0.59); Monocytes % (auto) 8.9 %; Neutrophils # (auto) 2.86 K/uL (1.4-6.5); Neutrophils % (auto) 56.2 %; Platelet Count 165 K/uL (130-400); RDW Coefficient of Variation 14.1 % (11.5-14.5); RDW Standard Deviation 46.8 fL (36.4-46.3); Red Blood Count 3.38 M/uL (4.2-5.4); White Blood Count 5.08 K/uL (4.8-10.8)
[2018-07-28 05:57] LABS: BUN Creatinine Ratio 13.3 (10-20); Calcium 8.2 mg/dl (8.5-10.1); Creatinine Clr Calc Pharmacy 43.4 ml/min; Est GFR (African American) 78.7; Est GFR (Non-African American) 67.9; Magnesium 2.3 mg/dl (1.8-2.4); Potassium 4.2 mmol/L (3.5-5.1)
[2018-07-28 06:20] LABS: Partial Thromboplastin Ratio 3.1
[2018-07-28 06:32] LABS: Partial Thromboplastin Time 83.3 Seconds (21.0-31.0)
[2018-07-28] MEDS: PANTOprazole 40 MG TAB PO SCH (07:49)
[2018-07-28] MEDS: CLOPIDOGREL BISULFATE 75 MG TAB PO SCH (07:49)
[2018-07-28] MEDS: ATORVASTATIN 40 MG TAB PO SCH (07:49)
[2018-07-28] MEDS: ASPIRIN 81 MG ECTAB PO SCH (07:50)
[2018-07-28] MEDS: PROPYLTHIOURACIL 50 MG TAB PO SCH (07:50)
[2018-07-28] MEDS: INSULIN ASPART 100 UNITS/ML 3 ML PEN SC SCH ×4 (07:51→21:04)
--- NOTE | 2018-07-28 08:43 | Hospitalist Progress Note ---
Date of Service July 28, 2018 Assessment & Plan (1) NSTEMI (non-ST elevated myocardial infarction): 88-year-old female with ischemic cardiomyopathy, chronic systolic congestive heart failure with EF of 15-20%, status post ICD, history of thyrotoxicosis, hyperlipidemia, chronic kidney disease stage III who presented to the hospital with rapid atrial fibrillation and NSTEMI non-ST segment elevation myocardial infarction -cardiac cath on 07/27/18: Severe two-vessel vessel coronary artery disease; PCI of mid LAD with single drug-eluting stent (2.75 x 23 mm Xience Narda) and PCI of mid RCA with single drug-eluting stent (2.75 x 18 mm Xience Narda). -Received clopidogrel load in the [facility] -continue daily aspirin 81 mg, start clopidogrel 75 mg daily. Continue atorvastatin. Atrial fibrillation with RVR Anticoagulated on anticoagulation therapy (with heparin drip) -was in Atrial fibrillation with RVR on initial hospital presentation and then had direct-current cardioversion earlier prior to cardiac cath with stents on 07/27/18 -continues to be on heparin drip -will defer to cardiology service on further anticoagulation strategies at this time Chronic systolic congestive heart failure with ischemic cardiomyopathy with EF of 15-20% in the past -patient's ejection fraction re-assessed by cardiology after service after cardioversion and then stents x 2 for the NSTEMI with resting echocardiogram as 25 % History of thyrotoxicosis -Continue propylthiouracil TSH is high, but free T4 is normal patient did receive amiodarone on this admission prior to the cardioversion, 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 History of hiatal hernia - Continue oral PPI Deep venous thrombosis prophylaxis, on IV heparin. Full Code Subjective Patient seen and examined at the bedside. Patients pressure from blood pressure cuff is 92/44. with heart rate in the 70s and sinus. Patient awake and alert. Breathing on room air. No shortness of breath. denies acute chest pain or s hortness of breath. no vomiting. no distress. no headache. no dizziness. As per ICU physician, patient can be transferred to telemetry floor Physical Exam Constitutional: cooperative Eyes: PERRL, conjunctivae normal, anicteric sclerae EOM intact bilaterally ENMT: external ear and nose normal, oropharynx normal Neck: trachea midline, no thyromegaly normal visual inspection Respiratory: normal respiratory effort, lungs clear to auscultation Cardiovascular: Rate/Rhythm: regular rate and regular rhythm Gastrointestinal (Abdomen): normal bowel sounds, soft, nontender, no hepatosplenomegaly Musculoskeletal: Head/Neck/Chest: normocephalic and head atraumatic Neurologic: PERRL, EOMI, accommodation nl, no face palsy, no dysarthria Psychiatric: A+Ox3, euthymic affect Results & Data Vital Signs (Past 12 Hours) Vital Signs Temp Pulse Resp BP Pulse Ox 07/28/18 06:00 76 16 92/44 L 91 07/28/18 05:00 76 13 136/50 L 96 07/28/18 03:00 72 15 153/49 H 94 07/28/18 02:00 73 16 117/53 L 94 07/28/18 01:00 74 17 134/46 L 94 07/28/18 00:00 36.9 C 74 17 144/49 H 93 07/27/18 23:00 78 22 135/54 L 93 07/27/18 22:00 79 12 155/52 H 95 07/27/18 21:00 79 17 160/61 H 92
[2018-07-28 13:59] LABS: Partial Thromboplastin Time 53.2 Seconds (21.0-31.0)
--- NOTE | 2018-07-28 14:04 | Pharmacy Report ---
Pharmacy Glycemic Short Note 2 - Date of Service July 28, 2018 - Glycemic Short BSG Results (Last 24 hours): 07/27/18 07/27/18 07/27/18 16:10 20:36 22:23 Glucose 90 POC Glucose 103 H 116 H 07/28/18 07/28/18 05:05 11:16 Glucose 92 POC Glucose 100 H OUTPATIENT ANTIDIABETIC REGIMEN: * N/A ASSESSMENT: * Patient's BSGs have been well controlled with no insulin needs at this time * Patient is POD#1 post-cath, now ordered a diet * Will continue to follow, if no changes to stressors can likely sign off PLAN FOR INPATIENT GLYCEMIC CONTROL: * Bolus insulin * NovoLog per scale ACHS or Q6hrs while NPO * Goal Range: Low 110 mg/dL - High 140 mg/dL * Correction Factor: 30 mg/dL/unit PLAN FOR DISCHARGE: * Do not anticipate outpatient insulin needs.
[2018-07-28] MEDS ORDERED: METOPROLOL TARTRATE 25 MG TAB PO STA (14:58)
[2018-07-28] MEDS ORDERED: METOPROLOL TARTRATE 1 MG/ML VIAL IV STA (14:58)
[2018-07-28] MEDS ORDERED: AMIODARONE IV BOLUS / DRIP IV STA (15:16)
[2018-07-28] MEDS ORDERED: AMIODARONE / D5W 150 MG/100 ML BAG IV STA (15:16)
[2018-07-28] MEDS ORDERED: AMIODARONE / D5W 360 MG/200 ML BAG IV SCH (15:30)
--- NOTE | 2018-07-28 15:38 | Cardiology Progress Note ---
Date of Service July 28, 2018 Assessment & Plan (1) NSTEMI (non-ST elevated myocardial infarction): Status post drug-eluting stents to the mid LAD, and mid RCA 07/27/2018. Continue dual antiplatelet therapy with aspirin and clopidogrel. After 7 days of aspirin therapy, will consider transition to dual therapy with clopidogrel plus Coumadin. Reintroduce low-dose beta-kyaw, start with metoprolol tartrate 12.5 mg twice daily due to relatively low blood pressure, will plan to transition to me toprolol succinate given her LVEF, history of heart failure, as her hospital stay develops. No MATT inhibitor or angiotensin receptor kyaw due to relative low blood pressure. Continue high-dose atorvastatin. (2) Atrial fibrillation with RVR: Patient has reverted back to atrial fibrillation having had direct-current cardioversion yesterday. Continue unfractionated heparin for stroke prophylaxis. Start Coumadin. Reinitiate amiodarone infusion. Start metoprolol tartrate 2.5 mg twice daily (3) Ischemic cardiomyopathy: Medications as noted above. Subjective Chief complaint: Follow-up myocardial infarction, atrial fibrillation, ischemic cardiomyopathy Subjective: Patient had been seen earlier this morning in the first floor ICU. At that time she is feeling well. Systolic blood pressure was 104 mmHg, and sinus rhythm was noted with ongoing lateral repolarization changes that improved compared to yesterday. She had denied any history of recurrent angina. Telemetry revealed no recurrent atrial fibrillation overnight. As of now, 3:15 PM, the patient had a change in status. She had been transferred to the PCU, and brief episodes of tachycardia were noted that she was noted to revert to atrial fibrillation with rapid ventricular response, pastor tricular rates in excess of 160 bpm. The patient was assessed at the bedside by the undersigned. EKG was performed, what EKG was being captured, she reverted to sinus tachycardia at 100 bpm. The patient was feeling lightheaded and was assisted back into bed. Physical Exam Physical Exam: General: No acute distress, but she certainly feels worse now than she did this morning Eyes: conjunctiva are pink and non-injected, sclera clear Neck: normal jugular venous pulse, no hepatojugular reflux Chest: normal shape and normal respiratory effort Lungs: clear to auscultation and percussion Cardiac Exam: -Irregular rhythm, tachycardic, 1/6 systolic murmur Abdomen: abdomen soft, non-tender, no abnormal masses and no hepatosplenomegaly Extremities: no edema and no cyanosis -Right radial arterial access site clean dry and intact, with mild ecchymosis -Left radial arterial access site clean dry and intact with no hematoma, right internal jugular vein triple lumen site, clean dry and intact with slight having been discontinued prior to my arrival this morning. Neuro:awake, coversant, follows commands, no focal motor deficits Results & Data Vital Signs (Past 12 Hours) Vital Signs Temp Pulse Pulse Resp BP BP Pulse Ox 07/28/18 11:42 37.3 C 88 17 109/58 L 92 07/28/18 10:12 81 07/28/18 09:51 36.9 C 83 16 95/62 L 92 07/28/18 09:23 94 H 119/48 L 07/28/18 09:22 90 104/43 L 07/28/18 09:02 07/28/18 08:45 91 H 18 104/53 L 96 07/28/18 08:19 91 H 18 96/42 L 93 07/28/18 08:18 95 H 15 82/51 L 95 07/28/18 08:02 36.8 C 89 20 84/47 L 95 07/28/18 07:02 74 15 109/40 L 91 07/28/18 06:00 76 16 92/44 L 91 07/28/18 05:00 76 13 136/50 L 96 Pulse Ox 07/28/18 11:42 07/28/18 10:12 07/28/18 09:51 07/28/18 09:23 07/28/18 09:22 07/28/18 09:02 96 07/28/18 08:45 07/28/18 08:19 07/28/18 08:18 07/28/18 08:02 07/28/18 07:02 07/28/18 06:00 07/28/18 05:00 Laboratory Results The patient's troponin peaked at 21.1 NG per mL yesterday, and trended down to 10.4 and 7.36. Potassium improved to 4.2 this morning. Creatinine improved to 0.78 mg/dL, back to baseline as of this morning.
[2018-07-28] MEDS ORDERED: WARFARIN SOD 2 MG TAB PO STA (17:56)
[2018-07-28] MEDS: METOPROLOL TARTRATE 25 MG TAB PO SCH (21:01)
[2018-07-28] MEDS: AMIODARONE / D5W 360 MG/200 ML BAG IV SCH (21:06)
[2018-07-29] MEDS: Heparin Adult STANDARD Wt-Based Dextrose 5% 25,000 units/500 mL IV SCH (04:48)
[2018-07-29 07:36] LABS: Basophils # (auto) 0.01 K/uL (0-0.2); Basophils % (auto) 0.2 %; Eosinophils # (auto) 0.12 K/uL (0-0.5); Eosinophils % (auto) 2.6 %; Hematocrit (blood only) 30.5 % (37-47); Immature Granulocytes # (auto) 0.01 K/uL (0.00-0.02); Immature Granulocytes % (auto) 0.2 %; Lymphocytes # (auto) 1.46 K/uL (1.2-3.4); Lymphocytes % (auto) 31.9 %; Mean Corpuscular Hgb Conc 32.8 g/dL (32-36); Mean Corpuscular Volume 92.1 fL (80-100); Mean Platelet Volume 11.3 fL (7.4-10.4); Monocytes # (auto) 0.44 K/uL (0.11-0.59); Monocytes % (auto) 9.6 %; Neutrophils # (auto) 2.54 K/uL (1.4-6.5); Neutrophils % (auto) 55.5 %; Platelet Count 165 K/uL (130-400); RDW Coefficient of Variation 14.4 % (11.5-14.5); RDW Standard Deviation 48.7 fL (36.4-46.3); Red Blood Count 3.31 M/uL (4.2-5.4); White Blood Count 4.58 K/uL (4.8-10.8)
[2018-07-29 07:57] LABS: INR 1.1 (0.9-1.1); Prothrombin Time 11.1 Seconds (9.0-12.0)
[2018-07-29 08:01] LABS: Partial Thromboplastin Time 54.7 Seconds (21.0-31.0)
[2018-07-29 08:08] LABS: BUN Creatinine Ratio 7.9 (10-20); Calcium 8.6 mg/dl (8.5-10.1); Creatinine Clr Calc Pharmacy 41.5 ml/min; Est GFR (African American) 76.3; Est GFR (Non-African American) 65.8; Magnesium 2.1 mg/dl (1.8-2.4); Potassium 4.1 mmol/L (3.5-5.1)
[2018-07-29] MEDS: AMIODARONE / D5W 360 MG/200 ML BAG IV SCH ×2 (09:12→20:31)
[2018-07-29] MEDS: CLOPIDOGREL BISULFATE 75 MG TAB PO SCH (09:13)
[2018-07-29] MEDS: ASPIRIN 81 MG ECTAB PO SCH (09:13)
[2018-07-29] MEDS: METOPROLOL TARTRATE 25 MG TAB PO SCH ×2 (09:13→20:30)
[2018-07-29] MEDS: PANTOprazole 40 MG TAB PO SCH (09:13)
[2018-07-29] MEDS: PROPYLTHIOURACIL 50 MG TAB PO SCH (09:13)
[2018-07-29] MEDS: ATORVASTATIN 40 MG TAB PO SCH (09:13)
[2018-07-29] MEDS ORDERED: ATROPINE SULFATE 0.1 MG/ML 10ML SYR IV ONE (11:11)
[2018-07-29] MEDS ORDERED: AMIODARONE 200 MG TAB PO ONE (12:03)
--- NOTE | 2018-07-29 12:11 | Cardiology Progress Note ---
Date of Service July 29, 2018 Assessment & Plan (1) NSTEMI (non-ST elevated myocardial infarction): Status post drug-eluting stents to the LAD and right coronary arteries. Continue aspirin plus clopidogrel. Need to avoid triple therapy long-term transition her off of aspirin after. Continue metoprolol, statin (2) Atrial fibrillation with RVR: Rhythm control: Blood pressure needs relatively low, it is low at baseline limiting titration of addition of calcium channel kyaw. Continue IV amiodarone, add low-dose oral amiodarone. She remains free of atrial fibrillation episodes throughout the day today, will plan to discontinue the fusion today. Stroke prophylaxis: Heparin to Coumadin. Having had direct-current cardioversion earlier this hospital stay. She is therefore on therapy right now with aspirin, clopidogrel, heparin, and Coumadin. Continue Protonix for GI prophylaxis. Plan to discontinue aspirin after 1 week of therapy. (3) Hyperthyroidism: History of hyperthyroidism and is on PTU outside hospital. Will discuss with hospitalist medicine. Her TSH was actually elevated with normal free T4 on presentation. Of course would like to avoid amiodarone in the setting of thyroid dysfunction, but I believe this medication is necessary for her. Perhaps would be most reasonable to wean the PTU for now reassess her thyroid function in 6 weeks. (4) Ischemic cardiomyopathy: Well compensated from a cardiomyopathy standpoint. Perhaps ejection fraction will improve on reassessment in several months post revascularization. Continue medications as noted above. Plan to transition her from metoprolol tartrate to metoprolol succinate after dose is established. She is not a candidate for MATT inhibitor or angiotensin receptor kyaw due to relative hypotension. No need for diuretic at present. Subjective Chief complaint: Follow-up recent complaint of lightheadedness Subjective: Patient described mild lightheadedness when getting out of bed to the chair this morning. The most part sinus rhythm was noted overnight last night and this morning, but she did have a recurrent episode of atrial fibrillation from 2 AM to 1:10 AM tonight with spontaneous conversion back to sinus rhythm. She remains on an amiodarone infusion. Physical Exam Constitutional: + thin; no acute distress and not ill appearing Eyes: PERRL, conjunctivae normal, anicteric sclerae Respiratory: normal respiratory effort, lungs clear to auscultation Cardiovascular: RRR, no murmur, no edema Vessels: no JVD Gastrointestinal (Abdomen): normal bowel sounds, soft, nontender, no hepatosplenomegaly Skin: no rashes, warm and dry Neurologic: moves all extremities and + focal motor deficit Conversant moves all 4 extremities Results & Data Vital Signs (Past 12 Hours) Vital Signs Temp Pulse Pulse Pulse Resp BP Pulse Ox 07/29/18 11:42 37.1 C 74 18 107/58 L 95 07/29/18 08:00 71 07/29/18 06:50 37.0 C 72 18 100/59 L 93 07/29/18 03:48 36.8 C 75 18 104/65 92 Laboratory Results Coagulation 07/28/18 07/29/18 Range/Units 12:48 07:17 PT 11.1 (9.0-12.0) Seconds APTT 53.2 H* 54.7 H* (21.0-31.0) Seconds CBC 07/29/18 Range/Units 07:17 WBC 4.58 L (4.8-10.8) K/uL RBC 3.31 L (4.2-5.4) M/uL Hgb 10.0 L (12.0-16.0) g/dL Hct 30.5 L (37-47) % Plt Count 165 (130-400) K/uL Neut # (Auto) 2.54 (1.4-6.5) K/uL Lymph # (Auto) 1.46 (1.2-3.4) K/uL [place] # (Auto) 0.44 (0.11-0.59) K/uL Eos # (Auto) 0.12 (0-0.5) K/uL Baso # (Auto) 0.01 (0-0.2) K/uL Comprehensive Metabolic Panel 07/29/18 Range/Units 07:17 Sodium 141 (136-145) mmol/L Potassium 4.1 (3.5-5.1) mmol/L Chloride 109 H (98-107) mmol/L Carbon Dioxide 27 (21-32) mmol/L BUN 6 L (7-18) mg/dl Creatinine 0.80 (0.6-1.2) mg/dl Glucose 86 (70-99) mg/dl Calcium 8.6 (8.5-10.1) mg/dl Intake and Output 07/28/18 07/29/18 07/29/18 22:59 06:59 14:59 Intake Total 740 / 1492.100 185.9 / 1492.100 228.817 / 228.817 Output Total 750 / 1001 Balance 740 / 491.100 -564.1 / 491.100 228.817 / 228.817 Intake: IV 300 / 582.100 185.9 / 582.100 228.817 / 228.817 NEXTERONE / D5W 150 mg In 100 100 / 100 ml @ 600 mls/hr [facility] Rx#: [id number] NEXTERONE / D5W 360 mg In 200 200 / 200 200 / 200 ml @ 0.5 MG/MIN 16.667 mls/hr IV .Q12H [facility] Rx#:[id number] HEPARIN SODIUM/DEXTROSE 25,000 185.9 / 282.100 28.817 / 28.817 units In 500 ml @ 650 UNITS/HR 13 mls/hr IV .Q24H [facility] Rx#: [id number] Oral 440 / 910 Output: Urine 750 / 750 Other: Weight 66.8 kg Medications Administered Current Inpatient Medications Amiodarone HCl (Cordarone) 200 mg PO TIDM ONE Stop: 07/29/18 12:04 Aspirin (Ecotrin Ectab) 81 mg PO DAILY [facility] Stop: 08/26/18 08:59 Last Admin: 07/29/18 09:13 Dose: 81 mg Documented by: Atorvastatin Calcium (Lipitor) 80 mg PO DAILY [facility] Stop: 08/26/18 08:59 Last Admin: 07/29/18 09:13 Dose: 80 mg Documented by: Clopidogrel Bisulfate (Plavix) 75 mg PO QAM [facility] Stop: 08/27/18 08:59 Last Admin: 07/29/18 09:13 Dose: 75 mg Documented by: Heparin Sodium (Beef Lung) (Heparin Sod 10 Unit/Ml Flush) 5 ml FLUSH PRN PRN PRN Reason: Flush Stop: 08/27/18 01:34 Heparin Sodium/Dextrose (Heparin Sodium/Dextrose) 25,000 units in 500 mls @ 13 mls/hr IV .Q24H [facility]; Protocol Stop: 08/26/18 09:14 Last Titration: 07/29/18 07:01 Dose: 650 units/hr, 13 mls/hr Documented by: Amiodarone HCl/Dextrose (Nexterone / D5w) 360 mg in 200 mls @ 16.667 mls/hr IV .Q12H [facility] Stop: 08/27/18 21:15 Last Admin: 07/29/18 09:12 Dose: 0.5 mg/min, 16.7 mls/hr Documented by: Metoprolol Tartrate (Lopressor) 12.5 mg PO BID [facility] Stop: 08/27/18 20:59 Last Admin: 07/29/18 09:13 Dose: 12.5 mg Documented by: Nitroglycerin (Nitrostat) 0.4 mg SL UD PRN PRN Reason: Chest Pain Stop: 08/26/18 07:33 Pantoprazole Sodium (Protonix) 40 mg PO DAILY [facility] Stop: 08/26/18 08:59 Last Admin: 07/29/18 09:13 Dose: 40 mg Documented by: Propylthiouracil (Ptu) 50 mg PO DAILY [facility] Stop: 08/26/18 08:59 Last Admin: 07/29/18 09:13 Dose: 50 mg Documented by: Warfarin Sodium (Coumadin) 2.5 mg PO DAILY@1600 [facility] Stop: 08/28/18 15:59
--- NOTE | 2018-07-29 16:53 | Hospitalist Progress Note ---
Date of Service July 29, 2018 Assessment & Plan (1) NSTEMI (non-ST elevated myocardial infarction): 88-year-old female with ischemic cardiomyopathy, chronic systolic congestive heart failure with EF of 15-20%, status post ICD, history of thyrotoxicosis, hyperlipidemia, chronic kidney disease stage III who presented to the hospital with rapid atrial fibrillation and NSTEMI Non-ST segment elevation myocardial infarction -cardiac cath on 07/27/18: Severe two-vessel vessel coronary artery disease; PCI of mid LAD with single drug-eluting stent (2.75 x 23 mm Xience Narda) and PCI of mid RCA with single drug-eluting stent (2.75 x 18 mm Xience Narda). -Received clopidogrel load in the [facility] -continue daily aspirin 81 mg, STARTED clopidogrel 75 mg daily. Continue atorvastatin. Atrial fibrillation with RVR Anticoagulated on anticoagulation therapy (with heparin drip) -was in Atrial fibrillation with RVR on initial hospital presentation and then had direct-current cardioversion earlier prior to cardiac cath with stents on 07/27/18 - STARTED Amiodarone PO - STARTED coumadin + heparin Chronic systolic congestive heart failure with ischemic cardiomyopathy with EF of 15-20% in the past -patient's ejection fraction re-assessed by cardiology after service after cardioversion and then stents x 2 for the NSTEMI with resting echocardiogram as 25 % History of thyrotoxicosis TSH is high, but free T4 is normal patient did receive amiodarone on this admission prior to the cardioversion, if cardiology decides to use amiodarone hand drawer in helper then thyroid function will have to be monitored very closely -- will HOLD PTU for now repeat TFTs in 2 weeks Hyponatremia -serum sodium 130 on initial admission resolved Acute kidney injury on chronic kidney disease stage III -initial admission creatinine of 1.24 -renal function has now returned to baseline by 07/28/18 iron deficiency anemia -Hgb 10.2 on 07/28/18 and within usual baseline hip arthritis and osteoporosis -Continue vitamin D -hold meloxicam. History of hiatal hernia - Continue oral PPI Deep venous thrombosis prophylaxis, on IV heparin. Full Code Disposition pending will need PT/OT eval Subjective ff up for A fib in RVR, NSTEMI seen resting in bedside chair, comfortable states she feels ok overall, just tired denies chest pain, dyspnea, dizziness, palpitations no bleeding denies other symptoms Review of Systems Review of Systems: All systems reviewed & are unremarkable except as noted in HPI & below Physical Exam Physical Exam: Laboratory Results - last 24 hr 07/28/18 07/29/18 07/29/18 20:29 07:17 07:17 WBC 4.58 L RBC 3.31 L Hgb 10.0 L Hct 30.5 L MCV 92.1 MCH 30.2 MCHC 32.8 RDW Std Deviation 48.7 H RDW Coeff of Javi 14.4 Plt Count 165 MPV 11.3 H Immature Gran % (A uto) 0.2 Neut % (Auto) 55.5 Lymph % (Auto) 31.9 [place] % (Auto) 9.6 Eos % (Auto) 2.6 Baso % (Auto) 0.2 Immature Gran # (A uto) 0.01 Neut # (Auto) 2.54 Lymph # (Auto) 1.46 [place] # (Auto) 0.44 Eos # (Auto) 0.12 Baso # (Auto) 0.01 PT INR APTT PTT Ratio Sodium 141 Potassium 4.1 Chloride 109 H Carbon Dioxide 27 Anion Gap 5.0 BUN 6 L Creatinine 0.80 Est Cr Clr Drug Do sing 41.5 Est GFR ( A janelle) 76.3 Est GFR (Non-Af Am er) 65.8 BUN/Creatinine Rat io 7.9 L Glucose 86 POC Glucose 123 H Calcium 8.6 Magnesium 2.1 07/29/18 07:17 WBC RBC Hgb Hct MCV MCH MCHC RDW Std Deviation RDW Coeff of Javi Plt Count MPV Immature Gran % (A uto) Neut % (Auto) Lymph % (Auto) [place] % (Auto) Eos % (Auto) Baso % (Auto) Immature Gran # (A uto) Neut # (Auto) Lymph # (Auto) [place] # (Auto) Eos # (Auto) Baso # (Auto) PT 11.1 INR 1.1 APTT 54.7 H* PTT Ratio 2.0 Sodium Potassium Chloride Carbon Dioxide Anion Gap BUN Creatinine Est Cr Clr Drug Do sing Est GFR ( A janelle) Est GFR (Non-Af Am er) BUN/Creatinine Rat io Glucose POC Glucose Calcium Magnesium General- oriented x 3, not in distress, speaks in sentences with no effort or accessory muscle use Head- atraumatic Eyes- PERRL, EOMI, anicteric ENT- oropharynx clear Neck- supple, no JVD, no adenopathy, no thyromegaly; carotids +2/2, no bruits appreciated Lungs- clear to auscultation bilaterally, no rales/wheezes Heart- normal rate, regular rhythm; no murmur, no gallop, no rub appreciated Abdomen- normal bowel sounds, nondistended, soft, nontender, no masses or hepatosplenomegaly Extremities- no pretibial edema, no calf tenderness; peripheral pulses intact Neuro- alert, oriented x 3; CN 2-12 grossly intact; motor 5/5 bilaterally;sensation 100% on all extremities; no other gross focal neurologic deficits Skin- warm & dry Results & Data Vital Signs (Past 12 Hours) Vital Signs Temp Pulse Pulse Pulse Resp BP Pulse Ox 07/29/18 15:41 36.8 C 71 18 102/56 L 95 07/29/18 11:42 37.1 C 74 18 107/58 L 95 07/29/18 08:00 71 07/29/18 06:50 37.0 C 72 18 100/59 L 93
[2018-07-29] MEDS: WARFARIN SOD 2.5 MG TAB PO SCH (17:15)
[2018-07-30 05:45] LABS: Eosinophils # (auto) 0.11 K/uL (0-0.5); Eosinophils % (auto) 2.2 %; Hemoglobin 10.6 g/dL (12.0-16.0); Immature Granulocytes # (auto) 0.01 K/uL (0.00-0.02); Immature Granulocytes % (auto) 0.2 %; Lymphocytes # (auto) 1.55 K/uL (1.2-3.4); Lymphocytes % (auto) 30.9 %; Mean Corpuscular Hgb Conc 33.1 g/dL (32-36); Mean Platelet Volume 11.3 fL (7.4-10.4); Monocytes # (auto) 0.32 K/uL (0.11-0.59); Monocytes % (auto) 6.4 %; Neutrophils # (auto) 3.03 K/uL (1.4-6.5); Neutrophils % (auto) 60.3 %; Platelet Count 173 K/uL (130-400); RDW Coefficient of Variation 14.6 % (11.5-14.5); RDW Standard Deviation 49.1 fL (36.4-46.3); Red Blood Count 3.48 M/uL (4.2-5.4); White Blood Count 5.02 K/uL (4.8-10.8)
[2018-07-30 06:10] LABS: INR 1.1 (0.9-1.1); Partial Thromboplastin Ratio 1.8; Prothrombin Time 11.3 Seconds (9.0-12.0)
[2018-07-30 06:11] LABS: BUN Creatinine Ratio 6.1 (10-20); Calcium 8.4 mg/dl (8.5-10.1); Magnesium 2.1 mg/dl (1.8-2.4); Potassium 4.5 mmol/L (3.5-5.1)
[2018-07-30 06:12] LABS: Partial Thromboplastin Time 49.8 Seconds (21.0-31.0)
[2018-07-30] MEDS: ASPIRIN 81 MG ECTAB PO SCH (09:18)
[2018-07-30] MEDS: CLOPIDOGREL BISULFATE 75 MG TAB PO SCH (09:18)
[2018-07-30] MEDS: ATORVASTATIN 40 MG TAB PO SCH (09:18)
[2018-07-30] MEDS: METOPROLOL TARTRATE 25 MG TAB PO SCH ×2 (09:18→20:56)
[2018-07-30] MEDS: PANTOprazole 40 MG TAB PO SCH (09:18)
[2018-07-30] MEDS: PROPYLTHIOURACIL 50 MG TAB PO SCH (09:19)
[2018-07-30] MEDS: AMIODARONE / D5W 360 MG/200 ML BAG IV SCH (09:23)
--- NOTE | 2018-07-30 12:36 | Cardiology Progress Note ---
Date of Service July 30, 2018 Assessment & Plan (1) NSTEMI (non-ST elevated myocardial infarction): Status post drug-eluting stents to the RCA and LAD. Continue aspirin, clopidogrel, metoprolol, atorvastatin. No MATT inhibitor or angiotensin receptor kyaw given relative low blood pressure. Plan on discontinuation of aspirin after 1 week of therapy with ongoing dual therapy with clopidogrel and Coumadin given history of recently diagnosed atrial fibrillation and cardioversion. (2) Atrial fibrillation with RVR: Status post direct-current cardioversion on an emergent basis on 07/27/2018. Had brief recurrent atrial fibrillation. Now in sinus rhythm on amiodarone. Continue low-dose metoprolol tartrate 12.5 mg twice daily. Dose limited by her low blood pressure. Her systolic blood pressure is currently within his normal range compared to her office blood pressures at 112/59. Continue amiodarone, discontinue IV initiation and continue with oral loading 200 mg 3 times daily with meals. Stroke prophylaxis: INR 1.1 today. Continue Coumadin 2.5 mg daily. Starting with low-dose given the patient's age, and treatment amiodarone. Patient will need to remain on heparin bridge until INR greater than or equal to 2 given direct-current cardioversion. (3) Hyperthyroidism: Patient with long-standing history of hyperthyroidism. TSH 12 this admission with normal free T4. Would typically prefer to avoid amiodarone given underlying thyroid dysfunction, but given the patient's profound symptoms, rhythm control strategy is indicated and I think amiodarone is the best agent. Will wean PTU, was on 50 mg daily, will start by weaning to 50 mg every 48 hours. Plan on repeating thyroid function test at a 6-week interval as outpatient. Subjective Chief Complaint: follow up lightheadedness Subjective: Patient states that she had a restless night last evening. Denies any chest discomfort or shortness of breath. Telemetry reveals no recurrent atrial fibrillation yesterday or during the night last night or thus far today. Sinus rhythm with first-degree AV block in the 70 be per minute range noted. She has remained on IV amiodarone infusion without any significant bradycardia. She received a single dose of amiodarone 200 mg yesterday with her evening meal. Physical Exam Physical Exam: General: no acute distress and stated age Eyes: conjunctiva are pink and non-injected, sclera clear Neck: normal jugular venous pulse, no hepatojugular reflux. Minimal ecchymosis noted at previous right internal jugular vein access site of the right neck. Chest: normal shape and normal respiratory effort Lungs: clear to auscultation and percussion Cardiac Exam: - regular heart sounds, no murmurs, rubs, or gallops, no jugular venous distention Abdomen: abdomen soft, non-tender, no abnormal masses and no hepatosplenomegaly Extremities: no edema and no cyanosis -Bilateral radial artery access sites clean dry and intact without hematoma, minimal ecchymosis. Neuro:awake, coversant, follows commands, no focal motor deficits Psych: appropriate affect and insight. Results & Data Vital Signs (Past 12 Hours) Vital Signs Temp Pulse Pulse Resp BP Pulse Ox 07/30/18 10:26 36.9 C 73 20 112/59 L 93 07/30/18 07:02 36.9 C 77 18 119/66 92 07/30/18 06:18 69 07/30/18 02:58 37.0 C 71 18 115/69 91 Laboratory Results Coagulation 07/30/18 Range/Units 05:13 PT 11.3 (9.0-12.0) Seconds APTT 49.8 H* (21.0-31.0) Seconds CBC 07/30/18 Range/Units 05:13 WBC 5.02 (4.8-10.8) K/uL RBC 3.48 L (4.2-5.4) M/uL Hgb 10.6 L (12.0-16.0) g/dL Hct 32.0 L (37-47) % Plt Count 173 (130-400) K/uL Neut # (Auto) 3.03 (1.4-6.5) K/uL Lymph # (Auto) 1.55 (1.2-3.4) K/uL [place] # (Auto) 0.32 (0.11-0.59) K/uL Eos # (Auto) 0.11 (0-0.5) K/uL Baso # (Auto) 0.00 (0-0.2) K/uL Comprehensive Metabolic Panel 07/30/18 Range/Units 05:13 Sodium 143 (136-145) mmol/L Potassium 4.5 (3.5-5.1) mmol/L Chloride 111 H (98-107) mmol/L Carbon Dioxide 30 (21-32) mmol/L BUN 5 L (7-18) mg/dl Creatinine 0.83 (0.6-1.2) mg/dl Glucose 91 (70-99) mg/dl Calcium 8.4 L (8.5-10.1) mg/dl Intake and Output 07/29/18 07/30/18 07/30/18 22:59 06:59 14:59 Intake Total 549.971 / 1453.788 200 / 1453.788 355.133 / 355.133 Output Total 600 / 1300 400 / 1300 Balance -50.029 / 153.788 -200 / 153.788 355.133 / 355.133 Intake: IV 349.971 / 578.788 355.133 / 355.133 NEXTERONE / D5W 360 mg In 200 188.988 / 388.988 200 / 200 ml @ 0.5 MG/MIN 16.667 mls/hr IV .Q12H [facility] Rx#:[id number] HEPARIN SODIUM/DEXTROSE 25,000 160.983 / 189.800 155.133 / 155.133 units In 500 ml @ 650 UNITS/HR 13 mls/hr IV .Q24H [facility] Rx#: [id number] Oral 200 / 875 200 / 875 Output: Urine 600 / 1300 400 / 1300 Other: Weight 66.4 kg Medications Administered Current Inpatient Medications Amiodarone HCl (Cordarone) 200 mg PO TIDM [facility] Stop: 08/29/18 16:59 Aspirin (Ecotrin Ectab) 81 mg PO DAILY [facility] Stop: 08/26/18 08:59 Last Admin: 07/30/18 09:18 Dose: 81 mg Documented by: Atorvastatin Calcium (Lipitor) 80 mg PO DAILY [facility] Stop: 08/26/18 08:59 Last Admin: 07/30/18 09:18 Dose: 80 mg Documented by: Clopidogrel Bisulfate (Plavix) 75 mg PO QAM [facility] Stop: 08/27/18 08:59 Last Admin: 07/30/18 09:18 Dose: 75 mg Documented by: Heparin Sodium (Beef Lung) (Heparin Sod 10 Unit/Ml Flush) 5 ml FLUSH PRN PRN PRN Reason: Flush Stop: 08/27/18 01:34 Heparin Sodium/Dextrose (Heparin Sodium/Dextrose) 25,000 units in 500 mls @ 13 mls/hr IV .Q24H [facility]; Protocol Stop: 08/26/18 09:14 Last Titration: 07/30/18 07:20 Dose: 650 units/hr, 13 mls/hr Documented by: Metoprolol Tartrate (Lopressor) 12.5 mg PO BID [facility] Stop: 08/27/18 20:59 Last Admin: 07/30/18 09:18 Dose: 12.5 mg Documented by: Nitroglycerin (Nitrostat) 0.4 mg SL UD PRN PRN Reason: Chest Pain Stop: 08/26/18 07:33 Pantoprazole Sodium (Protonix) 40 mg PO DAILY [facility] Stop: 08/26/18 08:59 Last Admin: 07/30/18 09:18 Dose: 40 mg Documented by: Propylthiouracil (Ptu) 50 mg PO Q48H [facility] Stop: 08/31/18 20:59 Warfarin Sodium (Coumadin) 2.5 mg PO DAILY@1600 [facility] Stop: 08/28/18 15:59 Last Admin: 07/29/18 17:15 Dose: 2.5 mg Documented by:
[2018-07-30] MEDS: WARFARIN SOD 2.5 MG TAB PO SCH (15:13)
[2018-07-30] MEDS: AMIODARONE 200 MG TAB PO SCH (16:57)
[2018-07-30] MEDS: Heparin Adult STANDARD Wt-Based Dextrose 5% 25,000 units/500 mL IV SCH (18:05)
--- NOTE | 2018-07-30 18:05 | Hospitalist Progress Note ---
Date of Service July 30, 2018 Assessment & Plan (1) NSTEMI (non-ST elevated myocardial infarction): 88-year-old female with ischemic cardiomyopathy, chronic systolic congestive heart failure with EF of 15-20%, status post ICD, history of thyrotoxicosis, hyperlipidemia, chronic kidney disease stage III who presented to the hospital with rapid atrial fibrillation and NSTEMI Non-ST segment elevation myocardial infarction -cardiac cath on 07/27/18: Severe two-vessel vessel coronary artery disease; PCI of mid LAD with single drug-eluting stent (2.75 x 23 mm Xience Narda) and PCI of mid RCA with single drug-eluting stent (2.75 x 18 mm Xience Narda). -Received clopidogrel load in the [facility] -continue daily aspirin 81 mg, STARTED clopidogrel 75 mg daily. Continue metoprolol, atorvastatin. Atrial fibrillation with RVR -was in Atrial fibrillation with RVR on initial hospital presentation and then had direct-current cardioversion earlier prior to cardiac cath with stents on 07/27/18 - STARTED Amiodarone PO - STARTED coumadin + heparin - tolerating well so far Chronic systolic congestive heart failure with ischemic cardiomyopathy with EF of 15-20% in the past -patient's ejection fraction re-assessed by cardiology after service after cardioversion and then stents x 2 for the NSTEMI with resting echocardiogram as 25 % History of thyrotoxicosis TSH is high, but free T4 is normal patient did receive amiodarone on this admission prior to the cardioversion, if cardiology decides to use amiodarone senior living then thyroid function will have to be monitored very closely -- PTU decreased repeat TFTs in 6 weeks Hyponatremia -serum sodium 130 on initial admission resolved Acute kidney injury on chronic kidney disease stage III -initial admission creatinine of 1.24 -renal function has now returned to baseline by 07/28/18 iron deficiency anemia -Hgb 10.2 on 07/28/18 and within usual baseline hip arthritis and osteoporosis -Continue vitamin D -hold meloxicam. History of hiatal hernia - Continue oral PPI Deep venous thrombosis prophylaxis, on IV heparin + coumadin Full Code Disposition pending will need PT/OT eval Subjective ff up for a fib, NSTEMI seen sitting up in bed, comfortable states she feels ok overall denies dizziness, palpitations, chest pain, dyspnea no other symptoms no bleeding Review of Systems Review of Systems: All systems reviewed & are unremarkable except as noted in HPI & below Physical Exam Physical Exam: General- oriented x 3, not in distress, speaks in sentences with no effort or accessory muscle use Eyes- anicteric Neck- no JVD Lungs- clear BS BL, no wheezes Heart- normal rate, regular rhythm; no murmurs Abdomen- normal bowel sounds, nondistended, soft, nontender Extremities- no pretibial edema, no calf tenderness Neuro- alert, oriented x 3; no gross focal neurologic deficits Skin- warm & dry Results & Data Vital Signs (Past 12 Hours) Vital Signs Temp Pulse Pulse Pulse Resp BP Pulse Ox 07/30/18 15:41 36.9 C 74 18 117/69 94 07/30/18 14:20 67 07/30/18 10:26 36.9 C 73 20 112/59 L 93 07/30/18 07:02 36.9 C 77 18 119/66 92 07/30/18 06:18 69 Laboratory Results Laboratory Results - last 24 hr 07/30/18 07/30/18 07/30/18 05:13 05:13 05:13 WBC 5.02 RBC 3.48 L Hgb 10.6 L Hct 32.0 L MCV 92.0 MCH 30.5 MCHC 33.1 RDW Std Deviation 49.1 H RDW Coeff of Javi 14.6 H Plt Count 173 MPV 11.3 H Immature Gran % (Auto) 0.2 Neut % (Auto) 60.3 Lymph % (Auto) 30.9 [place] % (Auto) 6.4 Eos % (Auto) 2.2 Baso % (Auto) 0.0 Immature Gran # (Auto) 0.01 Neut # (Auto) 3.03 Lymph # (Auto) 1.55 [place] # (Auto) 0.32 Eos # (Auto) 0.11 Baso # (Auto) 0.00 PT 11.3 INR 1.1 APTT 49.8 H* PTT Ratio 1.8 Sodium 143 Potassium 4.5 Chloride 111 H Carbon Dioxide 30 Anion Gap 2.0 L BUN 5 L Creatinine 0.83 Est Cr Clr Drug Dosing 40.0 Est GFR ( Amer) 73.0 Est GFR (Non-Af Amer) 63.0 BUN/Creatinine Ratio 6.1 L Glucose 91 Calcium 8.4 L Magnesium 2.1
[2018-07-31 07:08] LABS: INR 1.1 (0.9-1.1); Partial Thromboplastin Ratio 1.7; Prothrombin Time 11.6 Seconds (9.0-12.0)
[2018-07-31 07:10] LABS: Partial Thromboplastin Time 47.1 Seconds (21.0-31.0)
--- NOTE | 2018-07-31 08:48 | Cardiology Progress Note ---
Date of Service July 31, 2018 Assessment & Plan (1) NSTEMI (non-ST elevated myocardial infarction): PCI of LAD, RCA 5 wih ZENAIDA. Plan 1 week of ASA, then proceed with dual therapy =Plavix +Coumadin. EKG with stable findings this am, SR, normal QTC, lateral repolarization changes improved compared to admission. Continue metoprolol, change to succinate, atorvastatin. No ACEI or ARB due to relative low BP. (2) Atrial fibrillation with RVR: s/p DCCV 07/27. Heparin to coumadin. INR 1.1 today. Cautious dosing given triple therapy, and amiodarone. Increase coumadin to 5 mg x 1 today, then 4 mg tomorrow. Keep on heparin until INR > or = to 2. Avoid lovenox due to bleeding risk. Rhythm control: Toprol 25 mg, amiodarone 200 TID, discharge on amiodarone 200 mg BID. (3) Hyperthyroidism: Wean PTU to 50 mg Q 48 hours. TSH acutally high this admit. Amiodarone started. Repeat TSH as outpt in 6 weeks. (4) Ischemic cardiomyopathy: Meds as above. Resume furosemide, was on 80 mg Qam, 40 mg Q pm. Start with furosemide 40 mg PO Q am today. (5) Cough: perhaps due to CHF, resume furosemide. Check CXR Dr Hollingsworth to be on Service 08/01. Will arrange follow up at or [place] with cardio within 2 weeks. Needs to establish with coumadin clinic at [place] Update CBC, BMP, INR , EKG am of 08/01. Subjective Chief Complaint: follow up lightheadedness Subjective: Patient states that she had a better night last night, having rested well. She is comfortable without symptoms of angina. No subjective palpitations. Telemetry without any additional AF yesterday, overnight or so far this am. Physical Exam Constitutional: WD/WN, vitals as above Respiratory: normal respiratory effort, lungs clear to auscultation Cardiovascular: RRR, no murmur, no edema Vessels: no JVD Gastrointestinal (Abdomen): normal bowel sounds, soft, nontender, no hep atosplenomegaly Skin: no rashes, warm and dry Neurologic: moves all extremities and + focal motor deficit coversant, follows commands Results & Data Vital Signs (Past 12 Hours) Vital Signs Temp Pulse Pulse Resp BP Pulse Ox 07/31/18 07:15 37.0 C 70 18 114/71 93 07/31/18 06:20 67 07/31/18 02:30 36.7 C 73 21 125/64 96 07/30/18 23:43 37.0 C 74 19 107/61 93
[2018-07-31] MEDS ORDERED: WARFARIN SOD 5 MG TAB PO ONE (09:00)
[2018-07-31] MEDS: METOPROLOL TARTRATE 25 MG TAB PO SCH (09:02)
[2018-07-31] MEDS: CLOPIDOGREL BISULFATE 75 MG TAB PO SCH (09:03)
[2018-07-31] MEDS: ATORVASTATIN 40 MG TAB PO SCH (09:03)
[2018-07-31] MEDS: PANTOprazole 40 MG TAB PO SCH (09:03)
[2018-07-31] MEDS: AMIODARONE 200 MG TAB PO SCH ×3 (09:03→16:23)
[2018-07-31] MEDS: ASPIRIN 81 MG ECTAB PO SCH (09:03)
[2018-07-31] MEDS: FUROSEMIDE 40 MG TAB PO SCH (09:39)
[2018-07-31] MEDS: METOPROLOL SUCC 25MG EXT REL TAB PO SCH (09:39)
[2018-07-31] MEDS ORDERED: METOPROLOL SUCC 25MG EXT REL TAB PO ONE (09:45)
--- NOTE | 2018-07-31 10:44 | XRay Report ---
XR chest 2V routine HISTORY: 88 years-old Female cough, chf acute cough COMPARISON: Chest radiograph 07/27/2018 TECHNIQUE: PA and lateral views of the chest FINDINGS: Cardiac silhouette is enlarged. No overt pulmonary edema. Calcification of the thoracic aortic arch. Small bilateral pleural effusions with minimal bibasilar opacities. No pneumothorax. Calcification of the thoracic aortic arch. Large hiatal hernia. Unchanged left pectoral pacer/AICD. Degenerative maldonado ges of the shoulders and spine. Remote appearing lower thoracic compression fracture redemonstrated. IMPRESSION: 1. Cardiomegaly without overt pulmonary edema. 2. Small bilateral pleural effusions with bibasilar opacities suggestive of atelectasis. 3. Large hiatal hernia. The above report was generated using voice recognition software. It may contain grammatical, syntax o r spelling errors. Electronically signed by: Jad Young M.D. 07/31/2018 10:43 AM
--- NOTE | 2018-07-31 16:23 | Hospitalist Progress Note ---
Date of Service July 31, 2018 Assessment & Plan (1) NSTEMI (non-ST elevated myocardial infarction): 88-year-old female with ischemic cardiomyopathy, chronic systolic congestive heart failure with EF of 15-20%, status post ICD, history of thyrotoxicosis, hyperlipidemia, chronic kidney disease stage III who presented to the hospital with rapid atrial fibrillation and NSTEMI Non-ST segment elevation myocardial infarction -cardiac cath on 07/27/18: Severe two-vessel vessel coronary artery disease; PCI of mid LAD with single drug-eluting stent (2.75 x 23 mm Xience Narda) and PCI of mid RCA with single drug-eluting stent (2.75 x 18 mm Xience Narda). -Received clopidogrel load in the [employer] -continue daily aspirin 81 mg, STARTED clopidogrel 75 mg daily. Continue metoprolol, atorvastatin. Atrial fibrillation with RVR - was in Atrial fibrillation with RVR on initial hospital presentation and then had direct-current cardioversion earlier prior to cardiac cath with stents on 07/27/18 - STARTED Amiodarone PO - STARTED coumadin + heparin - tolerating well so far - INR 1.1, coumadin being uptitrated Chronic systolic congestive heart failure with ischemic cardiomyopathy with EF of 15-20% in the past -patient's ejection fraction re-assessed by cardiology after service after cardioversion and then stents x 2 for the NSTEMI with resting echocardiogram as 25 % - Lasix PO started History of thyrotoxicosis TSH is high, but free T4 is normal patient did receive amiodarone on this admission prior to the cardioversion, if cardiology decides to use amiodarone alf then thyroid function will have to be monitored very closely -- PTU decreased repeat TFTs in 6 weeks Hyponatremia -serum sodium 130 on initial admission resolved Acute kidney injury on chronic kidney disease stage III -initial admission creatinine of 1.24 -renal function has now returned to baseline by 07/28/18 iron deficiency anemia -Hgb 10.2 on 07/28/18 and within usual baseline hip arthritis and osteoporosis -Continue vitamin D -hold meloxicam. History of hiatal hernia - Continue oral PPI Deep venous thrombosis prophylaxis, on IV heparin + coumadin Full Code Disposition pending will need PT/OT eval Subjective ff up for a fib seen resting in chair, comfortable remains in SR in good spirits states she feels fine overall denies chest pain, dyspnea, palpitations no bleeding Review of Systems Review of Systems: All systems reviewed & are unremarkable except as noted in HPI & below Physical Exam Physical Exam: General- oriented x 3, not in distress, speaks in sentences with no effort or accessory muscle use Eyes- anicteric Neck- no JVD Lungs- clear BS BL, no rales, no wheezes Heart- normal rate, regular rhythm; no murmurs Abdomen- normal bowel sounds, nondistended, soft, nontender Extremities- no pretibial edema, no calf tenderness Neuro- alert, oriented x 3; no gross focal neurologic deficits Skin- warm & dry Results & Data Vital Signs (Past 12 Hours) Vital Signs Temp Pulse Pulse Pulse Resp BP Pulse Ox 07/31/18 15:52 37.0 C 73 18 122/63 95 07/31/18 14:20 94 H 07/31/18 10:53 36.7 C 78 18 123/74 95 07/31/18 07:15 37.0 C 70 18 114/71 93 07/31/18 06:20 67 Laboratory Results Laboratory Results - last 24 hr 07/31/18 06:24 PT 11.6 INR 1.1 APTT 47.1 H* PTT Ratio 1.7
[2018-08-01] MEDS: Heparin Adult STANDARD Wt-Based Dextrose 5% 25,000 units/500 mL IV SCH (03:57)
[2018-08-01 06:50] LABS: Hematocrit (blood only) 37.9 % (37-47); Hemoglobin 12.3 g/dL (12.0-16.0); Mean Corpuscular Hgb Conc 32.5 g/dL (32-36); Mean Corpuscular Volume 92.2 fL (80-100); Mean Platelet Volume 11.4 fL (7.4-10.4); Platelet Count 204 K/uL (130-400); RDW Coefficient of Variation 14.6 % (11.5-14.5); RDW Standard Deviation 49.6 fL (36.4-46.3); Red Blood Count 4.11 M/uL (4.2-5.4); White Blood Count 6.13 K/uL (4.8-10.8)
[2018-08-01 07:08] LABS: INR 1.4 (0.9-1.1); Partial Thromboplastin Ratio 1.8; Prothrombin Time 13.9 Seconds (9.0-12.0)
[2018-08-01 07:10] LABS: Partial Thromboplastin Time 48.4 Seconds (21.0-31.0)
[2018-08-01 07:20] LABS: BUN Creatinine Ratio 9.4 (10-20); Calcium 8.8 mg/dl (8.5-10.1); Creatinine Clr Calc Pharmacy 36.7 ml/min; Est GFR (African American) 67.1; Est GFR (Non-African American) 57.9; Potassium 3.9 mmol/L (3.5-5.1)
[2018-08-01] MEDS: AMIODARONE 200 MG TAB PO SCH ×3 (07:46→16:45)
[2018-08-01] MEDS: CLOPIDOGREL BISULFATE 75 MG TAB PO SCH (07:47)
[2018-08-01] MEDS: METOPROLOL SUCC 25MG EXT REL TAB PO SCH (07:47)
[2018-08-01] MEDS: ATORVASTATIN 40 MG TAB PO SCH (07:47)
[2018-08-01] MEDS: PANTOprazole 40 MG TAB PO SCH (07:48)
[2018-08-01] MEDS: FUROSEMIDE 40 MG TAB PO SCH (07:48)
[2018-08-01] MEDS: ASPIRIN 81 MG ECTAB PO SCH (07:48)
--- NOTE | 2018-08-01 10:30 | Hospitalist Progress Note ---
Date of Service August 01, 2018 Assessment & Plan (1) NSTEMI (non-ST elevated myocardial infarction): 88-year-old female with ischemic cardiomyopathy, chronic systolic congestive heart failure with EF of 15-20%, status post ICD, history of thyrotoxicosis, hyperlipidemia, chronic kidney disease stage III who presented to the hospital with rapid atrial fibrillation and NSTEMI Non-ST segment elevation myocardial infarction -cardiac cath on 07/27/18: Severe two-vessel vessel coronary artery disease; PCI of mid LAD with single drug-eluting stent (2.75 x 23 mm Xience Narda) and PCI of mid RCA with single drug-eluting stent (2.75 x 18 mm Xience Narda). -Received clopidogrel load in the [employer] -continue daily aspirin 81 mg, STARTED clopidogrel 75 mg daily. Continue metoprolol, atorvastatin. Chest pain - likely from hiatal hernia mostly epigastric pain advised small frequent meals continue Protonix patient declining Maalox - monitor Atrial fibrillation with RVR - was in Atrial fibrillation with RVR on initial hospital presentation and then had direct-current cardioversion earlier prior to cardiac cath with stents on 07/27/18 - STARTED Amiodarone PO - STARTED coumadin + heparin - tolerating well so far - INR 1.4, continue Coumadin Chronic systolic congestive heart failure with ischemic cardiomyopathy with EF of 15-20% in the past -patient's ejection fraction re-assessed by cardiology after service after cardioversion and then stents x 2 for the NSTEMI with resting echocardiogram as 25 % - Lasix PO started History of thyrotoxicosis TSH is high, but free T4 is normal patient did receive amiodarone on this admission prior to the cardioversion, if cardiology decides to use amiodarone custodial then thyroid function will have to be monitored very closely -- PTU decreased repeat TFTs in 6 weeks Hyponatremia -serum sodium 130 on initial admission resolved Acute kidney injury on chronic kidney disease stage III -initial admission creatinine of 1.24 -renal function has now returned to baseline by 07/28/18 iron deficiency anemia -Hgb 10.2 on 07/28/18 and within usual baseline hip arthritis and osteoporosis -Continue vitamin D -hold meloxicam. History of hiatal hernia - Continue oral PPI Deep venous thrombosis prophylaxis, on IV heparin + coumadin Full Code Disposition pending will need PT/OT eval Subjective ff up for a fib seen resting in chair comfortable states she feels fine no complaints at around 1230, RN reported patient had substernal chest pain while having lunch, 8/10, non radiating , no other associated symptoms EKG no signs of acute ischemia stable VS patient led back to bed, chest pain improved to 5/10 declined Nitro patient seen resting in bed, comfortable states pain further improved to 1/10, no other associated symptoms Review of Systems 2 Review of Systems: All systems reviewed & are unremarkable except as noted in HPI & below Physical Exam Physical Exam: General- oriented x 2, not in distress, speaks in sentences with no effort or accessory muscle use Eyes- anicteric Neck- no JVD Lungs- clear BS bilaterally no rales/wheezing Heart- normal rate, regular rhythm; no murmurs Abdomen- normal bowel sounds, nondistended, soft, nontender Extremities- no pretibial edema, no calf tenderness Neuro- alert, oriented x 3; no gross focal neurologic deficits Skin- warm & dry Results & Data Vital Signs (Past 12 Hours) Vital Signs Temp Pulse Pulse Pulse Resp BP BP 08/01/18 08:00 77 08/01/18 07:35 37.0 C 71 16 112/63 08/01/18 03:21 36.9 C 77 18 108/63 07/31/18 23:25 80 07/31/18 23:08 37.1 C 74 18 107/64 Pulse Ox 08/01/18 08:00 08/01/18 07:35 95 08/01/18 03:21 93 07/31/18 23:25 07/31/18 23:08 94
[2018-08-01] MEDS: WARFARIN SOD 4 MG TAB PO SCH (16:44)
--- NOTE | 2018-08-01 17:01 | Cardiology Progress Note ---
Date of Service August 01, 2018 Assessment & Plan (1) NSTEMI (non-ST elevated myocardial infarction): PCI of LAD, RCA 5 wih ZENAIDA. Continue aspirin until 08/04/18, then proceed with dual therapy =Plavix +Coumadin. Continue metoprolol succinate, atorvastatin. (2) Atrial fibrillation with RVR: s/p DCCV 07/27. Heparin to coumadin. INR 1.4 today. Cautious dosing given triple therapy, and amiodarone. Coumadin 4 mg todAY. Keep on heparin until INR > or = to 2. Avoid lovenox due to bleeding risk. Rhythm control: Toprol 25 mg, amiodarone 200 TID, discharge on amiodarone 200 mg BID. (3) Hyperthyroidism: Follow-up with endocrinology given recent addition of amiodarone. Repeat TSH as outpt in 6 weeks. (4) Ischemic cardiomyopathy: EF 20-25% Outpatient diuretic therapy: LASIX 80 mg Qam, 40 mg Q pm. Currently on 40 mg daily. (5) Cough: Subjective Patient seen and examined at the bedside. Denies chest pain or shortness of breath. No dysrhythmias on telemetry. Family present at bedside. They offer no additional concerns/complaints at this time. Review of Systems Review of Systems: All systems reviewed & are unremarkable except as noted in HPI & below Physical Exam Physical Exam: General: NAD, AAO x3, chronically ill. HEENT: Normocephalic. Atraumatic. Conjunctiva pink, no scleral icterus. Neck: No carotid bruits, the carotid upstrokes are brisk. No JVD. No HJR Heart: Regular normal S-1 and S-2 no S-3 or S-4 gallop. No murmurs or rub appreciated. PMI is not displaced. No RV heave. Lungs: Clear bilateral without rales , rhonchi, or wheeze. Abdomen: Normal bowel sounds. Soft. Nontender. No masses or organomegaly. No abdominal bruits. Extremities: No clubbing, cyanosis, or edema. Pulses: radial=2/4, Dorsalis pedis =2/4, posterior tibial=2/4. Neuro: Cranial nerves grossly intact. No focal motor deficit. Results & Data Vital Signs (Past 12 Hours) Vital Signs Temp Pulse Pulse Resp BP BP Pulse Ox 08/01/18 16:40 69 125/67 08/01/18 15:02 37.1 C 68 18 125/79 95 08/01/18 12:22 71 18 117/68 96 08/01/18 11:47 36.9 C 74 18 106/63 95 08/01/18 08:00 77 08/01/18 07:35 37.0 C 71 16 112/63 95
[2018-08-01] MEDS ORDERED: PROPYLTHIOURACIL 50 MG TAB PO SCH (21:00)
[2018-08-02 07:01] LABS: Prothrombin Time 19.2 Seconds (9.0-12.0)
[2018-08-02] MEDS: Heparin Adult STANDARD Wt-Based Dextrose 5% 25,000 units/500 mL IV SCH (07:09)
[2018-08-02 07:25] LABS: Partial Thromboplastin Ratio 2.5
[2018-08-02 07:29] LABS: Partial Thromboplastin Time 67.1 Seconds (21.0-31.0)
[2018-08-02] MEDS: CLOPIDOGREL BISULFATE 75 MG TAB PO SCH (08:38)
[2018-08-02] MEDS: PANTOprazole 40 MG TAB PO SCH (08:38)
[2018-08-02] MEDS: ATORVASTATIN 40 MG TAB PO SCH (08:38)
[2018-08-02] MEDS: METOPROLOL SUCC 25MG EXT REL TAB PO SCH (08:38)
[2018-08-02] MEDS: ASPIRIN 81 MG ECTAB PO SCH (08:39)
[2018-08-02] MEDS: FUROSEMIDE 40 MG TAB PO SCH (08:39)
[2018-08-02] MEDS: AMIODARONE 200 MG TAB PO SCH ×3 (08:39→17:49)
[2018-08-02 11:02] LABS: BUN Creatinine Ratio 11.3 (10-20); Calcium 8.6 mg/dl (8.5-10.1); Creatinine Clr Calc Pharmacy 39.7 ml/min; Est GFR (Non-African American) 63.9; Potassium 3.8 mmol/L (3.5-5.1)
[2018-08-02 11:04] LABS: Basophils # (auto) 0.01 K/uL (0-0.2); Basophils % (auto) 0.2 %; Eosinophils # (auto) 0.15 K/uL (0-0.5); Eosinophils % (auto) 2.6 %; Hematocrit (blood only) 34.9 % (37-47); Hemoglobin 11.5 g/dL (12.0-16.0); Immature Granulocytes # (auto) 0.01 K/uL (0.00-0.02); Immature Granulocytes % (auto) 0.2 %; Lymphocytes # (auto) 1.68 K/uL (1.2-3.4); Lymphocytes % (auto) 28.9 %; Mean Corpuscular Volume 91.1 fL (80-100); Mean Platelet Volume 11.8 fL (7.4-10.4); Monocytes # (auto) 0.62 K/uL (0.11-0.59); Monocytes % (auto) 10.7 %; Neutrophils # (auto) 3.34 K/uL (1.4-6.5); Neutrophils % (auto) 57.4 %; Platelet Count 212 K/uL (130-400); RDW Coefficient of Variation 14.5 % (11.5-14.5); Red Blood Count 3.83 M/uL (4.2-5.4); White Blood Count 5.81 K/uL (4.8-10.8)
--- NOTE | 2018-08-02 14:47 | Cardiology Progress Note ---
Date of Service August 02, 2018 Assessment & Plan (1) NSTEMI (non-ST elevated myocardial infarction): PCI of LAD, RCA 07/27 wih ZENAIDA. Continue aspirin until 08/04/18, then proceed with dual therapy =Plavix +Coumadin. Continue metoprolol succinate, atorvastatin. (2) Atrial fibrillation with RVR: s/p DCCV 07/27. Heparin to coumadin. INR 2.0 today. Cautious dosing given triple therapy, and amiodarone. Coumadin 4 mg todAY. Keep on heparin until INR > or = to 2. Avoid lovenox due to bleeding risk. Rhythm control: Toprol 25 mg, amiodarone 200 TID, discharge on amiodarone 200 mg BID. (3) Ischemic cardiomyopathy: EF 20-25% Outpatient diuretic therapy: LASIX 80 mg Qam, 40 mg Q pm. Increase Lasix today to 40 mg twice daily. Repeat basic metabolic panel in a.m. (4) Hyperthyroidism: Follow-up with endocrinology given recent addition of amiodarone. Repeat TSH as outpt in 6 weeks. Subjective Patient seen and examined at the bedside. Feeling well from a cardiovascular perspective. No recurrent atrial fibrillation on telemetry. Denies chest pain or shortness of breath. Renal function remains stable. INR is therapeutic today. Patient offers no complaints. Tolerating diet and medications. Review of Systems Review of Systems: All systems reviewed & are unremarkable except as noted in HPI & below Physical Exam Physical Exam: General: NAD, AAO x3, chronically ill. HEENT: Normocephalic. Atraumatic. Conjunctiva pink, no scleral icterus. Neck: No carotid bruits, the carotid upstrokes are brisk. No JVD. No HJR Heart: Regular normal S-1 and S-2 no S-3 or S-4 gallop. No murmurs or rub appreciated. PMI is not displaced. No RV heave. Lungs: Clear bilateral without rales , rhonchi, or wheeze. Abdomen: Normal bowel sounds. Soft. Nontender. No masses or organomegaly. No abdominal bruits. Extremities: No clubbing, cyanosis, or edema. Pulses: radial=2/4, Dorsalis pedis =2/4, posterior tibial=2/4. Neuro: Cranial nerves grossly intact. No focal motor deficit. Results & Data Vital Signs (Past 12 Hours) Vital Signs Temp Pulse Pulse Pulse Resp BP Pulse Ox 08/02/18 11:05 36.8 C 70 16 117/61 96 08/02/18 08:30 67 08/02/18 06:56 36.7 C 67 16 124/84 92 08/02/18 03:08 36.7 C 67 18 113/55 L 95 Laboratory Results Laboratory Results - last 24 hr 08/02/18 08/02/18 08/02/18 06:22 06:22 06:25 WBC 5.81 RBC 3.83 L Hgb 11.5 L Hct 34.9 L MCV 91.1 MCH 30.0 MCHC 33.0 RDW Std Deviation 49.0 H RDW Coeff of Javi 14.5 Plt Count 212 MPV 11.8 H Immature Gran % (Auto) 0.2 Neut % (Auto) 57.4 Lymph % (Auto) 28.9 [place] % (Auto) 10.7 Eos % (Auto) 2.6 Baso % (Auto) 0.2 Immature Gran # (Auto) 0.01 Neut # (Auto) 3.34 Lymph # (Auto) 1.68 [place] # (Auto) 0.62 H Eos # (Auto) 0.15 Baso # (Auto) 0.01 PT 19.2 H INR 2.0 H APTT 67.1 H* PTT Ratio 2.5 Sodium Potassium Chloride Carbon Dioxide Anion Gap BUN Creatinine Est Cr Clr Drug Dosing Est GFR ( Amer) Est GFR (Non-Af Amer) BUN/Creatinine Ratio Glucose Calcium 08/02/18 06:25 WBC RBC Hgb Hct MCV MCH MCHC RDW Std Deviation RDW Coeff of Javi Plt Count MPV Immature Gran % (Auto) Neut % (Auto) Lymph % (Auto) [place] % (Auto) Eos % (Auto) Baso % (Auto) Immature Gran # (Auto) Neut # (Auto) Lymph # (Auto) [place] # (Auto) Eos # (Auto) Baso # (Auto) PT INR APTT PTT Ratio Sodium 143 Potassium 3.8 Chloride 110 H Carbon Dioxide 25 Anion Gap 7.0 BUN 9 Creatinine 0.82 Est Cr Clr Drug Dosing 39.7 Est GFR ( Amer) 74.0 Est GFR (Non-Af Amer) 63.9 BUN/Creatinine Ratio 11.3 Glucose 80 Calcium 8.6
[2018-08-02] MEDS: WARFARIN SOD 4 MG TAB PO SCH (15:35)
--- NOTE | 2018-08-02 17:10 | Hospitalist Progress Note ---
Date of Service August 02, 2018 Assessment & Plan (1) NSTEMI (non-ST elevated myocardial infarction): 88-year-old female with ischemic cardiomyopathy, chronic systolic congestive heart failure with EF of 15-20%, status post ICD, history of thyrotoxicosis, hyperlipidemia, chronic kidney disease stage III who presented to the hospital with rapid atrial fibrillation and NSTEMI Non-ST segment elevation myocardial infarction -cardiac cath on 07/27/18: Severe two-vessel vessel coronary artery disease; PCI of mid LAD with single drug-eluting stent (2.75 x 23 mm Xience Narda) and PCI of mid RCA with single drug-eluting stent (2.75 x 18 mm Xience Narda). -Received clopidogrel load in the [employer] -continue daily aspirin 81 mg, DC tomorrow, continue clopidogrel 75 mg daily. Continue metoprolol, atorvastatin. Chest pain - likely from hiatal hernia mostly epigastric pain advised small frequent meals continue Protonix patient declining Maalox -Resolved Atrial fibrillation with RVR - was in Atrial fibrillation with RVR on initial hospital presentation and then had direct-current cardioversion earlier prior to cardiac cath with stents on 07/27/18 - STARTED Amiodarone PO -Status post heparin bridge INR 2.0 Continue Coumadin Chronic systolic congestive heart failure with ischemic cardiomyopathy with EF of 15-20% in the past -patient's ejection fraction re-assessed by cardiology after service after cardioversion and then stents x 2 for the NSTEMI with resting echocardiogram as 25 % - Lasix PO increased to 40 mg twice a day History of thyrotoxicosis TSH is high, but free T4 is normal patient did receive amiodarone on this admission prior to the cardioversion, if cardiology decides to use amiodarone group home then thyroid function will have to be monitored very closely -- PTU decreased repeat TFTs in 6 weeks Hyponatremia -serum sodium 130 on initial admission resolved Acute kidney injury on chronic kidney disease stage III -initial admission creatinine of 1.24 -renal function has now returned to baseline by 07/28/18 iron deficiency anemia -Hgb 10.2 on 07/28/18 and within usual baseline hip arthritis and osteoporosis -Continue vitamin D -hold meloxicam. History of hiatal hernia - Continue oral PPI Deep venous thrombosis prophylaxis, on Coumadin Full Code Disposition pending Awaiting repeat PT eval Anticipate discharge to home tomorrow with home health services Subjective Follow-up for Tryel. fib, NSTEMI Seen resting bedside chair, comfortable, nondistressed No recurrence of substernal/epigastric pain States she feels fine overall No new complaints Review of Systems Review of Systems: All systems reviewed & are unremarkable except as noted in HPI & below Physical Exam Physical Exam: General- oriented x 3, not in distress, speaks in sentences with no effort or accessory muscle use Eyes- anicteric Neck- no JVD Lungs- clear BS, no rales, no wheezing bilaterally Heart- normal rate, regular rhythm; no murmurs Abdomen- normal bowel sounds, nondistended, soft, nontender Extremities- no pretibial edema, no calf tenderness Neuro- alert, oriented x 3; no gross focal neurologic deficits Skin- warm & dry Results & Data Vital Signs (Past 12 Hours) Vital Signs Temp Pulse Pulse Resp BP Pulse Ox 08/02/18 15:51 69 08/02/18 15:27 36.7 C 72 20 104/61 93 08/02/18 11:05 36.8 C 70 16 117/61 96 08/02/18 08:30 67 08/02/18 06:56 36.7 C 67 16 124/84 92
[2018-08-03 07:40] LABS: INR 2.8 (0.9-1.1); Partial Thromboplastin Ratio 1.3; Partial Thromboplastin Time 34.5 Seconds (21.0-31.0); Prothrombin Time 27.1 Seconds (9.0-12.0)
[2018-08-03] MEDS: AMIODARONE 200 MG TAB PO SCH ×2 (07:52→12:01)
[2018-08-03] MEDS: ATORVASTATIN 40 MG TAB PO SCH (07:53)
[2018-08-03] MEDS: FUROSEMIDE 40 MG TAB PO SCH (07:53)
[2018-08-03] MEDS: METOPROLOL SUCC 25MG EXT REL TAB PO SCH (07:53)
[2018-08-03] MEDS: CLOPIDOGREL BISULFATE 75 MG TAB PO SCH (07:53)
[2018-08-03] MEDS: PANTOprazole 40 MG TAB PO SCH (07:53)
[2018-08-03] MEDS: ASPIRIN 81 MG ECTAB PO SCH (07:53)
--- NOTE | 2018-08-03 10:23 | Cardiology Progress Note ---
Date of Service August 03, 2018 Assessment & Plan (1) NSTEMI (non-ST elevated myocardial infarction): PCI of LAD, RCA 5/6 wih ZENAIDA. Continue aspirin until 08/04/18, then proceed with dual therapy =Plavix +Coumadin. Continue metoprolol succinate, atorvastatin. Close cardiology follow-up at [facility] in 1 week. (2) Atrial fibrillation with RVR: s/p DCCV 07/27. INR 2.8 Recommend reducing Coumadin to 2 mg daily alternating with 3 mg daily. Close follow-up with the [facility] anticoagulation clinic. Cautious dosing given triple therapy, and amiodarone. Rhythm control: Toprol 25 mg, amiodarone 200 TID, discharge on amiodarone 200 mg BID. (3) Hyperthyroidism: Follow-up with endocrinology given recent addition of amiodarone. Repeat TSH as outpt in 6 weeks. (4) Ischemic cardiomyopathy: EF 20-25% Resume outpatient diuretic therapy: LASIX 80 mg Qam, 40 mg Q pm. Repeat basic metabolic panel in 1 week Subjective Patient seen and examined at the bedside. INR therapeutic today. No recurrent atrial fibrillation on telemetry. Feeling well from a cardiovascular standpoint. Denies chest pain or unusual shortness of breath. Tolerating diuretic therapy. Renal function stable. Patient offers no complaints at this time. Review of Systems Review of Systems: All systems reviewed & are unremarkable except as noted in HPI & below Physical Exam Physical Exam: General: NAD, AAO x3, chronically ill. HEENT: Normocephalic. Atraumatic. Conjunctiva pink, no scleral icterus. Neck: No carotid bruits, the carotid upstrokes are brisk. No JVD. No HJR Heart: Regular normal S-1 and S-2 no S-3 or S-4 gallop. No murmurs or rub appreciated. PMI is not displaced. No RV heave. Lungs: Clear bilateral without rales , rhonchi, or wheeze. Abdomen: Normal bowel sounds. Soft. Nontender. No masses or organomegaly. No abdominal bruits. Extremities: No clubbing, cyanosis, or edema. Pulses: radial=2/4, Dorsalis pedis =2/4, posterior tibial=2/4. Neuro: Cranial nerves grossly intact. No focal motor deficit. Results & Data Vital Signs (Past 12 Hours) Vital Signs Temp Pulse Pulse Resp BP Pulse Ox 08/03/18 07:36 69 08/03/18 07:28 37.1 C 71 16 102/62 91 08/03/18 04:04 36.9 C 69 20 101/61 95 08/02/18 23:51 36.5 C 74 16 122/85 95 Laboratory Results Laboratory Results - last 24 hr 08/02/18 08/02/18 08/03/18 06:25 06:25 07:17 WBC 5.81 RBC 3.83 L Hgb 11.5 L Hct 34.9 L MCV 91.1 MCH 30.0 MCHC 33.0 RDW Std Deviation 49.0 H RDW Coeff of Javi 14.5 Plt Count 212 MPV 11.8 H Immature Gran % (Auto) 0.2 Neut % (Auto) 57.4 Lymph % (Auto) 28.9 [place] % (Auto) 10.7 Eos % (Auto) 2.6 Baso % (Auto) 0.2 Immature Gran # (Auto) 0.01 Neut # (Auto) 3.34 Lymph # (Auto) 1.68 [place] # (Auto) 0.62 H Eos # (Auto) 0.15 Baso # (Auto) 0.01 PT 27.1 H INR 2.8 H APTT 34.5 H PTT Ratio 1.3 Sodium 143 Potassium 3.8 Chloride 110 H Carbon Dioxide 25 Anion Gap 7.0 BUN 9 Creatinine 0.82 Est Cr Clr Drug Dosing 39.7 Est GFR ( Amer) 74.0 Est GFR (Non-Af Amer) 63.9 BUN/Creatinine Ratio 11.3 Glucose 80 Calcium 8.6
--- NOTE | 2018-08-03 10:49 | Hospitalist Progress Note ---
Date of Service August 03, 2018 Assessment & Plan (1) NSTEMI (non-ST elevated myocardial infarction): 88-year-old female with ischemic cardiomyopathy, chronic systolic congestive heart failure with EF of 15-20%, status post ICD, history of thyrotoxicosis, hyperlipidemia, chronic kidney disease stage III who presented to the hospital with rapid atrial fibrillation and NSTEMI Non-ST segment elevation myocardial infarction -cardiac cath on 07/27/18: Severe two-vessel vessel coronary artery disease; PCI of mid LAD with single drug-eluting stent (2.75 x 23 mm Xience Narda) and PCI of mid RCA with single drug-eluting stent (2.75 x 18 mm Xience Narda). - asymptomatic after cath - cardiology recommends: Aspirin until 08/04/18 continue Plavix + Coumadin continue Metoprolol, Atorvastatin ff up with Ruby Developer in 1 week Atrial fibrillation with RVR - was in Atrial fibrillation with RVR on initial hospital presentation and then had direct-current cardioversion earlier prior to cardiac cath with stents on 07/27/18 - started on Amiodarone PO, tolerating well -Status post heparin bridge INR 2.8 on discharge day -- cardiology recommends: Amiodarone 200mg po BID continue Metoprolol continue Coumadin 3mg po daily, repeat INT 08/04, will establish with coumadin clinic Chronic systolic congestive heart failure with ischemic cardiomyopathy with EF of 15-20% in the past -patient's ejection fraction re-assessed by cardiology after service after cardioversion and then stents x 2 for the NSTEMI with resting echocardiogram as 25 % - euvolemic - continue Lasix 80mg po in AM and 40mg po PM will arrange home health [facility] Chest pain - likely from hiatal hernia - developed 08/03/18 mostly epigastric pain advised small frequent meals continue Protonix patient declining Maalox -Resolved monitor as oupatient History of thyrotoxicosis TSH is high, but free T4 is normal patient did receive amiodarone on this admission prior to the cardioversion -- PTU decreased to every other day in light of initiation of Amiodarone repeat TFTs in 6 weeks Hyponatremia - serum sodium 130 on initial admission resolved Acute kidney injury on chronic kidney disease stage III -initial admission creatinine of 1.24 -renal function has now returned to baseline by 07/28/18 iron deficiency anemia -Hgb 10.2 on 07/28/18 and within usual baseline hip arthritis and osteoporosis -Continue vitamin D -hold meloxicam. History of hiatal hernia - Continue oral PPI Deep venous thrombosis prophylaxis, on Coumadin Full Code Disposition d/c home with home health services ff up with PCP Dr Morgan 11:20am 08/06/18 ff up with Cardio BRAYAN Santacruz 300pm 08/12/18 Subjective ff up for nstemi, a fib seen resting in bed, comfortable states she feels fine overall denies chest pain, dizziness, headache, palpitations no bleeding denies other symptoms states she is ready and would like to be discharged Review of Systems Review of Systems: All systems reviewed & are unremarkable except as noted in HPI & below Physical Exam Physical Exam: General- oriented x 3, not in distress, speaks in sentences with no effort or accessory muscle use Eyes- anicteric Neck- no JVD Lungs- clear breath sounds bilaterally no crackles/wheezing Heart- normal rate, regular rhythm; no murmurs Abdomen- normal bowel sounds, nondistended, soft, nontender Extremities- no pretibial edema, no calf tenderness Neuro- alert, oriented x 3; no gross focal neurologic deficits Skin- warm & dry Results & Data Vital Signs (Past 12 Hours) Vital Signs Temp Pulse Pulse Resp BP Pulse Ox 08/03/18 07:36 69 08/03/18 07:28 37.1 C 71 16 102/62 91 08/03/18 04:04 36.9 C 69 20 101/61 95 08/02/18 23:51 36.5 C 74 16 122/85 95 Laboratory Results Laboratory Results - last 24 hr 08/02/18 08/02/18 08/03/18 06:25 06:25 07:17 WBC 5.81 RBC 3.83 L Hgb 11.5 L Hct 34.9 L MCV 91.1 MCH 30.0 MCHC 33.0 RDW Std Deviation 49.0 H RDW Coeff of Javi 14.5 Plt Count 212 MPV 11.8 H Immature Gran % (Auto) 0.2 Neut % (Auto) 57.4 Lymph % (Auto) 28.9 Schley % (Auto) 10.7 Eos % (Auto) 2.6 Baso % (Auto) 0.2 Immature Gran # (Auto) 0.01 Neut # (Auto) 3.34 Lymph # (Auto) 1.68 Schley # (Auto) 0.62 H Eos # (Auto) 0.15 Baso # (Auto) 0.01 PT 27.1 H INR 2.8 H APTT 34.5 H PTT Ratio 1.3 Sodium 143 Potassium 3.8 Chloride 110 H Carbon Dioxide 25 Anion Gap 7.0 BUN 9 Creatinine 0.82 Est Cr Clr Drug Dosing 39.7 Est GFR ( Amer) 74.0 Est GFR (Non-Af Amer) 63.9 BUN/Creatinine Ratio 11.3 Glucose 80 Calcium 8.6
--- NOTE | 2018-08-03 18:54 | Discharge Summary ---
Date of Service August 03, 2018 Admission HPI Per Admitting Provider DATE OF ADMISSION: 07/27/2018 CHIEF COMPLAINT: Nausea, sweating, shortness of breath and chest pressure and found to be in rapid AFib. HISTORY OF PRESENT ILLNESS: This is an 88-year-old female with past medical history significant for thyrotoxicosis with diffuse goiter, hyperlipidemia, hiatal hernia, chronic systolic CHF with EF of 15-20%, status post ICD, ischemic cardiomyopathy, CAD, GERD, vitamin B12 deficiency, chronic kidney disease stage III, hip arthritis, senile osteoporosis, iron deficiency anemia, who lives with her son, woke up around 1:00 a.m. with sweating, short of breath and chest pressure, nausea and she was brought into the ER, found to be in rapid AFib, was given a few doses of IV Lopressor. The patient became hypotensive. With the fluid boluses, the blood pressure did not come up. Cardiology recommended amiodarone drip. She was started on amiodarone drip, heart rate was still in the 110's. Cardiology came and talked to the family, checked the ICD and cardioverted the patient. Then patient rhythm changed to junctional rhythm. Her EKG showed some lateral T-wave inversions. The patient was given Versed during the procedure, initially somewhat drowsy, but later was more alert and awake. ICU team also placed right IJ line and the left upper extremity A-line and she was also started on Levophed drip, which improved her blood pressure. Currently, the patient is alert and awake. Denies any chest pain or shortness of breath. No nausea, no abdominal pain, no blurred vision, no headaches. As per son, apparently, the patient was doing fine until this happened. She was eating and drinking fine. No recent cough or fevers. ALLERGIES: No known drug allergies. PAST MEDICAL HISTORY: As mentioned above. PAST SURGICAL HISTORY: Tonsillectomy, EGDs. MEDICATIONS: The patient is on Lasix 80 mg in the a.m., 40 mg in p.m., and additional 40 mg in the afternoon as needed, meloxicam 7.5 mg p.o. daily as needed for pain, propylthiouracil 50 mg 1 tablet daily, spironolactone 37.5 mg p.o. daily, vitamin D 1000 units p.o. daily, Toprol-XL 25 mg p.o. daily, omeprazole 40 mg p.o. daily, aspirin low-dose 81 mg p.o. daily, atorvastatin 80 mg p.o. daily, nitroglycerin 0.4 mg sublingual p.r.n., Tylenol extra strength as needed, vitamin B12 1000 mcg daily, Ocuvite 1 tablet daily. FAMILY HISTORY: Significant for: Mother had diabetes and high cholesterol. SOCIAL HISTORY: , currently lives with her son. No smoking history. No alcohol history. No drug use history. REVIEW OF SYMPTOMS: As per HPI. Admission Exam Per Admitting Provider PHYSICAL EXAMINATION: GENERAL: The patient is old and frail, not in acute distress currently. VITAL SIGNS: Temperature 36.9, pulse when she came in was in 160s, currently in 60s. Respiratory rate 17. Blood pressure when she came in was 85/64, it dropped into the 50/44, currently 90/68. Oxygen 97% on 2 liters. HEENT: Atraumatic. NECK: No neck masses seen. CARDIOVASCULAR: S1, S2 heard. Currently regular rhythm. No murmur appreciated. RESPIRATORY SYSTEM: Normal AP diameter. No accessory muscle use. No wheezing, no crackles. ABDOMEN: Soft, bowel sounds present. Nontender. No distention. CENTRAL NERVOUS SYSTEM: Alert and awake and oriented x3. Nonfocal. EXTREMITIES: No edema, no erythema. Principal Diagnosis Non-ST elevation myocardial infarction, status post cardiac cath and stent placement, new onset atrial fibrillation in RVR Discharge Exam General- oriented x 3, not in distress, speaks in sentences with no effort or accessory muscle use Eyes- anicteric Neck- no JVD Lungs- clear breath sounds bilaterally no crackles/wheezing Heart- normal rate, regular rhythm; no murmurs Abdomen- normal bowel sounds, nondistended, soft, nontender Extremities- no pretibial edema, no calf tenderness Neuro- alert, oriented x 3; no gross focal neurologic deficits Skin- warm & dry Discharge Data Allergies Allergy/AdvReac Type Severity Reaction Status Date / Time perflutren Allergy Mild ANAPHYLAXIS Unverified 07/27/18 03:20 propylene glycol Allergy Mild ANAPHYLAXIS Unverified 07/27/18 03:20 oxycodone AdvReac Unknown vomiting Verified 07/27/18 03:20 Consultations 07/27/18 04:17 ED Decision to Admit Stat 07/27/18 07:34 Consult Cardiology Routine Consult Case Management - Discharge Planning Routine Consult Rug Shampooer Routine Procedures Performed Operation Date: 07/27/18 08:00 Actual Procedures p Cath, Left with Cors and Vent - David Castillo MD s Cineradiography w/Routine Exam - David Castillo MD s Drug Eluting Stent SGl Vessel - David Castillo MD s Drug Eluting Stent each ADDTL Vessel - David Castillo MD Ordered Studies 07/27/18 04:41 US point of care ultrasound Urgent 07/27/18 08:25 CL Cath Imgs for PACS use only Routine Hospital Course (1) NSTEMI (non-ST elevated myocardial infarction): 88-year-old female with ischemic cardiomyopathy, chronic systolic congestive heart failure with EF of 15-20%, status post ICD, history of thyrotoxicosis, hyperlipidemia, chronic kidney disease stage III who presented to the hospital with rapid atrial fibrillation and NSTEMI Non-ST segment elevation myocardial infarction -cardiac cath on 07/27/18: Severe two-vessel vessel coronary artery disease; PCI of mid LAD with single drug-eluting stent (2.75 x 23 mm Xience Narda) and PCI of mid RCA with single drug-eluting stent (2.75 x 18 mm Xience Narda). -Patient gradually improved, stable overall after cardiac cath - cardiology recommends: Aspirin until 08/04/18, then stop continue Plavix + Coumadin continue Metoprolol, Atorvastatin ff up ff up with Child Psychometrist BRAYAN Buckley 300pm 08/12/18 Atrial fibrillation with RVR - was in Atrial fibrillation with RVR on initial hospital presentation and then had direct-current cardioversion earlier prior to cardiac cath with stents on 07/27/18 - started on Amiodarone PO, tolerating well -Status post heparin bridge with Coumadin INR 2.8 on discharge day -- cardiology recommends: Amiodarone 200mg po BID continue usual metoprolol continue Coumadin 3mg po daily, repeat INR on 08/04 care of home health services, called Coumadin clinic, they will coordinate with [facility] services regarding INR results and will Dose the Coumadin accordingly and we will call the patient for advice and follow-up Chronic systolic congestive heart failure with ischemic cardiomyopathy with EF of 15-20% in the past -patient's ejection fraction re-assessed by cardiology after service after cardioversion and then stents x 2 for the NSTEMI with resting echocardiogram as 25 % - euvolemic - continue Lasix 80mg po in AM and 40mg po PM Arranged home health [facility] patient Chest pain - likely from hiatal hernia - developed 08/03/18 mostly epigastric pain advised small frequent meals continue Protonix patient declining Maalox -Resolved monitor as outpatient History of thyrotoxicosis TSH is high, but free T4 is normal Patient started on amiodarone for A. fib with RVR --Per cardiology service recommendations, PTU decreased to every other day in light of initiation of Amiodarone repeat TFTs in 6 weeks Hyponatremia - serum sodium 130 on initial admission resolved Acute kidney injury on chronic kidney disease stage III -initial admission creatinine of 1.24 -renal function has now returned to baseline by 07/28/18 Repeat basic metabolic profile to monitor renal function on follow-up with PCP iron deficiency anemia -Hgb 10.2 on 07/28/18 and within usual baseline hip arthritis and osteoporosis -Continue vitamin D -hold meloxicam. History of hiatal hernia - Continue oral PPI Disposition d/c home with home health services ff up with PCP Dr Morgan 11:20am 08/06/18 ff up with Cardio PA Gem Buckley 300pm 08/12/18 Total Time Total Time Spent Total Time Spent (In Minutes): 50 minutes Discharge Plan Discharge Items Patient Disposition: Home - Home Health Services Reason For Visit: TACHYCARDIA Discharge Diagnosis: NON ST ELEVATION MYOCARDIAL INFARCTION, ATRIAL FIBRILLATION Discharge Goals: Diagnostic testing and Therapeutic intervention Activity: As commented below Activity Comment: RESUME ACTIVITY GRADUALLY TOLERATED Lifting: Wait until after follow-up appointment Exercise/Sports: Wait until after follow-up appointment Driving/Machine Use Comment: NO DRIVING Non-emergency contact: Primary Care Provider and Child Psychometrist Call non-emergency contact if: you have any medication questions and you have a fever Follow-up/Referrals: Bryan Morgan MD [Primary Care Provider] - 08/06/18 11:20 am Diet: Heart Healthy Addtl Provider Instructions: FOLLOW UP WITH [facility] WITH LUIS BUCKLEY AT [facility] ON AUGUST 12, 2018Friday AT 3PM. THEIR OFFICE NUMBER IS . BLOOD WORK FOR INR TOMORROW 08/04/18 TO BE DONE BY THE HOME HEALTH NURSE. THEN, THE [facility] WILL CALL YOU SOON TO ADVISE YOU REGARDING COUMADIN DOSE. IF YOU HAVE ANY HEAD TRAUMA, PROCEED TO THE ER IMMEDIATELY FOR EVALUATION. TAKE ASPIRIN UNTIL TOMORROW 08/04/18, THEN STOP TAKING THE ASPIRIN. CALL YOUR PRIMARY CARE PHYSICIAN IF YOU HAVE ANY QUESTIONS REGARDING YOUR MEDICATIONS. Call your Primary Care doctor if any of the following symptoms or problems start or get worse: Shortness of breath or difficulty breathing Wake up at night short of breath Chest pain Cough Swelling of your hands, feet, or legs More fatigued or tired with your normal activity Palpitations - sudden fast heart beats WEIGHT Weigh yourself every morning after using the bathroom. Use the same scale. Wear the same amount of clothing. Write your weight down on a chart. Call your Primary Care doctor if you gain more than 2-3 pounds in 1-2 days. MEDICATIONS Use this discharge instruction sheet for medication instructions. Take your medications at the time your doctor ordered. Do not skip a dose of your medicines. If you miss a dose of medicine, take it as soon as possible, but DO NOT DOUBLE A DOSE. Read your medicine information when you get home. Know all of the side effects of your medicine. If in doubt, ask your pharmacist Call your Primary Care doctor's office if you have any side effects. Be sure all of your doctors know what medicine and herbs you take (including cold, flu, and herbal medicine). Take the following with you to your follow-up doctor appointments: Weight Chart Medication List List of questions Do not drink excessive alcohol, beer or wine. . Who to Call and When: Call 911 or go to the Emergency Room if: If at any time you feel your situation is an emergency You have tightness or pain in your chest that does not go away with rest or Nitroglycerin You are very short of breath even with rest . Prescriptions: New clopidogrel 75 mg Tablet 75 mg PO QAM 30 Days Qty: 30 RF: 2 warfarin [Coumadin] 1 mg tablet 3 mg PO DAILY Qty: 90 RF: 1 propylthiouracil 50 mg Tablet 50 mg PO Q48H 30 Days Qty: 15 RF: 0 amiodarone 200 mg Tablet 200 mg PO BID 30 Days Qty: 60 RF: 2 Continued furosemide 40 mg tablet 80 mg PO QAM RF: 0 furosemide 40 mg tablet 40 mg PO . Q AFTERNOON PRN (Reason: Unknown) RF: 0 furosemide 40 mg tablet 40 mg PO QPM RF: 0 atorvastatin 80 mg tablet 80 mg PO DAILY RF: 0 cyanocobalamin (vitamin B-12) [Vitamin B-12] 1,000 mcg Tablet 1,000 mcg PO DAILY RF: 0 omeprazole 40 mg capsule,delayed release(DR/EC) 40 mg PO DAILY RF: 0 spironolactone 25 mg tablet 12.5 mg PO DAILY RF: 0 nitroglycerin [Nitrostat] 0.4 mg Tablet, Sublingual 0.4 mg sublingual UD PRN (Reason: Chest Pain) RF: 0 metoprolol succinate 25 mg tablet extended release 24 hr 25 mg PO DAILY RF: 0 cholecalciferol (vitamin D3) [Vitamin D3] 1,000 unit Capsule 1,000 unit PO DAILY RF: 0 Ocuvite [facility] 50 mg-15 unit- 4.5 mg-2.5 mg Tablet,Chewable 1 tab PO DAILY RF: 0 aspirin 81 mg Tablet,Delayed Release (Dr/Ec) 81 mg PO DAILY 1 Days Qty: 0 RF: 0 Discontinued propylthiouracil 50 mg tablet 50 mg PO DAILY RF: 0 meloxicam 7.5 mg Tablet 7.5 mg PO DAILY PRN (Reason: Pain) RF: 0 Stand-Alone Forms: [facility] Discharge Orders: Discharge Order (Routine); Ordered 08/03/18 Ordered By: Tim Rodriguez Admission Data Admit Date/Time: 07/27/18 06:09 Attending Provider: Tim Rodriguez Admit Provider: Raheem Andersen Primary Care Provider: Bryan Morgan. Other Providers: Raheem Andersen ; Martinez Chacon ; Duran Hubbard ; Enrrique Matthews ; Carloz Hollingsworth ; Jose García ; Braden Hogue ; Yumiko Buckley ; Leticia Sepulveda ; Douglas Haas ; Eddie Barcenas Service: Telemetry Other Interventions: Discharge Summary Assessment (RN) Last Done: 08/03/18 12:34 DC Date/Time DO NOT enter until pt leaves facility: 08/03/18 13:21
== END 2018-08-03 13:21 | disposition home health service (06) | DRG 247 ==
LOC: ED 02:10 → 1E 06:09 → SUATTDRO 06:09 → 1E 06:36 → 2W 07-28 09:24 → 2S 07-28 11:06

== ENCOUNTER 2019-09-20 20:39 | Inpatient (IN) ==
[2019-09-20 21:29] LABS: Basophils # (auto) 0.01 K/uL (0-0.2); Basophils % (auto) 0.1 %; Eosinophils # (auto) 0.17 K/uL (0-0.5); Eosinophils % (auto) 2.1 %; Hemoglobin 12.5 g/dL (12.0-16.0); Immature Granulocytes # (auto) 0.02 K/uL (0.00-0.02); Immature Granulocytes % (auto) 0.2 %; Lymphocytes # (auto) 1.67 K/uL (1.2-3.4); Lymphocytes % (auto) 20.6 %; Mean Corpuscular Hemoglobin 30.6 pg (25-34); Mean Corpuscular Hgb Conc 32.1 g/dL (32-36); Mean Corpuscular Volume 95.6 fL (80-100); Mean Platelet Volume 11.3 fL (7.4-10.4); Monocytes # (auto) 0.54 K/uL (0.11-0.59); Monocytes % (auto) 6.7 %; Neutrophils # (auto) 5.71 K/uL (1.4-6.5); Neutrophils % (auto) 70.3 %; Platelet Count 280 K/uL (130-400); RDW Coefficient of Variation 14.5 % (11.5-14.5); RDW Standard Deviation 50.8 fL (36.4-46.3); Red Blood Count 4.08 M/uL (4.2-5.4); White Blood Count 8.12 K/uL (4.8-10.8)
[2019-09-20 21:38] LABS: Albumin Level 3.7 gm/dl (3.4-5.0); BUN Creatinine Ratio 12.6 (10-20); Calcium 9.4 mg/dl (8.5-10.1); Creatinine Clr Calc Pharmacy 18.7 ml/min; Est GFR (African American) 32.8; Est GFR (Non-African American) 28.3; Potassium 3.6 mmol/L (3.5-5.1)
[2019-09-20 21:41] LABS: Albumin Globulin Ratio 0.8 (0.9-2); Bilirubin,Total 0.6 mg/dl (0.2-1); Globulin 4.6 gm/dl (2.5-4.0); Total Protein 8.3 gm/dl (6.4-8.2)
[2019-09-20 22:29] LABS: INR 4.1 (0.9-1.1); Partial Thromboplastin Ratio 2.1; Prothrombin Time 40.2 Seconds (9.0-12.0)
[2019-09-20 22:32] LABS: Partial Thromboplastin Time 58.7 Seconds (21.0-31.0)
--- NOTE | 2019-09-20 23:27 | Emergency Department Note ---
History of Present Illness General Chief complaint: Back Injury/Pain Stated complaint: BACK PAIN History of Present Illness Maximum Pain Intensity: 8 This 89-year-old presents to the ER complaining of severe back pain Location: Mid to low back Quality: Severe Severity: Severe Duration: Past few days Timing: Started a few days ago Context: Symptoms persisted and patient came in Modifying factors: better with rest; worse with activity Patient tried Tylenol with no relief of symptoms. EMS gave fentanyl which helped. Patient denies chest pain, dyspnea, fevers, numbness, tingling, trauma. Home Medications Home Medications Medication Instructions Recorded Confirmed Type ARtunes Radio Eye [facility] 1 tab PO QAM 07/27/18 09/20/19 History cholecalciferol (vitamin D3) 1,000 unit PO QAM 07/27/18 09/20/19 History [Vitamin D3] cyanocobalamin (vitamin B-12) 1,000 mcg PO QAM 07/27/18 09/20/19 History [Vitamin B-12] furosemide [Lasix] 40 mg PO QAM 07/27/18 09/20/19 History metoprolol succinate [Toprol XL] 25 mg PO QAM 07/27/18 09/20/19 History nitroglycerin [Nitrostat] 0.4 mg SUBLINGUAL UD PRN 07/27/18 09/20/19 History spironolactone [Aldactone] 12.5 mg PO QAM 07/27/18 09/20/19 History amiodarone [Pacerone] 100 mg PO QAM 08/03/19 09/20/19 History clopidogrel [Plavix] 75 mg PO QAM 08/03/19 09/20/19 History levothyroxine [Synthroid] 50 mcg PO QAM 08/03/19 09/20/19 History midodrine 2.5 mg PO TID 08/03/19 09/20/19 History pantoprazole [Protonix] 40 mg PO QAM 08/03/19 09/20/19 History acetaminophen [Tylenol Extra 500 mg PO Q6H PRN #50 tab 08/08/19 09/20/19 Rx Strength] docusate sodium [Colace] 100 mg PO BID PRN 09/20/19 09/20/19 History warfarin [Coumadin] 2 mg PO 6XWK 09/20/19 09/20/19 History Allergies Allergy/AdvReac Type Severity Reaction Status Date / Time perflutren Allergy Mild ANAPHYLAXIS Unverified 09/20/19 21:11 propylene glycol Allergy Mild ANAPHYLAXIS Unverified 09/20/19 21:11 tramadol AdvReac Severe "Violently Unverified 09/20/19 21:11 Ill" oxycodone AdvReac Unknown vomiting Verified 09/20/19 21:11 Past Med/Surg History Medical History GERD (gastroesophageal reflux disease) Hyperthyroidism Ischemic cardiomyopathy "EF 30-35%" On 01/30/17 19:23 Arlin Doyle wrote "EF 25%" Vitamin D deficiency Surgical History AICD (automatic cardioverter/defibrillator) present H/O varicose vein stripping History of tonsillectomy and adenoidectomy Social History Preferred Language: Palauan Communication Ability: Effective Third Rigger Required: No Beliefs That Will Affect Care: None marital status: / Current Living Situation: Family Current Living Situation Comment: Lives with son Feels Safe at Home: Yes Smoking Status: Never smoker Second Hand Exposure: No ; Hx Alcohol Use: No Hx Substance Use: No Review of Systems A total of 10 systems reviewed and were otherwise negative Physical Exam Vital Signs Vital Signs - 24 hr 09/20/19 20:46 09/20/19 20:53 09/20/19 22:01 Temperature 36.7 C Temperature Source Oral Pulse Rate 60 Pulse Rate [Apical] 61 Respiratory Rate 18 13 Respiratory Effort / Characteristics Non-Labored Respiratory Depth Normal Normal Blood Pressure 161/74 H Blood Pressure [Right Arm] 139/83 Blood Pressure Mean 103 Blood Pressure Mean [Right Arm] 101 Pulse Oximetry 93 93 97 Oxygen Delivery Method Room Air Room Air Room Air Sepsis Recent Fever Within 48 Hours No Sepsis New/Unexplained Change in Mental Status No Sepsis Action Taken by Nursing No Action Required 09/20/19 22:55 Temperature Temperature Source Pulse Rate Pulse Rate [Apical] 65 Respiratory Rate 22 Respiratory Effort / Characteristics Respiratory Depth Normal Blood Pressure Blood Pressure [Right Arm] 134/62 Blood Pressure Mean Blood Pressure Mean [Right Arm] 86 Pulse Oximetry 93 Oxygen Delivery Method Room Air Sepsis Recent Fever Within 48 Hours Sepsis New/Unexplained Change in Mental Status Sepsis Action Taken by Nursing VITALS: Vitals are noted on the nurse's note and reviewed by myself. Vital signs stable. GENERAL: Pleasant female who appears in pain, in no acute distress, nondiaphoretic, well-developed well-nourished. SKIN: Capillary reflex less than 2 seconds. HEENT: Normocephalic. PERRLA. EOMI. Nares patent. Mucous membranes moist. Neck is supple without nuchal rigidity. HEART: Regular rate and rhythm LUNGS: Clear to auscultation bilaterally without wheezes, rales or rhonchi. No retractions or accessory muscle use. ABDOMEN: Positive bowel sounds x 4. Normal tympanic percussion. Soft, nontender, without masses or organomegaly. Madden sign negative. No guarding or rebound tenderness. Back: Mid to low backfiller to palpation easily reproducing symptoms. Negative straight leg raise. MUSCULOSKELETAL: No gross musculoskeletal defects. NEURO: Patient was alert and oriented to person place and time. Normal sensation to light and sharp touch. No focal neurological deficits. Medical Decision Making Medical Records Attestation: I reviewed the patient's medical records. Home Medications Current Medication List: was personally reviewed by me Laboratory Data Attestation: I reviewed the patient's lab results. Result diagrams: 09/20/19 20:05 09/20/19 20:05 Lab Results 09/20/19 09/20/19 09/20/19 Range/Units 20:05 20:05 20:05 WBC 8.12 (4.8-10.8) K/uL RBC 4.08 L (4.2-5.4) M/uL Hgb 12.5 (12.0-16.0) g/dL Hct 39.0 (37-47) % MCV 95.6 (80-100) fL MCH 30.6 (25-34) pg MCHC 32.1 (32-36) g/dL RDW Std Deviation 50.8 H (36.4-46.3) fL RDW Coeff of Javi 14.5 (11.5-14.5) % Plt Count 280 (130-400) K/uL MPV 11.3 H (7.4-10.4) fL Immature Gran % (Auto) 0.2 % Neut % (Auto) 70.3 % Lymph % (Auto) 20.6 % Arroyo % (Auto) 6.7 % Eos % (Auto) 2.1 % Baso % (Auto) 0.1 % Neut # (Auto) 5.71 (1.4-6.5) K/uL Lymph # (Auto) 1.67 (1.2-3.4) K/uL Arroyo # (Auto) 0.54 (0.11-0.59) K/uL Eos # (Auto) 0.17 (0-0.5) K/uL Baso # (Auto) 0.01 (0-0.2) K/uL Immature Gran # (Auto) 0.02 (0.00-0.02) K/uL PT 40.2 H (9.0-12.0) Seconds INR 4.1 H (0.9-1.1) APTT 58.7 H* (21.0-31.0) Seconds PTT Ratio 2.1 Sodium 138 (136-145) mmol/L Potassium 3.6 (3.5-5.1) mmol/L Chloride 102 (98-107) mmol/L Carbon Dioxide 27 (21-32) mmol/L Anion Gap 8.0 (3-11) BUN 20 H (7-18) mg/dl Creatinine 1.60 H (0.6-1.2) mg/dl Est Cr Clr Drug Dosing 18.7 ml/min Est GFR ( Amer) 32.8 Est GFR (Non-Af Amer) 28.3 BUN/Creatinine Ratio 12.6 (10-20) Glucose 141 H (70-99) mg/dl Calcium 9.4 (8.5-10.1) mg/dl Total Bilirubin 0.6 (0.2-1) mg/dl AST 16 (15-37) U/L ALT 14 (12-78) U/L Alkaline Phosphatase 115 (45-117) U/L Total Protein 8.3 H (6.4-8.2) gm/dl Albumin 3.7 (3.4-5.0) gm/dl Globulin 4.6 H (2.5-4.0) gm/dl Albumin/Globulin Ratio 0.8 L (0.9-2) Imaging Data Attestation: I personally reviewed and interpreted this imaging study as follows: Blood Pressure Blood Pressure Findings: Normal blood pressure MDM Narrative Prior records/ancillary studies reviewed. Triage Nursing notes reviewed. Additional history obtained from family. The patient's history was concerning for back pain. Differential diagnosis: Etiologies such as musculoskeletal, disc herniation, fracture, aortic disease, metastatic disease, cord compression, discitis, infection, renal colic, gastrointestinal, acute exacerbation of chronic back pain, sciatica, cauda equina, as well as others were entertained. Physical findings: As above. No focal neurologic findings noted. ER treatment provided: Patient received fentanyl from EMS On reassessment the patient felt better. Diagnostics interpreted by me: The labs revealed stable H&H, supratherapeutic INR Imaging studies: CT L SPINE: There is an acute appearing 40-50% compression fracture of L1 with no posterior protrusion of fracture fragments. This appears acute. Chronic appearing superior endplate compression fractures of L3 and L4 of 30- 50%. Diffuse osteopenia and mild to moderate multilevel osteophytosis and facet arthrosis throughout the lumbar spine. No subluxation is seen. There is mild to 3 mm posterior disc bulge at L4-5 with mild spinal stenosis measuring 9.5 mm and mild bilateral neural foraminal narrowing. At L5-S1 the thecal sac is within normal limits. There is moderate right and mild left neural foraminal narrowing due to facet degeneration and 2 mm disc bulge. The aorta is mildly calcified but nondilated. There is a small amount of sludge in the dependent portion of the gallbladder. Soft tissues are otherwise unremarkable. Radiologist: Lionel Orozco MD CT T SPINE: There is diffuse osteopenia. There is a 9.2 cm hiatal hernia. There is a 70% anterior wedge compression fracture of T11 which may be either acute or chronic. There is a 50% inferior endplate compression fracture of T12 which appears acute. There is a 50% superior and inferior endplate compression fracture of L1 which appears acute. No posterior protrusion of fracture fragments is seen. No spinal stenosis is identified. Mild multilevel degenerative disc disease and facet arthrosis is seen throughout the remaining thoracic spine. No other acute fractures are identified. Radiologist: Lionel Orozco MD Consultation: A consultation was placed with Dr Andersen. The case was discussed and diagnostics were reviewed. Patient will be evaluated for admission. This appears to be consistent with new compression fractures with severe pain. Patient will be evaluated by medicine.. Patient had no deficits. She was afebrile nontoxic. By the evaluation outlined above emergent etiologies such as aortic disease, metastatic disease, infection, renal colic, gastrointestinal, cord compression, cauda equina, as well as others were deemed relatively unlikely. The pt informed about the findings as listed above. All questions were answered and pleased with the treatment. The chart was completed utilizing [employer] voice recognition software. Grammatical errors, random word insertions, pronoun errors, and incomplete sentences are an occassional consequence of this system due to software limitations, ambient noise, and hardware issues. Any formal questions or concerns about the content, text, or information contained within the body of this dictation should be directly addressed to the physician assistant director of residence life for clarification. Impression & Plan Compression fracture, Back pain, Supratherapeutic INR Discharge Plan Visit Data Chief Complaint: Back Injury/Pain Stated Complaint: BACK PAIN ED Provider: Rogelio Peck ED Midlevel Provider: Ev Wall Discharge Problem: Compression fracture, Back pain, Supratherapeutic INR Patient Disposition: Being Evaluated by Hospitalist Condition: Fair Forms Stand Alone Forms: [facility] Prescriptions Prescriptions: No Action amiodarone [Pacerone] 200 mg tablet 100 mg PO QAM RF: 0 clopidogrel [Plavix] 75 mg tablet 75 mg PO QAM RF: 0 levothyroxine [Synthroid] 50 mcg tablet 50 mcg PO QAM RF: 0 midodrine 2.5 mg tablet 2.5 mg PO TID RF: 0 pantoprazole [Protonix] 40 mg tablet,delayed release (DR/EC) 40 mg PO QAM RF: 0 acetaminophen [Tylenol Extra Strength] 500 mg Tablet 500 mg PO Q6H PRN (Reason: Pain) Qty: 50 RF: 0 docusate sodium [Colace] 100 mg capsule 100 mg PO BID PRN (Reason: Constipation) RF: 0 warfarin [Coumadin] 1 mg tablet 2 mg PO 6XWK RF: 0 furosemide [Lasix] 40 mg tablet 40 mg PO QAM RF: 0 cyanocobalamin (vitamin B-12) [Vitamin B-12] 1,000 mcg Tablet 1,000 mcg PO QAM RF: 0 spironolactone [Aldactone] 25 mg tablet 12.5 mg PO QAM RF: 0 nitroglycerin [Nitrostat] 0.4 mg Tablet, Sublingual 0.4 mg sublingual UD PRN (Reason: Chest Pain) RF: 0 metoprolol succinate [Toprol XL] 25 mg tablet extended release 24 hr 25 mg PO QAM RF: 0 cholecalciferol (vitamin D3) [Vitamin D3] 1,000 unit Capsule 1,000 unit PO QAM RF: 0 Ocuvite [facility] 50 mg-15 unit- 4.5 mg-2.5 mg Tablet,Chewable 1 tab PO QAM RF: 0 Referrals Referrals: Bryan Morgan MD [Primary Care Provider] -
--- NOTE | 2019-09-21 01:38 | History and Physical Report ---
DATE OF ADMISSION: 09/21/2019 CHIEF COMPLAINT: Severe back pain, ambulatory dysfunction. HISTORY OF PRESENT ILLNESS: This is an 89-year-old female with past medical history significant for thyrotoxicosis, hyperlipidemia, chronic systolic congestive heart failure, status post ICD, CAD status post stent, vitamin B12 deficiency, paroxysmal atrial fibrillation, GERD, chronic kidney disease stage IV, arthritis, senile osteoporosis, iron deficiency anemia. Currently son lives with her up to the midnight. She walks with the help of walker at home. Presents with severe back pain. The patient says the pain started about 3 days ago and it got progressively worse and she is not able to ambulate today, that is the reason she came to the ER. Denies any bowel or bladder incontinence. No blood in stool or black stools, no hematuria, no burning micturition. Denies any chest pain or shortness of breath. No cough, no loss of sense of smell or taste. No headache, no blurred vision, no earache, no runny nose, no sore throat, no dysphagia. Appetite is okay. Currently resting comfortably and hemodynamically stable. Imaging studies done in the ER showed multiple compression fractures of the spine. The patient was recently in July in the hospital with significant back pain at that time. She was discharged with home PT. ALLERGIES: PERFLUTREN, PROPYLENE GLYCOL, TRAMADOL, OXYCODONE. PAST MEDICAL HISTORY: As mentioned above. PAST SURGICAL HISTORY: Cardiac catheterization, EGD, left varicose vein stripping, placement of ICD, tonsillectomy, adenoidectomy. MEDICATIONS: The patient is on midodrine 2.5 mg p.o. t.i.d., Plavix 75 mg p.o. daily, Toprol-XL 25 mg p.o. daily, levothyroxine 250 mg p.o. daily, amiodarone 100 mg p.o. daily, Protonix 40 mg p.o. daily, Lasix 40 mg p.o. daily, spironolactone 12.5 mg p.o. daily, nitroglycerin 0.4 mg sublingual p.r.n., Coumadin currently taking 2 mg, vitamin D 10,000 units p.o. daily, Tylenol Extra Strength 500 mg as needed, vitamin B12 1000 mcg p.o. daily, Ocuvite 1 tablet p.o. daily. FAMILY HISTORY: Significant for mother has diabetes and hypercholesterolemia. SOCIAL HISTORY: No smoking, no alcohol, no drug use. Currently son is living with her. REVIEW OF SYSTEMS: As per HPI. Rest of review of systems negative. PHYSICAL EXAMINATION: GENERAL: The patient is old and frail, not in acute distress. VITAL SIGNS: Temperature 36.7, pulse 65, respiratory rate 22, blood pressure 134/62, oxygen 93% on room air. HEENT: No pallor, no icterus. Pupils are equal, round, reactive to light. NECK: No JVD, no masses. CARDIOVASCULAR: S1, S2 heard. Regular rate and rhythm, no murmur, no gallop. RESPIRATORY SYSTEM: Normal AP diameter. No accessory muscle use. No wheezing, no crackles. ABDOMEN: Soft, bowel sounds present, nontender. No distention. CENTRAL NERVOUS SYSTEM: Cranial nerves II-XII grossly intact, nonfocal. Obeys simple commands. Moves extremities. EXTREMITIES: No edema, no erythema. MUSCULOSKELETAL: Lumbar spinal tenderness present on palpation. LABORATORY DATA: WBC is 8.1, hemoglobin 12.5, hematocrit 39, platelets 280. PT 14.2, INR 4.1, APTT 58.7. Sodium 138, potassium 3.6, chloride 102, bicarbonate 27, BUN 20, creatinine 1.6, serum glucose 141, calcium 9.4, total bilirubin 0.6, AST 16, ALT 14, alkaline phosphatase 115. IMAGING DATA: Lumbar spine CT, preliminary report shows acute appearing 40% to 50% compression fracture of L1 with no posterior protrusion of fracture fragments, this appears acute. Thoracic spine CT, diffuse osteopenia, 9.2 cm hiatal hernia, 70% anterior wedge compression fracture of T11, which may be either acute or chronic. There is 50%, inferior endplate compression fracture of T12, which appears acute. A 50% superior and inferior compression fracture at L1 which appears acute. ASSESSMENT AND PLAN: This is an 89-year-old female who presents with back pain and ambulatory dysfunction. 1. Back pain and ambulatory dysfunction, mostly secondary to compression fractures. She has a history of chronic compression fractures, but the lumbar spine CT and thoracic spine CT preliminary report shows acute compression fractures of L1, also T11 and T12. We will admit to medical floor. We will consult orthopedics in a.m. The patient is allergic to tramadol and oxycodone. We will try to control pain with Tylenol for now and see how she does. Monitor on the medical floor. PT and OT when stable and social service to help with discharge planning. 2. Chronic kidney disease stage IV. Baseline creatinine around 1.8, currently creatinine 1.6. We will monitor. 3. Chronic systolic heart failure, EF of 20% in 2006, in February 2019 EF was 38% status post ICD. Continue home Toprol-XL and Lasix. Currently stable. 4. Paroxysmal atrial fibrillation, currently on amiodarone 100 mg p.o. daily and Toprol-XL. On Coumadin. INR supratherapeutic at 4. We will hold the Coumadin. Follow the PT/INR. 5. Hypertension. Continue home medications. We will monitor the blood pressure. 6. History of coronary artery disease status post PCI, on Plavix and beta kyaw. 7. Hypothyroidism, on Synthroid. 8. Chronic normocytic anemia. Hemoglobin is stable. 9. Deep venous thrombosis prophylaxis, INR supratherapeutic. DISPOSITION: Admit to medical floor. PT and OT prior to discharge. Social service to help with discharge planning. Code status, full code if there is a chance of recovery as per my discussion with the patient. MTDD
[2019-09-21] MEDS ORDERED: ONDANSETRON INJ 2 MG/ML 2 ML VIAL IV PRN (02:07)
[2019-09-21] MEDS ORDERED: POLYETHYLENE (MIRALAX) 17 GM PACK PO PRN (02:07)
[2019-09-21] MEDS ORDERED: NITROGLYCERIN SL 0.4 MG/TAB TAB SL PRN (02:07)
[2019-09-21] MEDS: ACETAMINOPHEN 325 MG TAB PO PRN ×4 (02:30→20:46)
[2019-09-21] MEDS: MIDODRINE HCL 2.5 MG TAB PO SCH ×3 (06:16→16:13)
[2019-09-21] MEDS: LEVOTHYROXINE SODIUM 50 MCG TABLET PO SCH (06:16)
[2019-09-21 06:54] LABS: Appearance Urine Clear (Clear); Bacteria Urine Automated Negative (Negative); Bilirubin Urine Negative (Negative); Blood Urine Negative (Negative); Color Urine Yellow; Glucose Urine UA Negative (Negative); Ketones Urine Negative (Negative); Leukocyte Esterase Urine Trace (Negative); Nitrite Urine Negative (Negative); Protein Urine Negative (Negative); RBC Urine Automated 0-4 /hpf (0-4); Specific Gravity Urine 1.022 (1.000-1.030); Urobilinogen Urine Negative (Negative)
[2019-09-21 06:57] LABS: INR 4.3 (0.9-1.1); Prothrombin Time 41.5 Seconds (9.0-12.0)
--- NOTE | 2019-09-21 07:49 | CT Scan Report ---
CT OF THE THORACIC SPINE CLINICAL HISTORY: Thoracic pain. COMPARISON STUDY: Thoracic spine CT November 08, 2010. CT of the abdomen and pelvis August 03, 2019. TECHNIQUE: Helical axial images of the thoracic spine were obtained. Sagittal and coronal reconstru ctions were viewed. Automated exposure control was utilized for the study. A dose lowering techniqu e was utilized adhering to the principles of ALARA. FINDINGS: A large hiatal hernia is incidentally noted. Mild compression fractures of the superior end plates of T2 and T3 are noted. These are age-indeterminate but new since CT of November 08, 2010. There is an old severe T11 compression fracture which is similar to abdominal CT of August 03, 2019. A modera te T12 compression fracture is noted. Vertebral body height loss has increased since CT of August 02 20. There is mild central canal narrowing at the T11-T12 level, predominantly due to exaggerated kyph osis with minimal retropulsion. A moderate L1 compression fracture with 50% loss of vertebral body he ight is new since CT of August 03, 2019. There is slight loss of the superior plate of T10 which is age indeterminate. No suspicious osseous lesions are noted. IMPRESSION: 1. Moderate L1 compression fracture, likely acute. This is new since abdominal CT of August 03, 2019. 2. Moderate T12 compression fracture with interval increase in vertebral body height loss since CT of August 03, 2019. No change in a severe T11 compression fracture which is chronic. 3. Mild age indeterminate compression fractures of T2, T3 and T10. 4. Mild central canal narrowing at T11-T12, predominantly due to exaggerated kyphosis and mild retrop ulsion. The findings will be called/faxed to the ordering provider at time of dictation. ACT 112: Negative or not required by law. Electronically signed by: Chaka Garza M.D. 09/21/2019 7:48 AM
--- NOTE | 2019-09-21 07:57 | CT Scan Report ---
CT OF THE LUMBAR SPINE CLINICAL HISTORY: Back pain. COMPARISON STUDY: Lumbar spine CT November 08, 2010. CT of the abdomen and pelvis August 03, 2019. TECHNIQUE: Helical axial images of the lumbar spine were obtained. Sagittal and coronal reconstruct ions were viewed. Automated exposure control was utilized for the study. A dose lowering technique was utilized adhering to the principles of ALARA. FINDINGS: Note is made of a moderate L1 compression fracture which is new since CT of August 03, 2019. T here is 50% loss of vertebral body height. T12 fracture is better depicted on the CT of the thoracic spine. L3 and L4 compression fractures are unchanged. These are chronic. Slight concavity of the infe rior plate of L2 is also chronic. No additional acute fractures are noted. There is severe multilevel facet arthrosis. Central canal neural foramen are suboptimally assessed by CT. Sacral joints are int act. No suspicious osseous lesions are noted. IMPRESSION: 1. Moderate L1 compression fracture which is likely acute. 2. Old L3 and L4 compression fractures. ACT 112: Negative or not required by law. Electronically signed by: Chaka Garza M.D. 09/21/2019 7:55 AM
[2019-09-21] MEDS: AMIODARONE 200 MG TAB PO SCH (09:06)
[2019-09-21] MEDS: SPIRONOLACTONE 12.5 MG TAB PO SCH (09:07)
[2019-09-21] MEDS: PANTOprazole 40 MG TAB PO SCH (09:07)
[2019-09-21] MEDS: METOPROLOL SUCC 25MG EXT REL TAB PO SCH (09:08)
[2019-09-21] MEDS: CHOLECALCIFEROL 1,000 UNITS 25 MCG TAB PO SCH (09:08)
[2019-09-21] MEDS: FUROSEMIDE 40 MG TAB PO SCH (09:08)
[2019-09-21] MEDS: CYANOCOBALAMIN 500 MCG TABLET (VITAMIN B-12) PO SCH (09:09)
[2019-09-21] MEDS: CEROVITE ADV FORMULA TAB PO SCH (09:09)
[2019-09-21] MEDS: CLOPIDOGREL BISULFATE 75 MG TAB PO SCH (09:09)
--- NOTE | 2019-09-21 14:08 | Orthopedic Consultation ---
Date of Consultation September 21, 2019 Assessment & Plan (1) Compression fracture: Assessment multiple compression fractures across the thoracolumbar junction. CAT scans demonstrate various levels of healing. Is difficult to assess which ones are acute. Unfortunately an MRI is not possible. Nevertheless at her age would like to approach this nonoperatively. I will order a TLSO brace to be worn when out of bed and we can begin therapy once this is available. Present on Admission?: Yes History of Present Illness Reason for Consultation: Back pain Attending Physician: Cy Hassan MD History of Present Illness This is an 89-year-old female that is complaining of some thoracolumbar back pain. She states she had an episode approximately 3 to 4 weeks ago but was steadily improving. Unfortunately she has had a marked decline over the past few days requiring hospitalization. She denies any precipitating trauma fall or event. She denies any numbness or tingling in the lower extremities or lower extremity pain or weakness. She does not have a brace. She is unable to obtain MRI secondary to a pacemaker. Allergies Allergy/AdvReac Type Severity Reaction Status Date / Time perflutren Allergy Mild ANAPHYLAXIS Unverified 09/20/19 21:11 propylene glycol Allergy Mild ANAPHYLAXIS Unverified 09/20/19 21:11 tramadol AdvReac Severe "Violently Unverified 09/20/19 21:11 Ill" oxycodone AdvReac Unknown vomiting Verified 09/20/19 21:11 Home Medications Home Medications Medication Instructions Recorded Confirmed Type [facility] 1 tab PO QAM 07/27/18 09/20/19 History cholecalciferol (vitamin D3) 1,000 unit PO QAM 07/27/18 09/20/19 History [Vitamin D3] cyanocobalamin (vitamin B-12) 1,000 mcg PO QAM 07/27/18 09/20/19 History [Vitamin B-12] furosemide [Lasix] 40 mg PO QAM 07/27/18 09/20/19 History metoprolol succinate [Toprol XL] 25 mg PO QAM 07/27/18 09/20/19 History nitroglycerin [Nitrostat] 0.4 mg SUBLINGUAL UD PRN 07/27/18 09/20/19 History spironolactone [Aldactone] 12.5 mg PO QAM 07/27/18 09/20/19 History amiodarone [Pacerone] 100 mg PO QAM 08/03/19 09/20/19 History clopidogrel [Plavix] 75 mg PO QAM 08/03/19 09/20/19 History levothyroxine [Synthroid] 50 mcg PO QAM 08/03/19 09/20/19 History midodrine 2.5 mg PO TID 08/03/19 09/20/19 History pantoprazole [Protonix] 40 mg PO QAM 08/03/19 09/20/19 History acetaminophen [Tylenol Extra 500 mg PO Q6H PRN #50 tab 08/08/19 09/20/19 Rx Strength] docusate sodium [Colace] 100 mg PO BID PRN 09/20/19 09/20/19 History warfarin [Coumadin] 2 mg PO [id number] 09/20/19 09/20/19 History Patient History Medical History GERD (gastroesophageal reflux disease) Hyperthyroidism Ischemic cardiomyopathy "EF 30-35%" On 01/30/17 19:23 Arlin Doyle wrote "EF 25%" Vitamin D deficiency Surgical History AICD (automatic cardioverter/defibrillator) present H/O varicose vein stripping History of tonsillectomy and adenoidectomy Social History Preferred Language: German Communication Ability: Effective [place] Required: No Beliefs That Will Affect Care: None marital status: / Current Living Situation: Alone Current Living Situation Comment: Son stays every night Other Information That Helps Us Care for You: No Feels Safe at Home: Yes Safety Concerns: Feels Safe At This Time Smoking Status: Never smoker Do You Dip or Chew Tobacco: No ; Second Hand Exposure: No ; Tobacco Cessation Education Requested by Patient: No Hx Alcohol Use: No Hx Substance Use: No Physical Exam Physical Exam: On exam she is comfortable in bed. She exhibits reasonable strength testing of bilateral extremities. Sensory symmetric and intact. Results & Data ([facility]) Vital Signs (Past 12 Hours) Vital Signs Temp Pulse Resp BP Pulse Ox 09/21/19 07:00 36.9 C 60 18 106/51 L 95 09/21/19 02:08 36.8 C 16 118/69 94
--- NOTE | 2019-09-21 17:38 | Communication Note ---
Date of Service: September 21, 2019 Admitted early this morning with severe back pain. CT demonstrated moderate L1 compression fracture that appeared to be acute. Ortho Spine consulted; back brace recommended. Rechecked this afternoon. Still having significant pain. Intolerant of most analgesics; prefers to use acetaminophen. PT / OT evals once back brace available. Continue analgesics. May need skilled care. INR 4.3. Recheck tomorrow. Recent serum creatinine 1.5 - 1.8, compared to baseline of 0.8 - 0.9 last year. Total protein / globulin levels elevated. Alb/glob level low. Consider multiple myeloma. Check SPEP and UPEP.
[2019-09-22] MEDS: LEVOTHYROXINE SODIUM 50 MCG TABLET PO SCH (05:58)
[2019-09-22 06:46] LABS: BUN Creatinine Ratio 13.5 (10-20); Calcium 9.6 mg/dl (8.5-10.1); Creatinine Clr Calc Pharmacy 20.1 ml/min; Est GFR (African American) 37.2; Est GFR (Non-African American) 32.1; Potassium 3.9 mmol/L (3.5-5.1)
[2019-09-22 06:55] LABS: INR 4.2 (0.9-1.1); Prothrombin Time 40.8 Seconds (9.0-12.0)
[2019-09-22] MEDS: MIDODRINE HCL 2.5 MG TAB PO SCH ×3 (07:10→15:27)
[2019-09-22] MEDS: ACETAMINOPHEN 325 MG TAB PO PRN ×3 (08:54→20:53)
[2019-09-22] MEDS: METOPROLOL SUCC 25MG EXT REL TAB PO SCH (08:55)
[2019-09-22] MEDS: FUROSEMIDE 40 MG TAB PO SCH (08:55)
[2019-09-22] MEDS: CEROVITE ADV FORMULA TAB PO SCH (08:55)
[2019-09-22] MEDS: CLOPIDOGREL BISULFATE 75 MG TAB PO SCH (08:55)
[2019-09-22] MEDS: SPIRONOLACTONE 12.5 MG TAB PO SCH (08:55)
[2019-09-22] MEDS: CYANOCOBALAMIN 500 MCG TABLET (VITAMIN B-12) PO SCH (08:56)
[2019-09-22] MEDS: AMIODARONE 200 MG TAB PO SCH (08:56)
[2019-09-22] MEDS: PANTOprazole 40 MG TAB PO SCH (08:56)
[2019-09-22] MEDS: CHOLECALCIFEROL 1,000 UNITS 25 MCG TAB PO SCH (08:56)
[2019-09-22] MEDS: DOCUSATE SODIUM 100 MG CAP PO PRN (13:23)
--- NOTE | 2019-09-22 20:18 | Hospitalist Progress Note ---
Date of Service September 22, 2019 Assessment & Plan (1) Compression fracture: (2) Back pain: Present on admission with back pain CT Lumbar spine showed Moderate L1 compression fracture which is likely acute. Thoracic spine CT showed moderate L1 compression fracture, likely acute. Moderate T12 compression fracture with interval increase in vertebral body height loss since CT of August 03, 2019. No change in a severe T11 compression fracture which is chronic. Orthopedic on board recommended non operative approach Recommended TLSO brace to be worn when out of bed and we can begin therapy once this is available. Pain is control Continue monitor PT/OT eval Chronic kidney disease stage IV. Baseline creatinine around 1.8, Currently creatinine 1.4 today Stable Chronic systolic heart failure, S/P ICD Last ECHO on 2018 with EF 38% Continue home Toprol-XL and Lasix. Stable. Paroxysmal atrial fibrillation Rate control Continue amiodarone 100 mg p.o. daily and Toprol-XL. Coumadin on hold due to elevate INR INR 4.2 today Continue monitor PT/INR Hypertension BP stable Continue home medications. Supratherapeutic INR INR 4.2 today Will hold coumadin Continue monitor PT/INR History of coronary artery disease S/P PCI Continue Plavix and beta kyaw Asymptomatic Stable Hypothyroidism on Synthroid. Deep venous thrombosis prophylaxis Coumadin on hold due to INR 4.2 CODE STATUS FULL CODE Admission and Anticipated Discharge Date Admission Date: September 21, 2019 Subjective Pt was seen and examined Lying in bed with no distress Pt said that she does not have any pain now while lying down She said that the back brace does not fit her well because the brace reaches to her neck denies any chest pain, palpitation, dizziness and SOB Physical Exam Physical Exam: General- No acute distress Head- atraumatic Eyes- PERRL, EOMI, ENT- oropharynx clear Neck- supple, no JVD Lungs- clear to auscultation Heart- regular rhythm Abdomen- normal bowel sounds, soft, nontender Extremities- no calf tenderness Neuro- alert, oriented x 3; PERRL, EOMI; no facial palsy; no dysarthria Skin- warm & dry Results & Data Results & Data ([facility]) Vital Signs (Past 12 Hours) Vital Signs Temp Pulse Resp BP Pulse Ox 09/22/19 14:59 37.1 C 62 17 116/68 93
[2019-09-23] MEDS: MIDODRINE HCL 2.5 MG TAB PO SCH ×3 (05:30→17:07)
[2019-09-23] MEDS: LEVOTHYROXINE SODIUM 50 MCG TABLET PO SCH (05:30)
[2019-09-23 06:00] LABS: INR 3.6 (0.9-1.1); Prothrombin Time 35.2 Seconds (9.0-12.0)
[2019-09-23] MEDS: ACETAMINOPHEN 325 MG TAB PO PRN ×4 (07:57→23:35)
[2019-09-23] MEDS: SPIRONOLACTONE 12.5 MG TAB PO SCH (09:25)
[2019-09-23] MEDS: METOPROLOL SUCC 25MG EXT REL TAB PO SCH (09:25)
[2019-09-23] MEDS: CYANOCOBALAMIN 500 MCG TABLET (VITAMIN B-12) PO SCH (09:26)
[2019-09-23] MEDS: CLOPIDOGREL BISULFATE 75 MG TAB PO SCH (09:26)
[2019-09-23] MEDS: FUROSEMIDE 40 MG TAB PO SCH (09:26)
[2019-09-23] MEDS: CEROVITE ADV FORMULA TAB PO SCH (09:26)
[2019-09-23] MEDS: AMIODARONE 200 MG TAB PO SCH (09:26)
[2019-09-23] MEDS: CHOLECALCIFEROL 1,000 UNITS 25 MCG TAB PO SCH (09:27)
[2019-09-23] MEDS: PANTOprazole 40 MG TAB PO SCH (09:27)
[2019-09-23 18:34] LABS: Albumin 3.4 g/dL (3.8-4.8); Alpha 1 Globulin 0.4 g/dL (0.2-0.3); Alpha 2 Globulin 1.1 g/dL (0.5-0.9); Beta-1-Globulin 0.5 g/dL (0.4-0.6); Beta-2-Globulin 0.4 g/dL (0.2-0.5); Gamma Globulin 0.8 g/dL (0.8-1.7); Monoclonal Protein Band 1 DNR g/dL (NONE DETECTED); Monoclonal Protein Band 2 DNR g/dL (NONE DETECTED); Monoclonal Protein Band 3 DNR g/dL (NONE DETECTED); Total Protein 6.6 g/dL (6.1-8.1)
--- NOTE | 2019-09-23 18:53 | Hospitalist Progress Note ---
Date of Service September 23, 2019 Assessment & Plan (1) Compression fracture: (2) Back pain: Present on admission with back pain CT Lumbar spine showed Moderate L1 compression fracture which is likely acute. Thoracic spine CT showed moderate L1 compression fracture, likely acute. Moderate T12 compression fracture with interval increase in vertebral body height loss since CT of August 03, 2019. No change in a severe T11 compression fracture which is chronic. Orthopedic on board recommended non operative approach Recommended TLSO brace to be worn when out of bed and we can begin therapy once this is available. Orthotic will adjust the brace for her so that she can wear it and start therapy Pain is control Continue monitor PT/OT eval Chronic kidney disease stage IV. Baseline creatinine around 1.8, Currently creatinine 1.4 Stable Chronic systolic heart failure, S/P ICD Last ECHO on 2018 with EF 38% Continue home Toprol-XL and Lasix. Stable. Paroxysmal atrial fibrillation Rate control Continue amiodarone 100 mg p.o. daily and Toprol-XL. Coumadin on hold due to elevate INR INR 3.6 today Will resume coumadin today Continue monitor PT/INR Hypertension BP stable Continue home medications. Supratherapeutic INR INR 3.6 today Will give coumadin 1 mg today Continue monitor PT/INR History of coronary artery disease S/P PCI Continue Plavix and beta kyaw Asymptomatic Stable Hypothyroidism on Synthroid. Deep venous thrombosis prophylaxis INR 3.6 On coumadin CODE STATUS FULL CODE Admission and Anticipated Discharge Date Admission Date: September 21, 2019 Subjective Pt was seen and examined Sitting in chair with no distress Pt said that her pain is like a 5 out 10 She said that orthotic came and took the brace to adjust it Denies any chest pain, palpitation, dizziness and SOB Physical Exam Physical Exam: General- No acute distress Head- atraumatic Eyes- PERRL, EOMI, ENT- oropharynx clear Neck- supple, no JVD Lungs- clear to auscultation Heart- regular rhythm Abdomen- normal bowel sounds, soft, nontender Extremities- no calf tenderness Neuro- alert, oriented x 3; PERRL, EOMI; no facial palsy; no dysarthria Skin- warm & dry Results & Data Results & Data ([facility]) Vital Signs (Past 12 Hours) Vital Signs Temp Pulse Resp BP BP Pulse Ox 09/23/19 15:28 36.7 C 61 17 127/71 94 09/23/19 08:06 36.4 C L 61 18 107/69 92
[2019-09-23] MEDS ORDERED: WARFARIN SOD 1 MG TAB PO ONE (19:15)
[2019-09-24] MEDS: ACETAMINOPHEN 325 MG TAB PO PRN ×4 (05:46→20:01)
[2019-09-24] MEDS: MIDODRINE HCL 2.5 MG TAB PO SCH ×3 (05:46→15:53)
[2019-09-24] MEDS: LEVOTHYROXINE SODIUM 50 MCG TABLET PO SCH (05:46)
[2019-09-24 07:06] LABS: INR 2.6 (0.9-1.1); Prothrombin Time 26.2 Seconds (9.0-12.0)
[2019-09-24] MEDS: CLOPIDOGREL BISULFATE 75 MG TAB PO SCH (08:47)
[2019-09-24] MEDS: PANTOprazole 40 MG TAB PO SCH (08:47)
[2019-09-24] MEDS: METOPROLOL SUCC 25MG EXT REL TAB PO SCH (08:48)
[2019-09-24] MEDS: CEROVITE ADV FORMULA TAB PO SCH (08:48)
[2019-09-24] MEDS: FUROSEMIDE 40 MG TAB PO SCH (08:48)
[2019-09-24] MEDS: CHOLECALCIFEROL 1,000 UNITS 25 MCG TAB PO SCH (08:48)
[2019-09-24] MEDS: AMIODARONE 200 MG TAB PO SCH (08:48)
[2019-09-24] MEDS: SPIRONOLACTONE 12.5 MG TAB PO SCH (08:49)
[2019-09-24] MEDS: CYANOCOBALAMIN 500 MCG TABLET (VITAMIN B-12) PO SCH (08:49)
[2019-09-24] MEDS: WARFARIN SOD 2 MG TAB PO SCH (15:53)
--- NOTE | 2019-09-24 18:14 | Hospitalist Progress Note ---
Date of Service September 24, 2019 Assessment & Plan (1) Compression fracture: (2) Back pain: Present on admission with back pain CT Lumbar spine showed Moderate L1 compression fracture which is likely acute. Thoracic spine CT showed moderate L1 compression fracture, likely acute. Moderate T12 compression fracture with interval increase in vertebral body height loss since CT of August 03, 2019. No change in a severe T11 compression fracture which is chronic. Orthopedic on board recommended non operative approach Recommended TLSO brace to be worn when out of bed and we can begin therapy once this is available. Orthotic will adjust the brace for her so that she can wear it and start therapy Pain is control Continue monitor PT/OT recommended inpatient rehab Plan to go to [facility] on Friday if there is a bed available Chronic kidney disease stage IV. Baseline creatinine around 1.8, Currently creatinine 1.4 Stable Chronic systolic heart failure, S/P ICD Last ECHO on 2018 with EF 38% Continue home Toprol-XL and Lasix. Stable. Paroxysmal atrial fibrillation Rate control Continue amiodarone 100 mg p.o. daily and Toprol-XL. Coumadin on hold due to elevate INR INR 2.6 today Continue coumadin Continue monitor PT/INR Hypertension BP stable Continue home medications. Supratherapeutic INR INR 2.6 today Continue coumadin 2mg Continue monitor PT/INR History of coronary artery disease S/P PCI Continue Plavix and beta kyaw Asymptomatic Stable Hypothyroidism on Synthroid. Deep venous thrombosis prophylaxis INR 2.6 On coumadin CODE STATUS FULL CODE Disposition Waiting for placement to rehab Admission and Anticipated Discharge Date Admission Date: September 21, 2019 Subjective Pt was seen and examined Lying in bed with no distress Pt said that she feels ok as long as she does not move much She said that the brace fits perfect well Denies any chest pain, palpitation, dizziness and SOB Physical Exam Physical Exam: General- No acute distress Head- atraumatic Eyes- PERRL, EOMI, ENT- oropharynx clear Neck- supple, no JVD Lungs- clear to auscultation Heart- regular rhythm Abdomen- normal bowel sounds, soft, nontender Extremities- no calf tenderness Neuro- alert, oriented x 3; PERRL, EOMI; no facial palsy; no dysarthria Skin- warm & dry Results & Data Results & Data ([facility]) Vital Signs (Past 12 Hours) Vital Signs Temp Pulse Resp BP Pulse Ox 09/24/19 15:42 36.6 C 68 16 107/65 95 09/24/19 07:23 36.6 C 58 L 18 107/51 L 95
[2019-09-25] MEDS: ACETAMINOPHEN 325 MG TAB PO PRN ×5 (02:22→20:54)
[2019-09-25] MEDS: LEVOTHYROXINE SODIUM 50 MCG TABLET PO SCH (05:34)
[2019-09-25] MEDS: MIDODRINE HCL 2.5 MG TAB PO SCH ×3 (06:10→16:48)
[2019-09-25 06:37] LABS: INR 2.5 (0.9-1.1); Prothrombin Time 25.4 Seconds (9.0-12.0)
[2019-09-25] MEDS: SPIRONOLACTONE 12.5 MG TAB PO SCH (07:46)
[2019-09-25] MEDS: FUROSEMIDE 40 MG TAB PO SCH (07:46)
[2019-09-25] MEDS: CYANOCOBALAMIN 500 MCG TABLET (VITAMIN B-12) PO SCH (07:47)
[2019-09-25] MEDS: AMIODARONE 200 MG TAB PO SCH (07:47)
[2019-09-25] MEDS: CLOPIDOGREL BISULFATE 75 MG TAB PO SCH (07:47)
[2019-09-25] MEDS: CEROVITE ADV FORMULA TAB PO SCH (07:48)
[2019-09-25] MEDS: METOPROLOL SUCC 25MG EXT REL TAB PO SCH (07:48)
[2019-09-25] MEDS: CHOLECALCIFEROL 1,000 UNITS 25 MCG TAB PO SCH (07:48)
[2019-09-25] MEDS: PANTOprazole 40 MG TAB PO SCH (07:49)
[2019-09-25] MEDS: WARFARIN SOD 2 MG TAB PO SCH (16:47)
[2019-09-25] MEDS: DOCUSATE SODIUM 100 MG CAP PO PRN (17:06)
--- NOTE | 2019-09-25 17:52 | Hospitalist Progress Note ---
Date of Service September 25, 2019 Assessment & Plan (1) Compression fracture: (2) Back pain: Present on admission with back pain CT Lumbar spine showed Moderate L1 compression fracture which is likely acute. Thoracic spine CT showed moderate L1 compression fracture, likely acute. Moderate T12 compression fracture with interval increase in vertebral body height loss since CT of August 03, 2019. No change in a severe T11 compression fracture which is chronic. Orthopedic on board recommended non operative approach Recommended TLSO brace to be worn when out of bed and we can begin therapy once this is available. Orthotic will adjust the brace for her so that she can wear it and start therapy Pain is control Continue monitor PT/OT recommended inpatient rehab Plan to go to [facility] on Friday if there is a bed available Chronic kidney disease stage IV. Baseline creatinine around 1.8, Currently creatinine 1.4 Stable Chronic systolic heart failure, S/P ICD Last ECHO on 2018 with EF 38% Continue home Toprol-XL and Lasix. Stable. Paroxysmal atrial fibrillation Rate control Continue amiodarone 100 mg p.o. daily and Toprol-XL. Coumadin on hold due to elevate INR INR 2.5 today Continue coumadin Continue monitor PT/INR Hypertension BP stable Continue home medications. Supratherapeutic INR INR 2.5 today Continue coumadin 2mg Continue monitor PT/INR History of coronary artery disease S/P PCI Continue Plavix and beta kyaw Asymptomatic Stable Hypothyroidism on Synthroid. Deep venous thrombosis prophylaxis INR 2.5 On coumadin CODE STATUS FULL CODE Disposition Waiting for placement to rehab Admission and Anticipated Discharge Date Admission Date: September 21, 2019 Subjective Pt was seen and examined Sitting in chair with no distress She said that her pain is control denies any chest pain, palpitation, dizziness and SOB Physical Exam Physical Exam: General- No acute distress Head- atraumatic Eyes- PERRL, EOMI, ENT- oropharynx clear Neck- supple, no JVD Lungs- clear to auscultation Heart- regular rhythm Abdomen- normal bowel sounds, soft, nontender Extremities- no calf tenderness Neuro- alert, oriented x 3; PERRL, EOMI; no facial palsy; no dysarthria Skin- warm & dry Results & Data Results & Data ([facility]) Vital Signs (Past 12 Hours) Vital Signs Temp Pulse Resp BP Pulse Ox 09/25/19 14:59 36.9 C 72 18 113/65 92 09/25/19 07:25 37.0 C 75 18 122/75 93
[2019-09-26] MEDS: MIDODRINE HCL 2.5 MG TAB PO SCH ×3 (05:29→16:17)
[2019-09-26] MEDS: LEVOTHYROXINE SODIUM 50 MCG TABLET PO SCH (05:30)
[2019-09-26] MEDS: ACETAMINOPHEN 325 MG TAB PO PRN ×4 (06:09→22:47)
[2019-09-26 06:47] LABS: INR 2.7 (0.9-1.1); Prothrombin Time 27.3 Seconds (9.0-12.0)
[2019-09-26] MEDS: CLOPIDOGREL BISULFATE 75 MG TAB PO SCH (08:10)
[2019-09-26] MEDS: CYANOCOBALAMIN 500 MCG TABLET (VITAMIN B-12) PO SCH (08:10)
[2019-09-26] MEDS: CEROVITE ADV FORMULA TAB PO SCH (08:10)
[2019-09-26] MEDS: METOPROLOL SUCC 25MG EXT REL TAB PO SCH (08:10)
[2019-09-26] MEDS: SPIRONOLACTONE 12.5 MG TAB PO SCH (08:10)
[2019-09-26] MEDS: AMIODARONE 200 MG TAB PO SCH (08:10)
[2019-09-26] MEDS: CHOLECALCIFEROL 1,000 UNITS 25 MCG TAB PO SCH (08:11)
[2019-09-26] MEDS: FUROSEMIDE 40 MG TAB PO SCH (08:11)
[2019-09-26] MEDS: PANTOprazole 40 MG TAB PO SCH (08:11)
[2019-09-26] MEDS: WARFARIN SOD 2 MG TAB PO SCH (16:17)
--- NOTE | 2019-09-26 17:50 | Hospitalist Progress Note ---
Date of Service September 26, 2019 Assessment & Plan (1) Compression fracture: (2) Back pain: Present on admission with back pain CT Lumbar spine showed Moderate L1 compression fracture which is likely acute. Thoracic spine CT showed moderate L1 compression fracture, likely acute. Moderate T12 compression fracture with interval increase in vertebral body height loss since CT of August 03, 2019. No change in a severe T11 compression fracture which is chronic. Orthopedic on board recommended non operative approach Recommended TLSO brace to be worn when out of bed and we can begin therapy once this is available. Orthotic will adjust the brace for her so that she can wear it and start therapy Pain is control Continue monitor PT/OT recommended inpatient rehab Plan to go to [facility] on Friday if there is a bed available Chronic kidney disease stage IV. Baseline creatinine around 1.8, Currently creatinine 1.4 Stable Chronic systolic heart failure, S/P ICD Last ECHO on 2018 with EF 38% Continue home Toprol-XL and Lasix. Stable. Paroxysmal atrial fibrillation Rate control Continue amiodarone 100 mg p.o. daily and Toprol-XL. Coumadin on hold due to elevate INR INR 2.7 today Continue coumadin Continue monitor PT/INR Hypertension BP stable Continue home medications. Supratherapeutic INR INR 2.7 today Continue coumadin 2mg Continue monitor PT/INR History of coronary artery disease S/P PCI Continue Plavix and beta kyaw Asymptomatic Stable Hypothyroidism on Synthroid. Deep venous thrombosis prophylaxis INR 2.7 On coumadin CODE STATUS FULL CODE Disposition Waiting for placement to rehab COVID 19 screening negative Admission and Anticipated Discharge Date Admission Date: September 21, 2019 Subjective Pt was seen and examined Sitting in chair with no distress watching TV Pt said that she does feels a little tender in her back Denies any chest pain, palpitation, dizziness and SOB Physical Exam Physical Exam: General- No acute distress Head- atraumatic Eyes- PERRL, EOMI, ENT- oropharynx clear Neck- supple, no JVD Lungs- clear to auscultation Heart- regular rhythm Abdomen- normal bowel sounds, soft, nontender Extremities- no calf tenderness Neuro- alert, oriented x 3; PERRL, EOMI; no facial palsy; no dysarthria Skin- warm & dry Results & Data Results & Data ([facility]) Vital Signs (Past 12 Hours) Vital Signs Temp Pulse Resp BP BP Pulse Ox 09/26/19 14:53 36.8 C 69 16 103/71 95 09/26/19 08:39 36.7 C 69 18 143/77 H 94
[2019-09-26] MEDS: LIDOCAINE 5% 1 PATCH TD SCH (18:30)
[2019-09-27] MEDS: MIDODRINE HCL 2.5 MG TAB PO SCH ×3 (04:48→16:39)
[2019-09-27] MEDS: LEVOTHYROXINE SODIUM 50 MCG TABLET PO SCH (04:48)
[2019-09-27] MEDS: LIDOCAINE 5% 1 PATCH TD SCH (08:47)
[2019-09-27] MEDS: CEROVITE ADV FORMULA TAB PO SCH (08:48)
[2019-09-27] MEDS: PANTOprazole 40 MG TAB PO SCH (08:48)
[2019-09-27] MEDS: FUROSEMIDE 40 MG TAB PO SCH (08:48)
[2019-09-27] MEDS: CHOLECALCIFEROL 1,000 UNITS 25 MCG TAB PO SCH (08:48)
[2019-09-27] MEDS: CYANOCOBALAMIN 500 MCG TABLET (VITAMIN B-12) PO SCH (08:49)
[2019-09-27] MEDS: AMIODARONE 200 MG TAB PO SCH (08:49)
[2019-09-27] MEDS: CLOPIDOGREL BISULFATE 75 MG TAB PO SCH (08:49)
[2019-09-27] MEDS: SPIRONOLACTONE 12.5 MG TAB PO SCH (08:50)
[2019-09-27] MEDS: METOPROLOL SUCC 25MG EXT REL TAB PO SCH (08:50)
[2019-09-27 10:14] LABS: Creatinine Ur 96 mg/dL (20-275); Protein, Urine Random 13 mg/dL (5-24); Ur Protein/Creat Ratio mg/g 135 mg/g creat (21-161); Urine Abnormal Protein Band 1 DNR mg/dL (NONE DETECTED); Urine Abnormal Protein Band 2 DNR mg/dL (NONE DETECTED); Urine Abnormal Protein Band 3 DNR mg/dL (NONE DETECTED); Urine Protein/Creatinine Ratio 0.135 (0.021-0.161)
[2019-09-27] MEDS: ACETAMINOPHEN 325 MG TAB PO PRN (15:41)
[2019-09-27] MEDS ORDERED: BACLOFEN 10 MG TAB PO PRN (16:24)
--- NOTE | 2019-09-27 16:24 | Hospitalist Progress Note ---
Date of Service September 27, 2019 Assessment & Plan (1) Compression fracture: (2) Back pain: Present on admission with back pain CT Lumbar spine showed Moderate L1 compression fracture which is likely acute. Thoracic spine CT showed moderate L1 compression fracture, likely acute. Moderate T12 compression fracture with interval increase in vertebral body height loss since CT of August 03, 2019. No change in a severe T11 compression fracture which is chronic. Orthopedic on board recommended non operative approach Recommended TLSO brace to be worn when out of bed and we can begin therapy once this is available. Orthotic will adjust the brace for her so that she can wear it and start therapy Pain is control Will add on a low dose of baclofen prn Continue monitor fall precaution PT/OT recommended inpatient rehab Plan to go to [facility] today for rehab Chronic kidney disease stage IV. Baseline creatinine around 1.8, Currently creatinine 1.4 Monoclonal antibodies negative Stable Chronic systolic heart failure, S/P ICD Last ECHO on 2018 with EF 38% Continue home Toprol-XL and Lasix. Stable. Paroxysmal atrial fibrillation Rate control Continue amiodarone 100 mg p.o. daily and Toprol-XL. Coumadin on hold due to elevate INR INR 2.7 on 09/26/19 Continue coumadin Continue monitor PT/INR Hypertension BP stable Continue home medications. Supratherapeutic INR INR 2.7 on 09/26/19 Continue coumadin 2mg Continue monitor PT/INR History of coronary artery disease S/P PCI Continue Plavix and beta kyaw Asymptomatic Stable Hypothyroidism on Synthroid. Deep venous thrombosis prophylaxis INR 2.7 on 09/26/19 On coumadin CODE STATUS FULL CODE Disposition Plan to go to [facility] today COVID 19 screening negative Admission and Anticipated Discharge Date Admission Date: September 21, 2019 Subjective Pt was seen and examined Sitting in chair with no distress watching TV Pt said that her pain is moderate She said that she feels more stiff now Denies any chest pain, palpitation, dizziness and SOB Physical Exam Physical Exam: General- No acute distress Head- atraumatic Eyes- PERRL, EOMI, ENT- oropharynx clear Neck- supple, no JVD Lungs- clear to auscultation Heart- regular rhythm Abdomen- normal bowel sounds, soft, nontender Extremities- no calf tenderness Neuro- alert, oriented x 3; PERRL, EOMI; no facial palsy; no dysarthria Skin- warm & dry Results & Data Results & Data ([facility]) Vital Signs (Past 12 Hours) Vital Signs Temp Pulse Resp BP BP Pulse Ox 09/27/19 16:07 36.9 C 75 18 125/81 139/63 96 09/27/19 15:28 36.9 C 75 18 125/81 96 09/27/19 07:51 36.6 C 69 17 122/74 96
[2019-09-27] MEDS: WARFARIN SOD 2 MG TAB PO SCH (16:39)
--- NOTE | 2019-09-27 17:04 | Discharge Summary ---
Date of Service September 27, 2019 Admission HPI Per Admitting Provider CHIEF COMPLAINT: Severe back pain, ambulatory dysfunction. HISTORY OF PRESENT ILLNESS: This is an 89-year-old female with past medical history significant for thyrotoxicosis, hyperlipidemia, chronic systolic congestive heart failure, status post ICD, CAD status post stent, vitamin B12 deficiency, paroxysmal atrial fibrillation, GERD, chronic kidney disease stage IV, arthritis, senile osteoporosis, iron deficiency anemia. Currently son lives with her up to the midnight. She walks with the help of walker at home. Presents with severe back pain. The patient says the pain started about 3 days ago and it got progressively worse and she is not able to ambulate today, that is the reason she came to the ER. Denies any bowel or bladder incontinence. No blood in stool or black stools, no hematuria, no burning micturition. Denies any chest pain or shortness of breath. No cough, no loss of sense of smell or taste. No headache, no blurred vision, no earache, no runny nose, no sore throat, no dysphagia. Appetite is okay. Currently resting comfortably and hemodynamically stable. Imaging studies done in the ER showed multiple compression fractures of the spine. The patient was recently in July in the hospital with significant back pain at that time. She was discharged with home PT. Admission Exam Per Admitting Provider GENERAL: The patient is old and frail, not in acute distress. VITAL SIGNS: Temperature 36.7, pulse 65, respiratory rate 22, blood pressure 134/62, oxygen 93% on room air. HEENT: No pallor, no icterus. Pupils are equal, round, reactive to light. NECK: No JVD, no masses. CARDIOVASCULAR: S1, S2 heard. Regular rate and rhythm, no murmur, no gallop. RESPIRATORY SYSTEM: Normal AP diameter. No accessory muscle use. No wheezing, no crackles. ABDOMEN: Soft, bowel sounds present, nontender. No distention. CENTRAL NERVOUS SYSTEM: Cranial nerves II-XII grossly intact, nonfocal. Obeys simple commands. Moves extremities. EXTREMITIES: No edema, no erythema. MUSCULOSKELETAL: Lumbar spinal tenderness present on palpation. Principal Diagnosis Compression fracture Back pain Chronic kidney disease stage IV. Chronic systolic heart failure, Paroxysmal atrial fibrillation Hypertension Supratherapeutic INR History of coronary artery disease S/P PCI Hypothyroidism Discharge Exam General- No acute distress Head- atraumatic Eyes- PERRL, EOMI, ENT- oropharynx clear Neck- supple, no JVD Lungs- clear to auscultation Heart- regular rhythm Abdomen- normal bowel sounds, soft, nontender Extremities- no calf tenderness Neuro- alert, oriented x 3; PERRL, EOMI; no facial palsy; no dysarthria Skin- warm & dry Discharge Data Allergies Allergy/AdvReac Type Severity Reaction Status Date / Time perflutren Allergy Mild ANAPHYLAXIS Unverified 09/20/19 21:11 propylene glycol Allergy Mild ANAPHYLAXIS Unverified 09/20/19 21:11 tramadol AdvReac Severe "Violently Unverified 09/20/19 21:11 Ill" oxycodone AdvReac Unknown vomiting Verified 09/20/19 21:11 Consultations 09/20/19 22:49 ED Decision to Admit Stat 09/21/19 02:07 Consult Case Management - Discharge Planning Routine 09/21/19 08:00 Consult Orthopedic Surgery Routine Ordered Studies 09/20/19 21:15 CT lumbar spine wo con Urgent CT thoracic spine wo con Urgent CT OF THE LUMBAR SPINE CLINICAL HISTORY: Back pain. COMPARISON STUDY: Lumbar spine CT November 08, 2010. CT of the abdomen and pelvis August 03, 2019. TECHNIQUE: Helical axial images of the lumbar spine were obtained. Sagittal and coronal reconstructions were viewed. Automated exposure control was utilized for the study. A dose lowering technique was utilized adhering to the principles of ALARA. FINDINGS: Note is made of a moderate L1 compression fracture which is new since CT of August 03, 2019. There is 50% loss of vertebral body height. T12 fracture is better depicted on the CT of the thoracic spine. L3 and L4 compression fractures are unchanged. These are chronic. Slight concavity of the inferior plate of L2 is also chronic. No additional acute fractures are noted. There is severe multilevel facet arthrosis. Central canal neural foramen are suboptimally assessed by CT. Sacral joints are intact. No suspicious osseous lesions are noted. IMPRESSION: 1. Moderate L1 compression fracture which is likely acute. 2. Old L3 and L4 compression fractures. ACT 112: Negative or not required by law. Electronically signed by: Chaka Garza M.D. 09/21/2019 7:55 AM Dictated: 09/21/19 0749 Transcribed: 09/21/1949 CT OF THE THORACIC SPINE CLINICAL HISTORY: Thoracic pain. COMPARISON STUDY: Thoracic spine CT November 08, 2010. CT of the abdomen and pelvis August 03, 2019. TECHNIQUE: Helical axial images of the thoracic spine were obtained. Sagittal and coronal reconstructions were viewed. Automated exposure control was utilize d for the study. A dose lowering technique was utilized adhering to the principles of ALARA. FINDINGS: A large hiatal hernia is incidentally noted. Mild compression fractures of the superior endplates of T2 and T3 are noted. These are age- indeterminate but new since CT of November 08, 2010. There is an old severe T11 compression fracture which is similar to abdominal CT of August 03, 2019. A moderate T12 compression fracture is noted. Vertebral body height loss has increased since CT of August 03, 2019. There is mild central canal narrowing at the T11-T12 level, predominantly due to exaggerated kyphosis with minimal retropulsion. A moderate L1 compression fracture with 50% loss of vertebral body height is new since CT of August 03, 2019. There is slight loss of the superior plate of T10 which is age indeterminate. No suspicious osseous lesions are noted. IMPRESSION: 1. Moderate L1 compression fracture, likely acute. This is new since abdominal CT of August 03, 2019. 2. Moderate T12 compression fracture with interval increase in vertebral body height loss since CT of August 03, 2019. No change in a severe T11 compression fracture which is chronic. 3. Mild age indeterminate compression fractures of T2, T3 and T10. 4. Mild central canal narrowing at T11-T12, predominantly due to exaggerated kyphosis and mild retropulsion. The findings will be called/faxed to the ordering provider at time of dictation. ACT 112: Negative or not required by law. Electronically signed by: Chaka Garza M.D. 09/21/2019 7:48 AM Dictated: 09/21/19 0734 Transcribed: 09/21/19 0734 Hospital Course (1) Compression fracture: (2) Back pain: Present on admission with back pain CT Lumbar spine showed Moderate L1 compression fracture which is likely acute. Thoracic spine CT showed moderate L1 compression fracture, likely acute. Moderate T12 compression fracture with interval increase in vertebral body height loss since CT of August 03, 2019. No change in a severe T11 compression fracture which is chronic. Orthopedic on board recommended non operative approach Recommended TLSO brace to be worn when out of bed and we can begin therapy once this is available. Orthotic will adjust the brace for her so that she can wear it and start therapy Pain is control Will add on a low dose of baclofen prn Continue monitor fall precaution PT/OT recommended inpatient rehab Plan to go to [facility] today for rehab Chronic kidney disease stage IV. Baseline creatinine around 1.8, Currently creatinine 1.4 Monoclonal antibodies negative Stable Chronic systolic heart failure, S/P ICD Last ECHO on 2018 with EF 38% Continue home Toprol-XL and Lasix. Stable. Paroxysmal atrial fibrillation Rate control Continue amiodarone 100 mg p.o. daily and Toprol-XL. Coumadin on hold due to elevate INR INR 2.7 on 09/26/19 Continue coumadin Continue monitor PT/INR Hypertension BP stable Continue home medications. Supratherapeutic INR INR 2.7 on 09/26/19 Continue coumadin 2mg Continue monitor PT/INR History of coronary artery disease S/P PCI Continue Plavix and beta kyaw Asymptomatic Stable Hypothyroidism on Synthroid. Deep venous thrombosis prophylaxis INR 2.7 on 09/26/19 On coumadin CODE STATUS FULL CODE Disposition Plan to go to [facility] today COVID 19 screening negative Total Time Total Time Spent Total Time Spent (In Minutes): 35 minute Total Time Includes: Examination of the Patient, Discharge Planning, Medication Reconciliation, Communication With Other Providers and Other Discharge Plan Discharge Items Patient Disposition: Transfer Long Term Fac Reason For Visit: SEVERE BACK PAIN Discharge Diagnosis: Compression fracture Back pain Chronic kidney disease stage IV. Chronic systolic heart failure, Paroxysmal atrial fibrillation Hypertension Supratherapeutic INR History of coronary artery disease S/P PCI Hypothyroidism Condition on Discharge: Fair Activity: Resume your previous activity Non-emergency contact: Primary Care Provider Call non-emergency contact if: you have any medication questions Follow-up/Referrals: Bryan Morgan MD [Primary Care Provider] - Diet: Heart Healthy Addtl Attending Provider Instructions: Follow up with your provider at [facility] Follow up with the coumadin clinic to monitor PT/INR Follow up with Orthopedic as needed if no improvement Continue physical and occupational therapy Continue to wear the TLSO brace when out of bed and during therapy Fall precaution Pending Studies at Discharge: No Stand-Alone Forms: My [employer] Skilled Items Patient informed of condition?: Yes DNR: No Discharge Level of Care: Skilled Communicable Disease: No Discharge Prognosis: Stable Lines: None Urinary Catheter: No Medications and DC Order Prescriptions: New baclofen 10 mg Tablet 5 mg PO BID PRN (Reason: muscle spasm) Qty: 30 RF: 0 lidocaine 5 % Adhesive Patch,Medicated 1 patch transdermal QAM Qty: 5 RF: 0 Continued amiodarone [Pacerone] 200 mg tablet 100 mg PO QAM RF: 0 clopidogrel [Plavix] 75 mg tablet 75 mg PO QAM RF: 0 levothyroxine [Synthroid] 50 mcg tablet 50 mcg PO QAM RF: 0 midodrine 2.5 mg tablet 2.5 mg PO TID RF: 0 pantoprazole [Protonix] 40 mg tablet,delayed release (DR/EC) 40 mg PO QAM RF: 0 acetaminophen [Tylenol Extra Strength] 500 mg Tablet 500 mg PO Q6H PRN (Reason: Pain) Qty: 50 RF: 0 docusate sodium [Colace] 100 mg capsule 100 mg PO BID PRN (Reason: Constipation) RF: 0 warfarin [Coumadin] 1 mg tablet 2 mg PO [id number] RF: 0 furosemide [Lasix] 40 mg tablet 40 mg PO QAM RF: 0 cyanocobalamin (vitamin B-12) [Vitamin B-12] 1,000 mcg Tablet 1,000 mcg PO QAM RF: 0 spironolactone [Aldactone] 25 mg tablet 12.5 mg PO QAM RF: 0 nitroglycerin [Nitrostat] 0.4 mg Tablet, Sublingual 0.4 mg sublingual UD PRN (Reason: Chest Pain) RF: 0 metoprolol succinate [Toprol XL] 25 mg tablet extended release 24 hr 25 mg PO QAM RF: 0 cholecalciferol (vitamin D3) [Vitamin D3] 1,000 unit Capsule 1,000 unit PO QAM RF: 0 [facility] 50 mg-15 unit- 4.5 mg-2.5 mg Tablet,Chewable 1 tab PO QAM RF: 0 Discharge Orders: Discharge Order (Routine); Ordered 09/27/19 Ordered By: Chiki Girard Admission Data Admit Date/Time: 09/21/19 00:15 Attending Provider: Chiki Girard Admit Provider: Raheem Andersen Primary Care Provider: Bryan Morgan Other Providers: Raheem Andersen ; Zak Baxter John C. ; John Ward Other Interventions: Discharge Summary Assessment (RN) Last Done: 09/27/19 16:07
== END 2019-09-27 17:10 | DRG 543 ==
LOC: ED 20:39 → 3E 09-21 00:15 → SUATTDRO 09-21 00:15 → 3E 09-21 01:21